=== PATIENT | female | born 1965 | race African-American/Black ===

== ENCOUNTER 2018-02-27 11:16 | Emergency (ER) | payer OTHER, MEDICAID, SELFPAY | END 2018-02-27 14:24 | disposition home or self-care (01) | PROVIDERS: Emergency Provider Emergency Medicine; PCP Family Medicine; Visit Provider Emergency Medicine | DX: R22.1 Localized swelling, mass and lump, neck (principal); M54.2 Cervicalgia | CPT/HCPCS: 80053; 81003; 84145; 84443; 85025; 96361; 96365; 96366; 96375; 99058; 99284; J0295; J1100; J1885 ==

== ENCOUNTER 2018-05-17 17:15 | Emergency (ER) | payer OTHER, MEDICAID, SELFPAY ==
[2018-05-17] MEDS: predniSONE 20 MG TABLET 60 MG PO (17:28)
[2018-05-17 17:33] VITALS: BP 163/78; PULSE 81; RESP 13; TEMP 36.8; O2SAT 96; BMI 32.8
--- NOTE | 2018-05-17 17:45 | ED_ITS ---
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 She was outdoors and states that she felt something landed on her right arm. She did not actually see it but felt a sting, then her arm started to swell and ?bubble?. She states it has been painful, itching, and can feel pressure and tingling into her wrist and hand area. She applied a cold compress. She felt like her throat was starting to get uncomfortable, but she did not have sensation of swelling or dyspnea severe enough that she felt like she needed to use her epinephrine pen. A dose of steroids was ordered for previously and she reports that this is starting to feel little bit better. Currently she denies any tongue or facial swelling or dyspnea. She states that she still feels tight in her hand and tingling with tender swelling in her arm. Of note she has a documented history to Benadryl, but states that she took the medication should she was prescribed at her visit in February, including hydroxyzine, without problem Related Data Home Medications Medication Instructions Recorded Confirmed amlodipine [Norvasc] 10 mg PO QDAY #0 01/10/17 citalopram [Celexa] 40 mg PO QDAY #0 01/10/17 glimepiride [Amaryl] 8 mg PO BID #0 04/17/17 methimazole 5 mg PO QDAY #0 04/17/17 saxagliptin [Onglyza] 2.5 mg PO QDAY #0 04/17/17 Previous Rx's Medication Instructions Recorded azithromycin [Zithromax] 250 mg PO QDAY 5 Days #0 tab 01/10/17 ondansetron 4 mg SUBLINGUAL Q6HP PRN #20 odt 04/17/17 oxycodone-acetaminophen [Endocet] 1 tab PO Q4HP PRN #30 tab 04/17/17 Allergies Allergy/AdvReac Type Severity Reaction Status Date / Time Antihistamines - Alkylamine Allergy Severe Anaphylaxis Verified 05/17/18 17:32 [ANTIHISTAMINES - ALKYLAMINE] peanut [PEANUT] Allergy Intermediate Verified 05/17/18 17:32 diphenhydramine Allergy Unknown Verified 05/17/18 17:32 [DIPHENHYDRAMINE] venom-honey bee Allergy Unknown Verified 05/17/18 17:32 [BEE VENOM (HONEY BEE)] venom-wasp [WASP VENOM] Allergy Unknown Verified 05/17/18 17:32 OTC COUGH MEDICATION Allergy Severe Anaphylaxis Uncoded 05/17/18 17:32 CULTIVATED OAT POLLEN Allergy Unknown Uncoded 02/12/18 12:29 Review of Systems <Luz Stewart PA-C - Last Filed: 05/17/18 21:54> Review of Systems All systems reviewed & are unremarkable except as noted in HPI and below PFSH <Luz Stewart PA-C - Last Filed: 05/17/18 21:54> Comment: non smoker, occ ETOH, no elicit Exam <DEBRA Cullen Last Filed: 05/17/18 21:54> Initial Vital Signs Initial Vital Signs: Vital Signs Temperature 98.3 F 05/17/18 17:33 Pulse Rate 81 05/17/18 17:33 Respiratory Rate 13 05/17/18 17:33 Blood Pressure 163/78 H 05/17/18 17:33 Pulse Oximetry 96 05/17/18 17:33 GENERAL APPEARANCE: Patient sitting comfortably, in no distress. HEENT: EOMI, normal oropharynx, no lip or facial edema noted NECK/THYROID: Neck supple, trachea midline LUNGS: Clear to auscultation bilaterally. HEART: Regular rate and rhythm without murmur, normal S1, S2, no S3 or S4. DERMATOLOGIC: Right posterior forearm there is a tender non circumscribed area of edema, no visit puncture or bite wound, no erythema NEUROLOGIC: Alert and oriented, normal speech, and coordination. MS: R. wrist and hand full ROM <Riley Noe DO - Last Filed: 05/18/18 07:26> Initial Vital Signs Initial Vital Signs: Vital Signs Temperature 98.3 F 05/17/18 17:33 Pulse Rate 81 05/17/18 17:33 Respiratory Rate 13 05/17/18 17:33 Blood Pressure 163/78 H 05/17/18 17:33 Pulse Oximetry 96 07/14/18 17:33 Course <Luz Stewart PA-C - Last Filed: 05/17/18 21:54> Additional Information: After administration of medications patient reports feeling significantly improved and swelling much better in her arm. She was given prednisone to continue at home for the next couple of days as she states that she tends to have a significant histamine reaction Orders Ordered: Discontinued Medications Hydroxyzine Pamoate (Vistaril) 25 mg PO NOW ONE Stop: 05/17/18 18:05 Last Admin: 05/17/18 18:18 Dose: 25 mg Prednisone (Deltasone) 60 mg PO NOW ONE Stop: 05/17/18 17:27 Last Admin: 05/17/18 17:28 Dose: 60 mg Prednisone (Deltasone 20 Mg Prepack) 1 bottle MISC SEEINSTR ONE Stop: 05/17/18 19:12 Last Admin: 05/17/18 19:45 Dose: 1 bottle Vital Signs - 8 hr 05/17/18 17:33 05/17/18 18:34 05/17/18 19:46 Temperature 98.3 F Pulse Rate 81 79 79 Respiratory Rate 13 16 20 Blood Pressure 163/78 H 149/89 H Blood Pressure [Left Arm] 136/71 H Pulse Oximetry 96 96 100 <Riley Noe DO - Last Filed: 05/18/18 07:26> Orders Ordered: Discontinued Medications Hydroxyzine Pamoate (Vistaril) 25 mg PO NOW ONE Stop: 05/17/18 18:05 Last Admin: 05/17/18 18:18 Dose: 25 mg Prednisone (Deltasone) 60 mg PO NOW ONE Stop: 05/17/18 17:27 Last Admin: 05/17/18 17:28 Dose: 60 mg Prednisone (Deltasone 20 Mg Prepack) 1 bottle MISC SEEINSTR ONE Stop: 05/17/18 19:12 Last Admin: 05/17/18 19:45 Dose: 1 bottle Vital Signs - 8 hr 05/17/18 17:33 05/17/18 18:34 05/17/18 19:46 Temperature 98.3 F Pulse Rate 81 79 79 Respiratory Rate 13 16 20 Blood Pressure 163/78 H 149/89 H Blood Pressure [Left Arm] 136/71 H Pulse Oximetry 96 96 100 Discharge Plan Departure Patient Disposition: Home, Self-Care Clinical Impression: Insect bite Discharge Date/Time: 05/17/18 19:46 Interventions: ED Discharge Assessment Last Done: 05/17/18 19:46 Instructions: DI for Insect Bites and Stings Activity Restrictions/Additional Instructions: You do not need to take any more steroid today since we gave this to you in the emergency department. We have given you prednisone pills, 20 mg. You can take 1 tomorrow, and 1 the next day and this should help the histamine reaction. Please discontinue them after 2 days. You should return if you have any acutely worsening symptoms again such as difficulty breathing or facial swelling. Please keep your EpiPen on hand as usual Prescriptions: No Action citalopram [Celexa] 10 mg Tablet 40 mg PO QDAY Qty: 0 RF: 0 amlodipine [Norvasc] 5 MG tablet 10 mg PO QDAY Qty: 0 RF: 0 azithromycin [Zithromax] 250 MG tablet 250 mg PO QDAY 5 Days Qty: 0 RF: 0 methimazole 5 MG tablet 5 mg PO QDAY Qty: 0 RF: 0 glimepiride [Amaryl] 4 MG tablet 8 mg PO BID Qty: 0 RF: 0 saxagliptin [Onglyza] 2.5 MG tablet 2.5 mg PO QDAY Qty: 0 RF: 0 oxycodone-acetaminophen [Endocet] 5 MG/325 MG tablet 1 tab PO Q4HP PRNQty: 30 RF: 0 ondansetron 4 MG tablet,disintegrating 4 mg Sublingual Q6HP PRNQty: 20 RF: 0 Referrals: Riley Aguero MD [Primary Care Provider] - <Riley Noe DO - Last Filed: 05/18/18 07:26> [facility] ED Attending Yeison Attestation: I was available for consultation during this patient's emergency department encounter
[2018-05-17] MEDS: hydrOXYzine pamoate 25 MG CAPSULE PO (18:18)
[2018-05-17 18:34] VITALS: BP 136/71; PULSE 79; RESP 16; O2SAT 96
[2018-05-17] MEDS: predniSONE 20 MG PREPACK 1 BOTTLE MISC (19:45)
[2018-05-17 19:46] VITALS: BP 149/89; PULSE 79; RESP 20; O2SAT 100
== END 2018-05-17 19:46 | disposition home or self-care (01) ==
PROVIDERS: Emergency Provider Internal Medicine; PCP Family Medicine
DX: S40.861A Insect bite (nonvenomous) of right upper arm, initial encounter (principal); W57.XXXA Bitten or stung by nonvenomous insect and other nonvenomous arthropods, initial encounter
CPT/HCPCS: 99282; 99283

== ENCOUNTER → 2018-05-27 08:37 | Outpatient (CLI) | payer OTHER, MEDICAID, SELFPAY ==
--- NOTE | 2018-05-27 | DI.MG.S_ITS ---
BILATERAL DIGITAL SCREENING MAMMOGRAM 3D/2D WITH CAD: 05/27/2018 CLINICAL: Routine screening. Comparison is made to exams dated: 04/17/2017 localization, 04/17/2017 mammogram, 02/28/2017 mammogram, and 07/28/2014 mammogram - [facility]. The tissue of both breasts is predominantly fatty. Current study was also evaluated with a Computer Aided Detection (CAD) system. There are post operative findings in the left breast. No significant masses, calcifications, or other findings are seen in either breast. There has been no significant interval change. IMPRESSION: NEGATIVE There is no mammographic evidence of malignancy. A 1 year screening mammogram is recommended. This exam was interpreted at Station ID: [id number]. NOTE: For mammograms, a report in lay terms will be sent to the patient. Approximately 15% of breast malignancies will not be visualized mammographically. In the management of a palpable breast mass, a negative mammogram must not discourage biopsy of a clinically suspicious lesion. Electronically Signed By: Paulo alba/idalmis:05/28/2018 08:10:07 copy to: Leatha Flower copy to: Ian Beck letter sent: Normal Exam ACR BI-RADS Category 1: Negative 3341F
== END ==
PROVIDERS: PCP Family Medicine; Visit Provider Family Medicine
DX: Z12.31 Encounter for screening mammogram for malignant neoplasm of breast (principal)
CPT/HCPCS: 77063; 77067

== ENCOUNTER → 2019-05-04 07:18 | Outpatient (CLI) | payer OTHER, SELFPAY ==
--- NOTE | 2019-05-04 | DI.MG.S_ITS ---
BILATERAL DIGITAL SCREENING MAMMOGRAM 3D/2D WITH CAD: 05/04/2019 CLINICAL: Routine screening. Comparison is made to exams dated: 05/27/2018 mammogram, 02/28/2017 mammogram, and 07/28/2014 mammogram - [facility]. There are scattered fibroglandular elements in both breasts. Current study was also evaluated with a Computer Aided Detection (CAD) system. There are benign post operative findings in the left breast. No significant masses, calcifications, or other findings are seen in either breast. There has been no significant interval change. IMPRESSION: There is no mammographic evidence of malignancy. A 1 year screening mammogram is recommended. This exam was interpreted at Station ID: [id number]. NOTE: For mammograms, a report in lay terms will be sent to the patient. Approximately 15% of breast malignancies will not be visualized mammographically. In the management of a palpable breast mass, a negative mammogram must not discourage biopsy of a clinically suspicious lesion. Electronically Signed By: John giordano/idalmis:05/04/2019 10:32:04 copy to: Glenn Chavez copy to: Ian Beck letter sent: Normal Exam ACR BI-RADS Category 2: Benign Finding(s) 3342F
== END ==
PROVIDERS: PCP Family Medicine; Visit Provider Internal Medicine
DX: Z12.31 Encounter for screening mammogram for malignant neoplasm of breast (principal)
CPT/HCPCS: 77063; 77067

== ENCOUNTER → 2020-11-29 12:18 | Outpatient (CLI) | payer OTHER, MEDICAID, SELFPAY ==
--- NOTE | 2020-11-29 12:21 | DI.RAD.S_ITS ---
PROCEDURE: XR HAND LT MIN 3V INDICATIONS: LEFT FINGER INJURY, 4TH FINGER, 2-3 WEEKS AGO TECHNIQUE: 3 views of the hand(s) acquired. COMPARISON: None. FINDINGS: Bones: Comminuted fracture of the 4th middle phalanx with minimal displacement. Carpal bones are normally aligned. No suspicious bony lesions. Soft tissues: No suspicious soft tissue calcifications. IMPRESSION: Comminuted, minimally displaced fracture of the 4th middle phalanx. Dictated by: Sharon Flores M.D. on 11/29/2020 at 17:22 Approved by: Sharon Flores M.D. on 11/29/2020 at 17:23
== END ==
PROVIDERS: PCP Student in an Organized Health Care Education/Training Program; Referring Provider Internal Medicine; Visit Provider Internal Medicine
DX: S62.625A Displaced fracture of middle phalanx of left ring finger, initial encounter for closed fracture (principal); X58.XXXA Exposure to other specified factors, initial encounter
CPT/HCPCS: 73130

== ENCOUNTER 2020-11-29 12:32 | Emergency (ER) | payer OTHER, MEDICAID, SELFPAY ==
[2020-11-29] VITALS (29 sets, daily range): BP systolic 135–255; BP diastolic 91–128; PULSE 64–99; RESP 14–18; TEMP 37.1; O2SAT 98–99; BMI 35.6
--- NOTE | 2020-11-29 13:26 | ED_ITS ---
HPI - General Adult General Chief complaint: Hypertension Stated complaint: HIGH BLOOD PRESSURE Time Seen by Provider: 11/29/20 12:45 Source: patient Mode of arrival: Ambulatory Limitations: no limitations History of Present Illness HPI narrative: Patient is a 55-year-old female with history of diabetes hypertension hyperlipidemia presenting today from her doctor's office with elevated blood pressure. She was actually being seen evaluated for left finger injury from a few weeks ago. her finger got caught on the dog leash. It is swollen and tender she actually already had an x-ray. However her blood pressur e has systolic greater than 200. She denies any headache chest pain shortness of breath or any symptoms. She is not taking any medication since October. Apparently her grandmother and she decided to not take anymore of her own medication did not help her grandmother Related Data Home Medications Medication Instructions Recorded Confirmed amlodipine [Norvasc] 10 mg PO QDAY #0 01/10/17 citalopram [Celexa] 40 mg PO QDAY #0 01/10/17 glimepiride [Amaryl] 8 mg PO BID #0 04/17/17 methimazole 5 mg PO QDAY #0 04/17/17 saxagliptin [Onglyza] 2.5 mg PO QDAY #0 04/17/17 Previous Rx's Medication Instructions Recorded azithromycin [Zithromax] 250 mg PO QDAY 5 Days #0 tab 01/10/17 ondansetron 4 mg SUBLINGUAL Q6HP PRN #20 odt 04/17/17 oxycodone-acetaminophen [Endocet] 1 tab PO Q4HP PRN #30 tab 04/17/17 Allergies Allergy/AdvReac Type Severity Reaction Status Date / Time Antihistamines - Alkylamine Allergy Severe Anaphylaxis Verified 11/29/20 12:48 [ANTIHISTAMINES - ALKYLAMINE] peanut [PEANUT] Allergy Intermediate Verified 11/29/20 12:48 diphenhydramine Allergy Unknown Verified 11/29/20 12:48 [DIPHENHYDRAMINE] venom-honey bee Allergy Unknown Verified 11/29/20 12:48 [BEE VENOM (HONEY BEE)] venom-wasp [WASP VENOM] Allergy Unknown Verified 11/29/20 12:48 OTC COUGH MEDICATION Allergy Severe Anaphylaxis Uncoded 05/17/18 17:32 CULTIVATED OAT POLLEN Allergy Unknown Uncoded 02/12/18 12:29 Review of Systems Review of Systems Narrative: GENERAL: Denies chills, fatigue, malaise, fever, sweats, travel HEENT: Denies sinus pain, ear pain, sore throat, difficulty swallowing, neck pain RESPIRATORY: Denies dyspnea, cough, wheezing, hemoptysis, sputum. CARDIOVASCULAR: Denies chest pain, palpitations, orthopnea, edema GASTROINTESTINAL: Denies nausea, vomiting, abdominal pain, diarrhea, constipation, melena. : Denies dysuria, frequency, incontinence, hematuria, urinary retention, flank pain. MUSCULOSKELETAL: See HPI SKIN: No rash, no erythema, no pruritus NEUROLOGIC: Denies weakness, dizziness, headache, numbness, change in speech, confusion PSYCHIATRIC: No concerning psychosocial issues. 12 point review of systems is negative except for those stated above and HPI Patient History Medical History Diabetes HTN (hypertension) Hyperthyroidism Surgical History H/O lumpectomy Social History Smoking Status: Unknown if ever smoked Smoking Status: Unknown if ever smoked alcohol intake frequency: holidays/special occasions only Substance Use Type: does not use Exam Initial Vital Signs Initial Vital Signs: Vital Signs Temperature 98.7 F 11/29/20 12:43 Pulse Rate 98 H 11/29/20 12:43 Respiratory Rate 14 11/29/20 12:43 Blood Pressure 135/91 H 11/29/20 12:43 Pulse Oximetry 98 11/29/20 12:43 GENERAL: Well-appearing, well-nourished and in no acute distress. HEENT: Head atraumatic,EOMI, pupils reactive, face symmetric, moist mucous membranes CARDIOVASCULAR: Regular rate and rhythm without murmurs, rubs or gallops. RESPIRATORY: Breath sounds equal bilaterally, no wheezes rales or rhonchi. ABDOMEN: Soft, nontender. Normoactive bowel sounds all 4 quadrants. No guarding or rebound. EXTREMITIES: Normal range of motion, no clubbing or edema. Neurovascularly intact Left ring finger swollen in splint cap refill less than 2 seconds no erythema NEUROLOGICAL: Alert and oriented x4.Normal gait and speech. Cranial nerves II through XII grossly intact. SKIN: Warm, dry, no laceration, no petechiae, no rashes or lesions. Course Orders Ordered: ED Orders 11/29/20 13:50 Complete Blood Count AUTO DIFF Stat Comprehensive Metabolic Panel Stat Lipase Stat Troponin & CK Cardiac Panel Stat 11/29/20 14:00 EKG-12 Lead Stat Discontinued Medications Amlodipine Besylate (Amlodipine 5 Mg Tablet) 10 mg PO NOW ONE Stop: 11/29/20 15:36 Last Admin: 11/29/20 15:47 Dose: 10 mg Documented by: PABLITO Diltiazem HCl (Diltiazem Cd 180 Mg Cap) 180 mg PO NOW ONE Stop: 11/29/20 14:34 Last Admin: 11/29/20 14:45 Dose: 180 mg Documented by: PABLITO Diltiazem HCl (Diltiazem Cd 180 Mg Cap) 180 mg PO NOW ONE Stop: 11/29/20 15:36 Last Admin: 11/29/20 15:47 Dose: 180 mg Documented by: PABLITO Hydrochlorothiazide (Hydrochlorothiazide 25 Mg Tablet) 50 mg PO NOW ONE Stop: 11/29/20 14:34 Last Admin: 11/29/20 14:56 Dose: 50 mg Documented by: PABLITO Labetalol HCl (Labetalol 20 Mg/4 Ml Syringe) 10 mg IV NOW ONE Stop: 11/29/20 13:33 Last Admin: 11/29/20 13:53 Dose: 10 mg Documented by: PABLITO Labetalol HCl (Labetalol 20 Mg/4 Ml Syringe) 10 mg IV NOW ONE Stop: 11/29/20 14:28 Last Admin: 11/29/20 14:32 Dose: 10 mg Documented by: PABLITO Vital Signs Vital signs: Vital Signs - 8 hr 11/29/20 12:43 11/29/20 12:46 11/29/20 13:00 Temperature 98.7 F Pulse Rate 98 H 99 H 71 Respiratory Rate 14 Blood Pressure 135/91 H 135/91 H Pulse Oximetry 98 98 99 11/29/20 13:01 11/29/20 13:06 11/29/20 13:09 Temperature Pulse Rate 72 79 75 Respiratory Rate Blood Pressure 227/107 H 247/107 H 249/114 H Pulse Oximetry 98 99 98 11/29/20 13:11 11/29/20 13:29 11/29/20 13:30 Temperature Pulse Rate 83 78 75 Respiratory Rate Blood Pressure 239/128 H 227/113 H 230/120 H Pulse Oximetry 99 99 99 11/29/20 13:53 11/29/20 14:00 11/29/20 14:16 Temperature Pulse Rate 68 80 70 Respiratory Rate 15 17 Blood Pressure 230/120 H 245/120 H 237/114 H Pulse Oximetry 99 99 11/29/20 14:20 11/29/20 14:30 11/29/20 14:31 Temperature Pulse Rate 67 78 78 Respiratory Rate 14 16 Blood Pressure 231/110 H 223/126 H 223/126 H Pulse Oximetry 99 99 11/29/20 14:32 11/29/20 14:43 11/29/20 15:00 Temperature Pulse Rate 78 70 67 Respiratory Rate 15 14 Blood Pressure 223/126 H 228/107 H Pulse Oximetry 99 99 11/29/20 15:01 11/29/20 15:10 11/29/20 15:18 Temperature Pulse Rate 67 66 69 Respiratory Rate 17 18 Blood Pressure 241/105 H 219/103 H 219/103 H Pulse Oximetry 99 99 11/29/20 15:20 11/29/20 15:30 11/29/20 15:41 Temperature Pulse Rate 66 66 71 Respiratory Rate 18 17 18 Blood Pressure 223/106 H 205/98 H 228/107 H Pulse Oximetry 99 99 99 11/29/20 16:00 11/29/20 16:30 11/29/20 16:31 Temperature Pulse Rate 64 81 81 Respiratory Rate 18 16 16 Blood Pressure 255/121 H Pulse Oximetry 99 98 98 11/29/20 17:00 11/29/20 17:01 Temperature Pulse Rate 73 74 Respiratory Rate 18 16 Blood Pressure 222/115 H Pulse Oximetry 98 98 Medical Decision Making Lab Data Lab results reviewed: Yes I reviewed the patient's lab results. Result diagrams: 11/29/20 13:50 11/29/20 13:50 Labs: Lab Results 11/29/20 11/29/20 Range/Units 13:50 13:50 WBC 5.0 (4.5-11.0) X10^3/uL RBC 5.78 H (4.0-5.2) X10^6/uL Hgb 12.7 (12.0-16.0) g/dL Hct 40.8 (36-46) % MCV 70.6 L (80-100) fL MCH 22.1 L (26-34) PG MCHC 31.3 (30-36) % RDW 15.7 H (11.6-14.8) % Plt Count 301 (150-400) X10^3/uL Neut % (Auto) 38.2 L (50-75) % Lymph % (Auto) 47.4 H (25-40) % [place] % (Auto) 8.2 (3-14) % Eos % (Auto) 5.4 H (2-4) % Baso % (Auto) 0.8 (0-2) % Neut # (Auto) 1900 (0734-7096) /uL Lymph # (Auto) 2400 (2412-4540) /uL [place] # (Auto) 400 (0-900) /uL Eos # (Auto) 300 (0-450) /uL Baso # (Auto) 0 (0-100) /uL Sodium 139 (137-145) mmol/L Potassium 3.1 L (3.4-5.1) mmol/L Chloride 103 (98-107) mmol/L Carbon Dioxide 32 (22-32) mmol/L BUN 13 (7-17) mg/dL Creatinine 0.66 (0.52-1.04) mg/dL Estimated GFR > 60.0 (>60) mL/min BUN/Creatinine Ratio 19.7 (6-22) Glucose 198 H (70-100) mg/dL Calcium 9.6 (8.4-10.2) mg/dL Total Bilirubin 0.7 (0.2-1.3) mg/dL AST 21 (14-36) IU/L ALT 18 (<35) IU/L Alkaline Phosphatase 102 (38-126) U/L Total Creatine Kinase 52 (30-135) U/L CK-MB (CK-2) TNP CK-MB (CK-2) Rel Index TNP Troponin I < 0.012 (0.01-0.034) ng/mL Total Protein 8.3 H (6.3-8.2) g/dL Albumin 4.5 (3.5-5.0) g/dL Globulin 3.8 (1.7-4.1) g/dL Albumin/Globulin Ratio 1.2 (1.0-2.8) Lipase 90 (23-300) U/L Urine Dip Bedside Urine Glucose 250 mg/dl Bedside Urine Bilirubin - Negative Bedside Urine Ketone - Negative Urine Specific [place] 1.020 Bedside Urine Occult Blood +/- Bedside Urine pH 7 Bedside Urine Protein ++ 100 Bedside Urine Urobilinogen - Negative Bedside Urine Nitrite - Negative Bedside Urine Leukocytes - Negative Esterase Point of care testing: Urine Dip Bedside Urine Glucose 250 mg/dl Bedside Urine Bilirubin - Negative Bedside Urine Ketone - Negative Urine Specific [place] 1.020 Bedside Urine Occult Blood +/- Bedside Urine pH 7 Bedside Urine Protein ++ 100 Bedside Urine Urobilinogen - Negative Bedside Urine Nitrite - Negative Bedside Urine Leukocytes - Negative Esterase Imaging Data Extremity x-ray #1: Radiologist's Impression: PROCEDURE: XR HAND LT MIN 3V INDICATIONS: LEFT FINGER INJURY, 4TH FINGER, 2-3 WEEKS AGO TECHNIQUE: 3 views of the hand(s) acquired. COMPARISON: None. FINDINGS: Bones: Comminuted fracture of the 4th middle phalanx with minimal displacement. Carpal bones are normally aligned. No suspicious bony lesions. Soft tissues: No suspicious soft tissue calcifications. IMPRESSION: Comminuted, minimally displaced fracture of the 4th middle phalanx. Dictated by: Sharon Flores M.D. on 11/29/2020 at 17:22 ECG Data Attestation: I personally reviewed and interpreted this ECG as follows: Prior ECG tracings: not available for review Interpretation: Normal sinus rhythm rate 68 p.r. interval 165 QRS [address] changes Q-wave noted in lead 3 only MDM Narrative Medical decision making narrative: Patient's initial blood pressure was normal with a systolic of 135 however multiple repeats showed consistent systolic the later than 200. Patient is completely asymptomatic. No chest pain shortness of breath headache focal deficits no sign of end-organ damage. However she does have protein in her urine. She has been noncompliant with her medications. I did give her home medications diltiazem 180 and Shiley and hydrochlorothiazide 50 mg on top of 20 mg of labetalol. Still her blood pressure remained systolic greater than 200. I suspect that her blood pressure is chronically elevated and has been for some time. 3:[address] Castanon, updated patient's symptoms test results. She actually has an appointment with PCP tomorrow Dr. Mathis. At this time he states that diltiazem is supposed to be 360 mg recommends giving and other dose of diltiazem and Norvasc 10 mg. He agrees she is completely asymptomatic no systolic remains quite elevated but has close follow-up tomorrow. Discussed at length it is extremely important for patient to take her medication as prescribed. She understands she agrees to take them. She may need cardiology referral and renal artery evaluation apparent seems to be very difficult to control. I discussed all findings with the patient, Education has been performed regarding treatment plan, diagnosis, warning signs and symptoms and all concerns have been addressed. Verbally agree with and understood all of the above. Discharge Plan Departure Patient Disposition: Home Clinical Impression: Hypertension Qualifiers: Hypertension type: essential hypertension Qualified Code(s): I10 - Essential (primary) hypertension Finger fracture, left Qualifiers: Encounter type: initial encounter Finger: ring finger Fracture type: closed Phalanx: unspecified phalanx Fracture alignment: displaced Qualified Code(s): S62.605A - Fracture of unspecified phalanx of left ring finger, initial encounter for closed fracture Instructions: DI for High Blood Pressure Activity Restrictions/Additional Instructions: *You have been diagnosed with hypertension *What to do: YOU MUST TAKE YOUR BLOOD PRESSURE MEDICATION AND FOLLOW UP WITH HER DOCTOR TOMORROW *Continue to take medications as directed Diltiazem 360 mg Norvasc 10 mg once a day Hydrochlorothiazide 50 mg once a day *Follow up with your primary care provider tomorrow *Return to ER if you should have headache, shortness of breath, chest pain, weakness, blurry vision, double vision or any new, worsening or concerning symptoms Prescriptions: No Action citalopram [Celexa] 10 mg tablet 40 mg PO QDAY Qty: 0 RF: 0 amlodipine [Norvasc] 5 MG tablet 10 mg PO QDAY Qty: 0 RF: 0 azithromycin [Zithromax] 250 MG tablet 250 mg PO QDAY 5 Days Qty: 0 RF: 0 methimazole 5 MG tablet 5 mg PO QDAY Qty: 0 RF: 0 glimepiride [Amaryl] 4 MG tablet 8 mg PO BID Qty: 0 RF: 0 saxagliptin [Onglyza] 2.5 MG tablet 2.5 mg PO QDAY Qty: 0 RF: 0 oxycodone-acetaminophen [Endocet] 5 MG/325 MG tablet 1 tab PO Q4HP PRNQty: 30 RF: 0 ondansetron 4 MG tablet,disintegrating 4 mg Sublingual Q6HP PRNQty: 20 RF: 0 Referrals: Deyanira Mathis MD [Primary Care Provider] -
[2020-11-29] MEDS: LABETALOL 20 MG/4 ML SYRINGE 10 MG IV ×2 (13:53→14:32)
[2020-11-29 13:59] LABS: Add Manual Diff / Slide Review NO; Basophils Absolute Auto 0 /uL (0-100); Basophils Percent Auto 0.8 % (0-2); Eosinophils Absolute Auto 300 /uL (0-450); Eosinophils Percent Auto 5.4 % (2-4); Hematocrit 40.8 % (36-46); Hemoglobin 12.7 g/dL (12.0-16.0); Lymphocytes Absolute Auto 2400 /uL (1100-4500); Lymphocytes Percent Auto 47.4 % (25-40); Mean Corpuscular HGB Conc 31.3 % (30-36); Mean Corpuscular Hemoglobin 22.1 PG (26-34); Mean Corpuscular Volume 70.6 fL (80-100); Monocytes Absolute Auto 400 /uL (0-900); Monocytes Percent Auto 8.2 % (3-14); Neutrophils Absolute Auto 1900 /uL (1500-7000); Neutrophils Percent Auto 38.2 % (50-75); Platelet Count 301 X10^3/uL (150-400); Red Blood Cell Count 5.78 X10^6/uL (4.0-5.2); Red Cell Distribution Width 15.7 % (11.6-14.8)
--- NOTE | 2020-11-29 14:05 | PC.NURSE ---
10 mg IV Labetalol given
[2020-11-29 14:12] LABS: Alanine Aminotransferase 18 IU/L (<35); Albumin 4.5 g/dL (3.5-5.0); Albumin Globulin Ratio 1.2 (1.0-2.8); Alkaline Phosphatase 102 U/L (38-126); Aspartate Aminotransferase 21 IU/L (14-36); BUN Creatinine Ratio 19.7 (6-22); Bilirubin Total 0.7 mg/dL (0.2-1.3); Blood Urea Nitrogen 13 mg/dL (7-17); Calcium 9.6 mg/dL (8.4-10.2); Carbon Dioxide 32 mmol/L (22-32); Chloride 103 mmol/L (98-107); Creatine Kinase 52 U/L (30-135); Estimated Glomerular Filt Rate > 60.0 mL/min (>60); Globulin 3.8 g/dL (1.7-4.1); Glucose 198 mg/dL (70-100); HEMOLYSIS < 15 (0-50); Lipase 90 U/L (23-300); Potassium 3.1 mmol/L (3.4-5.1); Sodium 139 mmol/L (137-145); Total Protein 8.3 g/dL (6.3-8.2)
[2020-11-29 14:23] LABS: Troponin I < 0.012 ng/mL (0.01-0.034)
[2020-11-29] MEDS: dilTIAZem CD 180 MG CAP PO ×2 (14:45→15:47)
[2020-11-29] MEDS: hydroCHLOROthiazide 25 MG TABLET 50 MG PO (14:56)
[2020-11-29] MEDS: AMLODIPINE 5 MG TABLET 10 MG PO (15:47)
== END 2020-11-29 17:33 | disposition home or self-care (01) ==
PROVIDERS: Emergency Provider Emergency Medicine; PCP Student in an Organized Health Care Education/Training Program
DX: I10 Essential (primary) hypertension (principal); S62.605A Fracture of unspecified phalanx of left ring finger, initial encounter for closed fracture; X58.XXXA Exposure to other specified factors, initial encounter; E11.9 Type 2 diabetes mellitus without complications; E78.5 Hyperlipidemia, unspecified; E05.90 Thyrotoxicosis, unspecified without thyrotoxic crisis or storm
CPT/HCPCS: 36415; 73130; 80053; 81003; 82550; 83690; 84484; 85025; 93005; 96374; 96376; 99283; 99284

== ENCOUNTER 2021-01-17 11:58 | Inpatient (IN) | payer OTHER, MEDICAID, SELFPAY ==
[2021-01-17] VITALS (27 sets, daily range): BP systolic 139–239; BP diastolic 72–112; PULSE 64–90; RESP 18–24; TEMP 36.3–37; O2SAT 98–100; BMI 35.9
--- NOTE | 2021-01-17 | DI.ECHO.S_ITS ---
[facility] +---------+ : : [address] : [address] : : : : [id number] : : : : Phone: [phone]+ Echocardiogram Report + + :Name: YUE MATA Study Date: 01/18/2021 Height: 62 in : :[facility] ReadingLocation: Weight: 196 lb : : Gender: Female BSA: 1.9 m2 : :: 1965 Age: 55 yrs BP: 113/64 mmHg: :Reason For Study: CVA : :Ordering Physician: BUBBA, : :EULALIO Performed By: Wendy Plummer : :Referring: EULALIO MAC : + + Interpretation Summary The patient was in sinus rhythm with heart rates between 67-86 bpm during the exam. The left ventricle is normal in size. The ejection fraction is estimated to be 60-65%. There is no obvious LV thrombus. The right ventricle is normal in size and function. Injection of contrast documented no interatrial shunt. There is discrete nodular thickening of the left coronary cusp. There is no aortic valve stenosis. No aortic regurgitation is present. The IVC is of normal diameter and collapses greater than 50% with a sniff. This suggests a low right atrial pressure of 3 mm Hg. Procedure: A two-dimensional transthoracic echocardiogram with color flow and Doppler was performed. The study quality was technically adequate. A saline contrast injection was performed to assess for cardiac shunting. There is no prior echocardiogram noted for this patient. The patient was in sinus rhythm with heart rates between 67-86 bpm during the exam. Left Ventricle: The left ventricle is normal in size. There is mild concentric left ventricular hypertrophy. There is no thrombus. The ejection fraction is estimated to be 60-65%. There are no focal wall motion abnormalities. Diastolic parameters suggest a relaxation abnormality of the left ventricle, consistent with probable normal filling pressures. Right Ventricle: The right ventricle is normal in size and function. Atria: The left atrial size is normal. Right atrial size is normal. Injection of contrast documented no interatrial shunt. There is no Doppler evidence for an interatrial shunt. Mitral Valve: The mitral valve is normal in structure and function. There is trace mitral regurgitation. Aortic Valve: The aortic valve is mildly calcified. The aortic valve opens well. There is discrete nodular thickening of the left coronary cusp. There is no aortic valve stenosis. No aortic regurgitation is present. Tricuspid Valve: The tricuspid valve is normal in structure and function. Pulmonary artery pressures cannot be estimated because of the lack of a measurable TR jet velocity but the IVC suggests a CVP of around 3 mmHg. There is trace tricuspid regurgitation. Pulmonic Valve: The pulmonic valve is not well visualized. There is no pulmonic valvular regurgitation. Great Vessels: The aortic root is normal size. The dimensions of the ascending aorta are normal. The IVC is of normal diameter and collapses greater than 50% with a sniff. This suggests a low right atrial pressure of 3 mm Hg. Pericardium/ Pleura There is no pericardial effusion. There is no pleural effusion. MMode/2D Measurements & Calculations LVIDd: 4.1 cm LVOT diam: 2.1 cm LVIDs: 2.7 cm Ao root diam: 2.9 cm FS: 33.2 % asc Aorta Diam: 3.1 cm IVSd: 1.1 cm LVPWd: 1.2 cm LV cho. diameter/BSA (cm/m^2): 2.1 LV sys. diameter/BSA (cm/m^2): 1.4 LA A2 area: 19.2 cm2 RA long axis: 5.2 cm LA A4 area: 17.2 cm2 RA area: 17.5 cm2 LA length (vol): 4.9 cm RA vol: 49.4 ml LA vol: 57.0 ml RA : 26.1 ml/m2 LA vol index: 30.1 ml/m2 IVC diam: 0.91 cm RVD1 (basal): 2.3 cm TAPSE: 1.8 cm Doppler Measurements & Calculations Ao V2 max: 170.0 cm/sec LVOT Max Vidal: 92.1 cm/sec Ao V2 mean: 115.4 cm/sec LV V1 max P.4 mmHg Ao max P.6 mmHg LV V1 VTI: 19.0 cm Ao mean P.0 mmHg LIZ(I,D): 2.1 cm2 Ao V2 VTI: 31.2 cm LIZ(V,D): 1.9 cm2 sev ratio: 0.61 LIZ indexed to BSA (cm^2/m^2): 1.1 MV E max vidal: 63.2 cm/sec PA V2 max: 84.9 cm/sec Med Peak E' Vidal: 4.6 cm/sec PA V2 mean: 57.3 cm/sec E/E' med: 13.8 PA mean P.5 mmHg Lat Peak E' Vidal: 6.0 cm/sec PA pr(Accel): 41.3 mmHg E/E' lat: 10.5 E/e' average: 12.1 MV dec time: 0.24 sec SV([facility]): 65.8 ml Reading Physician:02:13 PM
--- NOTE | 2021-01-17 12:11 | DI.CT.S_ITS ---
PROCEDURE: CT HEAD/BRAIN WO CON INDICATIONS: Left sided weakness since Saturday TECHNIQUE: Noncontrast 4.5 mm thick angled axial sections acquired from the foramen magnum to the vertex, with coronal and sagittal reformats. For radiation dose reduction, the following was used: automated exposure control, adjustment of mA and/or kV according to patient size. COMPARISON: None. FINDINGS: Image quality: Excellent. CSF spaces: Basal cisterns are patent. No extra-axial fluid collections. The ventricles are symmetric in size and shape. Brain: No intracranial bleeds or masses. There is mild cerebral volume loss for age, with resultant ventricular and sulcal prominence. There a small area of hypodensity in the right frontal white matter suspicious for subacute infarct. There mild periventricular and deep white matter chronic small vessel ischemic changes. There is intracranial internal carotid artery atherosclerosis. Skull and face: Calvarium and visualized facial bones appear intact, without suspicious lesions. Sinuses: Visualized sinuses and mastoids are clear. IMPRESSION: A small area of hypodensity in the right frontal white matter suspicious for subacute infarct. If clinical symptoms persist or clinical suspicion for acute stroke is high, MRI is suggested for further evaluation. Dictated by: Sharon Flores M.D. on 01/17/2021 at 13:22 Approved by: Sharon Flores M.D. on 01/17/2021 at 13:24
--- NOTE | 2021-01-17 13:30 | ED.NEUROSD ---
HPI - Neuro Symptoms/Deficit General Chief Complaint: Neuro Symptoms/Deficit Stated Complaint: poss stroke on saturday Time Seen by Provider: 01/17/21 12:14 Source: patient Mode of arrival: Wheelchair Limitations: no limitations History of Present Illness HPI Narrative: Patient is a 55-year-old female history of diabetes, hypertension hyperlipidemia presenting today concerning for stroke. She was well on , 5 days ago. Saturday morning she was talking to her diabetes in her she took to the bromide which she normally does and then she says things went downhill. she had difficulty speaking it seemed to have resolved she was able to go fishing the next day the following day she right stated in then yesterday noticed she had some numbness and tingling in her left arm. When she arrived to the emergency department she was noted to have significant left facial droop and she is quite hypertensive. Speech seems to be improved however her memory is questionable. Onset (ago): day(s) Timing confirmed by: spouse Location: speech and left face History of same: No Severity: moderate Context: sudden onset Associated symptoms: confusion Related Data Home Medications Medication Instructions Recorded Confirmed glimepiride [Amaryl] 8 mg PO BID #0 04/17/17 01/17/21 methimazole 5 mg PO QDAY #0 04/17/17 01/17/21 alogliptin 25 mg PO DAILY 01/17/21 01/17/21 diltiazem HCl 180 mg PO DAILY 01/17/21 01/17/21 empagliflozin 10 mg PO DAILY 01/17/21 01/17/21 hydrochlorothiazide 50 mg PO DAILY 01/17/21 01/17/21 spironolactone 25 mg PO DAILY 01/17/21 01/17/21 terazosin 2 mg PO DAILY 01/17/21 01/17/21 Allergies Allergy/AdvReac Type Severity Reaction Status Date / Time Antihistamines - Alkylamine Allergy Severe Anaphylaxis Verified 01/17/21 12:08 [ANTIHISTAMINES - ALKYLAMINE] peanut [PEANUT] Allergy Intermediate Verified 01/17/21 12:08 diphenhydramine Allergy Unknown Verified 01/17/21 12:08 [DIPHENHYDRAMINE] venom-honey bee Allergy Unknown Verified 11/29/20 12:48 [BEE VENOM (HONEY BEE)] venom-wasp [WASP VENOM] Allergy Unknown Verified 11/29/20 12:48 OTC COUGH MEDICATION Allergy Severe Anaphylaxis Uncoded 05/17/18 17:32 CULTIVATED OAT POLLEN Allergy Unknown Uncoded 02/12/18 12:29 Review of Systems Review of Systems Narrative: GENERAL: Denies chills, fatigue, malaise, fever, sweats, travel HEENT: Denies sinus pain, ear pain, sore throat, difficulty swallowing, neck pain RESPIRATORY: Denies dyspnea, cough, wheezing, hemoptysis, sputum. CARDIOVASCULAR: Denies chest pain, palpitations, orthopnea, edema GASTROINTESTINAL: Denies nausea, vomiting, abdominal pain, diarrhea, constipation, melena. : Denies dysuria, frequency, incontinence, hematuria, urinary retention, flank pain. MUSCULOSKELETAL: Denies weakness, joint pain, or bony pain SKIN: No rash, no erythema, no pruritus NEUROLOGIC: See HPI PSYCHIATRIC: No concerning psychosocial issues. 12 point review of systems is negative except for those stated above and HPI Patient History Medical History Diabetes HTN (hypertension) Hyperthyroidism Surgical History H/O lumpectomy Social History household members: significant other Smoking Status: Never smoker Smoking Status: Former smoker alcohol intake frequency: holidays/special occasions only Substance Use Type: does not use Exam Initial Vital Signs Initial Vital Signs: Vital Signs Temperature 97.4 F L 01/17/21 12:02 Pulse Rate 90 01/17/21 12:02 Respiratory Rate 18 01/17/21 12:02 Blood Pressure 234/112 H 01/17/21 12:02 Pulse Oximetry 99 01/17/21 12:02 GENERAL: Alert 55-year-old female obvious left-sided facial droop and in no acute distress. HEENT: Head atraumatic,EOMI, pupils reactive, face symmetric, moist mucous membranes CARDIOVASCULAR: Regular rate and rhythm without murmurs, rubs or gallops. RESPIRATORY: Breath sounds equal bilaterally, no wheezes rales or rhonchi. ABDOMEN: Soft, nontender. Normoactive bowel sounds all 4 quadrants. No guarding or rebound. EXTREMITIES: Normal range of motion, no clubbing or edema. Neurovascularly intact NEUROLOGICAL: Alert and oriented x4.Normal gait and speech. Cranial nerves II through XII grossly intact. Good [id number], good [id number], strength equal bilaterally, no dysarthria or aphasia, sensation decreased left arm y, no visual changes, left facial droop SKIN: Warm, dry, no laceration, no petechiae, no rashes or lesions. Scores NIH Stroke Scale Level of Conciousness: Alert, keenly responsive Ask month/age: Answers both questions correctly. Open/close eyes, close hand: Performs both tasks correctly Best gaze horizontal: Normal Visual hamm: No visual loss Facial palsy: Minor paralysis, flattened nasolabial fold, asymmetry on smiling Left arm drift: No drift for full 10 sec Right arm drift: No drift for full 10 sec Left leg drift: No drift for full 5 sec Right leg drift: No drift for full 5 sec Limb ataxia: Absent Sensory on face/arms/legs: Mild to moderate sensory loss, can tell touch Best language: No aphasia, normal Dysarthria: Normal Extinction or inattention: No abnormality Total NIH Stroke scale score: 2 Course Orders Ordered: ED Orders 01/17/21 12:11 CT head/brain wo con Stat EKG-12 Lead Stat 01/17/21 13:33 Complete Blood Count AUTO DIFF Stat Comprehensive Metabolic Panel Stat Partial Thromboplastin Time Stat Prothrombin Time INR Stat Troponin & CK Cardiac Panel Stat 01/17/21 13:40 Urinalysis and Microscopic Stat Urine Drug Screen, Rapid Stat 01/17/21 14:51 COVID19 - ADMIT ([employer]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 swab/PCR) Stat Acetaminophen (Acetaminophen 325 Mg Tablet) 650 mg PO Q6HR PRN PRN Reason: Fever Atorvastatin Calcium (Atorvastatin 20 Mg Tablet) 80 mg PO BEDTIME [facility] Calcium Carbonate (Calcium Carbonate 500 Mg Tab) 1,000 mg PO Q4HR PRN PRN Reason: Dyspepsia Diltiazem HCl (Diltiazem Cd 180 Mg Cap) 360 mg PO DAILY [facility] Last Admin: 01/17/21 18:14 Dose: 360 mg Documented by: LATANYA Glimepiride (Glimepiride 2 Mg Tablet) 8 mg PO DAILY@0800 [facility] Hydrochlorothiazide (Hydrochlorothiazide 25 Mg Tablet) 50 mg PO DAILY [facility] Last Admin: 01/17/21 18:14 Dose: 50 mg Documented by: RLAZANI Sodium Chloride (Normal Saline 0.9%) 1,000 mls @ 150 mls/hr IV CONT [facility]IS EDUARDO Last Infusion: 01/17/21 16:12 Dose: 0 mls/hr Documented by: Admin: 01/17/21 13:43 Dose: 150 mls/hr Documented by: GREYSON Labetalol HCl (Labetalol 20 Mg/4 Ml Syringe) 10 mg IV Q4HR PRN PRN Reason: SBP >180 and/or DBP >105 Magnesium Hydroxide (Magnesium Hydroxide 30 Ml Udc) 30 ml PO DAILY PRN PRN Reason: Constipation Methimazole (Methimazole 5 Mg Tablet) 5 mg PO DAILY [facility] EDUARDO Alogliptin 25 Mg (Tablet) 25 mg PO DAILY [facility] EDUARD[facility] Empagliflozin 10 Mg (Tablet) 10 mg PO DAILY [facility] EDUARDO Stored In Pharmacy 1 each PO PRN PRN PRN Reason: PROTOCOL Ondansetron HCl (Ondansetron 4 Mg/2 Ml Inj) 4 mg IV Q8HR PRN PRN Reason: Nausea And Vomiting Terazosin HCl (Terazosin 1 Mg Capsule) 4 mg PO BEDTIME [facility] Discontinued Medications Aspirin (Aspirin 81 Mg Chew Tab) 324 mg PO NOW ONE Stop: 01/17/21 13:29 Last Admin: 01/17/21 13:43 Dose: 324 mg Documented by: GREYSON Hydralazine HCl (Hydralazine 20 Mg/Ml Vial) 10 mg IV NOW ONE Stop: 01/17/21 15:16 Last Admin: 01/17/21 15:59 Dose: 10 mg Documented by: GREYSON Labetalol HCl (Labetalol 20 Mg/4 Ml Syringe) 20 mg IV NOW ONE Stop: 01/17/21 13:47 Last Admin: 01/17/21 15:18 Dose: 20 mg Documented by: GREYSON Vital Signs Vital signs: Vital Signs - 8 hr 01/17/21 12:02 01/17/21 13:49 01/17/21 14:00 Temperature 97.4 F L Pulse Rate 90 68 67 Respiratory Rate 18 21 20 Blood Pressure 234/112 H Pulse Oximetry 99 100 99 01/17/21 14:10 01/17/21 14:16 01/17/21 14:30 Temperature Pulse Rate 69 72 64 Respiratory Rate 19 22 22 Blood Pressure 222/102 H 230/102 H Pulse Oximetry 100 100 100 01/17/21 14:31 01/17/21 14:47 01/17/21 15:00 Temperature Pulse Rate 68 76 68 Respiratory Rate 22 24 20 Blood Pressure 215/84 H 239/109 H Pulse Oximetry 100 99 98 MDM - Neuro Symptoms/Deficit Lab Data Attestation: I reviewed the patient's lab results. Result diagrams: 01/17/21 13:33 01/17/21 13:33 Labs: Lab Results 01/17/21 01/17/21 01/17/21 Range/Units 13:33 13:33 13:33 WBC 5.7 (4.5-11.0) X10^3/uL RBC 5.56 H (4.0-5.2) X10^6/uL Hgb 12.8 (12.0-16.0) g/dL Hct 39.0 (36-46) % MCV 70.2 L (80-100) fL MCH 23.0 L (26-34) PG MCHC 32.7 (30-36) % RDW 15.6 H (11.6-14.8) % Plt Count 264 (150-400) X10^3/uL Neut % (Auto) 47.2 L (50-75) % Lymph % (Auto) 40.9 H (25-40) % [place] % (Auto) 7.8 (3-14) % Eos % (Auto) 3.1 (2-4) % Baso % (Auto) 1.0 (0-2) % Neut # (Auto) 2700 (5361-7032) /uL Lymph # (Auto) 2300 (2393-4431) /uL [place] # (Auto) 400 (0-900) /uL Eos # (Auto) 200 (0-450) /uL Baso # (Auto) 100 (0-100) /uL PT 11.7 (10.1-12.7) SECONDS INR 1.0 (0.9-1.3) APTT 29 (26.4-36.2) SECONDS Sodium 136 L (137-145) mmol/L Potassium 3.7 (3.4-5.1) mmol/L Chloride 102 (98-107) mmol/L Carbon Dioxide 28 (22-32) mmol/L BUN 15 (7-17) mg/dL Creatinine 0.75 (0.52-1.04) mg/dL Estimated GFR > 60.0 (>60) mL/min BUN/Creatinine Ratio 20.0 (6-22) Glucose 207 H (70-100) mg/dL Calcium 9.6 (8.4-10.2) mg/dL Total Bilirubin 0.7 (0.2-1.3) mg/dL AST 23 (14-36) IU/L ALT 17 (<35) IU/L Alkaline Phosphatase 90 (38-126) U/L Total Creatine Kinase 61 (30-135) U/L CK-MB (CK-2) TNP CK-MB (CK-2) Rel Index TNP Troponin I < 0.012 (0.01-0.034) ng/mL Total Protein 7.9 (6.3-8.2) g/dL Albumin 4.4 (3.5-5.0) g/dL Globulin 3.5 (1.7-4.1) g/dL Albumin/Globulin Ratio 1.3 (1.0-2.8) Urine Color Urine Appearance Urine pH (4.5-8.0) Ur Specific [place] (1.000-1.035) Urine Protein (Negative) Urine Glucose (UA) (Negative) g/dL Urine Ketones (NEGATIVE) Urine Occult Blood (Negative) Urine Nitrate (Negative) Urine Bilirubin (NEGATIVE) Urine Urobilinogen (0.2) E.U./dL Ur Leukocyte Esterase (NEGATIVE) Urine RBC (0-5/HPF) Urine WBC (0-5/HPF) Ur Squamous Epith Cells (0-5/HPF) Urine Bacteria (None) Ur Culture Indicated? U Opiates 300ng/mL cut (Negative) Ur Oxycodone Screen (Negative) Urine Methadone Screen (Negative) Ur Barbiturates Screen (Negative) U Tricyclic Antidepress (Negative) Ur Phencyclidine Scrn (Negative) Ur Amphetamines Screen (Negative) U Methamphetamines Scrn (Negative) Ur MDMA Scrn (Ecstasy) (Negative) U Benzodiazepines Scrn (Negative) Urine Cocaine Screen (Negative) U Marijuana (THC) Screen (Negative) SARS-CoV-2 (PCR) (Negative) 01/17/21 01/17/21 01/17/21 Range/Units 13:40 13:40 14:51 WBC (4.5-11.0) X10^3/uL RBC (4.0-5.2) X10^6/uL Hgb (12.0-16.0) g/dL Hct (36-46) % MCV (80-100) fL MCH (26-34) PG MCHC (30-36) % RDW (11.6-14.8) % Plt Count (150-400) X10^3/uL Neut % (Auto) (50-75) % Lymph % (Auto) (25-40) % [place] % (Auto) (3-14) % Eos % (Auto) (2-4) % Baso % (Auto) (0-2) % Neut # (Auto) (2807-5368) /uL Lymph # (Auto) (9571-1281) /uL [place] # (Auto) (0-900) /uL Eos # (Auto) (0-450) /uL Baso # (Auto) (0-100) /uL PT (10.1-12.7) SECONDS INR (0.9-1.3) APTT (26.4-36.2) SECONDS Sodium (137-145) mmol/L Potassium (3.4-5.1) mmol/L Chloride (98-107) mmol/L Carbon Dioxide (22-32) mmol/L BUN (7-17) mg/dL Creatinine (0.52-1.04) mg/dL Estimated GFR (>60) mL/min BUN/Creatinine Ratio (6-22) Glucose (70-100) mg/dL Calcium (8.4-10.2) mg/dL Total Bilirubin (0.2-1.3) mg/dL AST (14-36) IU/L ALT (<35) IU/L Alkaline Phosphatase (38-126) U/L Total Creatine Kinase (30-135) U/L CK-MB (CK-2) CK-MB (CK-2) Rel Index Troponin I (0.01-0.034) ng/mL Total Protein (6.3-8.2) g/dL Albumin (3.5-5.0) g/dL Globulin (1.7-4.1) g/dL Albumin/Globulin Ratio (1.0-2.8) Urine Color Yellow Urine Appearance Clear Urine pH 7.0 (4.5-8.0) Ur Specific [place] 1.020 (1.000-1.035) Urine Protein 1+ H (Negative) Urine Glucose (UA) 2+ H (Negative) g/dL Urine Ketones Trace H (NEGATIVE) Urine Occult Blood Negative (Negative) Urine Nitrate Negative (Negative) Urine Bilirubin Negative (NEGATIVE) Urine Urobilinogen 0.2 (0.2) E.U./dL Ur Leukocyte Esterase Negative (NEGATIVE) Urine RBC None seen (0-5/HPF) Urine WBC 0-1/hpf (0-5/HPF) Ur Squamous Epith Cells 0-1 /hpf (0-5/HPF) Urine Bacteria None seen (None) Ur Culture Indicated? Cult not indicated U Opiates 300ng/mL cut Negative (Negative) Ur Oxycodone Screen Negative (Negative) Urine Methadone Screen Negative (Negative) Ur Barbiturates Screen Negative (Negative) U Tricyclic Antidepress Negative (Negative) Ur Phencyclidine Scrn Negative (Negative) Ur Amphetamines Screen Negative (Negative) U Methamphetamines Scrn Negative (Negative) Ur MDMA Scrn (Ecstasy) Negative (Negative) U Benzodiazepines Scrn Negative (Negative) Urine Cocaine Screen Negative (Negative) U Marijuana (THC) Screen Positive H (Negative) SARS-CoV-2 (PCR) Negative (Negative) Point of Care Testing Glucose POC [address] scan - head: Radiologist's Impression: PROCEDURE: CT HEAD/BRAIN WO CON INDICATIONS: Left sided weakness since Saturday TECHNIQUE: Noncontrast 4.5 mm thick angled axial sections acquired from the foramen magnum to the vertex, with coronal and sagittal reformats. For radiation dose reduction, the following was used: automated exposure control, adjustment of mA and/or kV according to patient size. COMPARISON: None. FINDINGS: Image quality: Excellent. CSF spaces: Basal cisterns are patent. No extra-axial fluid collections. The ventricles are symmetric in size and shape. Brain: No intracranial bleeds or masses. There is mild cerebral volume loss for age, with resultant ventricular and sulcal prominence. There a small area of hypodensity in the right frontal white matter suspicious for subacute infarct. There mild periventricular and deep white matter chronic small vessel ischemic changes. There is intracranial internal carotid artery atherosclerosis. Skull and face: Calvarium and visualized facial bones appear intact, without suspicious lesions. Sinuses: Visualized sinuses and mastoids are clear. IMPRESSION: A small area of hypodensity in the right frontal white matter suspicious for subacute infarct. If clinical symptoms persist or clinical suspicion for acute stroke is high, MRI is suggested for further evaluation. Dictated by: Sharon Flores M.D. on 01/17/2021 at 13:22 ECG Data Attestation: I personally reviewed and interpreted this ECG as follows: Prior ECG tracings: available for review Interpretation: A sinus rhythm rate 68 p.r. interval 168 QRS 82 QTC is 418 mild artifact is noted but no ST changes or T-wave inversions. MDM Narrative Medical decision making narrative: The patient has signs and symptoms consistent with CVA head CT does show probable subacute stroke. Patient is noncompliant with her blood pressure in some of her diabetes medication medication is quite apprehensive in the emergency department. Patient states that she does not respond to labetalol however it is tried, I did bring her blood pressure below 200. Patient is not a tPA candidate she is clearly outside the window and likely had a stroke multiple days ago. 245 p.m. discussed case with her PCP Dr. Mathis who agrees with admission, recommends hydralazine. Discharge Plan Departure Patient Disposition: Admitted As Inpatient Clinical Impression: Cerebrovascular accident Qualifiers: CVA mechanism: other Qualified Code(s): I63.89 - Other cerebral infarction Admit Date/Time: 01/17/21 15:03 Admit Provider: Deyanira Mathis
[2021-01-17] MEDS: SODIUM CHLORIDE 0.9% 1,000 ML 150 ML IV (13:43)
[2021-01-17] MEDS: ASPIRIN 81 MG CHEW TAB 324 MG PO (13:43)
[2021-01-17 13:48] LABS: Bacteria Urine None Seen; RBC Urine None Seen (0-5/HPF)
[2021-01-17 13:50] LABS: Prothrombin Time 11.7 SECONDS (10.1-12.7)
[2021-01-17 13:51] LABS: Appearance Urine UA CLEAR; Bilirubin Urine UA NEGATIVE (NEGATIVE); Color Urine UA YELLOW; Glucose Urine UA 2+ g/dL (Negative); Ketones Urine UA TRACE (NEGATIVE); Leukocyte Esterase Urine UA NEGATIVE (NEGATIVE); Nitrite Urine UA NEGATIVE (Negative); Occult Blood Urine UA NEGATIVE (Negative); Protein Urine UA 1+ (Negative); Urobilinogen Urine UA 0.2 E.U./dL (0.2)
[2021-01-17 13:52] LABS: PTT Partial Thromboplastin Tim 29 SECONDS (26.4-36.2)
[2021-01-17 13:54] LABS: Add Manual Diff / Slide Review NO; Basophils Absolute Auto 100 /uL (0-100); Eosinophils Absolute Auto 200 /uL (0-450); Eosinophils Percent Auto 3.1 % (2-4); Hemoglobin 12.8 g/dL (12.0-16.0); Lymphocytes Absolute Auto 2300 /uL (1100-4500); Lymphocytes Percent Auto 40.9 % (25-40); Mean Corpuscular HGB Conc 32.7 % (30-36); Mean Corpuscular Volume 70.2 fL (80-100); Monocytes Absolute Auto 400 /uL (0-900); Monocytes Percent Auto 7.8 % (3-14); Neutrophils Absolute Auto 2700 /uL (1500-7000); Neutrophils Percent Auto 47.2 % (50-75); Platelet Count 264 X10^3/uL (150-400); Red Blood Cell Count 5.56 X10^6/uL (4.0-5.2); Red Cell Distribution Width 15.6 % (11.6-14.8); White Blood Cell Count 5.7 X10^3/uL (4.5-11.0)
[2021-01-17 13:56] LABS: Alanine Aminotransferase 17 IU/L (<35); Albumin 4.4 g/dL (3.5-5.0); Albumin Globulin Ratio 1.3 (1.0-2.8); Alkaline Phosphatase 90 U/L (38-126); Aspartate Aminotransferase 23 IU/L (14-36); Bilirubin Total 0.7 mg/dL (0.2-1.3); Blood Urea Nitrogen 15 mg/dL (7-17); Calcium 9.6 mg/dL (8.4-10.2); Carbon Dioxide 28 mmol/L (22-32); Chloride 102 mmol/L (98-107); Creatine Kinase 61 U/L (30-135); Estimated Glomerular Filt Rate > 60.0 mL/min (>60); Globulin 3.5 g/dL (1.7-4.1); Glucose 207 mg/dL (70-100); HEMOLYSIS < 15 (0-50); Potassium 3.7 mmol/L (3.4-5.1); Sodium 136 mmol/L (137-145); Total Protein 7.9 g/dL (6.3-8.2)
[2021-01-17 13:57] LABS: UR Morphine/Opiate cutoff 300 Negative (Negative); Ur Creatinine Normal (Normal); Ur Specific Gravity Normal (Normal); Urine Amphetamines Negative (Negative); Urine Barbiturates Negative (Negative); Urine Benzodiazepines Negative (Negative); Urine Cocaine Negative (Negative); Urine MDMA Negative (Negative); Urine Methadone Negative (Negative); Urine Methamphetamines Negative (Negative); Urine Oxycodone Negative (Negative); Urine Phencyclidine Negative (Negative); Urine Tetrahydrocannabinol Positive (Negative); Urine Tricyclic Antidepressant Negative (Negative); Urine pH Normal (Normal)
[2021-01-17 14:00] LABS: Squamous Epithelial Cell Urine 0-1 /HPF (0-5/HPF); WBC Urine 0-1/HPF (0-5/HPF)
[2021-01-17 14:01] LABS: Culture Indicated Urine Cult Not Indicated
[2021-01-17 14:07] LABS: Troponin I < 0.012 ng/mL (0.01-0.034)
[2021-01-17] MEDS: LABETALOL 20 MG/4 ML SYRINGE IV (15:18)
[2021-01-17] MEDS: HYDRALAZINE 20 MG/ML VIAL 10 MG IV (15:59)
[2021-01-17 16:09] LABS: COVID19 - ADMIT (NP swab/PCR) Negative (Negative)
--- NOTE | 2021-01-17 17:31 | P.HP_ITS ---
History of Present Illness History of Present Illness Date Patient Seen: 01/17/21 Time Patient Seen: 17:31 Chief complaint: poss stroke on saturday Narrative: 55-year-old female with hypertension, diabetes mellitus type 2, and hyperlipidemia is admitted from the ED secondary to a right frontal subacute infarct. History is obtained from patient and the medical record. 5 days prior to presentation, she started noticing garbled speech when she awoke and was walking like an old lady with a shuffling gait. Worried that she was having side effects from her medications, she stopped all of her pills the following morning and went fishing. On that day, she noticed that she had some numbness and tingling in her left arm and continued to have slurred speech. Symptoms did not improve over the next few days and so she called the clinic and came into the ED upon direction from the triage nurse. In the ED she was noted to have a significant left-sided facial droop, confusion, and a blood pressure of 234/112. CT head showed a small area of hypodensity in the right frontal monitor, consistent with a subacute infarct. Lab workup positive for THC and negative for COVID. She also had low MCV/MCH, consistent with her baseline of 70/22. She was given 20 mg of IV labetalol and 10 mg of IV hydralazine before being transferred to the floor; SBP dropped below 200 after these doses. Reports that she now feels better, speech is less slurred and she is less confused. Patient has a history of not taking her medications, most recently between October 2020 and November 2020 after her grandmother . Had a clinic visit at that time that revealed a blood pressure of 230/140; she was sent directly to the ED for malignant hypertension workup. Was referred to cardiology after that at her follow-up appointment but has not followed up with them. Reports that they called her but that she didn't return their phone call. She does not tolerate lisinopril or losartan. She has a poor response to labetalol and metoprolol. Does not like to take her diabetic medications because she feels groggy and slow. Does not like to take her diabetic medications with her antihypertensives. Has atorvastatin at home but does not take it. She is fearful of the side effects of so many medications. Denies previous history of stroke. Past medical history: Diabetes mellitus type 2 Hypertension Hyperlipidemia Hyperthyroidism Anxiety Abnormal mammogram Past surgical history: Rhinoplasty Lithotripsy Tonsillectomy and adnoidectomy Family history: Maternal grandmother: Diabetes, stroke Mother: possible cancer of unknown type Father: Diabetes mellitus type 2 Sister: Thyroid disease daughter: Healthy Social history: Single, 1 daughter. Lives at home with Herminio, partner. 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 Eighteen years of education. Patient History Medical History Diabetes HTN (hypertension) Hyperthyroidism Surgical History H/O lumpectomy Family & Social History Social History: household members significant other Prior Living Arrangements Apartment/Condo Safety & Behavioral: Feels Safe in Current Yes Environment Been Physically Hurt or No Threatened By a Person Suicidal Ideation Description None Suicide Plan Description No Plan Tobacco & Substance use: Smoking Status Never smoker alcohol intake frequency holiday/special occasion Substance Use Type marijuana Meds Home Medications and Allergies Home Medications Medication Instructions Recorded Confirmed Type glimepiride [Amaryl] 8 mg PO BID #0 04/17/17 01/17/21 History methimazole 5 mg PO QDAY #0 04/17/17 01/17/21 History alogliptin 25 mg PO DAILY 01/17/21 01/17/21 History diltiazem HCl 180 mg PO DAILY 01/17/21 01/17/21 History empagliflozin 10 mg PO DAILY 01/17/21 01/17/21 History hydrochlorothiazide 50 mg PO DAILY 01/17/21 01/17/21 History spironolactone 25 mg PO DAILY 01/17/21 01/17/21 History terazosin 2 mg PO DAILY 01/17/21 01/17/21 History Allergies Allergy/AdvReac Type Severity Reaction Status Date / Time Antihistamines - Alkylamine Allergy Severe Anaphylaxis Verified 01/17/21 12:08 [ANTIHISTAMINES - ALKYLAMINE] peanut [PEANUT] Allergy Intermediate Verified 01/17/21 12:08 diphenhydramine Allergy Unknown Verified 01/17/21 12:08 [DIPHENHYDRAMINE] venom-honey bee Allergy Unknown Verified 11/29/20 12:48 [BEE VENOM (HONEY BEE)] venom-wasp [WASP VENOM] Allergy Unknown Verified 11/29/20 12:48 OTC COUGH MEDICATION Allergy Severe Anaphylaxis Uncoded 05/17/18 17:32 CULTIVATED OAT POLLEN Allergy Unknown Uncoded 02/12/18 12:29 Review of Systems Review of Systems ROS: Yes All systems reviewed with the patient and are negative except as otherwise documented Exam Vital Signs (past 8 hours): - 01/17/21 12:02 01/17/21 13:49 01/17/21 14:00 Temperature 97.4 F L Pulse Rate 90 68 67 Respiratory Rate 18 21 20 Blood Pressure 234/112 H Pulse Oximetry 99 100 99 01/17/21 14:10 01/17/21 14:16 01/17/21 14:30 Temperature Pulse Rate 69 72 64 Respiratory Rate 19 22 22 Blood Pressure 222/102 H 230/102 H Pulse Oximetry 100 100 100 01/17/21 14:31 01/17/21 14:47 01/17/21 15:00 Temperature Pulse Rate 68 76 68 Respiratory Rate 22 24 20 Blood Pressure 215/84 H 239/109 H Pulse Oximetry 100 99 98 01/17/21 15:16 01/17/21 15:18 01/17/21 15:19 Temperature Pulse Rate 66 69 71 Respiratory Rate 18 19 Blood Pressure 232/107 H 239/107 H 239/107 H Pulse Oximetry 98 98 01/17/21 15:29 01/17/21 15:30 01/17/21 15:31 Temperature Pulse Rate 73 71 73 Respiratory Rate 22 24 24 Blood Pressure 198/94 H Pulse Oximetry 99 99 99 01/17/21 15:44 01/17/21 15:46 01/17/21 15:59 Temperature Pulse Rate 66 64 65 Respiratory Rate 20 18 Blood Pressure 218/100 H 217/100 H 219/102 H Pulse Oximetry 100 99 01/17/21 16:00 01/17/21 16:05 01/17/21 16:08 Temperature Pulse Rate 66 66 65 Respiratory Rate 20 19 Blood Pressure 219/102 H 231/96 H 219/102 H Pulse Oximetry 99 01/17/21 16:16 01/17/21 16:25 01/17/21 17:06 Temperature 98.6 F Pulse Rate 75 66 Respiratory Rate 20 20 Blood Pressure 225/87 H 196/92 H 196/9 H Pulse Oximetry 100 99 Oxygen Delivery Method Room Air Oxygen Flow Rate 0 Narrative Exam Narrative: GENERAL: Alert and oriented, appearing stated age and in no acute distress, left-sided facial droop. HEENT: Head normocephalic/atraumatic. Pupils equal, round, and reactive to light and accomodation. Extraocular muscles intact. Tympanic membranes clear. Nasal mucosa moist, septum midline. Oral mucosa moist, no lesions. Neck soft and supple, no lymphadenopathy. LUNGS: Clear to ausculation bilaterally, no wheezes, rhonchi or rales. CV: Normal S1 and S2 with regular rate and rhythm, no audible murmurs, rubs or gallops. ABDOMEN: Soft, non-tender, non-distended, no organomegaly. Positive bowel sounds. EXTREMITIES: No clubbing, cyanosis, or edema. NEURO: Cranial nerve deficits include slurred speech, left-sided facial hemiparesis, and left-sided shoulder shrug weakness. No dysarthria, aphasia. Reduced left-sided [id number]. Good [id number]. Left upper extremity strength, 3/5. Otherwise, 5/5 and symmetric. Sensation intact in the left upper extremity PSYCH: Alert and oriented x 3. SKIN: No concerning lesions. Objective Labs Result Diagrams: 01/17/21 13:33 01/17/21 13:33 Labs: Laboratory Results - last 24 hr 01/17/21 01/17/21 01/17/21 13:33 13:33 13:33 WBC 5.7 RBC 5.56 H Hgb 12.8 Hct 39.0 MCV 70.2 L MCH 23.0 L MCHC 32.7 RDW 15.6 H Plt Count 264 Neut % (Auto) 47.2 L Lymph % (Auto) 40.[address] % (Auto) 7.8 Eos % (Auto) 3.1 Baso % (Auto) 1.0 Neut # (Auto) 2700 Lymph # (Auto) 2300 [place] # (Auto) 400 Eos # (Auto) 200 Baso # (Auto) 100 PT 11.7 INR 1.0 APTT 29 Sodium 136 L Potassium 3.7 Chloride 102 Carbon Dioxide 28 BUN 15 Creatinine 0.75 Estimated GFR > 60.0 BUN/Creatinine Ratio 20.0 Glucose 207 H Calcium 9.6 Total Bilirubin 0.7 AST 23 ALT 17 Alkaline Phosphatase 90 Total Creatine Kinase 61 CK-MB (CK-2) TNP CK-MB (CK-2) Rel Index TNP Troponin I < 0.012 Total Protein 7.9 Albumin 4.4 Globulin 3.5 Albumin/Globulin Ratio 1.3 Urine Color Urine Appearance Urine pH Ur Specific [place] Urine Protein Urine Glucose (UA) Urine Ketones Urine Occult Blood Urine Nitrate Urine Bilirubin Urine Urobilinogen Ur Leukocyte Esterase Urine RBC Urine WBC Ur Squamous Epith Cells Urine Bacteria Ur Culture Indicated? U Opiates 300ng/mL cut Ur Oxycodone Screen Urine Methadone Screen Ur Barbiturates Screen U Tricyclic Antidepress Ur Phencyclidine Scrn Ur Amphetamines Screen U Methamphetamines Scrn Ur MDMA Scrn (Ecstasy) U Benzodiazepines Scrn Urine Cocaine Screen U Marijuana (THC) Screen SARS-CoV-2 (PCR) 01/17/21 01/17/21 01/17/21 13:40 13:40 14:51 WBC RBC Hgb Hct MCV MCH MCHC RDW Plt Count Neut % (Auto) Lymph % (Auto) [place] % (Auto) Eos % (Auto) Baso % (Auto) Neut # (Auto) Lymph # (Auto) [place] # (Auto) Eos # (Auto) Baso # (Auto) PT INR APTT Sodium Potassium Chloride Carbon Dioxide BUN Creatinine Estimated GFR BUN/Creatinine Ratio Glucose Calcium Total Bilirubin AST ALT Alkaline Phosphatase Total Creatine Kinase CK-MB (CK-2) CK-MB (CK-2) Rel Index Troponin I Total Protein Albumin Globulin Albumin/Globulin Ratio Urine Color Yellow Urine Appearance Clear Urine pH 7.0 Ur Specific [place] 1.020 Urine Protein 1+ H Urine Glucose (UA) 2+ H Urine Ketones Trace H Urine Occult Blood Negative Urine Nitrate Negative Urine Bilirubin Negative Urine Urobilinogen 0.2 Ur Leukocyte Esterase Negative Urine RBC None seen Urine WBC 0-1/hpf Ur Squamous Epith Cells 0-1 /hpf Urine Bacteria None seen Ur Culture Indicated? Cult not indicated U Opiates 300ng/mL cut Negative Ur Oxycodone Screen Negative Urine Methadone Screen Negative Ur Barbiturates Screen Negative U Tricyclic Antidepress Negative Ur Phencyclidine Scrn Negative Ur Amphetamines Screen Negative U Methamphetamines Scrn Negative Ur MDMA Scrn (Ecstasy) Negative U Benzodiazepines Scrn Negative Urine Cocaine Screen Negative U Marijuana (THC) Screen Positive H SARS-CoV-2 (PCR) Negative Assessment & Plan Assessment & Plan narrative: 55-year-old female admitted with 5 days left-sided facial droop, decreased left arm sensation in the setting of uncontrolled hypertension and noncompliance of medication. Arm is now regaining sensation. 1. CVA, subacute, new Plan: Patient is 5 days past her initial symptoms. She is outside of the window for tPA. Will work on blood pressure control with a goal of less than 140/90. Will restart her usual home medications as she normally has control of her blood pressure when she takes them. IV labetalol and hydralazine in subsequent order for BP greater than 180/105. MRI stroke protocol to determine ischemic versus hemorrhagic etiology. Suspect ischemic, if so, will start Lovenox 40 mg subQ daily tomorrow. In the meantime SCDs to level of bilateral thighs. Will also check echo and restart atorvastatin 80 mg p.o. q.h.s. Hopefu l that she will be able to tolerate a statin in the hospital. Will also get a swallow evaluation and start PT/OT. If unable to get blood pressure control by the morning, will consult cardiology. 2. Hypertension, chronic Plan: As above. 3. Diabetes mellitus type 2, uncontrolled Plan: Patient is reporting intolerable side effects on maximum doses of 3 oral agents. Will transition to insulin in the hospital setting and see if that improves her side effects and glycemic control. Will start with Lantus 10 units subQ q.h.s. and aspart per sliding scale with meals. Plan will be to refer her to endocrinology as an outpatient for full management. A1c in the morning. 4. Hyperlipidemia, chronic, uncontrolled Plan: Please see #1. 5. Hyperthyroidism, chronic, controlled Plan: Continue home methimazole. TSH in the morning. 6. Anxiety, chronic Plan: Suspect that this is one of the barriers to patient's care as she becomes fearful of taking medications when stressful events happen in her life with her family. Will discuss counseling in the outpatient setting. 7. Low MCV/MCH Plan: Possible sickle cells, manual differentiation with tomorrow's labs. Code: Full DVT prophylaxis: SCDs to bilateral thighs tonight. Will likely and Lovenox tomorrow after MRIs return. COVID: Negative Disposition: Anticipate 2 nights.
[2021-01-17] MEDS: dilTIAZem CD 180 MG CAP 360 MG PO (18:14)
[2021-01-17] MEDS: hydroCHLOROthiazide 25 MG TABLET 50 MG PO (18:14)
--- NOTE | 2021-01-17 19:49 | PC.NURSE ---
Addendum entered by Sandra Villanueva R.N. 01/17/21 22:13: Per Dr Mathis and communication order, give labetalol if SBP> 180 or DBP >105, if not below those parameters follow with hydralazine and notify provider. Original Note: Admission/Shift note: Patient arrived from ED on stretcher, transferred self to inpatient bed without difficulties @ 1625, denies recent hx of falls. NIH: 0. Spoke to Dr Mathis about elevated BP and home meds, gave first dose of meds, see MAR. Pt is AxOx3, can make needs known. Recent injury to left ring finger from dog leash, no edema or ecchymosis noted, splinted and covered with coban. Ambulates to toilet without difficulties. Tele: NSR. Spoke to patient about current hospitalization and home medication usage, reported patients concerns to Dr Mathis. Low fall risk, patient ambulates well. Call light in reach and calls appropriately.
[2021-01-17] MEDS: TERAZOSIN 1 MG CAPSULE 4 MG PO (20:40)
[2021-01-17] MEDS: ATORVASTATIN 20 MG TABLET 80 MG PO (20:41)
[2021-01-18] VITALS (13 sets, daily range): BP systolic 113–145; BP diastolic 61–77; PULSE 75–94; RESP 14–20; TEMP 36.3–36.9; O2SAT 93–98
[2021-01-18 06:13] LABS: Hemoglobin 12.1 g/dL (12.0-16.0); Mean Corpuscular HGB Conc 32.6 % (30-36); Mean Corpuscular Volume 70.6 fL (80-100); Platelet Count 245 X10^3/uL (150-400); Red Blood Cell Count 5.25 X10^6/uL (4.0-5.2); Red Cell Distribution Width 15.2 % (11.6-14.8); White Blood Cell Count 5.2 X10^3/uL (4.5-11.0)
[2021-01-18 06:16] LABS: Hemoglobin A1C% w Est Avg Glu 11.7 % (4.0-6.0)
[2021-01-18 06:22] LABS: BUN Creatinine Ratio 19.6 (6-22); Blood Urea Nitrogen 18 mg/dL (7-17); Calcium 9.7 mg/dL (8.4-10.2); Carbon Dioxide 27 mmol/L (22-32); Chloride 100 mmol/L (98-107); Estimated Glomerular Filt Rate > 60.0 mL/min (>60); Glucose 346 mg/dL (70-100); HEMOLYSIS < 15 (0-50); Potassium 4.1 mmol/L (3.4-5.1); Sodium 133 mmol/L (137-145)
[2021-01-18 06:53] LABS: Thyroid Stimulating Hormone 2.16 uIU/mL (0.47-4.68)
[2021-01-18 07:01] LABS: Anisocytosis 1+; Hypochromasia 1+; Neutrophils Absolute Manual 3640 /uL (3000-5900); Total Cells Counted 100
[2021-01-18 07:02] LABS: Microcytosis 2+
--- NOTE | 2021-01-18 08:43 | P.PN_ITS ---
Subjective Subjective Date Patient Seen: 01/18/21 Time Patient Seen: 08:43 Interval history: Patient had a uneventful night. Blood pressures have been well controlled on her home medication. Reports that she is feeling better, speech is less slurred. Getting some strength back in her left arm. She is not enjoying the food but denies any nausea or vomiting. Has been ambulating around the room with her 4 wheel walker. Denies pain. Reports that her partner could be her linseed oil order filler at home. Exam Vital Signs (past 8 hours): - 01/18/21 01:00 01/18/21 02:00 01/18/21 03:00 Temperature Pulse Rate 87 83 89 Respiratory Rate Blood Pressure 113/64 119/68 134/61 Pulse Oximetry 01/18/21 05:00 01/18/21 07:00 01/18/21 07:15 Temperature 98.3 F 97.8 F Pulse Rate 89 79 84 Respiratory Rate 18 18 Blood Pressure 126/68 136/69 136/71 Pulse Oximetry 97 97 Oxygen Delivery Method Room Air Oxygen Flow Rate 0 Narrative Exam Narrative: GENERAL: Alert and oriented, appearing stated age and in no acute distress, left-sided facial droop. HEENT: Head normocephalic/atraumatic. Pupils equal, round, and reactive to light and accomodation. Extraocular muscles intact. Tympanic membranes clear. Nasal mucosa moist, septum midline. Oral mucosa moist, no lesions. Neck soft and supple, no lymphadenopathy. LUNGS: Clear to ausculation bilaterally, no wheezes, rhonchi or rales. CV: Normal S1 and S2 with regular rate and rhythm, no audible murmurs, rubs or gallops. ABDOMEN: Soft, non-tender, non-distended, no organomegaly. Positive bowel sounds. EXTREMITIES: No clubbing, cyanosis, or edema. NEURO: Cranial nerve deficits include slurred speech, left-sided facial hemiparesis, and left-sided shoulder shrug weakness. No dysarthria, aphasia. Reduced left-sided [id number]. Good [id number]. Left upper extremity strength, 3/5. Otherwise, 5/5 and symmetric. Sensation intact in the left upper extremity PSYCH: Alert and oriented x 3. SKIN: No concerning lesions. Objective Labs Result Diagrams: 01/18/21 05:50 01/18/21 05:50 Labs: Laboratory Results - last 24 hr 01/17/21 01/17/21 01/17/21 13:33 13:33 13:33 WBC 5.7 RBC 5.56 H Hgb 12.8 Hct 39.0 MCV 70.2 L MCH 23.0 L MCHC 32.7 RDW 15.6 H Plt Count 264 Neut % (Auto) 47.2 L Lymph % (Auto) 40.9 H [place] % (Auto) 7.8 Eos % (Auto) 3.1 Baso % (Auto) 1.0 Neut # (Auto) 2700 Lymph # (Auto) 2300 [place] # (Auto) 400 Eos # (Auto) 200 Baso # (Auto) 100 Total Counted Seg Neutrophils % Lymphocytes % (Manual) Monocytes % (Manual) Neutrophils # (Manual) RBC Morphology Hypochromasia Anisocytosis Microcytosis PT 11.7 INR 1.0 APTT 29 Sodium 136 L Potassium 3.7 Chloride 102 Carbon Dioxide 28 BUN 15 Creatinine 0.75 Estimated GFR > 60.0 BUN/Creatinine Ratio 20.0 Glucose 207 H Hemoglobin A1c Calcium 9.6 Total Bilirubin 0.7 AST 23 ALT 17 Alkaline Phosphatase 90 Total Creatine Kinase 61 CK-MB (CK-2) TNP CK-MB (CK-2) Rel Index TNP Troponin I < 0.012 Total Protein 7.9 Albumin 4.4 Globulin 3.5 Albumin/Globulin Ratio 1.3 TSH Urine Color Urine Appearance Urine pH Ur Specific [place] Urine Protein Urine Glucose (UA) Urine Ketones Urine Occult Blood Urine Nitrate Urine Bilirubin Urine Urobilinogen Ur Leukocyte Esterase Urine RBC Urine WBC Ur Squamous Epith Cells Urine Bacteria Ur Culture Indicated? U Opiates 300ng/mL cut Ur Oxycodone Screen Urine Methadone Screen Ur Barbiturates Screen U Tricyclic Antidepress Ur Phencyclidine Scrn Ur Amphetamines Screen U Methamphetamines Scrn Ur MDMA Scrn (Ecstasy) U Benzodiazepines Scrn Urine Cocaine Screen U Marijuana (THC) Screen SARS-CoV-2 (PCR) 01/17/21 01/17/21 01/17/21 13:40 13:40 14:51 WBC RBC Hgb Hct MCV MCH MCHC RDW Plt Count Neut % (Auto) Lymph % (Auto) [place] % (Auto) Eos % (Auto) Baso % (Auto) Neut # (Auto) Lymph # (Auto) [place] # (Auto) Eos # (Auto) Baso # (Auto) Total Counted Seg Neutrophils % Lymphocytes % (Manual) Monocytes % (Manual) Neutrophils # (Manual) RBC Morphology Hypochromasia Anisocytosis Microcytosis PT INR APTT Sodium Potassium Chloride Carbon Dioxide BUN Creatinine Estimated GFR BUN/Creatinine Ratio Glucose Hemoglobin A1c Calcium Total Bilirubin AST ALT Alkaline Phosphatase Total Creatine Kinase CK-MB (CK-2) CK-MB (CK-2) Rel Index Troponin I Total Protein Albumin Globulin Albumin/Globulin Ratio TSH Urine Color Yellow Urine Appearance Clear Urine pH 7.0 Ur Specific [place] 1.020 Urine Protein 1+ H Urine Glucose (UA) 2+ H Urine Ketones Trace H Urine Occult Blood Negative Urine Nitrate Negative Urine Bilirubin Negative Urine Urobilinogen 0.2 Ur Leukocyte Esterase Negative Urine RBC None seen Urine WBC 0-1/hpf Ur Squamous Epith Cells 0-1 /hpf Urine Bacteria None seen Ur Culture Indicated? Cult not indicated U Opiates 300ng/mL cut Negative Ur Oxycodone Screen Negative Urine Methadone Screen Negative Ur Barbiturates Screen Negative U Tricyclic Antidepress Negative Ur Phencyclidine Scrn Negative Ur Amphetamines Screen Negative U Methamphetamines Scrn Negative Ur MDMA Scrn (Ecstasy) Negative U Benzodiazepines Scrn Negative Urine Cocaine Screen Negative U Marijuana (THC) Screen Positive H SARS-CoV-2 (PCR) Negative 01/18/21 01/18/21 01/18/21 05:50 05:50 05:50 WBC RBC Hgb Hct MCV MCH MCHC RDW Plt Count Neut % (Auto) Lymph % (Auto) [place] % (Auto) Eos % (Auto) Baso % (Auto) Neut # (Auto) Lymph # (Auto) [place] # (Auto) Eos # (Auto) Baso # (Auto) Total Counted Seg Neutrophils % Lymphocytes % (Manual) Monocytes % (Manual) Neutrophils # (Manual) RBC Morphology Hypochromasia Anisocytosis Microcytosis PT INR APTT Sodium 133 L Potassium 4.1 Chloride 100 Carbon Dioxide 27 BUN 18 H Creatinine 0.92 Estimated GFR > 60.0 BUN/Creatinine Ratio 19.6 Glucose 346 H D Hemoglobin A1c 11.7 H Calcium 9.7 Total Bilirubin AST ALT Alkaline Phosphatase Total Creatine Kinase CK-MB (CK-2) CK-MB (CK-2) Rel Index Troponin I Total Protein Albumin Globulin Albumin/Globulin Ratio TSH 2.16 Urine Color Urine Appearance Urine pH Ur Specific [place] Urine Protein Urine Glucose (UA) Urine Ketones Urine Occult Blood Urine Nitrate Urine Bilirubin Urine Urobilinogen Ur Leukocyte Esterase Urine RBC Urine WBC Ur Squamous Epith Cells Urine Bacteria Ur Culture Indicated? U Opiates 300ng/mL cut Ur Oxycodone Screen Urine Methadone Screen Ur Barbiturates Screen U Tricyclic Antidepress Ur Phencyclidine Scrn Ur Amphetamines Screen U Methamphetamines Scrn Ur MDMA Scrn (Ecstasy) U Benzodiazepines Scrn Urine Cocaine Screen U Marijuana (THC) Screen SARS-CoV-2 (PCR) 01/18/21 05:50 WBC 5.2 RBC 5.25 H Hgb 12.1 Hct 37.0 MCV 70.6 L MCH 23.0 L MCHC 32.6 RDW 15.2 H Plt Count 245 Neut % (Auto) Lymph % (Auto) [place] % (Auto) Eos % (Auto) Baso % (Auto) Neut # (Auto) Lymph # (Auto) [place] # (Auto) Eos # (Auto) Baso # (Auto) Total Counted 100 Seg Neutrophils % 70.0 Lymphocytes % (Manual) 28.0 Monocytes % (Manual) 2.0 Neutrophils # (Manual) 3640 RBC Morphology Not Reportable Hypochromasia 1+ H Anisocytosis 1+ H Microcytosis 2+ H PT INR APTT Sodium Potassium Chloride Carbon Dioxide BUN Creatinine Estimated GFR BUN/Creatinine Ratio Glucose Hemoglobin A1c Calcium Total Bilirubin AST ALT Alkaline Phosphatase Total Creatine Kinase CK-MB (CK-2) CK-MB (CK-2) Rel Index Troponin I Total Protein Albumin Globulin Albumin/Globulin Ratio TSH Urine Color Urine Appearance Urine pH Ur Specific [place] Urine Protein Urine Glucose (UA) Urine Ketones Urine Occult Blood Urine Nitrate Urine Bilirubin Urine Urobilinogen Ur Leukocyte Esterase Urine RBC Urine WBC Ur Squamous Epith Cells Urine Bacteria Ur Culture Indicated? U Opiates 300ng/mL cut Ur Oxycodone Screen Urine Methadone Screen Ur Barbiturates Screen U Tricyclic Antidepress Ur Phencyclidine Scrn Ur Amphetamines Screen U Methamphetamines Scrn Ur MDMA Scrn (Ecstasy) U Benzodiazepines Scrn Urine Cocaine Screen U Marijuana (THC) Screen SARS-CoV-2 (PCR) PFSH Medical History Diabetes HTN (hypertension) Hyperthyroidism Surgical History H/O lumpectomy Social History household members: significant other Smoking Status: Never smoker Assessment & Plan Assessment & Plan narrative: 55-year-old female admitted with 5 days left-sided facial droop, decreased left arm sensation in the setting of uncontrolled hypertension and noncompliance of medication. Arm is now regaining sensation. HD#1. 1. CVA, subacute, new Plan: MR stroke protocol showed ichemic stroke. Will start lovenox and continue SCDs. Blood pressure well controlled overnight, will continue home medications and continue to watch closely. Awaiting echo. Continue atorvastatin 80 mg PO qhs. Continue PT/OT. Will need stroke rehab as outpatient. 2. Hypertension, chronic Plan: As above. 3. Diabetes mellitus type 2, uncontrolled -A1c 11.7. -Nursing reports preprandial BS in the 300s. Plan: Transitioning to insulin. Plan to start lantus tonight and continue sliding scale aspart. Plan will be to refer to endocrinology as an outpatient. 4. Hyperlipidemia, chronic, uncontrolled Plan: Atorvastatin. 5. Hyperthyroidism, chronic, controlled -TSH 2.16 Plan: Continue home methimazole. 6. Anxiety, chronic Plan: Plan for counseling in the outpatient setting. 7. Low MCV/MCH Plan: Peripheral smear showed hypochromasia, anisocytosis, and microcytosis. Will check iron, TIBC, folate, ferritin, and hemoglobin electrophoresis to evaluate etiology. Code: Full DVT prophylaxis: SCDs to bilateral thighs and lovenox. COVID: Negative Disposition: Possibly home tomorrow on home health with outpatient PT/OT.
[2021-01-18] MEDS: dilTIAZem CD 180 MG CAP 360 MG PO (08:55)
[2021-01-18] MEDS: INSULIN ASPART 100 UNIT/ML INSULN PEN SUBCUT ×4 (08:55→20:40)
[2021-01-18] MEDS: hydroCHLOROthiazide 25 MG TABLET 50 MG PO (08:55)
[2021-01-18] MEDS: methIMAzole 5 MG TABLET PO (08:55)
--- NOTE | 2021-01-18 09:52 | PT.IIE ---
Current Diagnoses Cerebral infarction, unspecified (01/17/21) Surgical History (Last Reviewed 01/17/21 @ 13:36 by Kendy Martins DO) H/O lumpectomy Medical History (Last Reviewed 01/17/21 @ 13:36 by Kendy Martins DO) Diabetes HTN (hypertension) Hyperthyroidism Physical Therapy Inpatient Evaluation/Re-Eval M1 PT/OT-IP Prior Functional Status Start: 01/18/21 11:35 Freq: NEEDED Status: Active Protocol: Document 01/18/21 09:52 AB (Rec: 01/18/21 11:52 AB [id number]) Medical Review Prior Functional Status Medical History Reviewed Yes Communication able to make needs known Mobility and Gait pt stated that she is independent with all mobilities and ambulation without AD but uses a 4WW for outdoor mobility. stated that she started using a 4WW last 2015 when she got sepsis Social History Household Members significant other Living Arrangements Apartment/Condo Number of Stairs To Enter/Railing? has 42 steps to get to her 3rd level apartment Home Environment Standard Height Toilet,Tub/ Shower Home Equipment Four Wheel Walker,Hand Held Shower Employment Status Retired M2 PT-IP Current Condition Start: 01/18/21 11:35 Freq: NEEDED Status: Active Protocol: Document 01/18/21 09:52 AB (Rec: 01/18/21 11:52 AB [email or web address]) Physical Therapy Current Condition Current Condition Evaluation Date 01/18/21 Treatment Diagnosis CVA; difficulty in walking Onset Date 01/17/21 M3 PT-IP Subjective Start: 01/18/21 11:35 Freq: NEEDED Status: Active Protocol: Document 01/18/21 09:52 AB (Rec: 01/18/21 11:52 AB [email or web address]) Subjective Physical Therapy Visit Type Type Initial Evaluation Visit Start Time 09:52 Visit Stop Time 10:21 Total Visit Minutes 29 Number of TEAM SUPERVISOR Visits 0 Physical Therapy Visit Comments Patient Comments pt is agreeable to do PT M4 PT-IP Mobility and Gait Start: 01/18/21 11:35 Freq: NEEDED Status: Active Protocol: Document 01/18/21 09:52 AB (Rec: 01/18/21 11:52 AB [id number]) PT-Bed Mobility Assessment Supine to Sit Supine to Sit Standby Assistance PT-Transfer Assessment Sit to and From Stand Sit to and from Stand Standby Assistance Equipment Transfer Assistive Device None,Gait Belt Orthotic/Prosthetic Devices or Brace: No Transfers Transfer Destination Chair Transfer Technique ambulated without AD Transfer Ability Level of Assist Contact Guard Assistance Comments Mobility Comments completed supine to sit SBA, sit to stand SBA and ambulated in room without AD CGA. presents with very guarded unsteady antalgic gait. assessed ambulation using FWW SBA . pt stated that she prefers her 4WW. assessed ambulation using 4WW and completed SBA. educated pt on safety and to use 4WW at all time upon d/c. pt agreed. pt completed up/down step stool using 2 side supports/ handles min A and cues for safety especially when descending steps. pt agreed to sit up on chair. call light and table placed within reach. Gait Assessment Gait Gait Assistance Required: Standby Assistance,Contact Guard Assist Distance (Feet) 40 Able to Maintain Weight Bearing Status Yes During Gait Assistive Devices Assistive Device None,Gait Belt,Front Wheeled Walker,4 Wheeled Walker Orthotic/Prosthetic Devices or Brace: No Gait Deviations General Gait Pattern Antalgic,Decreased Stride Length,Decreased Feet Clearance Factors Limiting Gait Function Factors Limiting Gait Function Decreased Activity Tolerance, Decreased Strength,Poor Balance,Poor Safety Awareness Comments Gait Comments pls refer to mobility section for details Stair Climbing Assessment Evaluation Level of Assist On Stairs Minimal Assistance Devices Stair Climbing Assistive Devices Left Railing,Right Railing Technique/Endurance Stair Climbing Direction Ascend and Descend Stair Climbing Technique Step to Step Number of Steps Climbed 1 Query Text: Stair Climbing Set # Repetitions (reps) 2 Comments Stair Climbing Comments pls refer to mobility section for details PT-Balance Assessment Sitting Balance and Reactions Static Sitting Balance Ability Good Dynamic Sitting Balance Ability Good Standing Balance and Reactions Static Standing Balance Ability Fair Dynamic Standing Balance Ability Fair Device Used without AD M5 PT-IP Objective Assessments Start: 01/18/21 11:35 Freq: NEEDED Status: Active Protocol: Document 01/18/21 09:52 AB (Rec: 01/18/21 11:52 AB [id number]) Orientation Orientation/Cognition Level of Alertness Alert Orientation Name,Place,Situation Safety Awareness Decreased Safety Awareness Gross Range of Motion Lower Extremity ROM Assessment Within Functional Limits Strength Lower Extremity Strength Assessment Left Impaired Hip 3+/5 Knee 3+/5 Muscle Tone Muscle Tone WNL Yes M6 PT-IP Treatment Start: 01/18/21 11:35 Freq: NEEDED Status: Active Protocol: Document 01/18/21 09:52 AB (Rec: 01/18/21 11:52 AB [id number]) Physical Therapy Treatment Education Education Provided Safety M7 PT-IP Assessment and Plan Start: 01/18/21 11:35 Freq: NEEDED Status: Active Protocol: Document 01/18/21 09:52 AB (Rec: 01/18/21 11:52 AB [id number]) PT Summary Assessment and Plan Potential Rehabilitation Potential Good Status of Condition at Evaluation Stable Summary Impairments Pain,ROM,Strength,Balance, Sensation,Cognition,Bed Mobility,Transfers,Gait, Activity Tolerance Assessment Summary pt requiring SBA to CGA with ambulation. recommending use of 4WW for ambulation at this time due to pt's decrease LLE strength affecting balance and gait. pt required min A with stair climbing using bilateral rails. pt stated that her significant other can assist her at home if needed. pt will benefit from acute rehab but if pt goes home, will need outpt PT. Goals Bed Mobility Goal Independent Transfer Goal Independent Gait Goal Independent Gait Distance 250 Other Goals up/down 42 steps using bilateral rails SBA Days to Meet Goals 5 Frequency of Treatment Frequency Of Treatment Once a Day Treatment Plan Physical Therapy Treatment Plan Bed Mobility Training,Transfer Training,Gait Training, Therapeutic Exercise,Balance Retraining,Discharge Planning, Hot or Cold Pack,Neuromuscular Re-ed,Coordination Retraining Other Recommendations and Next Treatment standing balance, ambulation Focus Recommendations To Nursing Amount of Assist Needed 1 Person Assist Discharge Recommendations PT Discharge Recommendations Home with Assistance,Acute Rehab,Outpatient PT Other Discharge Recommendations acute rehab vs home with assist with outpt PT Transportation Needs at Discharge Private Vehicle,Wheelchair/ Cabulance
--- NOTE | 2021-01-18 10:25 | PC.NURSE ---
Pt to MRI via w/c by transport for MRI stroke protocol.
--- NOTE | 2021-01-18 10:32 | CM.DANOTE ---
Addendum entered by Charleen Gee R.N. 01/18/21 13:59: Called Whit in admissions at [facility]. Stated that she can do a one time agreement with [employer]. As a plan B, went ahead and faxed her over the referral. She will review. Addendum entered by Charleen Gee R.N. 01/18/21 13:27: Discussed options for discharge to Dr. Mathis. Patient could be a candidate for acute inpatient rehab. P.T. stated this in recommendations. Patient has [employer]. Went ahead and called Natalie at [facility] rehab. Stated, they do take [employer] insurance. Went ahead and faxed over information, per Natalie's request. Faxed face sheet, MRI report, H&P, therapy notes, and medication list for review. Dr. Mathis is discussing options today with patient. Other option is for her to go to a care home facility as well, and certain facilities do accept [employer]. Will meet with patient today or tomorrow to discuss options after Dr. Mathis's visit from today. Original Note: DCP: Case received, EMR reviewed and met with patient. Introduced self and role. Was able to obtain information from patient regarding her baseline activity level prior to hospitalization, as well as her current living situation. Patient is a 55 year old female who admitted yesterday afternoon to the care of the hospitalist team. PCP: Dr. Mathis. Payer: confirmed: [facility]. Patient came to the hospital via private vehicle secondary to having stroke symptoms. According to notes and patient, symptoms started on Saturday. She had CT which noted right frontal infarct. She is supposed to have an MRI today. Patient had been having increased weakness, and awkward gait. Weakness was occurring on her left side. She also has history of diabetes, and at times, non compliance with medications due to how they make her feel. Met with patient in her room. She is alert and oriented, sitting up at the window seat. Stated, lately she feels like she's been walking like an old lady. She is independent at her baseline. She resides in [place] with her significant other, Herminio. She has been driving, using no DME equipment. She is supposed to be working with P.T, as well as O.T, and speech. P: DCP to be available for any needs. MRI will occur today. Will see how she does with the therapy team, and if any resources are recommended. Charleen Gee RN/[employer]
--- NOTE | 2021-01-18 12:16 | PC.NURSE ---
Pt in room receiving Echocardiogram. MRI stroke protocol completed.
--- NOTE | 2021-01-18 13:04 | SLP.IPNOTE ---
Speech Therapist Aspiration precautions Start: 01/17/21 17:51 Freq: ONGOING Status: Active Protocol: Document 01/17/21 17:51 RL (Rec: 01/17/21 19:24 RL [id number]) Document 01/18/21 08:15 CM (Rec: 01/18/21 09:25 CM [id number]) FASTENER TECHNOLOGIST Motor Speech Evaluation Start: 01/18/21 10:24 Freq: Status: Inactive Protocol: Document 01/18/21 11:36 LNK (Rec: 01/18/21 12:01 LNK [id number]) Motor Speech Evaluation Visit Start Time 09:45 Visit Stop Time 10:15 Total Visit Minutes 30 Setting Outpatient Care Patient History Per H&P: 55-year-old female with hypertension, diabetes mellitus type 2, and hyperlipidemia is admitted from the ED secondary to a right frontal subacute infarct . History is obtained from patient and the medical record . 5 days prior to presentation, she started noticing garbled speech when she awoke and was walking like an old lady with a shuffling gait. Worried that she was having side effects from her medications, she stopped all of her pills the following morning and went fishing. On that day, she noticed that she had some numbness and tingling in her left arm and continued to have slurred speech. Symptoms did not improve over the next few days and so she called the clinic and came into the ED upon direction from the triage nurse. In the ED she was noted to have a significant left-sided facial droop, confusion, and a blood pressure of 234/112. CT head showed a small area of hypodensity in the right frontal monitor, consistent with a subacute infarct. MRI indicated multiple foci of restricted diffusion noted in the right frontal lobe compatible with acute infarcts . Mental Status Alert,Responsive,Cooperative Subjective Pt was working with PT in her room. Following PT, pt agreed to assessment. She reported that when she talked, she felt like it was in slow motion and that she needed to work harder to speak. Function Mild Impairment Observation at rest Left side facial droop Pucker WFL Retraction Asymmetry noted on left side Alternating pucker/retraction Slow with decreased ROM on left side Function WFL Observations at rest symmetrical Protrusion WFL Lateralization Mild loss of ROM on left Function WFL Function WFL Quality WNL Loudness WNL,WFL Quality WFL Quality WFL Quality WFL Quality Mild Impairment Comments 3-4 anne-marie words noted to be imprecise in articulation with mild distortion Type of awareness/use Uses consistently Other Stated she needs to speak slowly and deliberately for clear speech Motor Speech Function Mild Impairment Assessment Pt presented with mild dysarthria secondary to frontal lobe CVA. Pt demonstrated a left facial droop,, labial asymmetry with retraction and slow diadochokinesis overall. Lingual and velar movement and strength appeared ro be WFL. Speech was noted to be 100% intelligible. pt reported that extra effort was needed to speak clearly. She described her speaking as in in slow motion but much improved from yesterday. Pt reported no difficulties with expression of thought or understanding others. This FASTENER TECHNOLOGIST observed no obvious s/sx of aphasia. Swallow screened. Appeared to be WFL. Rehabilitation Potential Excellent Treatment Recommended Yes Frequency daily while inpatient Therapy Recommendations speech therapy Short Term Goals Pt education regarding dysarthria and therapeutic exercises to increase ROM and speed of articulation. Pt will understand and demonstrate therapeutic exercises for HEP. Education Described results of evaluation,Patient Understanding,Family Needs More Info ST Therapy Code Fee Billing Start: 01/18/21 10:25 Freq: Status: Active Protocol: Document 01/18/21 11:36 LNK (Rec: 01/18/21 12:01 LNK [email or web address]) Speech Total Visit Minutes 30 ST Charge Code - Fee Therapy Cap Exclusion Modifier No Total Minutes 30 Units (1) 1 Swallowing screen, nursing Start: 01/17/21 12:11 Freq: STAT Status: Active Protocol: Document 01/17/21 16:14 BS (Rec: 01/17/21 16:14 BS [id number]) Nursing Bedside Swallow Eval Is the Patient Awake and Alert? Yes Does the Patient Respond to Verbal Cues? Yes Can the Patient Swallow Own Saliva on Yes Command? Is the Patient Able to be Positioned Yes Upright with Some Head Control? Respiratory Status with no Evidence of Yes Compromise? Does the Patient Display Adequate Saliva Yes Management? Is the patient drooling? Is the patient pooling saliva? Can the patient Cough when Asked? Yes Is Voice Dry, not Wet or Gurgly? Yes Is patient's larynx elevated when Yes touched? Is patient's voice clear and not gurgly? Yes Did patient swallow without coughing or Yes clearing of throat?
[2021-01-18] MEDS: ENOXAPARIN 40 MG/0.4 ML SYRINGE SUBCUT (13:06)
--- NOTE | 2021-01-18 14:01 | OT.IPNOTE ---
Attempted to see pt for second time, first time pt not available due to imaging. Second pt just getting her lunch at this time, therefore pt just wanting to to OT eval in the morning.
--- NOTE | 2021-01-18 14:08 | CM.DPC ---
Addendum entered by Charleen Gee R.N. 01/18/21 14:32: Whit from [facility] called back. She indicated that if patient is stand by assist, [employer] may not cover. Stated that she will hold on to referral, will also see if [facility] submits referral to [place] first. Original Note: DCP Cont: Met with patient. Explained to her the difference between inpatient acute rehab versus fpc. Provided her with a brochure on [facility], and provided her a Medicare Choice List. Stated, I'd rather go to [place]. Let her know that [facility] is an option, and they are reviewing, but [facility] may be a good option for the type of P.T. she will get. She is open to this. She does not want to go to [facility]. She asked this adult protective caseworker, what can I do to have the tools at home so my boy friend can take care of me. This is after she has rehab. Let her know that after her therapy, home health can be ordered, and therapy can occur at home, and they can do teaching for her significant other. She is opened to this idea. She mentioned having guard rails on her bed as well. P:DCP to continue to follow. Referral is at [facility], second option is [facility], but this will depend upon if her insurance authorizes. Charleen Gee RN/[employer]
--- NOTE | 2021-01-18 14:35 | PC.NURSE ---
BP: 136/77. All other vitals stable. Glucose 332, 4 units of lantus given. Denies pain. NIH scale:2. Call light within reach, bed low.
--- NOTE | 2021-01-18 17:51 | DI.MRI.S_ITS ---
PROCEDURE: MR STROKE Pre- and post-contrast brain MRI, non-contrast brain MR angiogram, pre- and postcontrast neck MR angiogram INDICATIONS: CVA TECHNIQUE: Brain: Noncontrast axial T1 spin echo, axial T2 fast spin echo, sagittal and axial FLAIR, coronal T2 fast spin echo, axial gradient echo, axial diffusion and ADC through the brain. After the administration of contrast, axial 3D VIBE of the cranial vasculature and brain. Brain MRA: Non-contrast 3-D time of flight MR angiogram, with multiple gwkelxr-bimpltzby-clygrynsaz (MIP) reformats performed. Neck MRA: Axial and sagittal TruFISP through the neck. Coronal dynamic MR angiogram during administration of contrast in the arterial and venous phases, with 3-dimenstional tanvifg-ycfgaoopf-eexpuowfik (MIP) reformats constructed from subtraction images. COMPARISON: None. FINDINGS: Image quality: Degraded by patient motion artifact. BRAIN: CSF spaces: Ventricles are normal in size and shape. Basal cisterns are patent. No extra-axial fluid collections. Brain: No intracranial bleeds or mass effects. Wagner-white matter interface is normal. Multiple foci of restricted diffusion noted in the right frontal lobe compatible with acute infarcts. Brainstem appears normal. Normal intravascular flow voids are present. No abnormal intracranial enhancement. Skull and face: Calvarial marrow signal is normal. Orbits appear normal. Sinuses: Sinuses and mastoids are clear. BRAIN MR ANGIOGRAM: Image quality severely degraded by patient motion artifact. Normal flow noted in the intracranial internal carotid arteries bilaterally. Normal flow noted in the anterior and middle cerebral arteries bilaterally. Normal flow noted in the intracranial segments of the vertebral arteries bilaterally. Normal flow noted in the basilar artery. Normal flow signal noted in the posterior inferior cerebral arteries, the anterior inferior cerebellar arteries, superior cerebellar arteries in the posterior cerebral arteries bilaterally. No definite vascular stenosis, however [id number] stenosis of be difficult to diagnose given artifact related to motion. NECK MR ANGIOGRAM: Carotids: Great vessels demonstrate a conventional anatomy as they arise from the aortic arch. The origins of the common carotid arteries appear patent. The calibers and courses of both common carotid arteries are normal. The bifurcation regions appear normal bilaterally. The internal carotid arteries demonstrate normal course and caliber. Posterior circulation: The origins of the vertebral arteries appear patent. More superior portions of both vertebral arteries demonstrate normal course and caliber, and join to form a normal appearing basilar artery. Miscellaneous: Subclavian arteries appear patent. Pre-contrast images through the neck show no soft tissue abnormalities. IMPRESSION: Image quality degraded by patient motion artifact. BRAIN MRI: 1. Multiple acute infarcts involving the right frontal lobe. 2. No areas of chronic infarction. 3. No abnormal intracranial mass or suspicious postcontrast enhancement. 4. No intracranial hemorrhage. BRAIN MR ANGIOGRAM: 1. Image quality is severely degraded by patient motion artifact. 2. No gross large vessel occlusion, hemodynamically significant stenosis, vascular dissection or aneurysm within limitations related to motion artifact. NECK MR ANGIOGRAM: Normal examination without evidence of large vessel occlusion, hemodynamically significant vascular stenosis, vascular dissection or aneurysm. Dictated by: Flori Carlson MD, PhD on 01/18/2021 at 11:02 Approved by: Flori Carlson MD, PhD on 01/18/2021 at 11:10
[2021-01-18] MEDS: TERAZOSIN 1 MG CAPSULE 4 MG PO (20:37)
[2021-01-18] MEDS: ATORVASTATIN 20 MG TABLET 80 MG PO (20:37)
[2021-01-18] MEDS: INSULIN GLARGINE 100 UNIT/ML 3ML PEN 10 UNIT SUBCUT (20:38)
[2021-01-19] VITALS (7 sets, daily range): BP systolic 119–137; BP diastolic 65–80; PULSE 85–93; RESP 16–19; TEMP 36.5–37.4; O2SAT 96–98
[2021-01-19 06:04] LABS: Blood Urea Nitrogen 25 mg/dL (7-17); Calcium 9.5 mg/dL (8.4-10.2); Carbon Dioxide 26 mmol/L (22-32); Chloride 100 mmol/L (98-107); Estimated Glomerular Filt Rate 54.8 mL/min (>60); Glucose 295 mg/dL (70-100); HEMOLYSIS < 15 (0-50); Potassium 3.5 mmol/L (3.4-5.1); Sodium 132 mmol/L (137-145)
[2021-01-19 06:06] LABS: Iron 40 ug/dL (37-170)
[2021-01-19 06:08] LABS: Hematocrit 35.9 % (36-46); Hemoglobin 11.6 g/dL (12.0-16.0); Mean Corpuscular HGB Conc 32.3 % (30-36); Mean Corpuscular Hemoglobin 22.9 PG (26-34); Platelet Count 227 X10^3/uL (150-400); Red Blood Cell Count 5.06 X10^6/uL (4.0-5.2); Red Cell Distribution Width 15.5 % (11.6-14.8); White Blood Cell Count 4.7 X10^3/uL (4.5-11.0)
[2021-01-19 06:16] LABS: Total Iron Binding Capacity 337 ug/dL (265-497)
[2021-01-19 06:40] LABS: Ferritin 20 ng/mL (11-264)
[2021-01-19 06:42] LABS: Anisocytosis 1+; Neutrophils Absolute Manual 2679 /uL (3000-5900); Total Cells Counted 100
[2021-01-19 06:43] LABS: Microcytosis 1+
[2021-01-19 07:10] LABS: Folate 10.2 ng/mL (2.76-20.0)
--- NOTE | 2021-01-19 07:23 | PM.DS.1 ---
History of Present Illness History of Present Illness Date Patient Seen: 01/19/21 Time Patient Seen: 07:23 Chief complaint: poss stroke on saturday Narrative: 55-year-old female with hypertension, diabetes mellitus type 2, and hyperlipidemia is admitted from the ED secondary to a right frontal subacute infarct. History is obtained from patient and the medical record. 5 days prior to presentation, she started noticing garbled speech when she awoke and was walking like an old lady with a shuffling gait. Worried that she was having side effects from her medications, she stopped all of her pills the following morning and went fishing. On that day, she noticed that she had some numbness and tingling in her left arm and continued to have slurred speech. Symptoms did not improve over the next few days and so she called the clinic and came into the ED upon direction from the triage nurse. In the ED she was noted to have a significant left-sided facial droop, confusion, and a blood pressure of 234/112. CT head showed a small area of hypodensity in the right frontal monitor, consistent with a subacute infarct. Lab workup positive for THC and negative for COVID. She also had low MCV/MCH, consistent with her baseline of 70/22. She was given 20 mg of IV labetalol and 10 mg of IV hydralazine before being transferred to the floor; SBP dropped below 200 after these doses. Reports that she now feels better, speech is less slurred and she is less confused. Patient has a history of not taking her medications, most recently between October 2020 and November 2020 after her grandmother . Had a clinic visit at that time that revealed a blood pressure of 230/140; she was sent directly to the ED for malignant hypertension workup. Was referred to cardiology after that at her follow-up appointment but has not followed up with them. Reports that they called her but that she didn't return their phone call. She does not tolerate lisinopril or losartan. She has a poor response to labetalol and metoprolol. Does not like to take her diabetic medications because she feels groggy and slow. Does not like to take her diabetic medications with her antihypertensives. Has atorvastatin at home but does not take it. She is fearful of the side effects of so many medications. Denies previous history of stroke. Past medical history: Diabetes mellitus type 2 Hypertension Hyperlipidemia Hyperthyroidism Anxiety Abnormal mammogram Past surgical history: Rhinoplasty Lithotripsy Tonsillectomy and adnoidectomy Family history: Maternal grandmother: Diabetes, stroke Mother: possible cancer of unknown type Father: Diabetes mellitus type 2 Sister: Thyroid disease daughter: Healthy Social history: Single, 1 daughter. Lives at home with Herminio, partner. 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 Eighteen years of education. Discharge Providers Provider Date of admission: 01/17/21 15:03 Primary care physician: Deyanira Mathis MD Consults: 01/17/21 16:47 Consult to Dietitian, Adult Routine Comment: Reason For Exam: Reflexed from admission 01/17/21 17:51 Consult to Discharge Planning Routine Comment: Consult to Occupational Therapy Evaluate & Treat Comment: Physician Instructions: Evaluate and treat Consult to Physical Therapy Evaluate & Treat Comment: Physician Instructions: Evaluate and Treat Consult to Speech Therapy Evaluate & Treat Comment: Physician Instructions: Evaluate and treat Discharge provider: Deyanira Mathis MD Summary Hospital Course Discharge Diagnosis: 55-year-old female admitted with 5 days left-sided facial droop, decreased left arm sensation in the setting of uncontrolled hypertension and noncompliance of medication. Arm is now regaining sensation. HD#1. 1. CVA, subacute, new Plan: MR stroke protocol showed ichemic stroke. Will start lovenox and continue SCDs. Blood pressure well controlled overnight, will continue home medications and continue to watch closely. Awaiting echo. Continue atorvastatin 80 mg PO qhs. Continue PT/OT. Will need stroke rehab as outpatient. 2. Hypertension, chronic Plan: As above. 3. Diabetes mellitus type 2, uncontrolled -A1c 11.7. -Nursing reports preprandial BS in the 300s. Plan: Transitioning to insulin. Plan to start lantus tonight and continue sliding scale aspart. Plan will be to refer to endocrinology as an outpatient. 4. Hyperlipidemia, chronic, uncontrolled Plan: Atorvastatin. 5. Hyperthyroidism, chronic, controlled -TSH 2.16 Plan: Continue home methimazole. 6. Anxiety, chronic Plan: Plan for counseling in the outpatient setting. 7. Low MCV/MCH Plan: Peripheral smear showed hypochromasia, anisocytosis, and microcytosis. Will check iron, TIBC, folate, ferritin, and hemoglobin electrophoresis to evaluate etiology. Code: Full DVT prophylaxis: SCDs to bilateral thighs and lovenox. COVID: Negative Disposition: Possibly home tomorrow on home health with outpatient PT/OT. Exam Vital Signs (past 8 hours): - 01/19/21 01:00 01/19/21 03:00 01/19/21 05:00 Temperature 97.7 F 98.0 F 98.0 F Pulse Rate 87 86 85 Respiratory Rate 16 16 18 Blood Pressure 119/67 130/71 132/65 Pulse Oximetry 96 96 96 Oxygen Delivery Method Room Air Oxygen Flow Rate 0 Narrative Exam Narrative: GENERAL: Alert and oriented, appearing stated age and in no acute distress, left-sided facial droop. HEENT: Head normocephalic/atraumatic. Pupils equal, round, and reactive to light and accomodation. Extraocular muscles intact. Tympanic membranes clear. Nasal mucosa moist, septum midline. Oral mucosa moist, no lesions. Neck soft and supple, no lymphadenopathy. LUNGS: Clear to ausculation bilaterally, no wheezes, rhonchi or rales. CV: Normal S1 and S2 with regular rate and rhythm, no audible murmurs, rubs or gallops. ABDOMEN: Soft, non-tender, non-distended, no organomegaly. Positive bowel sounds. EXTREMITIES: No clubbing, cyanosis, or edema. NEURO: Cranial nerve deficits include slurred speech, left-sided facial hemiparesis, and left-sided shoulder shrug weakness. No dysarthria, aphasia. Reduced left-sided [id number]. Good [id number]. Left upper extremity strength, 3/5. Otherwise, 5/5 and symmetric. Sensation intact in the left upper extremity PSYCH: Alert and oriented x 3. SKIN: No concerning lesions. Objective Labs Result Diagrams: 01/19/21 05:40 01/19/21 05:40 Labs: Laboratory Results - last 24 hr 01/19/21 01/19/21 01/19/21 05:40 05:40 05:40 WBC 4.7 RBC 5.06 Hgb 11.6 L Hct 35.9 L MCV 71.0 L MCH 22.9 L MCHC 32.3 RDW 15.5 H Plt Count 227 Total Counted 100 Seg Neutrophils % 57.0 Lymphocytes % (Manual) 32.0 Atypical Lymphs % 1.0 H Monocytes % (Manual) 7.0 Eosinophils % (Manual) 2.0 Basophils % (Manual) 1.0 Neutrophils # (Manual) 2679 L RBC Morphology See below Anisocytosis 1+ H Microcytosis 1+ H Sodium 132 L Potassium 3.5 Chloride 100 Carbon Dioxide 26 BUN 25 H Creatinine 1.04 Estimated GFR 54.8 L BUN/Creatinine Ratio 24.0 H Glucose 295 H Calcium 9.5 Iron 40 TIBC 337 Ferritin Folate 01/19/21 05:40 WBC RBC Hgb Hct MCV MCH MCHC RDW Plt Count Total Counted Seg Neutrophils % Lymphocytes % (Manual) Atypical Lymphs % Monocytes % (Manual) Eosinophils % (Manual) Basophils % (Manual) Neutrophils # (Manual) RBC Morphology Anisocytosis Microcytosis Sodium Potassium Chloride Carbon Dioxide BUN Creatinine Estimated GFR BUN/Creatinine Ratio Glucose Calcium Iron TIBC Ferritin 20 Folate 10.2 PFSH Medical History Diabetes HTN (hypertension) Hyperthyroidism Surgical History H/O lumpectomy Social History household members: significant other Smoking Status: Never smoker Discharge Plan Discharge Plan Patient Disposition: Home Provider Discharge Comment: with home health Discharge orders & Medications Prescriptions: No Action methimazole 5 MG tablet 5 mg PO QDAY Qty: 0 RF: 0 glimepiride [Amaryl] 4 MG tablet 8 mg PO BID Qty: 0 RF: 0 diltiazem HCl 180 mg Capsule,Extended Release 24 Hr 180 mg PO DAILY RF: 0 spironolactone 25 mg Tablet 25 mg PO DAILY RF: 0 terazosin 2 mg Capsule 2 mg PO DAILY RF: 0 hydrochlorothiazide 25 mg Tablet 50 mg PO DAILY RF: 0 alogliptin 25 mg Tablet 25 mg PO DAILY RF: 0 empagliflozin 10 mg Tablet 10 mg PO DAILY RF: 0 Follow up/Referrals: Deyanira Mathis MD [Primary Care Provider] - Diet/Activity/Treatments Diet: Carb-consistent/Diabetic and Low-sodium Activity: with 4 wheel walker Skin/Wound/Dressing Care Report to your healthcare provider any signs of infection, such as:: chills, fever and increased pain Discharge Data Primary Care Provider: Deyanira Mathis Quality MIPS - Admit Advanced Care Plan / Current Medications Measures: #47 ? Advanced Care Plan Clinician documentation instruction: document at admission. [] I confirmed that the patient's Advance Care Plan is present, code status is documented, or surrogate decision maker is listed in the patient?s medical record. [SATISFIES MIPS PERFORMANCE] If Yes, Stop Here [] The patient?s Advance Care plan is not present because: (select) [MIPS PERFORMANCE EXCEPTION/EXCLUSION] [] I confirmed today that the patient does not wish or was not able to name a surrogate decision maker or provide an Advance Care Plan. [] Hospice care is currently being provided or has been provided this calendar year [] I did NOT confirm today the presence of an Advance Care Plan or surrogate decision maker documented within the patient's medical record. [DOES NOT SATISFY MIPS PERFORMANCE] #130 - Documentation of Current Medications in the Medical Record Clinician documentation instruction: use macro the first time you see a patient. [] I have utilized all available immediate resources to obtain, update, or review the patient?s current medications. [SATISFIES MIPS PERFORMANCE] If Yes, Stop Here [] The patient is not eligible for medication reconciliation; the patient is in an emergent medical situation where delaying treatment would jeopardize the patient?s health. [MIPS PERFORMANCE EXCEPTION/EXCLUSION] [] I did NOT confirm, update or review the patient's current list of medications today. [DOES NOT SATISFY MIPS PERFORMANCE] MIPS - CL Central Venous Catheter Placement Measure: #76 ? Prevention of Central Venous Catheter (CVC) ? Related Bloodstream Infection Clinician documentation instruction: use macro every time you place a central line. [] All elements of Maximal Sterile Barrier Technique, including hand hygiene, skin prep, and sterile ultrasound technique (if used) were followed. [SATISFIES MIPS PERFORMANCE] If Yes, Stop Here [] If ?No?, the medical reason all elements were NOT used for medical reason [] (ex. emergent condition). [] Maximal Sterile Barrier Technique was not followed, no reason provided [DOES NOT SATISFY MIPS PERFORMANCE] MIPS - DC Heart Failure Measures: #5 - Heart Failure (HF): Angiotensin-Converting Enzyme (JAYNE) Inhibitor or Angiotensin Receptor Veena (ARB) Therapy for Left Ventricular Systolic Dysfunction (LVSD) and #8 - Heart Failure (HF): Beta-Veena Therapy for Left Ventricular Systolic Dysfunction (LVSD) Clinician documentation instruction: use macro at every CHF discharge. [] The patient has current or prior documentation of left ventricular ejection fraction (LVEF) less than 40%, or moderate or severely depressed left ventricular systolic function. Answer both: [SATISFIES MIPS PERFORMANCE] [] The patient was prescribed or already taking an Angiotensin-Converting Enzyme (JAYNE) Inhibitor, or Angiotensin Receptor Veena (ARB). [] The patient was prescribed or already taking a beta-veena. If Yes to Both, Stop Here [] Patient not prescribed/taking: [MIPS PERFORMANCE EXCEPTION/EXCLUSION] [] JAYNE or ARB for medical/patient/system reason(s) including [] (ex. allergy, intolerance, contraindication) [] Beta-veena for medical/patient/system reason(s) including [] (ex. allergy, intolerance, contraindication) [] Patient not prescribed/taking: [DOES NOT SATISFY MIPS PERFORMANCE] [] JAYNE or ARB, no reason given [] Beta-veena, no reason given
--- NOTE | 2021-01-19 07:34 | CM.DPC ---
DCP Cont: Went ahead and faxed [facility] referral as well. Whit at [facility] voiced concerns that [facility] may not authorize, as patient is stand by assist. Will touch base again with Whit today, as well as Ambika at [facility]. Will also call Natalie at [facility] to follow up as well. P: DCP to continue to attempt placement to either [facility], or [facility], but [facility] authorization will need to be initiated. Charleen Gee RN/[employer] Consultant
--- NOTE | 2021-01-19 08:52 | PM.PN.1 ---
Subjective Subjective Date Patient Seen: 01/19/21 Time Patient Seen: 08:52 Interval history: Patient is doing better this morning. Weakness in her left arm has continued to improve. She still feels that she has a shuffling gait, working with physical therapy. Blood pressures have been controlled. Blood sugars remain uncontrolled. She is currently being transitioned to insulin. Reports that she is not feeling as dopey but that she still does not feel back to her baseline. I haven't felt good in a very long time. Exam Vital Signs (past 8 hours): - 01/19/21 01:00 01/19/21 03:00 01/19/21 05:00 Temperature 97.7 F 98.0 F 98.0 F Pulse Rate 87 86 85 Respiratory Rate 16 16 18 Blood Pressure 119/67 130/71 132/65 Pulse Oximetry 96 96 96 01/19/21 07:30 Temperature 98.7 F Pulse Rate 91 H Respiratory Rate 18 Blood Pressure 128/72 Pulse Oximetry 98 Oxygen Delivery Method Room Air Oxygen Flow Rate 0 Narrative Exam Narrative: GENERAL: Alert and oriented, appearing stated age and in no acute distress, left-sided facial droop. HEENT: Head normocephalic/atraumatic. Pupils equal, round, and reactive to light and accomodation. Extraocular muscles intact. Tympanic membranes clear. Nasal mucosa moist, septum midline. Oral mucosa moist, no lesions. Neck soft and supple, no lymphadenopathy. LUNGS: Clear to ausculation bilaterally, no wheezes, rhonchi or rales. CV: Normal S1 and S2 with regular rate and rhythm, no audible murmurs, rubs or gallops. ABDOMEN: Soft, non-tender, non-distended, no organomegaly. Positive bowel sounds. EXTREMITIES: No clubbing, cyanosis, or edema. NEURO: Cranial nerve deficits include slurred speech, left-sided facial hemiparesis, and left-sided shoulder shrug weakness, all slightly better this morning. No dysarthria, aphasia. Reduced left-sided [id number]. Good [id number]. Left upper extremity strength, 4/5. Otherwise, 5/5 and symmetric. Sensation intact in the left upper extremity PSYCH: Alert and oriented x 3. SKIN: No concerning lesions. Objective Labs Result Diagrams: 01/19/21 05:40 01/19/21 05:40 Labs: Laboratory Results - last 24 hr 01/19/21 01/19/21 01/19/21 05:40 05:40 05:40 WBC 4.7 RBC 5.06 Hgb 11.6 L Hct 35.9 L MCV 71.0 L MCH 22.9 L MCHC 32.3 RDW 15.5 H Plt Count 227 Total Counted 100 Seg Neutrophils % 57.0 Lymphocytes % (Manual) 32.0 Atypical Lymphs % 1.0 H Monocytes % (Manual) 7.0 Eosinophils % (Manual) 2.0 Basophils % (Manual) 1.0 Neutrophils # (Manual) 2679 L RBC Morphology See below Anisocytosis 1+ H Microcytosis 1+ H Sodium 132 L Potassium 3.5 Chloride 100 Carbon Dioxide 26 BUN 25 H Creatinine 1.04 Estimated GFR 54.8 L BUN/Creatinine Ratio 24.0 H Glucose 295 H Calcium 9.5 Iron 40 TIBC 337 Ferritin Folate 01/19/21 05:40 WBC RBC Hgb Hct MCV MCH MCHC RDW Plt Count Total Counted Seg Neutrophils % Lymphocytes % (Manual) Atypical Lymphs % Monocytes % (Manual) Eosinophils % (Manual) Basophils % (Manual) Neutrophils # (Manual) RBC Morphology Anisocytosis Microcytosis Sodium Potassium Chloride Carbon Dioxide BUN Creatinine Estimated GFR BUN/Creatinine Ratio Glucose Calcium Iron TIBC Ferritin 20 Folate 10.2 PFSH Medical History Diabetes HTN (hypertension) Hyperthyroidism Surgical History H/O lumpectomy Social History household members: significant other Smoking Status: Never smoker Assessment & Plan Assessment & Plan narrative: 55-year-old female admitted with 5 days left-sided facial droop, decreased left arm sensation in the setting of uncontrolled hypertension and noncompliance of medication. Arm is now regaining sensation. HD#2. 1. CVA, subacute, new Plan: MR stroke protocol showed ichemic stroke. Echo showed ejection fraction of 60-65% with no LV thrombus. Will continue lovenox and SCDs. Blood pressure continues to be mostly in good control, goal is <140/90, continue home medications. Continue atorvastatin 80 mg PO qhs. Continue PT/OT. Planning to transition to SNF with PT/OT tomorrow. 2. Hypertension, chronic Plan: As above. 3. Diabetes mellitus type 2, uncontrolled -A1c 11.7. -Nursing reports preprandial BS in the 300s yesterday, 265 this morning, still feeling poor Plan: Will give Lantus 10 units now and increase nighttime Lantus to 20 units. Continue sliding scale aspart, will increase from low to medium scale today. Nutrition consult today for Diabetes Education. Will plan to transition into their Diabetes Education program as an outpatient. Endocrinology referral as an outpatient as well. 4. Hyperlipidemia, chronic, uncontrolled Plan: Atorvastatin. 5. Hyperthyroidism, chronic, controlled -TSH 2.16 Plan: Continue home methimazole. 6. Anxiety, chronic Plan: Plan for counseling in the outpatient setting. 7. Low MCV/MCH Plan: Peripheral smear showed hypochromasia, anisocytosis, and microcytosis. Awaiting iron, TIBC, folate, ferritin, and hemoglobin electrophoresis to evaluate etiology. Code: Full DVT prophylaxis: SCDs to bilateral thighs and lovenox. COVID: Negative Disposition: Anticipate discharge tomorrow to SNF with PT/OT. Quality [facility] - Admit Advanced Care Plan / Current Medications Measures: #47 ? Advanced Care Plan Clinician documentation instruction: document at admission. [] I confirmed that the patient's Advance Care Plan is present, code status is documented, or surrogate decision maker is listed in the patient?s medical record. [SATISFIES MIPS PERFORMANCE] If Yes, Stop Here [] The patient?s Advance Care plan is not present because: (select) [MIPS PERFORMANCE EXCEPTION/EXCLUSION] [] I confirmed today that the patient does not wish or was not able to name a surrogate decision maker or provide an Advance Care Plan. [] Hospice care is currently being provided or has been provided this calendar year [] I did NOT confirm today the presence of an Advance Care Plan or surrogate decision maker documented within the patient's medical record. [DOES NOT SATISFY MIPS PERFORMANCE] #130 - Documentation of Current Medications in the Medical Record Clinician documentation instruction: use macro the first time you see a patient. [] I have utilized all available immediate resources to obtain, update, or review the patient?s current medications. [SATISFIES MIPS PERFORMANCE] If Yes, Stop Here [] The patient is not eligible for medication reconciliation; the patient is in an emergent medical situation where delaying treatment would jeopardize the patient?s health. [MIPS PERFORMANCE EXCEPTION/EXCLUSION] [] I did NOT confirm, update or review the patient's current list of medications today. [DOES NOT SATISFY MIPS PERFORMANCE] MIPS - CL Central Venous Catheter Placement Measure: #76 ? Prevention of Central Venous Catheter (CVC) ? Related Bloodstream Infection Clinician documentation instruction: use macro every time you place a central line. [] All elements of Maximal Sterile Barrier Technique, including hand hygiene, skin prep, and sterile ultrasound technique (if used) were followed. [SATISFIES MIPS PERFORMANCE] If Yes, Stop Here [] If ?No?, the medical reason all elements were NOT used for medical reason [] (ex. emergent condition). [] Maximal Sterile Barrier Technique was not followed, no reason provided [DOES NOT SATISFY MIPS PERFORMANCE] MIPS - DC Heart Failure Measures: #5 - Heart Failure (HF): Angiotensin-Converting Enzyme (JAYNE) Inhibitor or Angiotensin Receptor Nora (ARB) Therapy for Left Ventricular Systolic Dysfunction (LVSD) and #8 - Heart Failure (HF): Beta-Nora Therapy for Left Ventricular Systolic Dysfunction (LVSD) Clinician documentation instruction: use macro at every CHF discharge. [] The patient has current or prior documentation of left ventricular ejection fraction (LVEF) less than 40%, or moderate or severely depressed left ventricular systolic function. Answer both: [SATISFIES MIPS PERFORMANCE] [] The patient was prescribed or already taking an Angiotensin-Converting Enzyme (JAYNE) Inhibitor, or Angiotensin Receptor Nora (ARB). [] The patient was prescribed or already taking a beta-nora. If Yes to Both, Stop Here [] Patient not prescribed/taking: [MIPS PERFORMANCE EXCEPTION/EXCLUSION] [] JAYNE or ARB for medical/patient/system reason(s) including [] (ex. allergy, intolerance, contraindication) [] Beta-nora for medical/patient/system reason(s) including [] (ex. allergy, intolerance, contraindication) [] Patient not prescribed/taking: [DOES NOT SATISFY MIPS PERFORMANCE] [] JAYNE or ARB, no reason given [] Beta-nora, no reason given
--- NOTE | 2021-01-19 09:08 | DIET.PN ---
Dietary Progress Note Assessment: 55y F admitted for acute frontal infarct with hx of HLD, HTN, and DM2 referred to nutrition for poorly managed DM2. Pt reports strong family hx of DM including grandmother and biological father. Pt followed for DM management by [facility] in [place] but is unhappy c care as she has a different RD each visit and feels they shame her rather than help her out. Pt reports not taking her medications because she does not like how they make her feel. She reports significant personal stress over the past several months reducing her desire for good DM management. Pt lives in [place] c partner [facility]. Per nursing, pts SO brought in candy and chips last night, pts BG was 278 this am. HT: 157.4cm WT: 89.5kg BMI: 36.1 Labs: A1c 11.7 H, BG 250-325 this hospitalization MNA:11 Denny: 22 Nutrition Diagnosis: altered nutrition related laboratory values (A1c, BG) r/t endocrine dysfunction, undesirable food choices, and nutrition related knowledge deficit aeb A1c 11.7, BG 250-325 during hospitalization, pt reports medication non-compliance and not feeling supported in DM management, pt reports significant stress recently. Interventions: 1. Educated pt on physiology of DM, what BG is, what A1c means, and factors which contribute to high and low values. 2. Discussed pts current management strategies and where she would like to go from here. Pt would like to enroll in telehealth DSME outpatient DM counseling c RD/CDE to learn better management of her disease [facility]. Diet Order: CCD3 EER: 30-45g CHO at meals and 15-30g c snacks Monitoring/Evaluations: Requesting referral to [facility] outpatient DSME program from [facility]
[2021-01-19] MEDS: methIMAzole 5 MG TABLET PO (09:28)
[2021-01-19] MEDS: dilTIAZem CD 180 MG CAP 360 MG PO (09:28)
[2021-01-19] MEDS: hydroCHLOROthiazide 25 MG TABLET 50 MG PO (09:29)
[2021-01-19] MEDS: ENOXAPARIN 40 MG/0.4 ML SYRINGE SUBCUT (09:29)
[2021-01-19] MEDS: INSULIN GLARGINE 100 UNIT/ML 3ML PEN 10 UNIT SUBCUT (09:33)
--- NOTE | 2021-01-19 10:15 | ST.IPSLE ---
Visit Care Team Role Provider Type Kendy Martins DO Emergency Provider Physician Referring Provider Specialty: Emergency Medicine Address: [address] [place] [address], [id number] Email: [email or web address] Mathis MD Admit Provider Physician Attending Provider Primary Care Provider Specialty: Family Practice Address: [address] [place] [address], [address], [place], [address] Email: [email or web address] Current Diagnoses Cerebral infarction, unspecified (01/17/21) Past Medical History (Last Reviewed 01/17/21 @ 13:36 by Kendy Martins DO) Diabetes (Medical) HTN (hypertension) (Medical) Hyperthyroidism (Medical) Speech-Language Pathology Speech/Language Eval ECHOCARDIOGRAPH TECHNICIAN Adult Cognitive Linguistic Eval Start: 01/19/21 11:39 Freq: Status: Active Protocol: Document 01/19/21 11:40 EB (Rec: 01/19/21 12:59 EB [id number]) Adult Cognitive Linguistic Evaluation Session Time Visit Start Time 09:44 Visit Stop Time 10:14 Total Visit Minutes 30 Visit Information Visit Number 2 Referral Reason for Referral Stroke Protocol Setting Assessment Location Acute Care Visit Type Note Type Initial evaluation Patient Information Identification Type Name Language(s) Spoken in the Home [place] Hearing Hearing Level Normal Vision Vision Status Impaired Comments Patient wears glasses. Previous Therapy History of Therapy ECHOCARDIOGRAPH TECHNICIAN evaluated patient's motor speech skills yesterday and identified mild dysarthria. More thorough speech and language evaluation and dysarthria treatment provided on this date. Subjective Patient Report Patient was eating when ECHOCARDIOGRAPH TECHNICIAN and ECHOCARDIOGRAPH TECHNICIAN student entered the room. Patient agreed to participate in a informal cognitive language assessment administered by student ECHOCARDIOGRAPH TECHNICIAN Tamar Yo. Patient reported that while she feels her speech is steadily improving, it still feels effortful and sticky. Mental Status Alert,Responsive,Cooperative Assessment Oral Motor Examination Completed No: Slight left-facial droop, significantly improved since onset. Informal Assessment Receptive Language Normal Yes: Some difficulty w/complex yes/no questions Expressive Language Normal Yes: Appeared to have difficulty expressing complex thoughts/ideas Pragmatic Language Normal Yes: Slightly flat affect, remained relatively monotone Speech Normal No Speech Impairment(s) Slow speech rate Cognition Normal No: Standardized cognitive assessment recommended for further evaluation. Cognitive Impairment(s) Problem solving Findings/Results Language Function Within functional limits Cognitive Function Within functional limits Findings While cognition and language seem to be within functional limits, the patient appeared to have difficulty during various portions of the assessment. For complex yes/no questions, she was able to answer correctly but displayed delayed processing of the question. During the abstract problem-solving portion, patient had to be prompted to elaborate in her responses. Patient was noted to use humor throughout the assessment which could be to distract from underlying impairments. Patient's speech was 100% intelligible but appeared effortful. She mentioned that her speech feels sticky and that fricatives such as /s/, / z/, and /f/ are more challenging. Patient stated that her speech flows better if she takes longer breaks between talking. Written patient education was given for dysarthria speaking strategies to assist with her speech as well as list of multisyllabic words to practice articulation. Patient expressed sadness regarding her condition and said it was hard to say I have had a stroke. ECHOCARDIOGRAPH TECHNICIAN recommended stroke support group, also discussed strategies to increase safety awareness including use of external memory aids for medication management. Cognitive Communication Deficits Self-awareness of Cognitive- Situational awareness ( Communication Deficits recognition of problem in context;in real time) Impact on Functioning Activity Limits/Particip.Rest. Mild: General Tasks and Demands Household Tasks Interpersonal Interactions Safety Risks Mild: Being Left Alone at Home Reacting to Emergency Traveling Alone in Community Mod: Managing Medication Prognosis Prognosis Good Plan of Care Short Term Goals Patient will participate in further cognitive assessment in order to guide plan of care. Pt education regarding dysarthria and therapeutic exercises to increase ROM and speed of articulation. Pt will understand and demonstrate therapeutic exercises for HEP. Discharge Recommendations [facility] facility
--- NOTE | 2021-01-19 10:15 | PC.NURSE ---
Pt eating bkfst. and sitting up in her chair. Talked with Pt about checking her blood sugars, giving herself insulin-both long and short-acting, her diabetes and how not managing her sugars can affect all parts of her body and functionality. Performed hands on teaching with Insulin pen and had Pt give herself her Lantus. Pt struggled with this and appeared to have some difficulty with fine motors skills-had trouble attaching the needle on to the pen itself, dialing up the pen, and effectively self-administering her insulin via the insulin pen. After 3 tries Pt was able to self inject her Lantus dose but will need to be monitored closely at least initially to assure that dose is properly given. Pt states that she has a glucometer at home but also struggles with placing the lancet in the slot to prep the glucometer to measure her blood sugar. Spoke with Dr. Mathis about diabetic education and dietary consult and orders were initiated. Pt now working with RD and then will follow with PT/OT.
--- NOTE | 2021-01-19 10:27 | PT.IPTN ---
Current Diagnoses Cerebral infarction, unspecified (01/17/21) Physical Therapy Treatment Note M2 PT-IP Current Condition Start: 01/18/21 11:35 Freq: NEEDED Status: Active Protocol: Document 01/18/21 09:52 AB (Rec: 01/18/21 11:52 AB [id number]) Physical Therapy Current Condition Current Condition Evaluation Date 01/18/21 Treatment Diagnosis CVA; difficulty in walking Onset Date 01/17/21 M3 PT-IP Subjective Start: 01/18/21 11:35 Freq: NEEDED Status: Active Protocol: Document 01/19/21 10:27 AB (Rec: 01/19/21 10:56 AB [id number]) Subjective Physical Therapy Visit Type Type Treatment Note Visit Start Time 10:27 Visit Stop Time 10:40 Total Visit Minutes 13 Number of IMPLEMENTATION ADVISOR Visits 0 Physical Therapy Visit Comments Patient Comments pt is agreeable to do PT Therapy Pain Assessment Pain Present Pain Present Denied Pain M4 PT-IP Mobility and Gait Start: 01/18/21 11:35 Freq: NEEDED Status: Active Protocol: Document 01/19/21 10:27 AB (Rec: 01/19/21 10:56 AB [id number]) PT-Transfer Assessment Sit to and From Stand Sit to and from Stand Standby Assistance Equipment Transfer Assistive Device None,Gait Belt Orthotic/Prosthetic Devices or Brace: No Gait Assessment Gait Gait Assistance Required: Standby Assistance,Contact Guard Assist,1 Person Assist Distance (Feet) 200 Assistive Devices Assistive Device None,Gait Belt,4 Wheeled Walker Orthotic/Prosthetic Devices or Brace: No Gait Deviations General Gait Pattern Antalgic,Decreased Stride Length,Decreased Feet Clearance,Narrow Based Gait Factors Limiting Gait Function Factors Limiting Gait Function Decreased Activity Tolerance, Decreased Strength,Poor Balance,Poor Safety Awareness Comments Gait Comments pt sitting on chair. noted less facial droop. re- assessed LE strength: BLE 4-/5 . ambulated in room without AD CGA. continues to have antalgic gait but steadier compared to yesterday's. continues to have decrease movement fluidity with LUE. assessed ambulation using 4WW and pt completed ~ 200 ft in the hallway SBA and cues for safety. completed up/down steps using bilateral rails CGA to min A. pt educated on safety and to do step to pattern at this time. completed again requiring SBA to CGA for ascending steps with bilateral rails but required min A for descending with increase posterior and lateral trunk rotation to the L. pt ambulated back to her room using 4WW SBA. pt can be impulsive and educated on slowing down and safety. pt sat back on the chair. positioned on chair. call light and table placed within reach. Stair Climbing Assessment Evaluation Level of Assist On Stairs Contact Guard Assistance, Minimal Assistance,1 Person Assistance Devices Stair Climbing Assistive Devices Left Railing,Right Railing Technique/Endurance Stair Climbing Direction Ascend and Descend Stair Climbing Technique Step Over Step,Step to Step Number of Steps Climbed 3 Stair Climbing Set # Repetitions (reps) 2 Comments Stair Climbing Comments pls refer to mobility section for details M5 PT-IP Objective Assessments Start: 01/18/21 11:35 Freq: NEEDED Status: Active Protocol: Document 01/18/21 09:52 AB (Rec: 01/18/21 11:52 AB [id number]) Orientation Orientation/Cognition Level of Alertness Alert Orientation Name,Place,Situation Safety Awareness Decreased Safety Awareness Gross Range of Motion Lower Extremity ROM Assessment Within Functional Limits Strength Lower Extremity Strength Assessment Left Impaired Hip 3+/5 Knee 3+/5 Muscle Tone Muscle Tone WNL Yes M6 PT-IP Treatment Start: 01/18/21 11:35 Freq: NEEDED Status: Active Protocol: Document 01/19/21 10:27 AB (Rec: 01/19/21 10:56 AB [id number]) Physical Therapy Treatment Education Education Provided Safety M7 PT-IP Assessment and Plan Start: 01/18/21 11:35 Freq: NEEDED Status: Active Protocol: Document 01/19/21 10:27 AB (Rec: 01/19/21 10:56 AB [id number]) PT Summary Assessment and Plan Potential Rehabilitation Potential Good Summary Impairments Pain,Strength,Balance, Coordination,Sensation,Tone, Cognition,Bed Mobility, Transfers,Gait,Activity Tolerance Progress Towards Goals Progressing Toward Goals Assessment Summary pt requiring SBA with ambulation using 4WW and CGA without AD. pt stated that her boyfriend will be able to assist him at home. pt may go home when medically stable but will need outpt PT to improve mobility independence Goals Bed Mobility Goal Independent Transfer Goal Independent Gait Goal Independent Gait Distance 250 Other Goals up/down 42 steps using bilateral rails SBA Days to Meet Goals 5 Frequency of Treatment Frequency Of Treatment Once a Day Treatment Plan Physical Therapy Treatment Plan Bed Mobility Training,Transfer Training,Gait Training, Therapeutic Exercise,Balance Retraining,Discharge Planning, Hot or Cold Pack,Neuromuscular Re-ed,Coordination Retraining Other Recommendations and Next Treatment standing balance, ambulation Focus Recommendations To Nursing Amount of Assist Needed 1 Person Assist Discharge Recommendations PT Discharge Recommendations Home with Assistance, Outpatient PT Transportation Needs at Discharge Private Vehicle,Wheelchair/ Cabulance
--- NOTE | 2021-01-19 11:31 | CM.DPC ---
Addendum entered by Charleen Gee R.N. 01/19/21 14:48: Called Ambika back from [facility], since this case management associate is leaving earlier today, to see if she had heard from [facility]. Stated she has not yet heard from [facility], but should most likely hear at the end of the day. She mentioned that she would leave a message on the care management's phone. Addendum entered by Charleen Gee R.N. 01/19/21 13:06: Ambika at [facility] called back and stated that she was sending authorization to [facility] for Level 2, versus level 1. She indicated that level 1 would not be enough to cover her stay, but if she can be accepted with level 2, she can accept. She hopes to have an answer by today. Original Note: DCP Cont: Dr. Mathis came in to the care management office. She stated, patient would rather go to [facility] instead of acute inpatient rehab. Let her know that this case management associate is working on [facility], for Ambika indicated that they do have a contract, but this will be pending authorization from [facility]. Dr. Mathis stated that she can keep her here medically for another day due to her diabetes. Spoke to Natalie at Inpatient rehab at [facility]. She indicated that patient would most likely not get authorized to their facility, since patient is improving with P.T, and [facility] may not authorize. Spoke to Ambika at [facility], as referral was sent to her this morning. She stated that she has initiated authorization with [facility], and will give update. Noticed from P.T. note that patient is improving, as far as mobility. As second option, if she is not approved for usp, called some of the home health agencies to see if they accept her insurance. Parvin at [facility] stated that they are capped out with their [facility] patients, for they are allowed to have a certain amount. Spoke to Beckie at [facility], and she indicated that they can't accept [facility] patients in the [place] area at this time. Called [facility]. Maite is now new contact lens blocker and cutter, used to be Kevin. Stated that they do take [facility], but will not be able to see patient until Saturday. Let her know that this case management associate will send her referral, for it is uncertain that patient will qualify for usp. Let her know that patient will need nursing, P.T, and O.T. Dr. Mathis has already signed a face to face. P: DCP to continue to follow. First plan is [facility]. Will Ambika at [facility] later in the day to see if authorization has yet been approved or denied. Will send referral to [facility] as well. Charleen Gee RN/Emergency Department Coordinator
--- NOTE | 2021-01-19 11:52 | OT.IP.EVAL ---
Current Diagnoses Cerebral infarction, unspecified (01/17/21) Past Medical History (Last Reviewed 01/17/21 @ 13:36 by Kendy Martins DO) Diabetes HTN (hypertension) Hyperthyroidism Surgical History (Last Reviewed 01/17/21 @ 13:36 by Kendy Martins DO) H/O lumpectomy Occupational Therapy Inpatient Evaluation/Re-Eval M1 PT/OT-IP Prior Functional Status Start: 01/19/21 13:20 Freq: NEEDED Status: Active Protocol: Document 01/19/21 11:16 [facility] (Rec: 01/19/21 13:48 [facility] [id number]) Medical Review Prior Functional Status Medical History Reviewed Yes Communication able to make needs known Mobility and Gait pt stated that she is independent with all mobilities and ambulation without AD but uses a 4WW for outdoor mobility. stated that she started using a 4WW last 2015 when she got sepsis Activities of Daily Living and IADL's Pt states prior did all her ADL, IADL needs and drives. Social History Household Members significant other Living Arrangements Apartment/Condo Number of Stairs To Enter/Railing? has 42 steps to get to her 3rd level apartment Home Environment Standard Height Toilet,Tub/ Shower Home Equipment Four Wheel Walker,Hand Held Shower Employment Status Retired M2 OT-IP Current Condition Start: 01/19/21 13:20 Freq: Status: Active Protocol: Document 01/19/21 11:16 [facility] (Rec: 01/19/21 13:48 [facility] [id number]) Occupational Therapy Current Condition Current Condition Evaluation Date 01/19/21 Treatment Diagnosis Right frontal lobe infarcts, decreased coordination Diagnosis Onset Date 01/17/21 M3 OT- IP Subjective and Pain Start: 01/19/21 13:20 Freq: Status: Active Protocol: Document 01/19/21 11:16 [facility] (Rec: 01/19/21 13:48 [facility] [id number]) OT- Subjective Occupational Therapy Visit Type Type Initial Evaluation Visit Start Time 11:16 Visit Stop Time 11:52 Total Visit Minutes 36 Occupational Therapy Visit Comments Patient Comments Pt agreed to do OT eval. Patient/Caregiver Goals To go to rehab. OT Pain Assessment Pain When Pain Assessed At Rest Pain Present Pain Present Denied Pain M4 OT- IP ADL's Start: 01/19/21 13:20 Freq: Status: Active Protocol: Document 01/19/21 11:16 [facility] (Rec: 01/19/21 13:48 [facility] [id number]) OT [id number] Comments OT Self-Feeding Comments NOt at meal time, pt states has more difficulty to control left hand. OT ADL-Grooming General Evaluation Grooming Ability Standby Assistance OT ADL-Oral Care Comments Oral Care Comments Not performed. OT ADL-Dressing General Eval Lower Body Dressing Ability Moderate Assistance Comments OT Dressing Comments Pt not able to coordinate her left hand to grasp the sock for the left foot at this time . OT ADL-Toileting General Evaluation Toileting Ability Contact Guard Assistance Comments OT Toileting Comments Increased time to use left hand to assist to pull up the left side of the brief. OT ADL-Bathing Comments OT Bathing Comments Not performed as her tray just came in. M5 OT- IP IADL's Start: 01/19/21 13:20 Freq: Status: Active Protocol: Document 01/19/21 11:16 [facility] (Rec: 01/19/21 13:48 [facility] [id number]) OT-Instrumental Activities of Daily Living Home Safety Awareness Ability to Problem Solve Emergency Able to Problem Solve Situations Medication Management Medication Management Comments Pt would benefit from assist/ supervision for needs due having difficulty with executive function and FMS at this time. Money Management Money Management Comments Pt would benefit from assist/ supervision for needs due having difficulty with executive function and FMS at this time. Meal Preparation Meal Preparation Comments Pt would benefit from assist/ supervision for needs due having difficulty with executive function and FMS at this time. Marine Machinist Marine Machinist Comments Pt would benefit from assist/ supervision for needs due having difficulty with executive function and FMS at this time. Driving Driving Concerns Identified Regarding Safety Driving Comments Pt aware that it would be best for her not to drive at this time. M6 OT- IP Functional Cognition Start: 01/19/21 13:20 Freq: Status: Active Protocol: Document 01/19/21 11:16 [facility] (Rec: 01/19/21 13:48 [facility] [id number]) Cognitive Factors Limiting Selfcare Function Cognitive Ability Level of Alertness Alert Patient Orientation Name,Age,Birthday,Month,Date, Year,Day of Week,Place, Situation Attention Span Ability Capable of Focused Attention, Capable of Sustained Attention Ability to Follow Commands Able to Follow One Step Commands Memory Description Short Term Impaired,Working Impaired Safety Awareness Underestimates Need for Assistance Problem Solving Ability Unable to Identify Errors, Needs Assist to Identify Solutions Executive Function Ability Unable to Organize Plans, Unable to Remember Details Cognitive Tests SLUMS Pt scored 21/30, pt not able to math subtraction problem, only able to come up with 8 animals in one minute, able to recall 4/5 objects after time passed, pt not able to draw the hour hands on the clock accurately, and able to answer 3/4 questions after a paragraph read. Cognitive Comments Cognitive Assessment Comments Pt scored 141 seconds for Tiff Making Part B and MIN vc which implies impairment for visual attention, task switching, executive function, mental flexibility, and speed of processing. M7 OT- IP Mobility and Balance Start: 01/19/21 13:20 Freq: Status: Active Protocol: Document 01/19/21 11:16 [facility] (Rec: 01/19/21 13:48 [facility] [id number]) OT-Transfer Assessment Sit to and From Stand Sit to and from Stand Standby Assistance Transfers Transfer Ability Standby Assistance Technique Transfer Destination Chair,Toilet Transfer Technique Stand Step Pivot Devices Transfer Assistive Devices None Comments Mobility Comments SBA to CGA while in the room with no device. OT- Balance Assessment Sitting Balance and Reactions Static Sitting Balance Ability Normal Dynamic Sitting Balance Ability Good Standing Balance and Reactions Static Standing Balance Ability Fair M8 OT- IP Objective Assessments Start: 01/19/21 13:20 Freq: Status: Active Protocol: Document 01/19/21 11:16 [facility] (Rec: 01/19/21 13:48 [facility] [id number]) OT Gross Range of Motion Upper Extremity Range of Motion Assessment Right Impaired ROM Impairments RUE decreased at end AROM in shoulder flexion and abduction OT Strength Upper Extremity Strength Assessment Right Impaired Comments Strength Comments RUE strength 3-/5 to 3+/5 form proximal to distal. OT- Coordination Assessment Upper Extremity Finger to Nose Test Within Functional Limits Comments Coordination Comments 9 hole peg 36.6 seconds Right hand, 54 seconds for Left hand . Able to cue pt to focus more with left hand and time decreased to 44 seconds. OT-Muscle Tone Assessment Comments Muscle Tone Comments Slight increased tone left UE. Pt tends to keep her left arm flexed at elbow and slightly internally rotated. Pt states she is unaware that she tends to keep her arm in that position. OT Sensation Assessment Comments Summary Comments Decreased for kinesthesia and proprioception throughout her left. Pt states has been getting her arm caught on the door handle. Educated pt to be sure to look with her eye to help keep her left arm bumping and getting caught. M9 OT- IP Assessment and Plan Start: 01/19/21 13:20 Freq: Status: Active Protocol: Document 01/19/21 11:16 [facility] (Rec: 01/19/21 13:48 [facility] [id number]) OT Summary Assessment and Plan Potential Rehabilitation Potential Good Analytic Complexity at Evaluation Moderate Summary OT Impairments Range of Motion,Strength, Balance,Coordination,Sensation ,Functional Cognition, Functional Mobility,Self- Feeding,Grooming,Dressing, Toileting,Bathing,Toilet Transfers,Shower Transfers, Activity Tolerance Progress Towards Goals Slow Progress due to Medical Issues,Slow Progress due to Cognition Assessment Summary Pt MOD complexity and here due to CVA and main barriers are steps, decreased control, strength and coordination with left arm, decreased executive functioning, and would benefit form either acute rehab versus skilled rehab prior to going home. Goals Self-Feeding Goal Independent Grooming Goal Independent Dressing Goal Independent Toileting Goal Independent Bathing Goal Independent Toilet Transfer Goal Independent Shower Transfer Goal Independent Days to Meet Goals 10 Frequency of Treatment Frequency Of Treatment Once a Day Treatment Plan OT Treatment Plan ADL Training,Functional Cognition Training,Functional Mobility,Neuromuscular Re- education,Patient/Family Education,Discharge Planning Other Treatment Recommendations and Next FMS during ADL's Treatment Focus Discharge Recommendations OT Discharge Recommendations SNF Rehab,Acute Rehab Transportation Needs at Discharge Private Vehicle
[2021-01-19] MEDS: INSULIN ASPART 100 UNIT/ML INSULN PEN SUBCUT ×3 (12:16→20:48)
[2021-01-19] MEDS: SODIUM CHLORIDE 0.9% FLUSH 10 ML IV (20:41)
[2021-01-19] MEDS: ATORVASTATIN 20 MG TABLET 80 MG PO (20:45)
[2021-01-19] MEDS: TERAZOSIN 1 MG CAPSULE 4 MG PO (20:45)
[2021-01-19] MEDS: INSULIN GLARGINE 100 UNIT/ML 3ML PEN 20 UNIT SUBCUT (20:46)
[2021-01-19] MEDS: ACETAMINOPHEN 325 MG TABLET 650 MG PO (23:23)
--- NOTE | 2021-01-19 23:24 | PC.NURSE ---
Patient with elevated BG at HS of 362. Pt denies eating extra sweets this evening. SSI novolog 7 units administered as ordered. Pt with recent increase to lantus from 10 to 20 units of lantus at HS. Reported to oncoming RN elevated BG and recent regimen change. BG will be reassessed at 0200.
[2021-01-20] VITALS: BP 131/79; PULSE 98; RESP 18; TEMP 36.6; O2SAT 96
--- NOTE | 2021-01-20 00:31 | PC.NURSE ---
2333: patient is alert and oriented. NIH = 2 for slight left LE drift and minor left facial droop. Breath sounds diminished but CTA with RA sat of 96%. HRR with telemetry reading of SR. Denies nausea. BT present and is passing flatus. Denies dysuria, frequency or urgency with urination. Is able to turn herself in bed. Up to bathroom with 1 assist; refused to use walker. Wearing bilateral thigh high SCD's. Complains of 4/10 headache and was medicated with Tylenol with resolution of pain. Fall risk score is moderate and bed alarm is activated.
[2021-01-20 05:33] VITALS: BP 103/61; PULSE 88; RESP 18; TEMP 36.4; O2SAT 96
[2021-01-20 05:33] LABS: Blood Urea Nitrogen 25 mg/dL (7-17); Calcium 9.7 mg/dL (8.4-10.2); Carbon Dioxide 27 mmol/L (22-32); Chloride 98 mmol/L (98-107); Estimated Glomerular Filt Rate 54.8 mL/min (>60); Glucose 317 mg/dL (70-100); HEMOLYSIS < 15 (0-50); Potassium 3.4 mmol/L (3.4-5.1); Sodium 132 mmol/L (137-145)
[2021-01-20 08:00] VITALS: BP 128/75; PULSE 81; RESP 18; TEMP 36.6; O2SAT 96
[2021-01-20] MEDS: INSULIN ASPART 100 UNIT/ML INSULN PEN SUBCUT ×2 (08:11→11:47)
[2021-01-20] MEDS: methIMAzole 5 MG TABLET PO (08:13)
[2021-01-20] MEDS: dilTIAZem CD 180 MG CAP 360 MG PO (08:13)
[2021-01-20] MEDS: ENOXAPARIN 40 MG/0.4 ML SYRINGE SUBCUT (08:13)
[2021-01-20] MEDS: hydroCHLOROthiazide 25 MG TABLET 50 MG PO (08:13)
--- NOTE | 2021-01-20 08:34 | P.PN_ITS ---
Subjective Subjective Date Patient Seen: 01/20/21 Time Patient Seen: 08:34 Interval history: Patient is feeling better this morning but still weak with ambulation, working with PT. Left arm is still weak. Smile is still lop sided. Nursing reports that blood sugars remain uncontrolled in the 300s despite an increase in Lantus to 20 untis last night and increasing her sliding scale insulin to the moderate dosing regime. Diabetic Education was by yesterday and patient found that helpful. She is hopeful to continue in the program as an outpatient. Exam Vital Signs (past 8 hours): - 01/20/21 05:33 01/20/21 08:00 Temperature 97.6 F 97.8 F Pulse Rate 88 81 Respiratory Rate 18 18 Blood Pressure 103/61 128/75 Pulse Oximetry 96 96 Oxygen Delivery Method Room Air Oxygen Flow Rate 0 Narrative Exam Narrative: GENERAL: Alert and oriented, appearing stated age and in no acute distress, left-sided facial droop. HEENT: Head normocephalic/atraumatic. Pupils equal, round, and reactive to light and accomodation. Extraocular muscles intact. Tympanic membranes clear. Nasal mucosa moist, septum midline. Oral mucosa moist, no lesions. Neck soft and supple, no lymphadenopathy. LUNGS: Clear to ausculation bilaterally, no wheezes, rhonchi or rales. CV: Normal S1 and S2 with regular rate and rhythm, no audible murmurs, rubs or gallops. ABDOMEN: Soft, non-tender, non-distended, no organomegaly. Positive bowel sounds. EXTREMITIES: No clubbing, cyanosis, or edema. NEURO: Cranial nerve deficits include slurred speech, left-sided facial hemiparesis, and left-sided shoulder shrug weakness, about the same today. No dysarthria, aphasia. Reduced left-sided [id number]. Good [id number]. Left upper extremity strength, 4/5. Otherwise, 5/5 and symmetric. Sensation intact in the left upper extremity PSYCH: Alert and oriented x 3. SKIN: No concerning lesions. Objective Labs Result Diagrams: 01/19/21 05:40 01/20/21 05:05 Labs: Laboratory Results - last 24 hr 01/20/21 05:05 Sodium 132 L Potassium 3.4 Chloride 98 Carbon Dioxide 27 BUN 25 H Creatinine 1.04 Estimated GFR 54.8 L BUN/Creatinine Ratio 24.0 H Glucose 317 H Calcium 9.7 PFSH Medical History Diabetes HTN (hypertension) Hyperthyroidism Surgical History H/O lumpectomy Social History household members: significant other Smoking Status: Never smoker Assessment & Plan Assessment & Plan narrative: 55-year-old female admitted with 5 days of left- sided facial droop, decreased left arm sensation in the setting of uncontrolled hypertension and noncompliance of medication. Arm is now regaining sensation. HD#3. 1. CVA, subacute, new Plan: MR stroke protocol showed ichemic stroke. Echo showed ejection fraction of 60-65% with no LV thrombus. Will continue lovenox and SCDs. Blood pressure continues to be mostly in good control, goal is <140/90, continue home medications. Continue atorvastatin 80 mg PO qhs. Continue PT/OT. No placement available at SNF secondary to insurance caps. Patient will need to transition to home, needs more work with PT/OT as she needs to navigate over 40 steps to get into her apartment. Plan will be for home health with PT/OT. They are not available to take her as a patient until Saturday. 2. Hypertension, chronic Plan: As above. 3. Diabetes mellitus type 2, uncontrolled -A1c 11.7. -Nursing reports preprandial BS in the 300s 2 days ago, 265 yesterday, and over 300 this morning. Still feeling poor and fuzzy Plan: Will give another Lantus 10 units now and increase nighttime Lantus to 30 units. Continue sliding scale aspart, will change from medium to high scale. Diabetes Education consulting. Will plan to transition into their Diabetes Education program as an outpatient. Endocrinology referral as an outpatient as well (non-[facility] per patient preference). 4. Hyperlipidemia, chronic, uncontrolled Plan: Atorvastatin. 5. Hyperthyroidism, chronic, controlled -TSH 2.16 Plan: Continue home methimazole. 6. Anxiety, chronic Plan: Plan for counseling in the outpatient setting. 7. Low MCV/MCH -Iron, TIBC, folate, ferritin WNL -Peripheral smear showed hypochromasia, anisocytosis, and microcytosis. Plan: Hemoglobin electrophoresis still pending. Code: Full DVT prophylaxis: SCDs to bilateral thighs and lovenox. COVID: Negative Disposition: Anticipate discharge tomorrow or the next day to home health with PT/OT and care home. Quality MIPS - Admit Advanced Care Plan / Current Medications Measures: #47 ? Advanced Care Plan Clinician documentation instruction: document at admission. [] I confirmed that the patient's Advance Care Plan is present, code status is documented, or surrogate decision maker is listed in the patient?s medical record. [SATISFIES MIPS PERFORMANCE] If Yes, Stop Here [] The patient?s Advance Care plan is not present because: (select) [MIPS PERFORMANCE EXCEPTION/EXCLUSION] [] I confirmed today that the patient does not wish or was not able to name a surrogate decision maker or provide an Advance Care Plan. [] Hospice care is currently being provided or has been provided this calendar year [] I did NOT confirm today the presence of an Advance Care Plan or surrogate decision maker documented within the patient's medical record. [DOES NOT SATISFY MIPS PERFORMANCE] #130 - Documentation of Current Medications in the Medical Record Clinician documentation instruction: use macro the first time you see a patient. [] I have utilized all available immediate resources to obtain, update, or review the patient?s current medications. [SATISFIES MIPS PERFORMANCE] If Yes, Stop Here [] The patient is not eligible for medication reconciliation; the patient is in an emergent medical situation where delaying treatment would jeopardize the patient?s health. [MIPS PERFORMANCE EXCEPTION/EXCLUSION] [] I did NOT confirm, update or review the patient's current list of medications today. [DOES NOT SATISFY MIPS PERFORMANCE] MIPS - CL Central Venous Catheter Placement Measure: #76 ? Prevention of Central Venous Catheter (CVC) ? Related Bloodstream Infection Clinician documentation instruction: use macro every time you place a central line. [] All elements of Maximal Sterile Barrier Technique, including hand hygiene, skin prep, and sterile ultrasound technique (if used) were followed. [SATISFIES MIPS PERFORMANCE] If Yes, Stop Here [] If ?No?, the medical reason all elements were NOT used for medical reason [] (ex. emergent condition). [] Maximal Sterile Barrier Technique was not followed, no reason provided [DOES NOT SATISFY MIPS PERFORMANCE] MIPS - DC Heart Failure Measures: #5 - Heart Failure (HF): Angiotensin-Converting Enzyme (JAYNE) Inhibitor or Angiotensin Receptor Veena (ARB) Therapy for Left Andry tricular Systolic Dysfunction (LVSD) and #8 - Heart Failure (HF): Beta-Veena Therapy for Left Ventricular Systolic Dysfunction (LVSD) Clinician documentation instruction: use macro at every CHF discharge. [] The patient has current or prior documentation of left ventricular ejection fraction (LVEF) less than 40%, or moderate or severely depressed left ventricular systolic function. Answer both: [SATISFIES MIPS PERFORMANCE] [] The patient was prescribed or already taking an Angiotensin-Converting Enzyme (JAYNE) Inhibitor, or Angiotensin Receptor Veena (ARB). [] The patient was prescribed or already taking a beta-veena. If Yes to Both, Stop Here [] Patient not prescribed/taking: [MIPS PERFORMANCE EXCEPTION/EXCLUSION] [] JAYNE or ARB for medical/patient/system reason(s) including [] (ex. allergy, intolerance, contraindication) [] Beta-veena for medical/patient/system reason(s) including [] (ex. allergy, intolerance, contraindication) [] Patient not prescribed/taking: [DOES NOT SATISFY MIPS PERFORMANCE] [] JAYNE or ARB, no reason given [] Beta-veena, no reason given
[2021-01-20] MEDS: INSULIN GLARGINE 100 UNIT/ML 3ML PEN 10 UNIT SUBCUT (09:12)
[2021-01-20] MEDS: SODIUM CHLORIDE 0.9% FLUSH 10 ML IV ×2 (09:12→20:46)
--- NOTE | 2021-01-20 09:17 | OT.IP.TRT ---
Current Diagnoses Cerebral infarction, unspecified (01/17/21) Occupational Therapy Treatment Note M2 OT-IP Current Condition Start: 01/19/21 13:20 Freq: Status: Active Protocol: Document 01/19/21 11:16 [facility] (Rec: 01/19/21 13:48 [facility] [id number]) Occupational Therapy Current Condition Current Condition Evaluation Date 01/19/21 Treatment Diagnosis Right frontal lobe infarcts, decreased coordination Diagnosis Onset Date 01/17/21 M3 OT- IP Subjective and Pain Start: 01/19/21 13:20 Freq: Status: Active Protocol: Document 01/20/21 09:17 [facility] (Rec: 01/20/21 09:28 [facility] [id number]) OT- Subjective Occupational Therapy Visit Type Type Treatment Note Visit Start Time 08:53 Visit Stop Time 09:17 Total Visit Minutes 24 Occupational Therapy Visit Comments Patient Comments Pt agreed to get up and do grooming at the sink with OT. Pt states she feels better and now prefers to go home with home health at this tme. Patient/Caregiver Goals To go home. OT Pain Assessment Pain When Pain Assessed At Rest Pain Present Pain Present Denied Pain M4 OT- IP ADL's Start: 01/19/21 13:20 Freq: Status: Active Protocol: Document 01/20/21 09:17 [facility] (Rec: 01/20/21 09:28 [facility] [id number]) OT [id number] Comments OT Self-Feeding Comments Increased time to use left hand to assist for cutting food, pt tends to hold onto the fork with gross grasp versus holding fork between thumb to index and middle fingers. OT ADL-Grooming General Evaluation Grooming Ability Standby Assistance Comments OT Grooming Comments Pt able to do while standing. Pt sat on the bed to do her hair. Noted increased time to coordinate left hand to assist to hold her hair in order to put up in a pony tail . OT ADL-Oral Care General Eval Oral Care Ability Independent OT ADL-Dressing General Eval Lower Body Dressing Ability Standby Assistance Comments OT Dressing Comments Today pt able to coordinate her left hand better to be able to mario her socks, however still mainly dependent for right hand to do most of the work. OT ADL-Bathing Comments OT Bathing Comments Pt refusing at this time. Pt aware would be best to have a shower chair and grab bars placed at home. M5 OT- IP IADL's Start: 01/19/21 13:20 Freq: Status: Active Protocol: Document 01/19/21 11:16 [facility] (Rec: 01/19/21 13:48 [facility] [id number]) OT-Instrumental Activities of Daily Living Home Safety Awareness Ability to Problem Solve Emergency Able to Problem Solve Situations Medication Management Medication Management Comments Pt would benefit from assist/ supervision for needs due having difficulty with executive function and FMS at this time. Money Management Money Management Comments Pt would benefit from assist/ supervision for needs due having difficulty with executive function and FMS at this time. Meal Preparation Meal Preparation Comments Pt would benefit from assist/ supervision for needs due having difficulty with executive function and FMS at this time. Superintendent Geophysical Laboratory Superintendent Geophysical Laboratory Comments Pt would benefit from assist/ supervision for needs due having difficulty with executive function and FMS at this time. Driving Driving Concerns Identified Regarding Safety Driving Comments Pt aware that it would be best for her not to drive at this time. M7 OT- IP Mobility and Balance Start: 01/19/21 13:20 Freq: Status: Active Protocol: Document 01/20/21 09:17 [facility] (Rec: 01/20/21 09:28 [facility] [id number]) OT- Bed Mobility Assessment Rolling Level of Assistance Standby Assistance Supine to Sit Supine to Sit Assist Standby Assistance Sit to Supine Sit to Supine Assist Standby Assistance OT-Transfer Assessment Sit to and From Stand Sit to and from Stand Standby Assistance Transfers Transfer Ability Standby Assistance Technique Transfer Destination Bed,Chair Transfer Technique Stand Step Pivot Devices Transfer Assistive Devices None Comments Mobility Comments SBA in the room to the sink and back with no loss of balance. OT- Gait Assessment Comments Gait Ability Comments SBA on level surfaces today. OT- Balance Assessment Sitting Balance and Reactions Static Sitting Balance Ability Normal Dynamic Sitting Balance Ability Good Standing Balance and Reactions Static Standing Balance Ability Fair Comments Other Balance Tests/Deviations/Treatment Noted pt while standing at the : sink left foot turning out and pt not aware of it and needing cues to widen her base of support while standing and leaning to the left. In addition while pt was standing to spit into the sink , pt unaware that she was leaning on her heels. Educated pt to be mindful of her positioning for her feet and left arm. M8 OT- IP Objective Assessments Start: 01/19/21 13:20 Freq: Status: Active Protocol: M9 OT- IP Assessment and Plan Start: 01/19/21 13:20 Freq: Status: Active Protocol: Document 01/20/21 09:28 [facility] (Rec: 01/20/21 09:31 [facility] [id number]) OT Summary Assessment and Plan Potential Rehabilitation Potential Good Analytic Complexity at Evaluation Moderate Summary OT Impairments Range of Motion,Strength, Balance,Coordination,Sensation ,Functional Cognition, Functional Mobility,Self- Feeding,Grooming,Dressing, Toileting,Bathing,Toilet Transfers,Shower Transfers, Activity Tolerance Progress Towards Goals Progressing Toward Goals Assessment Summary Pt still having some neglect for left side and decreased coordination of left and, decreased dynamic balance and activity tolerance. Pt know wanting to go home and therefore would benefit form home health. Pt has good understanding to have significant other provide assist /supervision as needed due to her left neglect and decreased dynamic balance. Pt to go home when medically stable. Goals Self-Feeding Goal Independent Grooming Goal Independent Dressing Goal Independent Toileting Goal Independent Bathing Goal Independent Toilet Transfer Goal Independent Shower Transfer Goal Independent Days to Meet Goals 7 Frequency of Treatment Frequency Of Treatment Once a Day Treatment Plan OT Treatment Plan ADL Training,Functional Cognition Training,Functional Mobility,Neuromuscular Re- education,Patient/Family Education,Discharge Planning Other Treatment Recommendations and Next FMS during ADL's Treatment Focus Discharge Recommendations OT Discharge Recommendations Home with Assistance,Home Health Transportation Needs at Discharge Private Vehicle
--- NOTE | 2021-01-20 09:21 | CM.DPC ---
Addendum entered by Loan Gannon LPN 01/20/21 10:24: Will update the snfs and prn others to release this referral. Addendum entered by Loan Gannon LPN 01/20/21 10:09: Met as noted with pt and introduced self and role. Pt confirms her understanding that the d/c plan has changed to a home plan and she says she is feeling comfortable with this. She is not at baseline yet physically but her partner Herminio Patiño, who lives with her, will be there to help. He will be here this morning to be part of PT session. She also clarifies that her daughter Brady Hickman, listed on face sheet as living with pt, actually lives in [place]. She confirms she does have 42 steps to get to her apartment but notes they are by landings areas between floors so she can rest as need be during the process. KIARA Rodriguezy will be seeing pt this morning and she is updated in Rounds re the plan. OT Yumiko was in room at time of discussion with pt and said she is supportive of this plan also, especially since HH will be involved. Have spoken with [facility]. She again confirms that pt is accepted and they are aware that this is a Medicaid plan. She is updated that dc is planned now for Sunday 01/21. Says no one will be in the office over the weekend so asks that most of the needed info be faxed today. (updated face sheet/HH specific orders and Face/Face document are now faxed.) Will fax other appropriate clinical in tandem with MATA brian. Diabetic Education is planned via Telehealth at clinic P: home tomorrow, [facility]. Pt is aware that their RN Keila will be calling her Saturday before she comes out to see pt. Original Note: DCP: continued. Case received, EMR reviewed and discussed case with Dr. Mathis. Note the d/c plan options that varied from INPT acute rehab for CVA vs snf vs HH and made more complex by pt's medicaid insurance plan: [employer] [place]. Dr. Mathis reported that pt is improving and she supports pt's plan for going home at d/c with [facility]. She will be keeping pt until tomorrow as her blood sugars are not stabilized and she is in process of transitioning to insulin. Met then with pt. Will discuss case now in Team Rounds and then continue these notes.
--- NOTE | 2021-01-20 11:26 | PT.IPTN ---
Current Diagnoses Cerebral infarction, unspecified (01/17/21) Physical Therapy Treatment Note M2 PT-IP Current Condition Start: 01/18/21 11:35 Freq: NEEDED Status: Active Protocol: Document 01/18/21 09:52 [facility] (Rec: 01/18/21 11:52 [facility] [id number]) Physical Therapy Current Condition Current Condition Evaluation Date 01/18/21 Treatment Diagnosis CVA; difficulty in walking Onset Date 01/17/21 M3 PT-IP Subjective Start: 01/18/21 11:35 Freq: NEEDED Status: Active Protocol: Document 01/20/21 11:08 [facility] (Rec: 01/20/21 12:03 [facility] [id number]) Subjective Physical Therapy Visit Type Type Treatment Note Visit Start Time 11:08 Visit Stop Time 11:26 Total Visit Minutes 18 Notes SO present during tx. Number of SLEEPING CAR CONDUCTOR Visits 1 Physical Therapy Visit Comments Patient Comments pt is agreeable to do PT Therapy Pain Assessment Pain Present Pain Present Denied Pain M4 PT-IP Mobility and Gait Start: 01/18/21 11:35 Freq: NEEDED Status: Active Protocol: Document 01/20/21 11:08 [facility] (Rec: 01/20/21 12:03 [facility] [id number]) PT-Bed Mobility Assessment Supine to Sit Supine to Sit Standby Assistance Sit to Supine Sit to Supine Standby Assistance PT-Transfer Assessment Sit to and From Stand Sit to and from Stand Standby Assistance Equipment Transfer Assistive Device None,Gait Belt Orthotic/Prosthetic Devices or Brace: No Transfers Transfer Destination Bed,Toilet Transfer Technique ambulated without AD Transfer Ability Level of Assist Standby Assistance Comments Mobility Comments Pt stood from bed and ambulated to BR SBA, pt able to mario/doff brief and perform own pericare. Pt then ambulated to sink and washed hands requiring SBA for standing balance. Pt ambulated to 4WW unlocking breaks and ambulated in [place] w/4WW/SBA ~ 100ft to stair well at [facility]. Pt went down/ up 12 steps step to step CGA. Pt ambulated ~120ft before returning to room. Pt educated on using 4WW if feeling fatigued for energy conservation. Pt returned to supine SBA. Pt left in bed with all needs within reach and SO Herminio present. Gait Assessment Gait Gait Assistance Required: Standby Assistance,1 Person Assist Distance (Feet) 220 Able to Maintain Weight Bearing Status Yes During Gait Assistive Devices Assistive Device None,Gait Belt,4 Wheeled Walker Gait Deviations General Gait Pattern Antalgic,Decreased Stride Length,Decreased Feet Clearance,Narrow Based Gait Factors Limiting Gait Function Factors Limiting Gait Function Decreased Activity Tolerance, Decreased Strength,Poor Balance,Poor Safety Awareness Comments Gait Comments see mobility section Stair Climbing Assessment Evaluation Level of Assist On Stairs Contact Guard Assistance,1 Person Assistance Devices Stair Climbing Assistive Devices Left Railing,Right Railing Technique/Endurance Stair Climbing Direction Ascend and Descend Stair Climbing Technique Step to Step Number of Steps Climbed 12 Stair Climbing Set # Repetitions (reps) 1 Comments Stair Climbing Comments pls refer to mobility section for details M5 PT-IP Objective Assessments Start: 01/18/21 11:35 Freq: NEEDED Status: Active Protocol: Document 01/18/21 09:52 [facility] (Rec: 01/18/21 11:52 [facility] [id number]) Orientation Orientation/Cognition Level of Alertness Alert Orientation Name,Place,Situation Safety Awareness Decreased Safety Awareness Gross Range of Motion Lower Extremity ROM Assessment Within Functional Limits Strength Lower Extremity Strength Assessment Left Impaired Hip 3+/5 Knee 3+/5 Muscle Tone Muscle Tone WNL Yes M6 PT-IP Treatment Start: 01/18/21 11:35 Freq: NEEDED Status: Active Protocol: Document 01/19/21 10:27 [facility] (Rec: 01/19/21 10:56 [facility] [id number]) Physical Therapy Treatment Education Education Provided Safety M7 PT-IP Assessment and Plan Start: 01/18/21 11:35 Freq: NEEDED Status: Active Protocol: Document 01/20/21 11:08 [facility] (Rec: 01/20/21 12:03 [facility] [id number]) PT Summary Assessment and Plan Potential Rehabilitation Potential Good Summary Impairments Pain,Strength,Balance, Coordination,Sensation,Tone, Cognition,Bed Mobility, Transfers,Gait,Activity Tolerance Progress Towards Goals Progressing Toward Goals Assessment Summary Pt improving with ambulation is able to ambulate w/o AD for short distances and ambulates with 4WW for longer distances for energy conservation. Pt able to navigate down/up 12 steps with CGA. SO Herminio able to assist pt with mobility. Goals Bed Mobility Goal Independent Transfer Goal Independent Gait Goal Independent Gait Distance 250 Other Goals up/down 42 steps using bilateral rails SBA Days to Meet Goals 5 Frequency of Treatment Frequency Of Treatment Once a Day Treatment Plan Physical Therapy Treatment Plan Bed Mobility Training,Transfer Training,Gait Training, Therapeutic Exercise,Balance Retraining,Discharge Planning, Hot or Cold Pack,Neuromuscular Re-ed,Coordination Retraining Other Recommendations and Next Treatment standing balance, ambulation, Focus stair training Recommendations To Nursing Amount of Assist Needed 1 Person Assist Discharge Recommendations PT Discharge Recommendations Home with Assistance, Outpatient PT Transportation Needs at Discharge Private Vehicle
[2021-01-20 11:33] VITALS: BP 127/65; PULSE 85; RESP 15; TEMP 36.6; O2SAT 97
--- NOTE | 2021-01-20 12:38 | ST.IPTN ---
Visit Care Team Role Provider Type Kendy Martins DO Emergency Provider Physician Referring Provider Address: [address] [place] [address], [id number] Deyanira Mathis MD Admit Provider Physician Attending Provider Primary Care Provider Address: [address] [place] [address], [address], [place], [address] [employer] Treatment Note [employer]IAN Treatment Note Start: 01/18/21 10:24 Freq: Status: Active Protocol: Document 01/20/21 12:26 LNK (Rec: 01/20/21 12:36 LNK [id number]) Speech Pathology Treatment Note Session Time Visit Start Time 11:45 Visit Stop Time 12:05 Total Visit Minutes 20 Setting Treatment Setting Acute Care Visit Type Note Type Treatment Note General Information General Information Pt initially presented to the ED with left side weakness, left facial droop and garbled speech. Imaging determined multiple acute frontal lobe infarcts. ST diagnoses mild dysarthria, which the pt described as speaking in slow motion. No swallowing deficits were noted. Subjective Identification Type Name,Date of Others Present Friend Observations/Patient Presentation Pt was seated at the side of bed eating lunch with significant other present. 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 Pt will understand and demonstrate therapeutic exercises for HEP. Treatment Activities Reviewed HEP exercises and plan for speech therapy to F/U. Pt demonstrated her exercises accurately. She reported that her speech is much better today, but still a little slow. Speech intelligibility @ 100%. Pt encouraged to complete HEP 1- 2x/day after discharge. Pt is scheduled to d/c home with HH tomorrow pending overall improvement. Discharge from at this time. Assessment Patient Response to Treatment Excellent Rehab Potential Excellent Impairments Identified Dysarthria Progress Towards Goals Excellent Progress Assessment of Overall Progress Improving Reviewed with Patient Home Exercise Program Patient/Caregiver Understanding Excellent Plan Therapeutic Contents Oral Motor Training Provided Patient/Caregiver Instruction Home Exercise Program Therapy Recommendations Discharge to Home Exercise Program
[2021-01-20 15:20] VITALS: BP 140/74; PULSE 91; RESP 17; TEMP 36.8; O2SAT 96
--- NOTE | 2021-01-20 18:11 | PM.EVENT ---
Event Note Date Patient Seen: 01/20/21 Time Patient Seen: 18:11 Event Note: Called by nursing secondary to patient request to stop insulin. Patient wants to go back on her home medications because her blood sugars do not seem to be coming down with her insulin. Nursing reports that she has been possibly giving herself sub therapeutic doses of insulin because she has found it difficult to inject herself properly with her aspart and nursing thinks she has not been getting the full dose. Plan: Patient has history of noncompliance with medications and has been resistant to trying insulin. High risk of being noncompliant with insulin as an outpatient if she is not using it correctly in the hospital. Will transition back to her home medications including metformin 1000 mg p.o. b.i.d., Jardiance 10 mg p.o. q.day, and alogliptin 25 mg p.o. q.day. Plan for outpatient Endocrinology with discussion of insulin pump.
--- NOTE | 2021-01-20 18:33 | PC.NURSE ---
Patient recieved sitting up in bed A&O x3. Neurological assessment with NIH 1. SR on telemetry. VSS, afebrile on RA. BG this afternoon 369, patient refusing to have insulin administered stating Every time I get the insulin, my blood sugar continues to go up. I'm not taking it anymore. It's not working. [employer] explained to pt that MD's are titrating the insulin based on her body needs and there are several factors influencing blood glucose levels such as metabolism etc., RN also educated patient about how with her learning to self administer the insulin with the insulin pens, we are having to adjust her technique so that she is getting the entire dose of insulin. Patient still admiment about not taking insulin and MD Charlie Mathis notified. MD Mathis with new orders to go back to metformin 100 mg BID, Jardiance 25 mg daily and alogliptin 25 mg daily starting tonight. Then would add glimerperide later. Plan for patient to follow up for better glucose out patient with endocrinology. Novolog and lantus discontinued per patient refusal.
[2021-01-20] MEDS: METFORMIN HCL 500 MG TABLET 1000 MG PO (19:08)
[2021-01-20 19:16] VITALS: BP 132/72; PULSE 84; RESP 18; TEMP 36.5; O2SAT 95
[2021-01-20] MEDS: Alogliptin 25 MG 25 EACH PO (19:19)
[2021-01-20] MEDS: ATORVASTATIN 20 MG TABLET 80 MG PO (20:41)
[2021-01-20] MEDS: TERAZOSIN 1 MG CAPSULE 4 MG PO (20:42)
[2021-01-20] MEDS: ACETAMINOPHEN 325 MG TABLET 650 MG PO (20:48)
[2021-01-21 00:34] VITALS: BP 138/78; PULSE 77; RESP 18; TEMP 36.8; O2SAT 98
[2021-01-21 04:19] VITALS: BP 128/68; PULSE 68; RESP 16; TEMP 37.1; O2SAT 98
[2021-01-21 05:48] LABS: BUN Creatinine Ratio 23.3 (6-22); Blood Urea Nitrogen 28 mg/dL (7-17); Carbon Dioxide 28 mmol/L (22-32); Chloride 97 mmol/L (98-107); Estimated Glomerular Filt Rate 46.5 mL/min (>60); Glucose 264 mg/dL (70-100); HEMOLYSIS < 15 (0-50); Potassium 3.4 mmol/L (3.4-5.1); Sodium 134 mmol/L (137-145)
--- NOTE | 2021-01-21 07:59 | PC.NURSE ---
Assess- Patient is A&Ox3, she denies pain. Sitting up on walker. Is excited to go home with home health, and denies discomfort. The weakness to her left side has improved, bs is 240. To give patient her diabetic medication. She is no longer getting insulin as she was not injecting herself correctly and may not understand how to do it at home.
[2021-01-21 08:00] VITALS: BP 129/65; PULSE 96; RESP 16; TEMP 37.1; O2SAT 97
[2021-01-21] MEDS: hydroCHLOROthiazide 25 MG TABLET 50 MG PO (08:10)
[2021-01-21] MEDS: methIMAzole 5 MG TABLET PO (08:10)
[2021-01-21] MEDS: dilTIAZem CD 180 MG CAP 360 MG PO (08:10)
[2021-01-21] MEDS: METFORMIN HCL 500 MG TABLET 1000 MG PO (08:10)
[2021-01-21] MEDS: ENOXAPARIN 40 MG/0.4 ML SYRINGE SUBCUT (08:11)
[2021-01-21] MEDS: Alogliptin 25 MG 25 EACH PO (08:12)
[2021-01-21] MEDS: SODIUM CHLORIDE 0.9% FLUSH 10 ML IV (08:34)
--- NOTE | 2021-01-21 09:15 | OT.IP.TRT ---
Current Diagnoses Cerebral infarction, unspecified (01/17/21) Occupational Therapy Treatment Note M2 OT-IP Current Condition Start: 01/19/21 13:20 Freq: Status: Active Protocol: Document 01/19/21 11:16 [facility] (Rec: 01/19/21 13:48 [facility] [id number]) Occupational Therapy Current Condition Current Condition Evaluation Date 01/19/21 Treatment Diagnosis Right frontal lobe infarcts, decreased coordination Diagnosis Onset Date 01/17/21 M3 OT- IP Subjective and Pain Start: 01/19/21 13:20 Freq: Status: Active Protocol: Document 01/21/21 09:12 [facility] (Rec: 01/21/21 09:22 [facility] [id number]) OT- Subjective Occupational Therapy Visit Type Type Treatment Note Visit Start Time 08:56 Visit Stop Time 09:10 Total Visit Minutes 14 Occupational Therapy Visit Comments Patient Comments Pt agreed to go over fine motor skills. Pt not wanting to shower or get dressed at this time. Patient/Caregiver Goals To go home. OT Pain Assessment Pain When Pain Assessed At Rest Pain Present Pain Present Denied Pain M5 OT- IP IADL's Start: 01/19/21 13:20 Freq: Status: Active Protocol: Document 01/19/21 11:16 [facility] (Rec: 01/19/21 13:48 [facility] [id number]) OT-Instrumental Activities of Daily Living Home Safety Awareness Ability to Problem Solve Emergency Able to Problem Solve Situations Medication Management Medication Management Comments Pt would benefit from assist/ supervision for needs due having difficulty with executive function and FMS at this time. Money Management Money Management Comments Pt would benefit from assist/ supervision for needs due having difficulty with executive function and FMS at this time. Meal Preparation Meal Preparation Comments Pt would benefit from assist/ supervision for needs due having difficulty with executive function and FMS at this time. Battery Repairer Battery Repairer Comments Pt would benefit from assist/ supervision for needs due having difficulty with executive function and FMS at this time. Driving Driving Concerns Identified Regarding Safety Driving Comments Pt aware that it would be best for her not to drive at this time. M8 OT- IP Objective Assessments Start: 01/19/21 13:20 Freq: Status: Active Protocol: Document 01/21/21 09:12 [facility] (Rec: 01/21/21 09:22 [facility] [id number]) OT- Coordination Assessment Comments Coordination Comments Pt states 4th digit of left hand was broken one month ago and flexed at DIP and has pain and noted a little swollen throughout her finger. Recommended pt to get a referral for a hand therapist from her primary. Educated pt to work on FMS with left hand with cards and try to incorporate use of left hand for all ADl needs. M9 OT- IP Assessment and Plan Start: 01/19/21 13:20 Freq: Status: Active Protocol: Document 01/21/21 09:12 [facility] (Rec: 01/21/21 09:22 [facility] [id number]) OT Summary Assessment and Plan Potential Rehabilitation Potential Good Analytic Complexity at Evaluation Moderate Summary Progress Towards Goals Progressing Toward Goals Assessment Summary Pt looking to go home today and OT has suggested pt get a referral for hand therapist. Goals Self-Feeding Goal Independent Grooming Goal Independent Dressing Goal Independent Toileting Goal Independent Bathing Goal Independent Toilet Transfer Goal Independent Shower Transfer Goal Independent Days to Meet Goals 6 Frequency of Treatment Frequency Of Treatment Once a Day Treatment Plan OT Treatment Plan ADL Training,Functional Cognition Training,Functional Mobility,Neuromuscular Re- education,Patient/Family Education,Discharge Planning Discharge Recommendations OT Discharge Recommendations Home with Assistance,Home Health Transportation Needs at Discharge Private Vehicle
--- NOTE | 2021-01-21 09:52 | PT.IPTN ---
Current Diagnoses Cerebral infarction, unspecified (01/17/21) Physical Therapy Treatment Note M2 PT-IP Current Condition Start: 01/18/21 11:35 Freq: NEEDED Status: Active Protocol: Document 01/18/21 09:52 AB (Rec: 01/18/21 11:52 AB [id number]) Physical Therapy Current Condition Current Condition Evaluation Date 01/18/21 Treatment Diagnosis CVA; difficulty in walking Onset Date 01/17/21 M3 PT-IP Subjective Start: 01/18/21 11:35 Freq: NEEDED Status: Active Protocol: Document 01/21/21 09:52 AB (Rec: 01/21/21 11:36 AB [id number]) Subjective Physical Therapy Visit Type Type Treatment Note Visit Start Time 09:52 Visit Stop Time 10:08 Total Visit Minutes 16 Number of PHLEBOTOMY SUPPORT TECH Visits 0 Physical Therapy Visit Comments Patient Comments pt is agreeable to do PT M4 PT-IP Mobility and Gait Start: 01/18/21 11:35 Freq: NEEDED Status: Active Protocol: Document 01/21/21 09:52 AB (Rec: 01/21/21 11:36 AB [id number]) PT-Bed Mobility Assessment Supine to Sit Supine to Sit Standby Assistance,Bedrails PT-Transfer Assessment Sit to and From Stand Sit to and from Stand Standby Assistance Equipment Transfer Assistive Device None,Gait Belt,4 Wheeled Walker Transfers Transfer Destination Toilet Transfer Technique ambulated Transfer Ability Level of Assist Standby Assistance Comments Mobility Comments pt completed supine to sit SBA with use of bed rail. completed ambulation in room without AD SBA to CGA and continues to have unsteady antalgic gait but is lesser compared to last time this PT worked with pt. pt agreed to use 4WW at all times at this time upon d/c. completed ambulation in the hallway using 4WW SBA 100 ft. completed up/down steps using bilateral rails CGA. ambulated back to room and requested to use the toilet. pt ambulated without AD from chair to the toilet. call light within reach and instructed to ask for assistance when ready. informed NAC regarding pt using the toilet and spouse also in room with pt. Gait Assessment Gait Gait Assistance Required: Standby Assistance,Contact Guard Assist Distance (Feet) 100 Able to Maintain Weight Bearing Status Yes During Gait Assistive Devices Assistive Device None,Gait Belt,4 Wheeled Walker Orthotic/Prosthetic Devices or Brace: No Gait Deviations General Gait Pattern Antalgic,Decreased Feet Clearance Factors Limiting Gait Function Factors Limiting Gait Function Decreased Activity Tolerance, Decreased Strength,Poor Balance,Poor Safety Awareness Stair Climbing Assessment Evaluation Level of Assist On Stairs Contact Guard Assistance Devices Stair Climbing Assistive Devices Left Railing,Right Railing Technique/Endurance Stair Climbing Direction Ascend and Descend Stair Climbing Technique Step to Step Number of Steps Climbed 3 Stair Climbing Set # Repetitions (reps) 2 Comments Stair Climbing Comments educated pt on technique and LE/trunk control especially with descending steps. M5 PT-IP Objective Assessments Start: 01/18/21 11:35 Freq: NEEDED Status: Active Protocol: Document 01/18/21 09:52 AB (Rec: 01/18/21 11:52 AB [id number]) Orientation Orientation/Cognition Level of Alertness Alert Orientation Name,Place,Situation Safety Awareness Decreased Safety Awareness Gross Range of Motion Lower Extremity ROM Assessment Within Functional Limits Strength Lower Extremity Strength Assessment Left Impaired Hip 3+/5 Knee 3+/5 Muscle Tone Muscle Tone WNL Yes M6 PT-IP Treatment Start: 01/18/21 11:35 Freq: NEEDED Status: Active Protocol: Document 01/21/21 09:52 AB (Rec: 01/21/21 11:36 AB [id number]) Physical Therapy Treatment Education Education Provided Safety M7 PT-IP Assessment and Plan Start: 01/18/21 11:35 Freq: NEEDED Status: Active Protocol: Document 01/21/21 09:52 AB (Rec: 01/21/21 11:36 AB [id number]) PT Summary Assessment and Plan Potential Rehabilitation Potential Good Summary Impairments Pain,ROM,Strength,Balance, Coordination,Sensation,Tone, Cognition,Bed Mobility, Transfers,Gait,Activity Tolerance Progress Towards Goals Progressing Toward Goals Assessment Summary pt requiring SBA to CGA with mobility and her significant other will assist pt. Spouse stated that he has helped her before and knows how to assist her. pt plans to go home today. will benefit from outpt PT. Goals Bed Mobility Goal Independent Transfer Goal Independent Gait Goal Independent Gait Distance 250 Other Goals up/down 42 steps using bilateral rails SBA Days to Meet Goals 5 Frequency of Treatment Frequency Of Treatment Once a Day Treatment Plan Physical Therapy Treatment Plan Bed Mobility Training,Transfer Training,Gait Training, Therapeutic Exercise,Balance Retraining,Discharge Planning, Hot or Cold Pack,Neuromuscular Re-ed,Coordination Retraining Other Recommendations and Next Treatment standing balance, ambulation, Focus stair training Recommendations To Nursing Amount of Assist Needed 1 Person Assist Discharge Recommendations PT Discharge Recommendations Home with Assistance, Outpatient PT Transportation Needs at Discharge Private Vehicle
--- NOTE | 2021-01-21 10:15 | PM.DS.1 ---
History of Present Illness History of Present Illness Date Patient Seen: 01/21/21 Time Patient Seen: 10:16 Chief complaint: poss stroke on saturday Narrative: 55-year-old female with hypertension, diabetes mellitus type 2, and hyperlipidemia is admitted from the ED secondary to a right frontal subacute infarct. History is obtained from patient and the medical record. 5 days prior to presentation, she started noticing garbled speech when she awoke and was walking like an old lady with a shuffling gait. Worried that she was having side effects from her medications, she stopped all of her pills the following morning and went fishing. On that day, she noticed that she had some numbness and tingling in her left arm and continued to have slurred speech. Symptoms did not improve over the next few days and so she called the clinic and came into the ED upon direction from the triage nurse. In the ED she was noted to have a significant left-sided facial droop, confusion, and a blood pressure of 234/112. CT head showed a small area of hypodensity in the right frontal monitor, consistent with a subacute infarct. Lab workup positive for THC and negative for COVID. She also had low MCV/MCH, consistent with her baseline of 70/22. She was given 20 mg of IV labetalol and 10 mg of IV hydralazine before being transferred to the floor; SBP dropped below 200 after these doses. Reports that she now feels better, speech is less slurred and she is less confused. Patient has a history of not taking her medications, most recently between October 2020 and November 2020 after her grandmother . Had a clinic visit at that time that revealed a blood pressure of 230/140; she was sent directly to the ED for malignant hypertension workup. Was referred to cardiology after that at her follow-up appointment but has not followed up with them. Reports that they called her but that she didn't return their phone call. She does not tolerate lisinopril or losartan. She has a poor response to labetalol and metoprolol. Does not like to take her diabetic medications because she feels groggy and slow. Does not like to take her diabetic medications with her antihypertensives. Has atorvastatin at home but does not take it. She is fearful of the side effects of so many medications. Denies previous history of stroke. Discharge Providers Provider Date of admission: 01/17/21 15:03 Discharge Date: 01/21/21 Primary care physician: Deyanira Mathis MD Consults: 01/17/21 16:47 Consult to Dietitian, Adult Routine Comment: Reason For Exam: Reflexed from admission 01/17/21 17:51 Consult to Discharge Planning Routine Comment: Consult to Occupational Therapy Evaluate & Treat Comment: Physician Instructions: Evaluate and treat Consult to Physical Therapy Evaluate & Treat Comment: Physician Instructions: Evaluate and Treat Consult to Speech Therapy Evaluate & Treat Comment: Physician Instructions: Evaluate and treat 01/19/21 08:47 Consult to Dietitian, Adult Routine Comment: Please work on diabetic education for insulin Reason For Exam: diabetes mellitus 01/20/21 08:51 Consult to Home Health Routine Comment: [facility] accepted the referral Reason For Exam: RN/OT/PT at d/c Discharge provider: Deyanira Mathis MD Summary Hospital Course Discharge Diagnosis: 1. CVA, subacute, new 2. Hypertension, chronic, now controlled 3. Diabetes mellitus type 2, uncontrolled 4. Hyperlipidemia, chronic, treated 5. Hyperthyroidism, chronic, controlled 6. Anxiety, chronic 7. Low MCV/MCH Hospital Course: Patient was admitted for left facial hemiparesis, slurring of words, left upper extremity weakness, and shuffling gait. MR protocol confirmed subacute CVA. Echo showed normal ejection fraction and no mural thrombus. Patient was placed on Lovenox and SCDs. Prior to admission, she had been noncompliant with her medications and when placed back on her home blood pressure medications, her blood pressure was well controlled throughout her stay. She was compliant with physical therapy/occupational therapy and clinically improved. Will continue with PT/OT and residential via home health as an outpatient. Partner, Herminio, will be her caregiver. Patient has hyperlipidemia, has refused statin in the past, atorvastatin 80 mg p.o. q.h.s. was started in the hospital with no complications. She is a non insulin dependent diabetic and has been uncontrolled on 4 oral agents. Attempted to transition her to insulin in the hospital but patient refused to continue using insulin the night prior to discharge. Therefore, she was placed back on 3 of her 4 oral agents, metformin 1000 mg p.o. b.i.d., Jardiance 10 mg p.o. q.day , and Aloglitpin 25 mg p.o. q.d. She was not restarted on glimeperide secondary to risk of hypoglycemia. Plan will be for outpatient endocrinology referral to discuss insulin pump. Incidentally, her peripheral smear was abnormal and hemoglobin electrophoresis is pending, possible sickle cell anemia. Initial iron studies were negative for iron deficiency. Plan to follow-up in 1 week; items to discuss include: 1. Compliance with medication and full medication reconciliation. Referral to counseling to support patient's anxiety. 2. Blood pressure check. 3. Home health transition to PT/OT/residential. 4. Endocrinology referral to discuss insulin pump. 5. Transition to outpatient diabetic education, check compliance. 5. Results of hemoglobin electrophoresis, if available. Time spent on Discharge and Coordination of post-hospital care: 35 minutes Status at Discharge Cognitive/behavioral status at discharge: oriented Functional status at discharge: uses cane/walker Overall status at discharge: patient is progressing back to baseline Exam Vital Signs (past 8 hours): - 01/21/21 04:19 01/21/21 08:00 Temperature 98.7 F 98.7 F Pulse Rate 68 96 H Respiratory Rate 16 16 Blood Pressure 128/68 129/65 Pulse Oximetry 98 97 Oxygen Delivery Method Room Air Oxygen Flow Rate 0 Narrative Exam Narrative: GENERAL: Alert and oriented, appearing stated age and in no acute distress, left-sided facial droop. HEENT: Head normocephalic/atraumatic. Pupils equal, round, and reactive to light and accomodation. Extraocular muscles intact. Tympanic membranes clear. Nasal mucosa moist, septum midline. Oral mucosa moist, no lesions. Neck soft and supple, no lymphadenopathy. LUNGS: Clear to ausculation bilaterally, no wheezes, rhonchi or rales. CV: Normal S1 and S2 with regular rate and rhythm, no audible murmurs, rubs or gallops. ABDOMEN: Soft, non-tender, non-distended, no organomegaly. Positive bowel sounds. EXTREMITIES: No clubbing, cyanosis, or edema. NEURO: Cranial nerve deficits include slurred speech, left-sided facial hemiparesis, and left-sided shoulder shrug weakness, about the same today. No dysarthria, aphasia. Reduced left-sided havupm-[id number]. Good tomo-lu-wzxn. Left upper extremity strength, 4/5. Otherwise, 5/5 and symmetric. Sensation intact in the left upper extremity PSYCH: Alert and oriented x 3. SKIN: No concerning lesions. Objective Labs Result Diagrams: 01/19/21 05:40 01/21/21 05:23 Labs: Laboratory Results - last 24 hr 01/21/21 05:23 Sodium 134 L Potassium 3.4 Chloride 97 L Carbon Dioxide 28 BUN 28 H Creatinine 1.20 H Estimated GFR 46.5 L BUN/Creatinine Ratio 23.3 H Glucose 264 H Calcium 10.0 PFSH Medical History Diabetes HTN (hypertension) Hyperthyroidism Surgical History H/O lumpectomy Social History household members: significant other Smoking Status: Never smoker Discharge Plan Discharge Plan Patient Disposition: Home Health Service Transfer to: [facility] Provider Discharge Comment: Home health will start on Saturday for PT/OT and residential. Discharge orders & Medications Prescriptions: New metformin [Glucophage] 500 mg Tablet 1,000 mg PO 0800,1700 Qty: 180 RF: 3 atorvastatin [Lipitor] 20 mg Tablet 80 mg PO BEDTIME Qty: 90 RF: 3 terazosin 1 mg Capsule 4 mg PO BEDTIME Qty: 360 RF: 3 diltiazem HCl 360 mg capsule,extended release 24 hr 360 mg PO DAILY Qty: 90 RF: 3 Continued methimazole 5 MG tablet 5 mg PO QDAY Qty: 0 RF: 0 hydrochlorothiazide 25 mg Tablet 50 mg PO DAILY RF: 0 alogliptin 25 mg Tablet 25 mg PO DAILY RF: 0 empagliflozin 10 mg Tablet 25 mg PO DAILY RF: 0 Discontinued glimepiride [Amaryl] 4 MG tablet 8 mg PO BID Qty: 0 RF: 0 diltiazem HCl 180 mg Capsule,Extended Release 24 Hr 180 mg PO DAILY RF: 0 spironolactone 25 mg Tablet 25 mg PO DAILY RF: 0 terazosin 2 mg Capsule 2 mg PO DAILY RF: 0 Follow up/Referrals: Deyanira Mathis MD [Primary Care Provider] - Diet/Activity/Treatments Diet: Carb-consistent/Diabetic and Low-sodium Activity: with 4 wheel walker Skin/Wound/Dressing Care Report to your healthcare provider any signs of infection, such as:: chills, fever and increased pain Visit Report/Discharge Packet Instructions: Blood Glucose, How to Check Your Blood Glucose, Diabetes and Cardiovascular Disease: What's the Link?, Complications of Type 2 Diabetes, Learn Your Diabetic ABCs, Hypoglycemia, Type 2 Diabetes, Diabetic Neuropathy, DI for Stroke-Ischemic, Right Brain Stroke, Atorvastatin, Diltiazem, Terazosin, Metformin Discharge Data Primary Care Provider: Deyanira Mathis MIPS - Admit Advanced Care Plan / Current Medications Measures: #47 ? Advanced Care Plan Clinician documentation instruction: document at admission. [] I confirmed that the patient's Advance Care Plan is present, code status is documented, or surrogate decision maker is listed in the patient?s medical record. [SATISFIES MIPS PERFORMANCE] If Yes, Stop Here [] The patient?s Advance Care plan is not present because: (select) [MIPS PERFORMANCE EXCEPTION/EXCLUSION] [] I confirmed today that the patient does not wish or was not able to name a surrogate decision maker or provide an Advance Care Plan. [] Hospice care is currently being provided or has been provided this calendar year [] I did NOT confirm today the presence of an Advance Care Plan or surrogate decision maker documented within the patient's medical record. [DOES NOT SATISFY MIPS PERFORMANCE] #130 - Documentation of Current Medications in the Medical Record Clinician documentation instruction: use macro the first time you see a patient. [] I have utilized all available immediate resources to obtain, update, or review the patient?s current medications. [SATISFIES MIPS PERFORMANCE] If Yes, Stop Here [] The patient is not eligible for medication reconciliation; the patient is in an emergent medical situation where delaying treatment would jeopardize the patient?s health. [MIPS PERFORMANCE EXCEPTION/EXCLUSION] [] I did NOT confirm, update or review the patient's current list of medications today. [DOES NOT SATISFY MIPS PERFORMANCE] MIPS - CL Central Venous Catheter Placement Measure: #76 ? Prevention of Central Venous Catheter (CVC) ? Related Bloodstream Infection Clinician documentation instruction: use macro every time you place a central line. [] All elements of Maximal Sterile Barrier Technique, including hand hygiene, skin prep, and sterile ultrasound technique (if used) were followed. [SATISFIES MIPS PERFORMANCE] If Yes, Stop Here [] If ?No?, the medical reason all elements were NOT used for medical reason [] (ex. emergent condition). [] Maximal Sterile Barrier Technique was not followed, no reason provided [DOES NOT SATISFY MIPS PERFORMANCE] MIPS - DC Heart Failure Measures: #5 - Heart Failure (HF): Angiotensin-Converting Enzyme (JAYNE) Inhibitor or Angiotensin Receptor Veena (ARB) Therapy for Left Ventricular Systolic Dysfunction (LVSD) and #8 - Heart Failure (HF): Beta-Veena Therapy for Left Ventricular Systolic Dysfunction (LVSD) Clinician documentation instruction: use macro at every CHF discharge. [] The patient has current or prior documentation of left ventricular ejection fraction (LVEF) less than 40%, or moderate or severely depressed left ventricular systolic function. Answer both: [SATISFIES MIPS PERFORMANCE] [] The patient was prescribed or already taking an Angiotensin-Converting Enzyme (JAYNE) Inhibitor, or Angiotensin Receptor Veena (ARB). [] The patient was prescribed or already taking a beta-veena. If Yes to Both, Stop Here [] Patient not prescribed/taking: [MIPS PERFORMANCE EXCEPTION/EXCLUSION] [] JAYNE or ARB for medical/patient/system reason(s) including [] (ex. allergy, intolerance, contraindication) [] Beta-veena for medical/patient/system reason(s) including [] (ex. allergy, intolerance, contraindication) [] Patient not prescribed/taking: [DOES NOT SATISFY MIPS PERFORMANCE] [] JAYNE or ARB, no reason given [] Beta-veena, no reason given
--- NOTE | 2021-01-21 15:37 | CM.DPC ---
DCP Discharge home with HH Per MD, pt is medically stable to d/c home today with [facility] and no further identified discharge planning needs. Per RN, no concerns and d/c instructions provided and taken down to POV for home today. SW called and left for [facility] updating them on planned d/c home for today and then efaxed d/c summary to [facility] for review. Plan: Patient to d/c home today with new [facility] to start service on Sat01/23/21. ADIA Santiago
== END 2021-01-21 11:55 | disposition home health service (06) | DRG 45 ==
LOC: ED 15:02 → AC 15:04
PROVIDERS: Admitting Provider Student in an Organized Health Care Education/Training Program; Emergency Provider Emergency Medicine; PCP Student in an Organized Health Care Education/Training Program; Referring Provider Emergency Medicine; Visit Provider Student in an Organized Health Care Education/Training Program
DX: I63.9 Cerebral infarction, unspecified (principal); R47.81 Slurred speech; R29.810 Facial weakness; T38.3X6A Underdosing of insulin and oral hypoglycemic [antidiabetic] drugs, initial encounter; G83.24 Monoplegia of upper limb affecting left nondominant side; E11.9 Type 2 diabetes mellitus without complications; E78.5 Hyperlipidemia, unspecified; Z91.128 Patient's intentional underdosing of medication regimen for other reason; E05.90 Thyrotoxicosis, unspecified without thyrotoxic crisis or storm; F41.9 Anxiety disorder, unspecified; Z20.822 Contact with and (suspected) exposure to COVID-19
CPT/HCPCS: 36415; 70450; 70548; 70553; 80048; 80053; 80305; 81001; 82550; 82728; 82746; 82962; 83021; 83036; 83540; 83550; 84443; 84484; 85025; 85610; 85730; 87635; 92507; 92522; 92523; 93005; 93010; 93306; 94762; 96361; 96374; 96375; 97116; 97161; 97166; 97530; 97535; 99285; J0360; J1650

== ENCOUNTER 2021-05-18 09:30 | Outpatient (RCR) | payer OTHER, MEDICAID, SELFPAY ==
[2021-01-17 16:26] VITALS: BMI 35.9
--- NOTE | 2021-02-27 17:27 | ST.OPTN ---
Visit Care Team Role Provider Type Theodore Adame MD Attending Provider Physician Primary Care Provider Referring Provider Address: [facility] [place], [address] CAR SHAKEOUT OPERATOR Treatment Note CAR SHAKEOUT OPERATOR Clinical Instructor Line Start: 02/24/21 12:07 Freq: Status: Active Protocol: Document 02/27/21 17:26 LNK (Rec: 02/27/21 17:26 LNK [id number]) Clinical Instructor Signature Clinical Instructor Clinical Instructor Yes CAR SHAKEOUT OPERATOR Treatment Note Start: 02/27/21 14:06 Freq: Status: Active Protocol: Document 02/27/21 14:06 HM (Rec: 02/27/21 14:23 HM [id number]) Speech Pathology Treatment Note Session Time Visit Start Time 11:30 Visit Stop Time 12:15 Total Visit Minutes 45 Visit Information Visit Number 2 Plan of Care Dates 02/24/21-05/26/21 Insurance Information [facility] Setting Treatment Setting Outpatient Care Visit Type Note Type Treatment Note Next Note Type Next Note Type Treatment Note General Information General Information Pt is a 55-year-old female who was admitted to the hospital one month prior due to left facial hemiparesis, slurring of words, left upper extremity weakness, and shuffling gait. Subacute CVA was confirmed upon imaging, with multiple acute frontal lobe infarcts. Natalia presents with mild dysarthria, secondary to CVA. Symptoms include a slow rate, hypernasality, imprecise articulation, and reduced maximum vowel duration, which impact functional communication by reducing overall intelligibility during conversations. Subjective Identification Type Name Identification Reconciled With Medical Record Chief Complaint(s) Speech Patient Knowledge/Awareness of CAR SHAKEOUT OPERATOR Role Excellent in Treatment Objective Short Term Goals Natalia will improve comprehensibility with familiar listeners by independently using clear speech strategies during sentence reading tasks in 9/10 opportunities in order to participate in meaningful social interactions. Following clinician repetition of her production, Natalia will correct articulatory breakdown during intelligibility drills in 9/10 opportunities in order to increase communication breakdown repair. Fpc Goals Natalia will increase intelligibility and naturalness of speech in order to increase participation in meaningful interactions both in person and over the phone. Natalia will increase use of self-advocacy strategies during conversation to prevent and address communication breakdowns. Treatment Activities Natalia completed strengthening exercises (i.e., spike maneuver with straw and pieces of paper in cup, tongue resistance to tongue depressor). She was instructed to practice these at home as well. Natalia was given 'clear speech' strategies and instructed to focus on taking a big breath, opening mouth wide, and being loud. Natalia produced /st/ blends in the initial, medial, and final position of words with moderate prompting to slow down and focusing on the individual phonemes /s/ vs. /t /. Assessment Patient Response to Treatment Excellent Rehab Potential Excellent Impairments Identified Articulation,Dysarthria,Speech Intelligibility Progress Towards Goals Good Progress Assessment of Overall Progress Improving Assessment of Improvement Natalia demonstrated increased understanding of articulator movements and how 'clear speech' strategies facilitate intelligibility. Her conversational speech includes uncoordinated articulation of /st/ blends. Her intelligibility is benefited by prompts to slow down, speak loud, and think about each individual sound. Recommend continued practice of /st/ blends at the syllable and word levels before increasing complexity to phrases and sentences. Reviewed with Patient Home Exercise Program Patient/Caregiver Understanding Good Plan Amount of Therapy Recommended 6 Months Frequency of Treatment Once a Week Length of Session 45 Minutes Treatment Emphasis Next Session /s/ blends in words, 'clear speech' strategies Therapeutic Contents Articulation Training,Client Education,Intelligibility,Oral Motor Training Provided Patient/Caregiver Instruction Home Exercise Program Therapy Recommendations Continue with Current Program
--- NOTE | 2021-02-28 10:42 | ST.OPIE ---
Visit Care Team Role Provider Type Theodore Adame MD Attending Provider Physician Primary Care Provider Referring Provider Specialty: [facility] Address: [facility] [place], [address] Email: [email or web address] Speech-Language Pathology Initial Evaluation PROPERTY STAFF ACCOUNTANT Clinical Instructor Line Start: 02/24/21 12:07 Freq: Status: Active Protocol: Document 02/27/21 17:26 LNK (Rec: 02/27/21 17:26 LNK [email or web address]) Clinical Instructor Signature Clinical Instructor Clinical Instructor Yes PROPERTY STAFF ACCOUNTANT Motor Speech Evaluation Start: 02/24/21 12:07 Freq: Status: Active Protocol: Document 02/24/21 12:10 HM (Rec: 02/24/21 13:22 HM [id number]) Motor Speech Evaluation Session Time Visit Start Time 10:30 Visit Stop Time 11:30 Total Visit Minutes 60 Visit Information Visit Number 1 Plan of Care Dates 02/24/21-05/26/21 Insurance Information [employer] Setting Setting Outpatient Care Next Note Type Next Note Type Treatment Note Patient History Source: [employer] ([employer]). Patient History Pt is a 55-year-old female who was admitted to the hospital one month prior due to left facial hemiparesis, slurring of words, left upper extremity weakness, and shuffling gait. Subacute CVA was confirmed upon imaging, with multiple acute frontal lobe infarcts. Mild dysarthria was diagnosed by speech therapist prior to discharge, characterized by slurred speech and reduced ROM . Pt believes her speech clarity and speed has reduced since hospital discharge. Pt reports no difficulty with eating or drinking. Referral Referring Physician Deyanira Mathis Reason for Referral Motor speech assessment Mental Status Mental Status Alert,Responsive,Cooperative Subjective Observations Subjective Pt was accompanied by her partner, which led to some pt distraction during assessment tasks. Oral Motor Lips Function Mild Impairment Pucker Left sided weakness Retraction Left sided weakness Alternating pucker/retraction Left sided weakness Involuntary Movement No Tongue Function Mild Impairment Observations at rest No fascinations Protrusion Weak Lateralization Mildly reduced ROM Involuntary Movement No Jaw Function WNL Soft Palate Function Mild Impairment Symmetry Good Elevation Incomplete elevation, weaker on the left Alternating elevation/relaxation Slow, weakness observed Respiration/Phonation Phonation Stimulus Sustained ah Quality Breathy,Strained-strangled Duration 7 seconds (below normal) Function WFL Loudness WFL Steadiness WNL Oral Reading Stimulus [place] passage Other Mild hypernasality. Sibilants and plosives distorted with coarticulation. Loudness WNL Conversation Stimulus Unstructured conversation Other Mild hypernasality. Sibilants and plosives distorted with coarticulation. Loudness WNL Diadochokinetic Rates P^ Quality Mild Impairment Comments Slow T^ Quality Mild Impairment Comments Slow K^ Quality Mild Impairment Comments Slow P^T^K^ Quality Moderate Impairment Comments Slow and effortful, incoordinated diadochokinesis Speech Intelligibility Standardized Tests Assessment Name(s) No formal assessment; informal assessment completed. Phoneme Severity WNL Word Severity Mildly Impaired Comments Breakdown during 3-syllable words with sibilants and plosives Sentence Severity Mildly Impaired Conversation Severity Moderately Impaired Comments Intelligibility decreased with speed and coarticulation. Awareness/Strategy Use Description Type of awareness/use Aware but unable to use Findings Details Motor Speech Function Mild Impairment Type of Impairment Incoordinated articulation w/ hypernasality in reading and conversation Assessment Details Assessment Natalia presents with mild dysarthria, secondary to CVA. Symptoms include a slow rate, hypernasality, imprecise articulation, and reduced maximum vowel duration, which impact functional communication by reducing overall intelligibility during conversations. This negatively impacts her ability to be understood by unfamiliar communication partners. She is poorly understood over the telephone, including for matters of personal health and safety. Prognosis Rehabilitation Potential Good Recommendations Treatment Recommended Yes Frequency 1x/week for 60 minutes Duration 6 months Therapy Recommendations Natalia's prognosis is judged to be good at this time due to inclusion of additional services (i.e., OT, PT), motivation to improve, and time since her stroke. Recommend treatment include teaching of self-advocacy and speaker-oriented strategies to increase overall communicative effectiveness. Short Term Goals Natalia will improve comprehensibility with familiar listeners by independently using clear speech strategies during sentence reading tasks in 9/10 opportunities in order to participate in meaningful social interactions. Following clinician repetition of her production, Natalia will correct articulatory breakdown during intelligibility drills in 9/10 opportunities in order to increase communication breakdown repair. Nursing Home Goals Natalia will increase intelligibility and naturalness of speech in order to increase participation in meaningful interactions both in person and over the phone. Natalia will increase use of self-advocacy strategies during conversation to prevent and address communication breakdowns. Patient/Family Education Education Patient Understanding,Family Understanding,Patient Needs More Info
--- NOTE | 2021-03-01 16:58 | ST.OPDS ---
Addendum entered and electronically signed by Henry Pace 03/27/21 09:46: Because of a miscommunication, this patient, Natalia Burris, was discharged in error. Therapy will resume with current POC. LNK Original Note: Visit Care Team Role Provider Type Theodore Adame MD Attending Provider Physician Primary Care Provider Referring Provider Address: [address] [place] [address], [id number] CHIEF ORDER DISPATCHER Treatment Note CHIEF ORDER DISPATCHER Clinical Instructor Line Start: 02/24/21 12:07 Freq: Status: Active Protocol: Document 02/27/21 17:26 LNK (Rec: 02/27/21 17:26 LNK [email or web address]) Clinical Instructor Signature Clinical Instructor Clinical Instructor Yes CHIEF ORDER DISPATCHER Treatment Note Start: 02/27/21 14:06 Freq: Status: Active Protocol: Document 03/01/21 16:56 LNK (Rec: 03/01/21 16:58 LNK [email or web address]) Speech Pathology Treatment Note Setting Treatment Setting Outpatient Care Visit Type Note Type Discharge Summary General Information General Information Pt is a 55-year-old female who was admitted to the hospital one month prior due to left facial hemiparesis, slurring of words, left upper extremity weakness, and shuffling gait. Subacute CVA was confirmed upon imaging, with multiple acute frontal lobe infarcts. Natalia presents with mild dysarthria, secondary to CVA. Symptoms include a slow rate, hypernasality, imprecise articulation, and reduced maximum vowel duration, which impact functional communication by reducing overall intelligibility during conversations. Objective Leather Craftsman Goals Natalia will increase intelligibility and naturalness of speech in order to increase participation in meaningful interactions both in person and over the phone. Natalia will increase use of self-advocacy strategies during conversation to prevent and address communication breakdowns. Treatment Activities Pt notified the clinical schedulers that she will be continuing OT and PT and she will cancel future ST appointments Assessment Impairments Identified Articulation,Dysarthria,Speech Intelligibility Assessment of Improvement Natalia demonstrated increased understanding of articulator movements and how 'clear speech' strategies facilitate intelligibility. Her conversational speech includes uncoordinated articulation of /st/ blends. Her intelligibiliy is benefited by prompts to slow down, speak loud, and think about each individual sound. Recommend continued practice of /st/ blends at the syllable and word levels before increasing complexity to phrases and sentences. Plan Frequency of Treatment No Further Therapy Therapeutic Contents Articulation Training,Client Education,Intelligibility,Oral Motor Training Therapy Recommendations Discharge from Speech Therapy
--- NOTE | 2021-04-05 16:21 | ST.OPTN ---
Visit Care Team Role Provider Type Theodore Adame MD Attending Provider Physician Primary Care Provider Referring Provider Address: [facility] [place], [address] CORE BAKER Treatment Note CORE BAKER Clinical Instructor Line Start: 02/24/21 12:07 Freq: Status: Active Protocol: Document 04/05/21 16:20 LNK (Rec: 04/05/21 16:20 LNK [id number]) Clinical Instructor Signature Clinical Instructor Clinical Instructor Yes CORE BAKER Treatment Note Start: 02/27/21 14:06 Freq: Status: Active Protocol: Document 04/05/21 12:53 HM (Rec: 04/05/21 13:04 HM [id number]) Speech Pathology Treatment Note Session Time Visit Start Time 11:30 Visit Stop Time 12:15 Total Visit Minutes 45 Visit Information Visit Number 3 Plan of Care Dates 02/24/21-05/26/21 Insurance Information [facility] Setting Treatment Setting Outpatient Care Visit Type Note Type Treatment Note Next Note Type Next Note Type Treatment Note General Information General Information Pt is a 55-year-old female who was admitted to the hospital one month prior due to left facial hemiparesis, slurring of words, left upper extremity weakness, and shuffling gait. Subacute CVA was confirmed upon imaging, with multiple acute frontal lobe infarcts. Natalia presents with mild dysarthria, secondary to CVA. Symptoms include a slow rate, hypernasality, imprecise articulation, and reduced maximum vowel duration, which impact functional communication by reducing overall intelligibility during conversations. Subjective Identification Type Name Identification Reconciled With Medical Record Chief Complaint(s) Speech Patient Knowledge/Awareness of CORE BAKER Role Excellent in Treatment Parent/Caretake Knowledge/Awareness of Excellent CORE BAKER Role in Treatment Patient/Caregiver Compliance with Home Good Exercise Program Objective Short Term Goals Natalia will improve comprehensibility with familiar listeners by independently using clear speech strategies during sentence reading tasks in 9/10 opportunities in order to participate in meaningful social interactions. Following clinician repetition of her production, Natalia will correct articulatory breakdown during intelligibility drills in 9/10 opportunities in order to increase communication breakdown repair. Fpc Goals Natalia will increase intelligibility and naturalness of speech in order to increase participation in meaningful interactions both in person and over the phone. Natalia will increase use of self-advocacy strategies during conversation to prevent and address communication breakdowns. Treatment Activities Pt had notable improvements in her overall intelligibility. Given written phrases and short sentences loaded with / st, str, spr/, pt used clear speech strategies (e.g., pause for breath and slow down) to read out loud. She self corrected occasional words that were less intelligible. During the session, her intelligibility became slightly slurred within conversation when not being intentional about strategy use . Discussed the hierarchy of speech to begin with phrases, then work toward paragraphs and conversation. Assessment Impairments Identified Articulation,Dysarthria,Speech Intelligibility Assessment of Improvement Overall, Natalia's 'clear speech' strategies have been very effective to increase intelligibility while reading aloud. Her conversational speech includes more uncoordinated articulation of consonant clusters and blends. Recommend consistent practice with clear speech strategies while reading short poems and paragraphs aloud. Plan Frequency of Treatment No Further Therapy Therapeutic Contents Articulation Training,Client Education,Intelligibility,Oral Motor Training Therapy Recommendations Discharge from Speech Therapy
--- NOTE | 2021-04-11 12:25 | ST.OPTN ---
Visit Care Team Role Provider Type Theodore Adame MD Attending Provider Physician Primary Care Provider Referring Provider Address: [facility] [place], [address] RELAY SHOP SUPERVISOR Treatment Note RELAY SHOP SUPERVISOR Clinical Instructor Line Start: 02/24/21 12:07 Freq: Status: Active Protocol: Document 04/05/21 16:20 LNK (Rec: 04/05/21 16:20 LNK [email or web address]) Clinical Instructor Signature Clinical Instructor Clinical Instructor Yes RELAY SHOP SUPERVISOR Treatment Note Start: 02/27/21 14:06 Freq: Status: Active Protocol: Document 04/11/21 11:32 LNK (Rec: 04/11/21 12:25 LNK [email or web address]) Speech Pathology Treatment Note Session Time Visit Start Time 11:30 Visit Stop Time 12:15 Total Visit Minutes 45 Visit Information Visit Number 4 Plan of Care Dates 02/24/21-05/26/21 Insurance Information [facility] Setting Treatment Setting Outpatient Care Visit Type Note Type Treatment Note Next Note Type Next Note Type Treatment Note General Information General Information Pt is a 55-year-old female who was admitted to the hospital one month prior due to left facial hemiparesis, slurring of words, left upper extremity weakness, and shuffling gait. Subacute CVA was confirmed upon imaging, with multiple acute frontal lobe infarcts. Natalia presents with mild dysarthria, secondary to CVA. Symptoms include a slow rate, hypernasality, imprecise articulation, and reduced maximum vowel duration, which impact functional communication by reducing overall intelligibility during conversations. Subjective Identification Type Name Identification Reconciled With Medical Record Chief Complaint(s) Speech Patient Knowledge/Awareness of RELAY SHOP SUPERVISOR Role Excellent in Treatment Parent/Caretake Knowledge/Awareness of Excellent RELAY SHOP SUPERVISOR Role in Treatment Patient/Caregiver Compliance with Home Good Exercise Program Objective Short Term Goals Natalia will improve comprehensibility with familiar listeners by independently using clear speech strategies during sentence reading tasks in 9/10 opportunities in order to participate in meaningful social interactions. Following clinician repetition of her production, Natalia will correct articulatory breakdown during intelligibility drills in 9/10 opportunities in order to increase communication breakdown repair. Correction Goals Natalia will increase intelligibility and naturalness of speech in order to increase participation in meaningful interactions both in person and over the phone. Natalia will increase use of self-advocacy strategies during conversation to prevent and address communication breakdowns. Treatment Activities Given written phrases and short sentences loaded with /s , sh/ in all positions of words and within tongue twisters, pt used clear speech strategies (e.g., pause for breath and slow down) to read out loud. She self corrected occasional words that were less intelligible. Her level of tolerance for these activities is improving. Less fatigue at the end of the session. Assessment Impairments Identified Articulation,Dysarthria,Speech Intelligibility Assessment of Improvement Overall, Natalia's 'clear speech' strategies have been very effective to increase intelligibility while reading aloud. Her conversational speech includes more uncoordinated articulation of consonant clusters and blends. Recommend consistent practice with clear speech strategies while reading short poems and paragraphs aloud. Plan Frequency of Treatment Once a Week Length of Session 45 Minutes Therapeutic Contents Articulation Training,Client Education,Intelligibility,Oral Motor Training
--- NOTE | 2021-05-18 10:01 | ST.OPDS ---
Visit Care Team Role Provider Type Theodore Adame MD Attending Provider Physician Primary Care Provider Referring Provider Address: [facility] [place], [address] LOW PRESSURE KETTLE OPERATOR Treatment Note LOW PRESSURE KETTLE OPERATOR Clinical Instructor Line Start: 02/24/21 12:07 Freq: Status: Active Protocol: Document 04/05/21 16:20 LNK (Rec: 04/05/21 16:20 LNK [email or web address]) Clinical Instructor Signature Clinical Instructor Clinical Instructor Yes LOW PRESSURE KETTLE OPERATOR Treatment Note Start: 02/27/21 14:06 Freq: Status: Active Protocol: Document 05/18/21 09:33 LNK (Rec: 05/18/21 10:01 LNK [email or web address]) Speech Pathology Treatment Note Session Time Visit Start Time 09:30 Visit Stop Time 09:55 Total Visit Minutes 25 Visit Information Visit Number 5 Plan of Care Dates 02/24/21-05/26/21 Insurance Information [facility] Setting Treatment Setting Outpatient Care Visit Type Note Type Treatment Note Next Note Type Next Note Type Treatment Note General Information General Information Pt is a 55-year-old female who was admitted to the hospital one month prior due to left facial hemiparesis, slurring of words, left upper extremity weakness, and shuffling gait. Subacute CVA was confirmed upon imaging, with multiple acute frontal lobe infarcts. Natalia presents with mild dysarthria, secondary to CVA. Symptoms include a slow rate, hypernasality, imprecise articulation, and reduced maximum vowel duration, which impact functional communication by reducing overall intelligibility during conversations. Subjective Identification Type Name Identification Reconciled With Medical Record Chief Complaint(s) Speech Patient Knowledge/Awareness of LOW PRESSURE KETTLE OPERATOR Role Excellent in Treatment Parent/Caretake Knowledge/Awareness of Excellent LOW PRESSURE KETTLE OPERATOR Role in Treatment Patient/Caregiver Compliance with Home Good Exercise Program Objective Short Term Goals Natalia will improve comprehensibility with familiar listeners by independently using clear speech strategies during sentence reading tasks in 9/10 opportunities in order to participate in meaningful social interactions. Following clinician repetition of her production, Natalia will correct articulatory breakdown during intelligibility drills in 9/10 opportunities in order to increase communication breakdown repair. Assisted Goals Natalia will increase intelligibility and naturalness of speech in order to increase participation in meaningful interactions both in person and over the phone. Natalia will increase use of self-advocacy strategies during conversation to prevent and address communication breakdowns. Treatment Activities Given written phrases and short sentences loaded with /s , sh/ in all positions of words and within 8/8 tongue twisters, pt used spontaneously /s/ and /sh/ without hesitation or difficulty. Her spontaneous speech was clear with out slurring, crisp sibilant sounds and normal intonation. Pt agrees that her speech has been very good over the past 6 weeks. Assessment Patient Response to Treatment Excellent Impairments Identified Articulation,Dysarthria,Speech Intelligibility Progress Towards Goals Goals Met Assessment of Improvement Overall, Natalia's 'clear speech' strategies have been very effective to increase intelligibility while reading aloud. Her conversational speech includes more spontaneous and natural sounding speech. Recommend discharge from ST at this time . Plan Frequency of Treatment No Further Therapy Therapy Recommendations Discharge from Speech Therapy
== END 2021-05-18 10:45 | disposition home or self-care (01) ==
LOC: SP 09:30
PROVIDERS: PCP Family Medicine; Referring Provider Family Medicine; Visit Provider Family Medicine
DX: I69.954 Hemiplegia and hemiparesis following unspecified cerebrovascular disease affecting left non-dominant side (principal); E11.9 Type 2 diabetes mellitus without complications
CPT/HCPCS: 92507; 92522

== ENCOUNTER 2021-05-18 10:15 | Outpatient (RCR) | payer OTHER, MEDICAID, SELFPAY ==
[2021-01-17 16:26] VITALS: BMI 35.9
--- NOTE | 2021-03-20 16:31 | PT.OIE ---
Current Diagnoses Type 2 diabetes mellitus without complications (03/20/21) Hemiplegia and hemiparesis following unspecified cerebrovascular disease affecting left non-dominant side (03/20/21) Past Medical History (Last Reviewed 01/17/21 @ 13:36 by Kendy Martins DO) Diabetes HTN (hypertension) Hyperthyroidism Past Surgical History (Last Reviewed 01/17/21 @ 13:36 by Kendy Martins DO) H/O lumpectomy Visit Care Team Role Provider Type Theodore Adame MD Attending Provider Physician Primary Care Provider Referring Provider Specialty: [facility] Address: [facility] [place], [address] Email: [email or web address] Physical Therapy Initial Evaluation PT-OP-A Visit Information Start: 03/20/21 07:28 Freq: Status: Active Protocol: Document 03/20/21 10:20 AMB (Rec: 03/20/21 16:15 AMB [email or web address]) Out-Patient Physical Therapy Visit Information Visit Information Visit Type Initial Evaluation Visit Start Time 10:20 Visit Stop Time 11:00 Total Visit Minutes 40 Visit Number 1 PT-OP-B Current Condition Start: 03/20/21 07:28 Freq: Status: Active Protocol: Document 03/20/21 10:20 AMB (Rec: 03/20/21 10:30 AMB [id number]) Current Condition History of Current Condition Onset Date January 2021 Current Complaints CVA with L sided weakness History of Current Condition Natalia reports her confidence is shot with balance since her CVA. She reports no falls , is not working, but wasn't working previously, lives in an apartment up [address] stairs. Has not been carrying anything on the stairs, goes up one stair at a time. Living with boyfriend right now. Using 4WW both in community and in apartment. Goals of cooking, vacuum mercury cell cleaner, laundry. Napping a lot currently. Just finished with home health, has been doing some of the exercises. Treatment Goals Patient/Caregiver Goals Return to walking without walker, ADLs around the house (cooking cleaning), going up and down stairs. Prior Functional Status Baseline Function- ADL's Independent Baseline Function- Mobility Independent Current Functional Impairments (Reported) Functional Limitations- ADL's Difficulty with bed mobility but able to do by herself. Hasn't tried to get off the floor. Weakness with stairs. Does report double vision at times. Personal Factors Other Personal Factors That May Effect DMII, HTN, obesity Therapy/Recovery PT-OP-D Balance Start: 03/20/21 07:28 Freq: Status: Active Protocol: Document 03/20/21 10:20 AMB (Rec: 03/20/21 16:15 AMB [email or web address]) Balance Tests mCTSIB mCTSIB Position 1 30seconds mCTSIB Position 2 30 seconds PT-OP-E Functional Tests Start: 03/20/21 07:28 Freq: Status: Active Protocol: Document 03/20/21 10:20 AMB (Rec: 03/20/21 16:15 AMB [email or web address]) Functional Tests 10 Meter Walk Test Distance 8 seconds Device Used 4WW Dynamic Gait Index (DGI) Score 14 DGI Impairment Rating 40 to <60% Impaired (Score 10- 14) Five Times Sit to Stand Test Score 29 seconds Comments poor eccentric control Timed Up and Go (TUG) Score 18 seconds Comments 4WW TUG Impairment Rating 80 to <100% Impaired (Score 18 -19) PT-OP-G Mobility & Gait Start: 03/20/21 07:28 Freq: Status: Active Protocol: Document 03/20/21 10:20 AMB (Rec: 03/20/21 16:15 AMB [email or web address]) OP Mobility Evaluation Bed Mobility Rolling Independent but reports more difficult than it used to be Transfers Sit to Stand Needs UE support OP Gait Assessment Assistive Devices Assistive Device 4 Wheeled Walker Gait Deviations General Gait Pattern Decreased Feet Clearance,Wide Based Gait Factors Limiting Gait Function Factors Limiting Gait Function Decreased Strength,Poor Balance Stair Climbing Evaluation Evaluation Level of Assist On Stairs Standby Assistance Devices Stair Climbing Assistive Devices Left Railing,Right Railing Technique/Endurance Stair Climbing Direction Ascend and Descend Stair Climbing Technique Step Over Step Number of Steps Climbed 4 Comments Stair Climbing Comments Poor ability to lift left LE up to step- poor coordination of where to put it PT-OP-M Strength Start: 03/20/21 07:28 Freq: Status: Active Protocol: Document 03/20/21 10:20 AMB (Rec: 03/20/21 16:15 AMB [email or web address]) Hip Strength Hip Manual Muscle Testing Right Flexion (L2) 4+ Good+ Extension (S1) 4+ Good+ Abduction 4+ Good+ Left Flexion (L2) 4- Good- Extension (S1) 3+ Fair+ Abduction 3+ Fair+ Knee Strength Knee Manual Muscle Testing Right Flexion (S2) 5 Normal Extension (L3) 5 Normal Left Flexion (S2) 3+ Fair+ Extension (L3) 4+ Good+ Ankle/Foot Strength Ankle and Foot Manual Muscle Testing Right Dorsiflexion (L4) 4+ Good+ Plantarflexion (S1) 4+ Good+ Left Dorsiflexion (L4) 4+ Good+ Plantarflexion (S1) 4 Good PT-OP-Q Treatments Start: 03/20/21 07:28 Freq: Status: Active Protocol: Document 03/20/21 10:20 AMB (Rec: 03/20/21 16:15 AMB [email or web address]) Therapeutic Exercises Standing Exercises 1 Standing Exercise Name heel lift double with UE support Reps/Minutes 10 PT-OP-T Assessment and Plan Start: 03/20/21 07:28 Freq: Status: Active Protocol: Document 03/20/21 10:15 AMB (Rec: 03/20/21 16:31 AMB [email or web address]) Physical Therapy Assessment Rehab Potential Rehabilitation Potential Good Evaluation Complexity Number of Personal Factors/Comorbidities 3 or More Number of Body Systems Impaired 4 or More Clinical Presentation at Evaluation Evolving Impairments Impairments Balance,Functional Activities, Functional Mobility,Gait, Strength Goals Five Impairment balance Short Term Goal (STG) Natalia will show decreased fall risk by improving her TUG score to 15 seconds or less. STG Duration 5 weeks Powerplant Operator Goal (LTG) Natalia will improve her DGI score to 19/24 or greater. LTG Duration 10 weeks Four Impairment transfers Short Term Goal (STG) Natalia will perform a floor transfer with environmental support with CGA. STG Duration 5 weeks Three Impairment HEP Short Term Goal (STG) Natalia will be independent and consistent with her strength and balance HEP. STG Duration 5 weeks Two Impairment strength Short Term Goal (STG) Natalia will improve her L LE strength to 4/5 or greater in all planes of hip/knee/ankle. STG Duration 5 weeks Powerplant Operator Goal (LTG) Natalia will stand 5x from a standard height chair without UE support and with good eccentric control. LTG Duration 10 weeks One Impairment gait Short Term Goal (STG) Natalia will ambulate with a SPC and SBA over smooth surface for 100'. STG Duration 5 weeks Powerplant Operator Goal (LTG) Natalia will ascend 3 flights of stairs with reciprocal gait and 1 railing. LTG Duration 10 weeks Assessment Summary Assessment Natalia attends physical therapy 2 months s/p CVA, having just finished home health. She was previously living independently, and currently has continued weakness and incoordination in the left LE that makes it difficult for her to ambulate or ascend/descend stairs without assitance from railings or her 4WW. She will benefit from physical therapy to improve her strength, gait , balance, and transfers to get her closer to her previous level of function. Physical Therapy Plan Frequency and Duration Frequency of Treatment 2x/Week Duration of Treatment 10 weeks Plan of Care Start Date 03/20/21 Plan of Care End Date 05/29/21 Therapeutic Interventions Therapeutic Interventions Balance Training,Gait Training ,Home Exercise Program,Joint Mobilizations,Manual Therapy, Neuromuscular Re-education, Self-Care/Home Management, Therapeutic Activities, Therapeutic Exercises Next Visit Focus/Plan Next Note Type Treatment Note Next Visit Plan Establish HEP, follow up on gait with SPC vs 4WW
--- NOTE | 2021-03-20 16:32 | PT.OPPOC ---
Physical, Occupational & Speech Therapy At [facility] Current Diagnoses Type 2 diabetes mellitus without complications (03/20/21) Hemiplegia and hemiparesis following unspecified cerebrovascular disease affecting left non-dominant side (03/20/21) Visit Care Team Role Provider Type Theodore Adame MD Attending Provider Physician Primary Care Provider Referring Provider Specialty: [facility] Address: [facility] [place], [facility] Email: [email or web address] Plan Of Care PT-OP-T Assessment and Plan Start: 03/20/21 07:28 Freq: Status: Active Protocol: Document 03/20/21 10:15 AMB (Rec: 03/20/21 16:31 AMB [email or web address]) Physical Therapy Assessment Rehab Potential Rehabilitation Potential Good Evaluation Complexity Number of Personal Factors/Comorbidities 3 or More Number of Body Systems Impaired 4 or More Clinical Presentation at Evaluation Evolving Impairments Impairments Balance,Functional Activities, Functional Mobility,Gait, Strength Goals Five Impairment balance Short Term Goal (STG) Natalia will show decreased fall risk by improving her TUG score to 15 seconds or less. STG Duration 5 weeks Mcc Goal (LTG) Natalia will improve her DGI score to 19/24 or greater. LTG Duration 10 weeks Four Impairment transfers Short Term Goal (STG) Natalia will perform a floor transfer with environmental support with CGA. STG Duration 5 weeks Three Impairment HEP Short Term Goal (STG) Natalia will be independent and consistent with her strength and balance HEP. STG Duration 5 weeks Two Impairment strength Short Term Goal (STG) Natalia will improve her L LE strength to 4/5 or greater in all planes of hip/knee/ankle. STG Duration 5 weeks Hand Compositor Goal (LTG) Natalia will stand 5x from a standard height chair without UE support and with good eccentric control. LTG Duration 10 weeks One Impairment gait Short Term Goal (STG) Natalia will ambulate with a SPC and SBA over smooth surface for 100'. STG Duration 5 weeks Mcc Goal (LTG) Natalia will ascend 3 flights of stairs with reciprocal gait and 1 railing. LTG Duration 10 weeks Assessment Summary Assessment Natalia attends physical therapy 2 months s/p CVA, having just finished home health. She was previously living independently, and currently has continued weakness and incoordination in the left LE that makes it difficult for her to ambulate or ascend/descend stairs without assitance from railings or her 4WW. She will benefit from physical therapy to improve her strength, gait , balance, and transfers to get her closer to her previous level of function. Physical Therapy Plan Frequency and Duration Frequency of Treatment 2x/Week Duration of Treatment 10 weeks Plan of Care Start Date 03/20/21 Plan of Care End Date 05/29/21 Therapeutic Interventions Therapeutic Interventions Balance Training,Gait Training ,Home Exercise Program,Joint Mobilizations,Manual Therapy, Neuromuscular Re-education, Self-Care/Home Management, Therapeutic Activities, Therapeutic Exercises Next Visit Focus/Plan Next Note Type Treatment Note Next Visit Plan Establish HEP, follow up on gait with SPC vs 4WW Plan of Care Dates Plan of Care Start Date 03/20/21 Plan of Care End Date 05/29/21 Electronically Signed by: Izzy Ansari, PT 03/20/21 [id number] Please Sign and Return: I have reviewed this Plan of Care and certify that the skilled therapy services above are required to meet the patient?s needs. Physician Signature Date Printed Name and Credentials Clinical Instructor Signature Printed Name and Credentials
--- NOTE | 2021-03-22 12:02 | PT.OTN ---
Current Diagnoses Type 2 diabetes mellitus without complications (03/22/21) Hemiplegia and hemiparesis following unspecified cerebrovascular disease affecting left non-dominant side (03/22/21) Physical Therapy Treatment Note PT-OP-A Visit Information Start: 03/20/21 07:28 Freq: Status: Active Protocol: Document 03/22/21 10:15 AMB (Rec: 03/22/21 11:01 AMB [id number]) Out-Patient Physical Therapy Visit Information Visit Information Visit Type Treatment Note Visit Start Time 10:15 Visit Stop Time 11:00 Total Visit Minutes 45 Visit Number 2 PT-OP-B Current Condition Start: 03/20/21 07:28 Freq: Status: Active Protocol: Document 03/20/21 10:20 AMB (Rec: 03/20/21 10:30 AMB [id number]) Current Condition History of Current Condition Onset Date January 2021 Current Complaints CVA with L sided weakness History of Current Condition Natalia reports her confidence is shot with balance since her CVA. She reports no falls , is not working, but wasn't working previously, lives in an apartment up [address] stairs. Has not been carrying anything on the stairs, goes up one stair at a time. Living with boyfriend right now. Using 4WW both in community and in apartment. Goals of cooking, vacuum casting cleaner, laundry. Napping a lot currently. Just finished with home health, has been doing some of the exercises. Treatment Goals Patient/Caregiver Goals Return to walking without walker, ADLs around the house (cooking cleaning), going up and down stairs. Prior Functional Status Baseline Function- ADL's Independent Baseline Function- Mobility Independent Current Functional Impairments (Reported) Functional Limitations- ADL's Difficulty with bed mobility but able to do by herself. Hasn't tried to get off the floor. Weakness with stairs. Does report double vision at times. Personal Factors Other Personal Factors That May Effect DMII, HTN, obesity Therapy/Recovery PT-OP-C Subjective Start: 03/20/21 07:28 Freq: Status: Active Protocol: Document 03/22/21 10:15 AMB (Rec: 03/22/21 11:01 AMB [id number]) OP-PT Subjective Patient Comments Patient Comments Pt reports she is fatigued today PT-OP-D Balance Start: 03/20/21 07:28 Freq: Status: Active Protocol: Document 03/20/21 10:20 AMB (Rec: 03/20/21 16:15 AMB [email or web address]) Balance Tests mCTSIB mCTSIB Position 1 30seconds mCTSIB Position 2 30 seconds PT-OP-E Functional Tests Start: 03/20/21 07:28 Freq: Status: Active Protocol: Document 03/20/21 10:20 AMB (Rec: 03/20/21 16:15 AMB [email or web address]) Functional Tests 10 Meter Walk Test Distance 8 seconds Device Used 4WW Dynamic Gait Index (DGI) Score 14 DGI Impairment Rating 40 to <60% Impaired (Score 10- 14) Five Times Sit to Stand Test Score 29 seconds Comments poor eccentric control Timed Up and Go (TUG) Score 18 seconds Comments 4WW TUG Impairment Rating 80 to <100% Impaired (Score 18 -19) PT-OP-G Mobility & Gait Start: 03/20/21 07:28 Freq: Status: Active Protocol: Document 03/20/21 10:20 AMB (Rec: 03/20/21 16:15 AMB [email or web address]) OP Mobility Evaluation Bed Mobility Rolling Independent but reports more difficult than it used to be Transfers Sit to Stand Needs UE support OP Gait Assessment Assistive Devices Assistive Device 4 Wheeled Walker Gait Deviations General Gait Pattern Decreased Feet Clearance,Wide Based Gait Factors Limiting Gait Function Factors Limiting Gait Function Decreased Strength,Poor Balance Stair Climbing Evaluation Evaluation Level of Assist On Stairs Standby Assistance Devices Stair Climbing Assistive Devices Left Railing,Right Railing Technique/Endurance Stair Climbing Direction Ascend and Descend Stair Climbing Technique Step Over Step Number of Steps Climbed 4 Comments Stair Climbing Comments Poor ability to lift left LE up to step- poor coordination of where to put it PT-OP-M Strength Start: 03/20/21 07:28 Freq: Status: Active Protocol: Document 03/20/21 10:20 AMB (Rec: 03/20/21 16:15 AMB [email or web address]) Hip Strength Hip Manual Muscle Testing Right Flexion (L2) 4+ Good+ Extension (S1) 4+ Good+ Abduction 4+ Good+ Left Flexion (L2) 4- Good- Extension (S1) 3+ Fair+ Abduction 3+ Fair+ Knee Strength Knee Manual Muscle Testing Right Flexion (S2) 5 Normal Extension (L3) 5 Normal Left Flexion (S2) 3+ Fair+ Extension (L3) 4+ Good+ Ankle/Foot Strength Ankle and Foot Manual Muscle Testing Right Dorsiflexion (L4) 4+ Good+ Plantarflexion (S1) 4+ Good+ Left Dorsiflexion (L4) 4+ Good+ Plantarflexion (S1) 4 Good PT-OP-Q Treatments Start: 03/20/21 07:28 Freq: Status: Active Protocol: Document 03/22/21 10:15 AMB (Rec: 03/22/21 11:01 AMB [id number]) Cardio Equipment Recumbent Elliptical (Biodex) Duration (Minutes) 5 Resistance 3 Therapeutic Exercises Sitting Exercises 1 Sitting Exercise Name hip abd with #3 tband Reps/Minutes 10 Standing Exercises 4 Standing Exercise Name mini lunges with UE support Reps/Minutes 1 min Comments //bars 2 Standing Exercise Name side stepping in// bars Reps/Minutes 3 min 1 Standing Exercise Name heel lift double with UE support Reps/Minutes 10 Comments trying to reduce UE support but available in //bars Gait Training Gait Activity 2 Description no AD training next to rail Comments with gait belt, 4WW trailing 1 Description SPC training in // bars Comments pt had significant difficulty with sequencing PT-OP-T Assessment and Plan Start: 03/20/21 07:28 Freq: Status: Active Protocol: Document 03/22/21 10:15 AMB (Rec: 03/22/21 11:01 AMB [id number]) Physical Therapy Assessment Assessment Summary Assessment Natalia has a lot of fear of walking without her 4WW, but was worse with walking with her SPC. Encouraged her that she can walk short distances in her home without 4WW if someone is home with her and she is feeling good, but otherwise should continue to use her 4WW. Physical Therapy Plan Next Visit Focus/Plan Next Note Type Treatment Note Next Visit Plan Establish HEP, follow up on gait with SPC vs 4WW
--- NOTE | 2021-03-27 11:48 | PT.OTN ---
Current Diagnoses Type 2 diabetes mellitus without complications (03/27/21) Hemiplegia and hemiparesis following unspecified cerebrovascular disease affecting left non-dominant side (03/27/21) Physical Therapy Treatment Note PT-OP-A Visit Information Start: 03/20/21 07:28 Freq: Status: Active Protocol: Document 03/27/21 10:15 AMB (Rec: 03/27/21 10:42 AMB [id number]) Out-Patient Physical Therapy Visit Information Visit Information Visit Type Treatment Note Visit Start Time 10:15 Visit Stop Time 11:00 Total Visit Minutes 45 Visit Number 3 PT-OP-B Current Condition Start: 03/20/21 07:28 Freq: Status: Active Protocol: Document 03/20/21 10:20 AMB (Rec: 03/20/21 10:30 AMB [id number]) Current Condition History of Current Condition Onset Date January 2021 Current Complaints CVA with L sided weakness History of Current Condition Natalia reports her confidence is shot with balance since her CVA. She reports no falls , is not working, but wasn't working previously, lives in an apartment up [address] stairs. Has not been carrying anything on the stairs, goes up one stair at a time. Living with boyfriend right now. Using 4WW both in community and in apartment. Goals of cooking, vacuum cleaner carpet and upholstery, laundry. Napping a lot currently. Just finished with home health, has been doing some of the exercises. Treatment Goals Patient/Caregiver Goals Return to walking without walker, ADLs around the house (cooking cleaning), going up and down stairs. Prior Functional Status Baseline Function- ADL's Independent Baseline Function- Mobility Independent Current Functional Impairments (Reported) Functional Limitations- ADL's Difficulty with bed mobility but able to do by herself. Hasn't tried to get off the floor. Weakness with stairs. Does report double vision at times. Personal Factors Other Personal Factors That May Effect DMII, HTN, obesity Therapy/Recovery PT-OP-C Subjective Start: 03/20/21 07:28 Freq: Status: Active Protocol: Document 03/27/21 10:15 AMB (Rec: 03/27/21 10:42 AMB [id number]) OP-PT Subjective Patient Comments Patient Comments Pt was fatigued after physical therapy last visit. PT-OP-D Balance Start: 03/20/21 07:28 Freq: Status: Active Protocol: Document 03/20/21 10:20 AMB (Rec: 03/20/21 16:15 AMB [email or web address]) Balance Tests mCTSIB mCTSIB Position 1 30seconds mCTSIB Position 2 30 seconds PT-OP-E Functional Tests Start: 03/20/21 07:28 Freq: Status: Active Protocol: Document 03/20/21 10:20 AMB (Rec: 03/20/21 16:15 AMB [email or web address]) Functional Tests 10 Meter Walk Test Distance 8 seconds Device Used 4WW Dynamic Gait Index (DGI) Score 14 DGI Impairment Rating 40 to <60% Impaired (Score 10- 14) Five Times Sit to Stand Test Score 29 seconds Comments poor eccentric control Timed Up and Go (TUG) Score 18 seconds Comments 4WW TUG Impairment Rating 80 to <100% Impaired (Score 18 -19) PT-OP-G Mobility & Gait Start: 03/20/21 07:28 Freq: Status: Active Protocol: Document 03/20/21 10:20 AMB (Rec: 03/20/21 16:15 AMB [email or web address]) OP Mobility Evaluation Bed Mobility Rolling Independent but reports more difficult than it used to be Transfers Sit to Stand Needs UE support OP Gait Assessment Assistive Devices Assistive Device 4 Wheeled Walker Gait Deviations General Gait Pattern Decreased Feet Clearance,Wide Based Gait Factors Limiting Gait Function Factors Limiting Gait Function Decreased Strength,Poor Balance Stair Climbing Evaluation Evaluation Level of Assist On Stairs Standby Assistance Devices Stair Climbing Assistive Devices Left Railing,Right Railing Technique/Endurance Stair Climbing Direction Ascend and Descend Stair Climbing Technique Step Over Step Number of Steps Climbed 4 Comments Stair Climbing Comments Poor ability to lift left LE up to step- poor coordination of where to put it PT-OP-M Strength Start: 03/20/21 07:28 Freq: Status: Active Protocol: Document 03/20/21 10:20 AMB (Rec: 03/20/21 16:15 AMB [email or web address]) Hip Strength Hip Manual Muscle Testing Right Flexion (L2) 4+ Good+ Extension (S1) 4+ Good+ Abduction 4+ Good+ Left Flexion (L2) 4- Good- Extension (S1) 3+ Fair+ Abduction 3+ Fair+ Knee Strength Knee Manual Muscle Testing Right Flexion (S2) 5 Normal Extension (L3) 5 Normal Left Flexion (S2) 3+ Fair+ Extension (L3) 4+ Good+ Ankle/Foot Strength Ankle and Foot Manual Muscle Testing Right Dorsiflexion (L4) 4+ Good+ Plantarflexion (S1) 4+ Good+ Left Dorsiflexion (L4) 4+ Good+ Plantarflexion (S1) 4 Good PT-OP-Q Treatments Start: 03/20/21 07:28 Freq: Status: Active Protocol: Document 03/27/21 10:15 AMB (Rec: 03/27/21 11:48 AMB [id number]) Gym Equipment Shuttle Balance 1 Details YELLOW Reps/Duration 10 min Comments WBOS, added in head turns at end Therapeutic Exercises Sitting Exercises 2 Sitting Exercise Name toe tap-alternating Comments difficult to coordinate Standing Exercises 5 Standing Exercise Name stair tap alternating Comments Ue support difficult to coordinate 3 Standing Exercise Name hip ext/ abd at railing Resistance #3 t band Reps/Minutes 10 ea 4 Standing Exercise Name mini lunges with UE support Reps/Minutes 1 min Comments //bars Gait Training Gait Activity 2 Description no AD training in gym Comments with gait belt 100'x2 PT-OP-T Assessment and Plan Start: 03/20/21 07:28 Freq: Status: Active Protocol: Document 03/27/21 10:15 AMB (Rec: 03/27/21 10:42 AMB [id number]) Physical Therapy Assessment Assessment Summary Assessment Natalia did better today with overall fatigue and weakness, but continues to fatigue quickly, didn't need as many rest breaks today though. Physical Therapy Plan Next Visit Focus/Plan Next Note Type Treatment Note Next Visit Plan Establish HEP, follow up on gait with SPC vs 4WW vs no AD
--- NOTE | 2021-03-29 | DI.MG.S_ITS ---
BILATERAL DIGITAL SCREENING MAMMOGRAM 3D/2D WITH CAD: 03/29/2021 CLINICAL: Routine screening. Comparison is made to exams dated: 05/04/2019 mammogram, 05/27/2018 mammogram, and 04/17/2017 mammogram - [facility]. There are scattered fibroglandular elements in both breasts. Current study was also evaluated with a Computer Aided Detection (CAD) system. There are benign calcifications in both breasts. There also are benign post operative findings in the left breast. No significant masses, calcifications, or other findings are seen in either breast. There has been no significant interval change. IMPRESSION: BENIGN There is no mammographic evidence of malignancy. A 1 year screening mammogram is recommended. This exam was interpreted at Station ID: [id number]. NOTE: For mammograms, a report in lay terms will be sent to the patient. Approximately 15% of breast malignancies will not be visualized mammographically. In the management of a palpable breast mass, a negative mammogram must not discourage biopsy of a clinically suspicious lesion. Electronically Signed By: John giordano/idalmis:03/30/2021 08:01:46 letter sent: Normal Exam ACR BI-RADS Category 2: Benign Finding(s) 3342F
--- NOTE | 2021-03-29 15:54 | PT.OTN ---
Current Diagnoses Type 2 diabetes mellitus without complications (03/29/21) Hemiplegia and hemiparesis following unspecified cerebrovascular disease affecting left non-dominant side (03/29/21) Physical Therapy Treatment Note PT-OP-A Visit Information Start: 03/20/21 07:28 Freq: Status: Active Protocol: Document 03/29/21 10:15 AMB (Rec: 03/29/21 10:41 AMB [id number]) Out-Patient Physical Therapy Visit Information Visit Information Visit Type Treatment Note Visit Start Time 10:15 Visit Stop Time 11:00 Total Visit Minutes 45 Visit Number 4 PT-OP-B Current Condition Start: 03/20/21 07:28 Freq: Status: Active Protocol: Document 03/20/21 10:20 AMB (Rec: 03/20/21 10:30 AMB [id number]) Current Condition History of Current Condition Onset Date January 2021 Current Complaints CVA with L sided weakness History of Current Condition Natalia reports her confidence is shot with balance since her CVA. She reports no falls , is not working, but wasn't working previously, lives in an apartment up [address] stairs. Has not been carrying anything on the stairs, goes up one stair at a time. Living with boyfriend right now. Using 4WW both in community and in apartment. Goals of cooking, vacuum block cleaner, laundry. Napping a lot currently. Just finished with home health, has been doing some of the exercises. Treatment Goals Patient/Caregiver Goals Return to walking without walker, ADLs around the house (cooking cleaning), going up and down stairs. Prior Functional Status Baseline Function- ADL's Independent Baseline Function- Mobility Independent Current Functional Impairments (Reported) Functional Limitations- ADL's Difficulty with bed mobility but able to do by herself. Hasn't tried to get off the floor. Weakness with stairs. Does report double vision at times. Personal Factors Other Personal Factors That May Effect DMII, HTN, obesity Therapy/Recovery PT-OP-C Subjective Start: 03/20/21 07:28 Freq: Status: Active Protocol: Document 03/29/21 10:15 AMB (Rec: 03/29/21 10:41 AMB [id number]) OP-PT Subjective Patient Comments Patient Comments Pt was fatigued for about a day and a half after last PT treatment. She is wondering about donig a pilates or yoga video. PT-OP-D Balance Start: 03/20/21 07:28 Freq: Status: Active Protocol: Document 03/20/21 10:20 AMB (Rec: 03/20/21 16:15 AMB [email or web address]) Balance Tests mCTSIB mCTSIB Position 1 30seconds mCTSIB Position 2 30 seconds PT-OP-E Functional Tests Start: 03/20/21 07:28 Freq: Status: Active Protocol: Document 03/20/21 10:20 AMB (Rec: 03/20/21 16:15 AMB [email or web address]) Functional Tests 10 Meter Walk Test Distance 8 seconds Device Used 4WW Dynamic Gait Index (DGI) Score 14 DGI Impairment Rating 40 to <60% Impaired (Score 10- 14) Five Times Sit to Stand Test Score 29 seconds Comments poor eccentric control Timed Up and Go (TUG) Score 18 seconds Comments 4WW TUG Impairment Rating 80 to <100% Impaired (Score 18 -19) PT-OP-G Mobility & Gait Start: 03/20/21 07:28 Freq: Status: Active Protocol: Document 03/20/21 10:20 AMB (Rec: 03/20/21 16:15 AMB [email or web address]) OP Mobility Evaluation Bed Mobility Rolling Independent but reports more difficult than it used to be Transfers Sit to Stand Needs UE support OP Gait Assessment Assistive Devices Assistive Device 4 Wheeled Walker Gait Deviations General Gait Pattern Decreased Feet Clearance,Wide Based Gait Factors Limiting Gait Function Factors Limiting Gait Function Decreased Strength,Poor Balance Stair Climbing Evaluation Evaluation Level of Assist On Stairs Standby Assistance Devices Stair Climbing Assistive Devices Left Railing,Right Railing Technique/Endurance Stair Climbing Direction Ascend and Descend Stair Climbing Technique Step Over Step Number of Steps Climbed 4 Comments Stair Climbing Comments Poor ability to lift left LE up to step- poor coordination of where to put it PT-OP-M Strength Start: 03/20/21 07:28 Freq: Status: Active Protocol: Document 03/20/21 10:20 AMB (Rec: 03/20/21 16:15 AMB [email or web address]) Hip Strength Hip Manual Muscle Testing Right Flexion (L2) 4+ Good+ Extension (S1) 4+ Good+ Abduction 4+ Good+ Left Flexion (L2) 4- Good- Extension (S1) 3+ Fair+ Abduction 3+ Fair+ Knee Strength Knee Manual Muscle Testing Right Flexion (S2) 5 Normal Extension (L3) 5 Normal Left Flexion (S2) 3+ Fair+ Extension (L3) 4+ Good+ Ankle/Foot Strength Ankle and Foot Manual Muscle Testing Right Dorsiflexion (L4) 4+ Good+ Plantarflexion (S1) 4+ Good+ Left Dorsiflexion (L4) 4+ Good+ Plantarflexion (S1) 4 Good PT-OP-Q Treatments Start: 03/20/21 07:28 Freq: Status: Active Protocol: Document 03/29/21 10:15 AMB (Rec: 03/29/21 11:04 AMB [id number]) Cardio Equipment Recumbent Elliptical (Biodex) Duration (Minutes) 7 Resistance 3 Therapeutic Exercises Supine Exercises 1 Supine Exercise Name supine january with TA Reps/Minutes 10 Other Exercises 1 Other Exercise Name moilna pose Reps/Minutes 30x2 Gait Training Gait Activity 2 Description Gait without AD Surface smooth Distance/Duration 250' Comments CGA with gait belt- pt fatigued afterwards Neuro Re-Education Treatment Balance Activities 1 Details NBOS Comments head turns PT-OP-T Assessment and Plan Start: 03/20/21 07:28 Freq: Status: Active Protocol: Document 03/29/21 10:15 AMB (Rec: 03/29/21 10:54 AMB [id number]) Physical Therapy Assessment Assessment Summary Assessment Natalia continues to fatigue with gait and exercise. Showed pt some yoga/pilates and pt did have difficulty so encouraged to do only basic video only, perhaps chair yoga . Physical Therapy Plan Next Visit Focus/Plan Next Note Type Treatment Note Next Visit Plan Continue strengthening/core/LE , progress gait/balance.
--- NOTE | 2021-04-11 13:17 | PT.OTN ---
Current Diagnoses Type 2 diabetes mellitus without complications (04/11/21) Hemiplegia and hemiparesis following unspecified cerebrovascular disease affecting left non-dominant side (04/11/21) Physical Therapy Treatment Note PT-OP-A Visit Information Start: 03/20/21 07:28 Freq: Status: Active Protocol: Document 04/11/21 08:30 AMB (Rec: 04/11/21 08:58 AMB [id number]) Out-Patient Physical Therapy Visit Information Visit Information Visit Type Treatment Note Visit Start Time 08:30 Visit Stop Time 09:00 Total Visit Minutes 30 Visit Number 5 PT-OP-B Current Condition Start: 03/20/21 07:28 Freq: Status: Active Protocol: Document 03/20/21 10:20 AMB (Rec: 03/20/21 10:30 AMB [id number]) Current Condition History of Current Condition Onset Date January 2021 Current Complaints CVA with L sided weakness History of Current Condition Natalia reports her confidence is shot with balance since her CVA. She reports no falls , is not working, but wasn't working previously, lives in an apartment up [address] stairs. Has not been carrying anything on the stairs, goes up one stair at a time. Living with boyfriend right now. Using 4WW both in community and in apartment. Goals of cooking, vacuum tar heat exchanger cleaner, laundry. Napping a lot currently. Just finished with home health, has been doing some of the exercises. Treatment Goals Patient/Caregiver Goals Return to walking without walker, ADLs around the house (cooking cleaning), going up and down stairs. Prior Functional Status Baseline Function- ADL's Independent Baseline Function- Mobility Independent Current Functional Impairments (Reported) Functional Limitations- ADL's Difficulty with bed mobility but able to do by herself. Hasn't tried to get off the floor. Weakness with stairs. Does report double vision at times. Personal Factors Other Personal Factors That May Effect DMII, HTN, obesity Therapy/Recovery PT-OP-C Subjective Start: 03/20/21 07:28 Freq: Status: Active Protocol: Document 04/11/21 08:30 AMB (Rec: 04/11/21 13:16 AMB [email or web address]) OP-PT Subjective Patient Comments Patient Comments Pt attends 15 minutes late. PT-OP-D Balance Start: 03/20/21 07:28 Freq: Status: Active Protocol: Document 03/20/21 10:20 AMB (Rec: 03/20/21 16:15 AMB [email or web address]) Balance Tests mCTSIB mCTSIB Position 1 30seconds mCTSIB Position 2 30 seconds PT-OP-E Functional Tests Start: 03/20/21 07:28 Freq: Status: Active Protocol: Document 03/20/21 10:20 AMB (Rec: 03/20/21 16:15 AMB [email or web address]) Functional Tests 10 Meter Walk Test Distance 8 seconds Device Used 4WW Dynamic Gait Index (DGI) Score 14 DGI Impairment Rating 40 to <60% Impaired (Score 10- 14) Five Times Sit to Stand Test Score 29 seconds Comments poor eccentric control Timed Up and Go (TUG) Score 18 seconds Comments 4WW TUG Impairment Rating 80 to <100% Impaired (Score 18 -19) PT-OP-G Mobility & Gait Start: 03/20/21 07:28 Freq: Status: Active Protocol: Document 03/20/21 10:20 AMB (Rec: 03/20/21 16:15 AMB [email or web address]) OP Mobility Evaluation Bed Mobility Rolling Independent but reports more difficult than it used to be Transfers Sit to Stand Needs UE support OP Gait Assessment Assistive Devices Assistive Device 4 Wheeled Walker Gait Deviations General Gait Pattern Decreased Feet Clearance,Wide Based Gait Factors Limiting Gait Function Factors Limiting Gait Function Decreased Strength,Poor Balance Stair Climbing Evaluation Evaluation Level of Assist On Stairs Standby Assistance Devices Stair Climbing Assistive Devices Left Railing,Right Railing Technique/Endurance Stair Climbing Direction Ascend and Descend Stair Climbing Technique Step Over Step Number of Steps Climbed 4 Comments Stair Climbing Comments Poor ability to lift left LE up to step- poor coordination of where to put it PT-OP-M Strength Start: 03/20/21 07:28 Freq: Status: Active Protocol: Document 03/20/21 10:20 AMB (Rec: 03/20/21 16:15 AMB [email or web address]) Hip Strength Hip Manual Muscle Testing Right Flexion (L2) 4+ Good+ Extension (S1) 4+ Good+ Abduction 4+ Good+ Left Flexion (L2) 4- Good- Extension (S1) 3+ Fair+ Abduction 3+ Fair+ Knee Strength Knee Manual Muscle Testing Right Flexion (S2) 5 Normal Extension (L3) 5 Normal Left Flexion (S2) 3+ Fair+ Extension (L3) 4+ Good+ Ankle/Foot Strength Ankle and Foot Manual Muscle Testing Right Dorsiflexion (L4) 4+ Good+ Plantarflexion (S1) 4+ Good+ Left Dorsiflexion (L4) 4+ Good+ Plantarflexion (S1) 4 Good PT-OP-Q Treatments Start: 03/20/21 07:28 Freq: Status: Active Protocol: Document 04/11/21 08:30 AMB (Rec: 04/11/21 13:16 AMB [email or web address]) Cardio Equipment Recumbent Elliptical (Biodex) Duration (Minutes) 5 Resistance 3 Therapeutic Exercises Standing Exercises 5 Standing Exercise Name stair tap alternating Comments Ue support difficult to coordinate 4 Standing Exercise Name mini lunges with UE support Reps/Minutes 1 min Comments 1 railing 2 Standing Exercise Name heel raises Reps/Minutes 20 Comments at railing Gait Training Gait Activity 2 Description Gait without AD Surface smooth Distance/Duration 100' Comments CGA with gait belt- pt fatigued afterwards PT-OP-T Assessment and Plan Start: 03/20/21 07:28 Freq: Status: Active Protocol: Document 04/11/21 08:30 AMB (Rec: 04/11/21 13:16 AMB [email or web address]) Physical Therapy Assessment Assessment Summary Assessment Pt's endurance continues to be a limiting factor in her rehab. Pt continues to be very fatigued, she is working on her coordination exercise, but otherwise she is not doing much of her HEP from home health. Physical Therapy Plan Next Visit Focus/Plan Next Note Type Treatment Note Next Visit Plan Continue strengthening/core/LE , progress gait/balance, follow up with fatigue.
--- NOTE | 2021-04-20 14:46 | PT.OTN ---
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 (04/20/21) Physical Therapy Treatment Note PT-OP-A Visit Information Start: 03/20/21 07:28 Freq: Status: Active Protocol: Document 04/20/21 10:15 AMB (Rec: 04/20/21 10:55 AMB [id number]) Out-Patient Physical Therapy Visit Information Visit Information Visit Type Treatment Note Visit Start Time 10:15 Visit Stop Time 11:00 Total Visit Minutes 45 Visit Number 6 PT-OP-B Current Condition Start: 03/20/21 07:28 Freq: Status: Active Protocol: Document 03/20/21 10:20 AMB (Rec: 03/20/21 10:30 AMB [id number]) Current Condition History of Current Condition Onset Date January 2021 Current Complaints CVA with L sided weakness History of Current Condition Natalia reports her confidence is shot with balance since her CVA. She reports no falls , is not working, but wasn't working previously, lives in an apartment up 42 stairs. Has not been carrying anything on the stairs, goes up one stair at a time. Living with boyfriend right now. Using 4WW both in community and in apartment. Goals of cooking, vacuum school cleaner, laundry. Napping a lot currently. Just finished with home health, has been doing some of the exercises. Treatment Goals Patient/Caregiver Goals Return to walking without walker, ADLs around the house (cooking cleaning), going up and down stairs. Prior Functional Status Baseline Function- ADL's Independent Baseline Function- Mobility Independent Current Functional Impairments (Reported) Functional Limitations- ADL's Difficulty with bed mobility but able to do by herself. Hasn't tried to get off the floor. Weakness with stairs. Does report double vision at times. Personal Factors Other Personal Factors That May Effect DMII, HTN, obesity Therapy/Recovery PT-OP-C Subjective Start: 03/20/21 07:28 Freq: Status: Active Protocol: Document 04/20/21 10:15 AMB (Rec: 04/20/21 10:55 AMB [id number]) OP-PT Subjective Patient Comments Patient Comments Pt reports slightly improved energy, not napping as much PT-OP-D Balance Start: 03/20/21 07:28 Freq: Status: Active Protocol: Document 03/20/21 10:20 AMB (Rec: 03/20/21 16:15 AMB [email or web address]) Balance Tests mCTSIB mCTSIB Position 1 30seconds mCTSIB Position 2 30 seconds PT-OP-E Functional Tests Start: 03/20/21 07:28 Freq: Status: Active Protocol: Document 03/20/21 10:20 AMB (Rec: 03/20/21 16:15 AMB [email or web address]) Functional Tests 10 Meter Walk Test Distance 8 seconds Device Used 4WW Dynamic Gait Index (DGI) Score 14 DGI Impairment Rating 40 to <60% Impaired (Score 10- 14) Five Times Sit to Stand Test Score 29 seconds Comments poor eccentric control Timed Up and Go (TUG) Score 18 seconds Comments 4WW TUG Impairment Rating 80 to <100% Impaired (Score 18 -19) PT-OP-G Mobility & Gait Start: 03/20/21 07:28 Freq: Status: Active Protocol: Document 03/20/21 10:20 AMB (Rec: 03/20/21 16:15 AMB [email or web address]) OP Mobility Evaluation Bed Mobility Rolling Independent but reports more difficult than it used to be Transfers Sit to Stand Needs UE support OP Gait Assessment Assistive Devices Assistive Device 4 Wheeled Walker Gait Deviations General Gait Pattern Decreased Feet Clearance,Wide Based Gait Factors Limiting Gait Function Factors Limiting Gait Function Decreased Strength,Poor Balance Stair Climbing Evaluation Evaluation Level of Assist On Stairs Standby Assistance Devices Stair Climbing Assistive Devices Left Railing,Right Railing Technique/Endurance Stair Climbing Direction Ascend and Descend Stair Climbing Technique Step Over Step Number of Steps Climbed 4 Comments Stair Climbing Comments Poor ability to lift left LE up to step- poor coordination of where to put it PT-OP-M Strength Start: 03/20/21 07:28 Freq: Status: Active Protocol: Document 03/20/21 10:20 AMB (Rec: 03/20/21 16:15 AMB [email or web address]) Hip Strength Hip Manual Muscle Testing Right Flexion (L2) 4+ Good+ Extension (S1) 4+ Good+ Abduction 4+ Good+ Left Flexion (L2) 4- Good- Extension (S1) 3+ Fair+ Abduction 3+ Fair+ Knee Strength Knee Manual Muscle Testing Right Flexion (S2) 5 Normal Extension (L3) 5 Normal Left Flexion (S2) 3+ Fair+ Extension (L3) 4+ Good+ Ankle/Foot Strength Ankle and Foot Manual Muscle Testing Right Dorsiflexion (L4) 4+ Good+ Plantarflexion (S1) 4+ Good+ Left Dorsiflexion (L4) 4+ Good+ Plantarflexion (S1) 4 Good PT-OP-Q Treatments Start: 03/20/21 07:28 Freq: Status: Active Protocol: Document 04/20/21 10:15 AMB (Rec: 04/20/21 10:55 AMB [id number]) Cardio Equipment Recumbent Elliptical (Biodex) Duration (Minutes) 7 Resistance 3 Other RPM25 Therapeutic Exercises Standing Exercises 5 Standing Exercise Name stair tap alternating Comments Ue support difficult to coordinate 4 Standing Exercise Name mini lunges with UE support Reps/Minutes 1 min Comments 1 railing 2 Standing Exercise Name heel raises Reps/Minutes 20 Comments at railing Gait Training Gait Activity 2 Description Gait without AD Surface smooth Distance/Duration 100' 1 Description Outdoor ambulation Distance/Duration 200' Comments Grass, up a small hill, off curb step with 4WW- CGA for curb step otherwise SBA PT-OP-T Assessment and Plan Start: 03/20/21 07:28 Freq: Status: Active Protocol: Document 04/20/21 10:15 AMB (Rec: 04/20/21 10:55 AMB [id number]) Physical Therapy Assessment Goals Five Impairment balance Short Term Goal (STG) Natalia will show decreased fall risk by improving her TUG score to 15 seconds or less. STG Duration 5 weeks Agile Coach Goal (LTG) Natalia will improve her DGI score to 19/24 or greater. LTG Duration 10 weeks Four Impairment transfers Short Term Goal (STG) Natalia will perform a floor transfer with environmental support with CGA. STG Duration 5 weeks Three Impairment HEP Short Term Goal (STG) Ntaalia will be independent and consistent with her strength and balance HEP. STG Duration 5 weeks Two Impairment strength Short Term Goal (STG) Natalia will improve her L LE strength to 4/5 or greater in all planes of hip/knee/ankle. STG Duration 5 weeks Senior Care Goal (LTG) Natalia will stand 5x from a standard height chair without UE support and with good eccentric control. LTG Duration MET One Impairment gait Short Term Goal (STG) Natalia will ambulate with a SPC and SBA over smooth surface for 100'. STG Duration MET Agile Coach Goal (LTG) Natalia will ascend 3 flights of stairs with reciprocal gait and 1 railing. LTG Duration 10 weeks Assessment Summary Assessment Natalia continues to limit herself due to poor energy levels. She tolerated more ambulation without 4WW today. Coordination is still challenging. Physical Therapy Plan Next Visit Focus/Plan Next Note Type Treatment Note Next Visit Plan Continue strengthening/core/LE , progress gait/balance, follow up with fatigue.
--- NOTE | 2021-04-27 15:33 | PT.OTN ---
Current Diagnoses Type 2 diabetes mellitus without complications (04/27/21) Hemiplegia and hemiparesis following unspecified cerebrovascular disease affecting left non-dominant side (04/27/21) Physical Therapy Treatment Note PT-OP-A Visit Information Start: 03/20/21 07:28 Freq: Status: Active Protocol: Document 04/27/21 10:15 AMB (Rec: 04/27/21 10:59 AMB [id number]) Out-Patient Physical Therapy Visit Information Visit Information Visit Type Treatment Note Visit Start Time 10:15 Visit Stop Time 11:00 Total Visit Minutes 45 Visit Number 7 PT-OP-B Current Condition Start: 03/20/21 07:28 Freq: Status: Active Protocol: Document 03/20/21 10:20 AMB (Rec: 03/20/21 10:30 AMB [id number]) Current Condition History of Current Condition Onset Date January 2021 Current Complaints CVA with L sided weakness History of Current Condition Natalia reports her confidence is shot with balance since her CVA. She reports no falls , is not working, but wasn't working previously, lives in an apartment up [address] stairs. Has not been carrying anything on the stairs, goes up one stair at a time. Living with boyfriend right now. Using 4WW both in community and in apartment. Goals of cooking, vacuum night cleaner, laundry. Napping a lot currently. Just finished with home health, has been doing some of the exercises. Treatment Goals Patient/Caregiver Goals Return to walking without walker, ADLs around the house (cooking cleaning), going up and down stairs. Prior Functional Status Baseline Function- ADL's Independent Baseline Function- Mobility Independent Current Functional Impairments (Reported) Functional Limitations- ADL's Difficulty with bed mobility but able to do by herself. Hasn't tried to get off the floor. Weakness with stairs. Does report double vision at times. Personal Factors Other Personal Factors That May Effect DMII, HTN, obesity Therapy/Recovery PT-OP-C Subjective Start: 03/20/21 07:28 Freq: Status: Active Protocol: Document 04/27/21 10:15 AMB (Rec: 04/27/21 15:33 AMB [email or web address]) OP-PT Subjective Patient Comments Patient Comments Pt is tired today PT-OP-D Balance Start: 03/20/21 07:28 Freq: Status: Active Protocol: Document 03/20/21 10:20 AMB (Rec: 03/20/21 16:15 AMB [email or web address]) Balance Tests mCTSIB mCTSIB Position 1 30seconds mCTSIB Position 2 30 seconds PT-OP-E Functional Tests Start: 03/20/21 07:28 Freq: Status: Active Protocol: Document 03/20/21 10:20 AMB (Rec: 03/20/21 16:15 AMB [email or web address]) Functional Tests 10 Meter Walk Test Distance 8 seconds Device Used 4WW Dynamic Gait Index (DGI) Score 14 DGI Impairment Rating 40 to <60% Impaired (Score 10- 14) Five Times Sit to Stand Test Score 29 seconds Comments poor eccentric control Timed Up and Go (TUG) Score 18 seconds Comments 4WW TUG Impairment Rating 80 to <100% Impaired (Score 18 -19) PT-OP-G Mobility & Gait Start: 03/20/21 07:28 Freq: Status: Active Protocol: Document 03/20/21 10:20 AMB (Rec: 03/20/21 16:15 AMB [email or web address]) OP Mobility Evaluation Bed Mobility Rolling Independent but reports more difficult than it used to be Transfers Sit to Stand Needs UE support OP Gait Assessment Assistive Devices Assistive Device 4 Wheeled Walker Gait Deviations General Gait Pattern Decreased Feet Clearance,Wide Based Gait Factors Limiting Gait Function Factors Limiting Gait Function Decreased Strength,Poor Balance Stair Climbing Evaluation Evaluation Level of Assist On Stairs Standby Assistance Devices Stair Climbing Assistive Devices Left Railing,Right Railing Technique/Endurance Stair Climbing Direction Ascend and Descend Stair Climbing Technique Step Over Step Number of Steps Climbed 4 Comments Stair Climbing Comments Poor ability to lift left LE up to step- poor coordination of where to put it PT-OP-M Strength Start: 03/20/21 07:28 Freq: Status: Active Protocol: Document 03/20/21 10:20 AMB (Rec: 03/20/21 16:15 AMB [email or web address]) Hip Strength Hip Manual Muscle Testing Right Flexion (L2) 4+ Good+ Extension (S1) 4+ Good+ Abduction 4+ Good+ Left Flexion (L2) 4- Good- Extension (S1) 3+ Fair+ Abduction 3+ Fair+ Knee Strength Knee Manual Muscle Testing Right Flexion (S2) 5 Normal Extension (L3) 5 Normal Left Flexion (S2) 3+ Fair+ Extension (L3) 4+ Good+ Ankle/Foot Strength Ankle and Foot Manual Muscle Testing Right Dorsiflexion (L4) 4+ Good+ Plantarflexion (S1) 4+ Good+ Left Dorsiflexion (L4) 4+ Good+ Plantarflexion (S1) 4 Good PT-OP-Q Treatments Start: 03/20/21 07:28 Freq: Status: Active Protocol: Document 04/27/21 10:15 AMB (Rec: 04/27/21 15:33 AMB [email or web address]) Cardio Equipment Recumbent Elliptical (Biodex) Duration (Minutes) 5 Resistance 3 Other RPM30 Therapeutic Exercises Standing Exercises 5 Standing Exercise Name stair tap alternating Comments Ue support difficult to coordinate 2 Standing Exercise Name heel raises Reps/Minutes 20 Comments at railing Gait Training Gait Activity 2 Description Gait without AD Surface smooth Distance/Duration 400' Neuro Re-Education Treatment Balance Activities 4 Details bend forward for cones 3 Details 3 step and bow 2 Details walking with head turns Comments vertical and horizontal 1 Details NBOS Comments head turns PT-OP-T Assessment and Plan Start: 03/20/21 07:28 Freq: Status: Active Protocol: Document 04/27/21 10:15 AMB (Rec: 04/27/21 10:59 AMB [id number]) Physical Therapy Assessment Goals Five Impairment balance Short Term Goal (STG) Natalia will show decreased fall risk by improving her TUG score to 15 seconds or less. STG Duration MET-13 seconds Hotel Recreational Facilities Manager Goal (LTG) Natalia will improve her DGI score to 19/24 or greater. LTG Duration 10 weeks Four Impairment transfers Short Term Goal (STG) Natalia will perform a floor transfer with environmental support with CGA. STG Duration MET Three Impairment HEP Short Term Goal (STG) Natalia will be independent and consistent with her strength and balance HEP. STG Duration 5 weeks Two Impairment strength Short Term Goal (STG) Natalia will improve her L LE strength to 4/5 or greater in all planes of hip/knee/ankle. STG Duration 5 weeks Longterm Goal (LTG) Natalia will stand 5x from a standard height chair without UE support and with good eccentric control. LTG Duration MET One Impairment gait Short Term Goal (STG) Natalia will ambulate with a SPC and SBA over smooth surface for 100'. STG Duration MET Longterm Goal (LTG) Natalia will ascend 3 flights of stairs with reciprocal gait and 1 railing. LTG Duration 10 weeks Assessment Summary Assessment Natalia has improved with her walking and reports she is no longer having to use the walker inside the house when her energy level is doing good . She was fatigued after 400' of walking today. Physical Therapy Plan Next Visit Focus/Plan Next Note Type Treatment Note Next Visit Plan continue to progress balance/ gait/advanced transfers
--- NOTE | 2021-05-05 14:06 | PT.OTN ---
Current Diagnoses Type 2 diabetes mellitus without complications (05/05/21) Hemiplegia and hemiparesis following unspecified cerebrovascular disease affecting left non-dominant side (05/05/21) Physical Therapy Treatment Note PT-OP-A Visit Information Start: 03/20/21 07:28 Freq: Status: Active Protocol: Document 05/05/21 10:15 AMB (Rec: 05/05/21 10:39 AMB [id number]) Out-Patient Physical Therapy Visit Information Visit Information Visit Type Treatment Note Visit Start Time 10:15 Visit Stop Time 11:00 Total Visit Minutes 45 Visit Number 8 PT-OP-B Current Condition Start: 03/20/21 07:28 Freq: Status: Active Protocol: Document 03/20/21 10:20 AMB (Rec: 03/20/21 10:30 AMB [id number]) Current Condition History of Current Condition Onset Date January 2021 Current Complaints CVA with L sided weakness History of Current Condition Natalia reports her confidence is shot with balance since her CVA. She reports no falls , is not working, but wasn't working previously, lives in an apartment up [address] stairs. Has not been carrying anything on the stairs, goes up one stair at a time. Living with boyfriend right now. Using 4WW both in community and in apartment. Goals of cooking, vacuum wheel cleaner, laundry. Napping a lot currently. Just finished with home health, has been doing some of the exercises. Treatment Goals Patient/Caregiver Goals Return to walking without walker, ADLs around the house (cooking cleaning), going up and down stairs. Prior Functional Status Baseline Function- ADL's Independent Baseline Function- Mobility Independent Current Functional Impairments (Reported) Functional Limitations- ADL's Difficulty with bed mobility but able to do by herself. Hasn't tried to get off the floor. Weakness with stairs. Does report double vision at times. Personal Factors Other Personal Factors That May Effect DMII, HTN, obesity Therapy/Recovery PT-OP-C Subjective Start: 03/20/21 07:28 Freq: Status: Active Protocol: Document 05/05/21 10:15 AMB (Rec: 05/05/21 10:39 AMB [id number]) OP-PT Subjective Patient Comments Patient Comments Pt reports stress at home, she declines to expand on that. She states it is affecting her sleep. PT-OP-D Balance Start: 03/20/21 07:28 Freq: Status: Active Protocol: Document 03/20/21 10:20 AMB (Rec: 03/20/21 16:15 AMB [email or web address]) Balance Tests mCTSIB mCTSIB Position 1 30seconds mCTSIB Position 2 30 seconds PT-OP-E Functional Tests Start: 03/20/21 07:28 Freq: Status: Active Protocol: Document 03/20/21 10:20 AMB (Rec: 03/20/21 16:15 AMB [email or web address]) Functional Tests 10 Meter Walk Test Distance 8 seconds Device Used 4WW Dynamic Gait Index (DGI) Score 14 DGI Impairment Rating 40 to <60% Impaired (Score 10- 14) Five Times Sit to Stand Test Score 29 seconds Comments poor eccentric control Timed Up and Go (TUG) Score 18 seconds Comments 4WW TUG Impairment Rating 80 to <100% Impaired (Score 18 -19) PT-OP-G Mobility & Gait Start: 03/20/21 07:28 Freq: Status: Active Protocol: Document 03/20/21 10:20 AMB (Rec: 03/20/21 16:15 AMB [email or web address]) OP Mobility Evaluation Bed Mobility Rolling Independent but reports more difficult than it used to be Transfers Sit to Stand Needs UE support OP Gait Assessment Assistive Devices Assistive Device 4 Wheeled Walker Gait Deviations General Gait Pattern Decreased Feet Clearance,Wide Based Gait Factors Limiting Gait Function Factors Limiting Gait Function Decreased Strength,Poor Balance Stair Climbing Evaluation Evaluation Level of Assist On Stairs Standby Assistance Devices Stair Climbing Assistive Devices Left Railing,Right Railing Technique/Endurance Stair Climbing Direction Ascend and Descend Stair Climbing Technique Step Over Step Number of Steps Climbed 4 Comments Stair Climbing Comments Poor ability to lift left LE up to step- poor coordination of where to put it PT-OP-M Strength Start: 03/20/21 07:28 Freq: Status: Active Protocol: Document 03/20/21 10:20 AMB (Rec: 03/20/21 16:15 AMB [email or web address]) Hip Strength Hip Manual Muscle Testing Right Flexion (L2) 4+ Good+ Extension (S1) 4+ Good+ Abduction 4+ Good+ Left Flexion (L2) 4- Good- Extension (S1) 3+ Fair+ Abduction 3+ Fair+ Knee Strength Knee Manual Muscle Testing Right Flexion (S2) 5 Normal Extension (L3) 5 Normal Left Flexion (S2) 3+ Fair+ Extension (L3) 4+ Good+ Ankle/Foot Strength Ankle and Foot Manual Muscle Testing Right Dorsiflexion (L4) 4+ Good+ Plantarflexion (S1) 4+ Good+ Left Dorsiflexion (L4) 4+ Good+ Plantarflexion (S1) 4 Good PT-OP-Q Treatments Start: 03/20/21 07:28 Freq: Status: Active Protocol: Document 05/05/21 10:15 AMB (Rec: 05/05/21 11:01 AMB [id number]) Cardio Equipment Recumbent Elliptical (Biodex) Duration (Minutes) 7 Resistance 3 Other RPM30 Therapeutic Exercises Standing Exercises 5 Standing Exercise Name stair tap alternating Comments Ue support difficult to coordinate 3 Standing Exercise Name step up 6 step Reps/Minutes 2x15 Comments needed UE support Gait Training Gait Activity 2 Description Gait without AD Surface smooth Distance/Duration 400' Comments SBA 1 Description Outdoors with 4WW Treatment Focus grass, gravel, curbs, hills Comments SBA PT-OP-T Assessment and Plan Start: 03/20/21 07:28 Freq: Status: Active Protocol: Document 05/05/21 10:15 AMB (Rec: 05/05/21 10:39 AMB [id number]) Physical Therapy Assessment Goals Five Impairment balance Short Term Goal (STG) Natalia will show decreased fall risk by improving her TUG score to 15 seconds or less. STG Duration MET-13 seconds Plant Scientist Goal (LTG) Natalia will improve her DGI score to 19/24 or greater. LTG Duration 10 weeks Four Impairment transfers Short Term Goal (STG) Natalia will perform a floor transfer with environmental support with CGA. STG Duration MET Three Impairment HEP Short Term Goal (STG) Natalia will be independent and consistent with her strength and balance HEP. STG Duration 5 weeks Two Impairment strength Short Term Goal (STG) Natalia will improve her L LE strength to 4/5 or greater in all planes of hip/knee/ankle. STG Duration 5 weeks Half-Way Goal (LTG) Natalia will stand 5x from a standard height chair without UE support and with good eccentric control. LTG Duration MET One Impairment gait Short Term Goal (STG) Natalia will ambulate with a SPC and SBA over smooth surface for 100'. STG Duration MET Plant Scientist Goal (LTG) Natalia will ascend 3 flights of stairs with reciprocal gait and 1 railing. LTG Duration 10 weeks Assessment Summary Assessment Pt states fatigue is staying about the same. States slept about 6 hours last night and ready for a nap today. Tolerating walking without AD well but then wants to sit afterward due to fatigue. Physical Therapy Plan Frequency and Duration Frequency of Treatment 2x/Week Duration of Treatment 10 weeks Plan of Care Start Date 03/20/21 Plan of Care End Date 05/29/21 Therapeutic Interventions Therapeutic Interventions Balance Training,Gait Training ,Home Exercise Program,Joint Mobilizations,Manual Therapy, Neuromuscular Re-education, Self-Care/Home Management, Therapeutic Activities, Therapeutic Exercises Next Visit Focus/Plan Next Note Type Treatment Note Next Visit Plan continue to progress balance/ gait/advanced transfers
--- NOTE | 2021-05-11 11:01 | PT.OTN ---
Current Diagnoses Type 2 diabetes mellitus without complications (05/11/21) Hemiplegia and hemiparesis following unspecified cerebrovascular disease affecting left non-dominant side (05/11/21) Physical Therapy Treatment Note PT-OP-A Visit Information Start: 03/20/21 07:28 Freq: Status: Active Protocol: Document 05/11/21 10:15 AMB (Rec: 05/11/21 10:39 AMB [id number]) Out-Patient Physical Therapy Visit Information Visit Information Visit Type Treatment Note Visit Start Time 10:15 Visit Stop Time 11:00 Total Visit Minutes 45 Visit Number 9 PT-OP-B Current Condition Start: 03/20/21 07:28 Freq: Status: Active Protocol: Document 03/20/21 10:20 AMB (Rec: 03/20/21 10:30 AMB [id number]) Current Condition History of Current Condition Onset Date January 2021 Current Complaints CVA with L sided weakness History of Current Condition Natalia reports her confidence is shot with balance since her CVA. She reports no falls , is not working, but wasn't working previously, lives in an apartment up [address] stairs. Has not been carrying anything on the stairs, goes up one stair at a time. Living with boyfriend right now. Using 4WW both in community and in apartment. Goals of cooking, vacuum casing cleaner, laundry. Napping a lot currently. Just finished with home health, has been doing some of the exercises. Treatment Goals Patient/Caregiver Goals Return to walking without walker, ADLs around the house (cooking cleaning), going up and down stairs. Prior Functional Status Baseline Function- ADL's Independent Baseline Function- Mobility Independent Current Functional Impairments (Reported) Functional Limitations- ADL's Difficulty with bed mobility but able to do by herself. Hasn't tried to get off the floor. Weakness with stairs. Does report double vision at times. Personal Factors Other Personal Factors That May Effect DMII, HTN, obesity Therapy/Recovery PT-OP-C Subjective Start: 03/20/21 07:28 Freq: Status: Active Protocol: Document 05/11/21 10:15 AMB (Rec: 05/11/21 10:39 AMB [id number]) OP-PT Subjective Patient Comments Patient Comments Sleep is better this week. Pt states she thinks she is about 40% recovered from the stroke at this point. PT-OP-D Balance Start: 03/20/21 07:28 Freq: Status: Active Protocol: Document 03/20/21 10:20 AMB (Rec: 03/20/21 16:15 AMB [email or web address]) Balance Tests mCTSIB mCTSIB Position 1 30seconds mCTSIB Position 2 30 seconds PT-OP-E Functional Tests Start: 03/20/21 07:28 Freq: Status: Active Protocol: Document 03/20/21 10:20 AMB (Rec: 03/20/21 16:15 AMB [email or web address]) Functional Tests 10 Meter Walk Test Distance 8 seconds Device Used 4WW Dynamic Gait Index (DGI) Score 14 DGI Impairment Rating 40 to <60% Impaired (Score 10- 14) Five Times Sit to Stand Test Score 29 seconds Comments poor eccentric control Timed Up and Go (TUG) Score 18 seconds Comments 4WW TUG Impairment Rating 80 to <100% Impaired (Score 18 -19) PT-OP-G Mobility & Gait Start: 03/20/21 07:28 Freq: Status: Active Protocol: Document 03/20/21 10:20 AMB (Rec: 03/20/21 16:15 AMB [email or web address]) OP Mobility Evaluation Bed Mobility Rolling Independent but reports more difficult than it used to be Transfers Sit to Stand Needs UE support OP Gait Assessment Assistive Devices Assistive Device 4 Wheeled Walker Gait Deviations General Gait Pattern Decreased Feet Clearance,Wide Based Gait Factors Limiting Gait Function Factors Limiting Gait Function Decreased Strength,Poor Balance Stair Climbing Evaluation Evaluation Level of Assist On Stairs Standby Assistance Devices Stair Climbing Assistive Devices Left Railing,Right Railing Technique/Endurance Stair Climbing Direction Ascend and Descend Stair Climbing Technique Step Over Step Number of Steps Climbed 4 Comments Stair Climbing Comments Poor ability to lift left LE up to step- poor coordination of where to put it PT-OP-M Strength Start: 03/20/21 07:28 Freq: Status: Active Protocol: Document 03/20/21 10:20 AMB (Rec: 03/20/21 16:15 AMB [email or web address]) Hip Strength Hip Manual Muscle Testing Right Flexion (L2) 4+ Good+ Extension (S1) 4+ Good+ Abduction 4+ Good+ Left Flexion (L2) 4- Good- Extension (S1) 3+ Fair+ Abduction 3+ Fair+ Knee Strength Knee Manual Muscle Testing Right Flexion (S2) 5 Normal Extension (L3) 5 Normal Left Flexion (S2) 3+ Fair+ Extension (L3) 4+ Good+ Ankle/Foot Strength Ankle and Foot Manual Muscle Testing Right Dorsiflexion (L4) 4+ Good+ Plantarflexion (S1) 4+ Good+ Left Dorsiflexion (L4) 4+ Good+ Plantarflexion (S1) 4 Good PT-OP-Q Treatments Start: 03/20/21 07:28 Freq: Status: Active Protocol: Document 05/11/21 10:15 AMB (Rec: 05/11/21 10:39 AMB [id number]) Cardio Equipment Recumbent Elliptical (Biodex) Duration (Minutes) 7 Resistance 3 Other RPM30 Therapeutic Exercises Standing Exercises 5 Standing Exercise Name stair tap alternating Comments Ue support difficult to coordinate 3 Standing Exercise Name step up 6 step Reps/Minutes 2x15 Comments needed UE support 4 Standing Exercise Name marching Comments needed UE support 2 Standing Exercise Name squats at railing Reps/Minutes 2x10 Comments partial 1 Standing Exercise Name sidestepping Reps/Minutes 10'x4 Gait Training Gait Activity 2 Description Gait without AD Surface smooth Distance/Duration 200'x2 Comments SBA 1 Description Outdoors with 4WW Level of Assistance 500' Treatment Focus grass, gravel, curbs, hills Comments SBA PT-OP-T Assessment and Plan Start: 03/20/21 07:28 Freq: Status: Active Protocol: Document 05/11/21 10:15 AMB (Rec: 05/11/21 11:01 AMB [id number]) Physical Therapy Assessment Assessment Summary Assessment Pt continues to be challenged by toe taps and alternating step taps. Physical Therapy Plan Next Visit Focus/Plan Next Note Type Treatment Note Next Visit Plan continue to progress balance/ gait/advanced transfers
--- NOTE | 2021-05-18 13:00 | PT.OTN ---
Current Diagnoses Type 2 diabetes mellitus without complications (05/18/21) Hemiplegia and hemiparesis following unspecified cerebrovascular disease affecting left non-dominant side (05/18/21) Physical Therapy Treatment Note PT-OP-A Visit Information Start: 03/20/21 07:28 Freq: Status: Active Protocol: Document 05/18/21 10:25 AMB (Rec: 05/18/21 10:41 AMB [id number]) Out-Patient Physical Therapy Visit Information Visit Information Visit Type Progress Note Visit Start Time 10:25 Visit Stop Time 11:05 Total Visit Minutes 40 Visit Number 10 PT-OP-B Current Condition Start: 03/20/21 07:28 Freq: Status: Active Protocol: Document 03/20/21 10:20 AMB (Rec: 03/20/21 10:30 AMB [id number]) Current Condition History of Current Condition Onset Date January 2021 Current Complaints CVA with L sided weakness History of Current Condition Natalia reports her confidence is shot with balance since her CVA. She reports no falls , is not working, but wasn't working previously, lives in an apartment up 42 stairs. Has not been carrying anything on the stairs, goes up one stair at a time. Living with boyfriend right now. Using 4WW both in community and in apartment. Goals of cooking, vacuum alley cleaner, laundry. Napping a lot currently. Just finished with home health, has been doing some of the exercises. Treatment Goals Patient/Caregiver Goals Return to walking without walker, ADLs around the house (cooking cleaning), going up and down stairs. Prior Functional Status Baseline Function- ADL's Independent Baseline Function- Mobility Independent Current Functional Impairments (Reported) Functional Limitations- ADL's Difficulty with bed mobility but able to do by herself. Hasn't tried to get off the floor. Weakness with stairs. Does report double vision at times. Personal Factors Other Personal Factors That May Effect DMII, HTN, obesity Therapy/Recovery PT-OP-C Subjective Start: 03/20/21 07:28 Freq: Status: Active Protocol: Document 05/18/21 10:25 AMB (Rec: 05/18/21 12:58 AMB [email or web address]) OP-PT Subjective Patient Comments Patient Comments Pt states she is doing well, she drove here today and it went well, the most difficult thing is getting the walker out of the van. PT-OP-D Balance Start: 03/20/21 07:28 Freq: Status: Active Protocol: Document 03/20/21 10:20 AMB (Rec: 03/20/21 16:15 AMB [email or web address]) Balance Tests mCTSIB mCTSIB Position 1 30seconds mCTSIB Position 2 30 seconds PT-OP-E Functional Tests Start: 03/20/21 07:28 Freq: Status: Active Protocol: Document 03/20/21 10:20 AMB (Rec: 03/20/21 16:15 AMB [email or web address]) Functional Tests 10 Meter Walk Test Distance 8 seconds Device Used 4WW Dynamic Gait Index (DGI) Score 14 DGI Impairment Rating 40 to <60% Impaired (Score 10- 14) Five Times Sit to Stand Test Score 29 seconds Comments poor eccentric control Timed Up and Go (TUG) Score 18 seconds Comments 4WW TUG Impairment Rating 80 to <100% Impaired (Score 18 -19) PT-OP-G Mobility & Gait Start: 03/20/21 07:28 Freq: Status: Active Protocol: Document 03/20/21 10:20 AMB (Rec: 03/20/21 16:15 AMB [email or web address]) OP Mobility Evaluation Bed Mobility Rolling Independent but reports more difficult than it used to be Transfers Sit to Stand Needs UE support OP Gait Assessment Assistive Devices Assistive Device 4 Wheeled Walker Gait Deviations General Gait Pattern Decreased Feet Clearance,Wide Based Gait Factors Limiting Gait Function Factors Limiting Gait Function Decreased Strength,Poor Balance Stair Climbing Evaluation Evaluation Level of Assist On Stairs Standby Assistance Devices Stair Climbing Assistive Devices Left Railing,Right Railing Technique/Endurance Stair Climbing Direction Ascend and Descend Stair Climbing Technique Step Over Step Number of Steps Climbed 4 Comments Stair Climbing Comments Poor ability to lift left LE up to step- poor coordination of where to put it PT-OP-M Strength Start: 03/20/21 07:28 Freq: Status: Active Protocol: Document 03/20/21 10:20 AMB (Rec: 03/20/21 16:15 AMB [email or web address]) Hip Strength Hip Manual Muscle Testing Right Flexion (L2) 4+ Good+ Extension (S1) 4+ Good+ Abduction 4+ Good+ Left Flexion (L2) 4- Good- Extension (S1) 3+ Fair+ Abduction 3+ Fair+ Knee Strength Knee Manual Muscle Testing Right Flexion (S2) 5 Normal Extension (L3) 5 Normal Left Flexion (S2) 3+ Fair+ Extension (L3) 4+ Good+ Ankle/Foot Strength Ankle and Foot Manual Muscle Testing Right Dorsiflexion (L4) 4+ Good+ Plantarflexion (S1) 4+ Good+ Left Dorsiflexion (L4) 4+ Good+ Plantarflexion (S1) 4 Good PT-OP-Q Treatments Start: 03/20/21 07:28 Freq: Status: Active Protocol: Document 05/18/21 10:25 AMB (Rec: 05/18/21 12:58 AMB [email or web address]) Therapeutic Exercises Supine Exercises 2 Supine Exercise Name hamstring stretch Reps/Minutes 30x2 1 Supine Exercise Name hip flexor stretch Reps/Minutes 30x2 Sidelying Exercises 1 Sidelying Exercise Name clamshell Reps/Minutes 2x10 Gait Training Gait Activity stairs Description 2 flights 1 railing Comments step over step ascending, step to descending 2 Description Gait without AD Surface smooth Distance/Duration 200'x2 Comments SBA PT-OP-T Assessment and Plan Start: 03/20/21 07:28 Freq: Status: Active Protocol: Document 05/18/21 10:25 AMB (Rec: 05/18/21 10:41 AMB [id number]) Physical Therapy Assessment Goals Five Impairment balance Short Term Goal (STG) Natalia will show decreased fall risk by improving her TUG score to 15 seconds or less. STG Duration MET-13 seconds Certified Medical Aide Goal (LTG) Natalia will improve her DGI score to 19/24 or greater. LTG Duration 10 weeks Four Impairment transfers Short Term Goal (STG) Natalia will perform a floor transfer with environmental support with CGA. STG Duration MET Three Impairment HEP Short Term Goal (STG) Natalia will be independent and consistent with her strength and balance HEP. STG Duration 5 weeks Two Impairment strength Short Term Goal (STG) Natalia will improve her L LE strength to 4/5 or greater in all planes of hip/knee/ankle. STG Duration 5 weeks Certified Medical Aide Goal (LTG) Natalia will stand 5x from a standard height chair without UE support and with good eccentric control. LTG Duration MET One Impairment gait Short Term Goal (STG) Natalia will ambulate with a SPC and SBA over smooth surface for 100'. STG Duration MET Certified Medical Aide Goal (LTG) Natalia will ascend 3 flights of stairs with reciprocal gait and 1 railing. LTG Duration 10 weeks Assessment Summary Assessment Natalia is making progress towards her goals. She did have right sided hip pain that limited her strength today, but otherwise is making progress. She continues to want to use her 4WW, but is being more independent at home . Fatigue is still and issue but appears to be improving. Physical Therapy Plan Next Visit Focus/Plan Next Note Type Treatment Note Next Visit Plan continue to progress balance/ gait/advanced transfers
--- NOTE | 2021-06-08 15:13 | PT.OPDS ---
Current Diagnoses Type 2 diabetes mellitus without complications (05/18/21) Hemiplegia and hemiparesis following unspecified cerebrovascular disease affecting left non-dominant side (05/18/21) Visit Care Team Role Provider Type Theodore Adame MD Attending Provider Physician Primary Care Provider Referring Provider Specialty: Family Practice Address: [facility] [place], [address] Email: [email or web address] Visit Number Visit Number 10 Discharge Summary PT-OP-B Current Condition Start: 03/20/21 07:28 Freq: Status: Active Protocol: Document 03/20/21 10:20 AMB (Rec: 03/20/21 10:30 AMB [id number]) Current Condition History of Current Condition Onset Date January 2021 Current Complaints CVA with L sided weakness History of Current Condition Natalia reports her confidence is shot with balance since her CVA. She reports no falls , is not working, but wasn't working previously, lives in an apartment up 42 stairs. Has not been carrying anything on the stairs, goes up one stair at a time. Living with boyfriend right now. Using 4WW both in community and in apartment. Goals of cooking, vacuum overhead cleaner maintainer, laundry. Napping a lot currently. Just finished with home health, has been doing some of the exercises. Treatment Goals Patient/Caregiver Goals Return to walking without walker, ADLs around the house (cooking cleaning), going up and down stairs. Prior Functional Status Baseline Function- ADL's Independent Baseline Function- Mobility Independent Current Functional Impairments (Reported) Functional Limitations- ADL's Difficulty with bed mobility but able to do by herself. Hasn't tried to get off the floor. Weakness with stairs. Does report double vision at times. Personal Factors Other Personal Factors That May Effect DMII, HTN, obesity Therapy/Recovery PT-OP-C Subjective Start: 03/20/21 07:28 Freq: Status: Active Protocol: Document 05/18/21 10:25 AMB (Rec: 05/18/21 12:58 AMB [email or web address]) OP-PT Subjective Patient Comments Patient Comments Pt states she is doing well, she drove here today and it went well, the most difficult thing is getting the walker out of the van. PT-OP-D Balance Start: 03/20/21 07:28 Freq: Status: Active Protocol: Document 03/20/21 10:20 AMB (Rec: 03/20/21 16:15 AMB [email or web address]) Balance Tests mCTSIB mCTSIB Position 1 30seconds mCTSIB Position 2 30 seconds PT-OP-E Functional Tests Start: 03/20/21 07:28 Freq: Status: Active Protocol: Document 03/20/21 10:20 AMB (Rec: 03/20/21 16:15 AMB [email or web address]) Functional Tests 10 Meter Walk Test Distance 8 seconds Device Used 4WW Dynamic Gait Index (DGI) Score 14 DGI Impairment Rating 40 to <60% Impaired (Score 10- 14) Five Times Sit to Stand Test Score 29 seconds Comments poor eccentric control Timed Up and Go (TUG) Score 18 seconds Comments 4WW TUG Impairment Rating 80 to <100% Impaired (Score 18 -19) PT-OP-G Mobility & Gait Start: 03/20/21 07:28 Freq: Status: Active Protocol: Document 03/20/21 10:20 AMB (Rec: 03/20/21 16:15 AMB [email or web address]) OP Mobility Evaluation Bed Mobility Rolling Independent but reports more difficult than it used to be Transfers Sit to Stand Needs UE support OP Gait Assessment Assistive Devices Assistive Device 4 Wheeled Walker Gait Deviations General Gait Pattern Decreased Feet Clearance,Wide Based Gait Factors Limiting Gait Function Factors Limiting Gait Function Decreased Strength,Poor Balance Stair Climbing Evaluation Evaluation Level of Assist On Stairs Standby Assistance Devices Stair Climbing Assistive Devices Left Railing,Right Railing Technique/Endurance Stair Climbing Direction Ascend and Descend Stair Climbing Technique Step Over Step Number of Steps Climbed 4 Comments Stair Climbing Comments Poor ability to lift left LE up to step- poor coordination of where to put it PT-OP-M Strength Start: 03/20/21 07:28 Freq: Status: Active Protocol: Document 03/20/21 10:20 AMB (Rec: 03/20/21 16:15 AMB [email or web address]) Hip Strength Hip Manual Muscle Testing Right Flexion (L2) 4+ Good+ Extension (S1) 4+ Good+ Abduction 4+ Good+ Left Flexion (L2) 4- Good- Extension (S1) 3+ Fair+ Abduction 3+ Fair+ Knee Strength Knee Manual Muscle Testing Right Flexion (S2) 5 Normal Extension (L3) 5 Normal Left Flexion (S2) 3+ Fair+ Extension (L3) 4+ Good+ Ankle/Foot Strength Ankle and Foot Manual Muscle Testing Right Dorsiflexion (L4) 4+ Good+ Plantarflexion (S1) 4+ Good+ Left Dorsiflexion (L4) 4+ Good+ Plantarflexion (S1) 4 Good PT-OP-T Assessment and Plan Start: 03/20/21 07:28 Freq: Status: Active Protocol: Document 06/08/21 15:11 AMB (Rec: 06/08/21 15:13 AMB [email or web address]) Physical Therapy Assessment Goals Five Impairment balance Short Term Goal (STG) Natalia will show decreased fall risk by improving her TUG score to 15 seconds or less. STG Duration MET-13 seconds Half-Way Goal (LTG) Natalia will improve her DGI score to 19/24 or greater. LTG Duration 10 weeks Four Impairment transfers Short Term Goal (STG) Natalia will perform a floor transfer with environmental support with CGA. STG Duration MET Three Impairment HEP Short Term Goal (STG) Natalia will be independent and consistent with her strength and balance HEP. STG Duration 5 weeks Two Impairment strength Short Term Goal (STG) Natalia will improve her L LE strength to 4/5 or greater in all planes of hip/knee/ankle. STG Duration 5 weeks Half-Way Goal (LTG) Natalia will stand 5x from a standard height chair without UE support and with good eccentric control. LTG Duration MET One Impairment gait Short Term Goal (STG) Natalia will ambulate with a SPC and SBA over smooth surface for 100'. STG Duration MET Half-Way Goal (LTG) Natalia will ascend 3 flights of stairs with reciprocal gait and 1 railing. LTG Duration 10 weeks Assessment Summary Assessment Natalia canceled her last two appointments of physical therapy and has not called to reschedule. At the time of her last visit she had met the majority of her goals, but continued to use a 4WW for most community mobility. Natalia was not especially consistent with her HEP and has stated that she hopes her body would naturally improve on its own, which it has done to a certain extent.
== END 2021-06-12 09:47 | disposition home or self-care (01) ==
LOC: PHYS 10:15
PROVIDERS: PCP Family Medicine; Referring Provider Family Medicine; Visit Provider Family Medicine
DX: I69.954 Hemiplegia and hemiparesis following unspecified cerebrovascular disease affecting left non-dominant side (principal); E11.9 Type 2 diabetes mellitus without complications
CPT/HCPCS: 77063; 77067; 97110; 97112; 97116; 97162

== ENCOUNTER 2021-05-22 09:30 | Outpatient (RCR) | payer OTHER, MEDICAID, SELFPAY ==
[2021-01-17 16:26] VITALS: BMI 35.9
--- NOTE | 2021-02-24 15:30 | OT.OP.EVAL ---
Visit Care Team Role Provider Type Theodore Adame MD Attending Provider Physician Other Providers Primary Care Provider Referring Provider Specialty: Family Practice Address[facility] [place], [address] Email: [email or web address] Therapy Initial Evaluation OT Outpatient Adult Evaluation Start: 02/27/21 09:27 Freq: Status: Active Protocol: Document 02/24/21 15:30 AMS (Rec: 02/27/21 09:57 AMS [id number]) General Information Visit Start Time 09:30 Visit Stop Time 10:18 Total Visit Minutes 48 Visit Number 1 Plan of Care Dates 02/24/21-05/19/21 Insurance Information 24 visits per calendar year combined OT & PT - [facility] Setting Outpatient Care Note Type Initial Evaluation Goals Objective Measurements 9-Hole Peg Test Administered. Completed in 39.2 seconds w/ R hand. Complete in 43.7 seconds w/ L hand. QuickDASH UE Outcome Measure = 52.3 Pain Assessment Grid = 1 out of 10 on grid relative to L hand pain. Treatment Ther ex. Supervisor Type Photography Goals 1. Patient will be modified independent with execution of home exercise program utilizing provided written and visual instructions from therapist. 2. Patient will present with increased activity tolerance on daily basis; 5/5 MMT L sh flexion and 5/5 MMT L sh extension. 3. Patient will present with increased activity tolerance and ability to engage upper extremities; 5/5 MMT L elbow flexion and 5/5 MMT L elbow extension. 4. Patient will present with improved functional abilities; this will be evidenced by obtaining a score of 25.0 or less on QuickDASH UE Outcome Measure. Assessment/Plan Treatment Assessment Patient is a 55 year-old right hand dominant female referred to outpatient OT secondary to CVA with subsequent left hemiparesis. PMH: Significant for allergic reaction to tape ; BP - med managed depression; Diabetes II - med managed; thyroid disorder - med managed . Patient [facility] to [facility] 01/17/21 for left facial hemiparesis, slurring of words, left UE weakness and shuffling gait. She received inpatient PT, OT and ELEVATOR MECHANIC; she was discharged to home 01/22/21 with assistance from her partner. Diagnostic Testing completed on 01/18/21. MRI Findings: Multiple acute infarcts involving the right frontal lobe. Brain MR Angiogram: Image impacted by patient motion. Hemodynamically significant stenosis, vascular dissection or aneurysm within limitations related to motion. Neck MR Angiogram: Normal examination . Patient had home health PT and OT; she was given exercises that were posted in home to support carry-over for OT (included sh elevation, backwards sh shrugs, wall presses, hand presses, finger opposition). Natalia will be evaluated by outpatient ELEVATOR MECHANIC today and is scheduled for outpatient PT evaluation in near future. Patient was seen for initial evaluation 1:1. She reported that she resides with her partner. There are 42 steps to get to her 3rd level apartment; there are 3 flights of stairs. Standard toilet seat. Shower equipped with chair and HSH. PLOF: Independent w/ all BADLS and IADLS; she used 4WW for outdoor mobility. Current level of function: mod I with all BADLS, including dressing , undressing, toileting, self- feeding and bathing. However, partner is available to assist as needed w/ bathing. Partner is managing meal preparation, community mobility - driving, house cleaning; she is managing her own finances. She has a daughter who resides in [place]. Evaluation findings include mild left midline shift of the UEs. Decreased activity tolerance. 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 Impaired sensation of the left UE. L UE weakness. L UE AROM WFL. Outpatient OT is recommended to address these areas in order to maximize Natalia's functional independence with active engagement in meaningful activities. Comment 12 weeks Treatment Frequency Once a Week Therapeutic Contents Active Range of Motion, Adaptive Equipment Education, Client Education,Cognitive Skills Development,Functional Activities,Home Exercise Program,Joint Protection, Manual Therapy,Education, Neurodevelopment Treatment, Neuromuscular Re-Education, Therapeutic Activities, Therapeutic Exercises, Modalities
--- NOTE | 2021-03-16 11:51 | OT.OP.TRT ---
Visit Care Team Role Provider Type Theodore Adame MD Attending Provider Physician Other Providers Primary Care Provider Referring Provider Specialty: Family Practice Address: [address] [place], [address] Email: [email or web address] Occupational Therapy Treatment Note OT Outpatient Treatment Note - Adult Start: 02/27/21 09:27 Freq: Status: Active Protocol: Document 03/16/21 11:41 AMS (Rec: 03/16/21 11:51 AMS [id number]) OT Outpatient Adult Treatment Note Session Time Visit Start Time 10:25 Visit Stop Time 11:18 Total Visit Minutes 53 Visit Information Visit Number 2 Plan of Care Dates 02/24/21-05/19/21 Insurance Information 24 visits per calendar year combined OT & PT - [place] Setting Treatment Setting Outpatient Care Visit Type Note Type Treatment Note General Information General Information Patient is a 55 year-old right hand dominant female referred to outpatient OT secondary to CVA with subsequent left hemiparesis. PMH: Significant for allergic reaction to tape ; BP - med managed depression; Diabetes II - med managed; thyroid disorder - med managed . Patient [facility] to [facility] 01/17[facility]21 for left facial hemiparesis, slurring of words, left UE weakness and shuffling gait. She received inpatient PT, OT and GASFITTER; she was discharged to home 01/22/21 with assistance from her partner. Diagnostic Testing completed on 01/18/21. MRI Findings: Multiple acute infarcts involving the right frontal lobe. Brain MR Angiogram: Image impacted by patient motion. Hemodynamically significant stenosis, vascular dissection or aneurysm within limitations related to motion. Neck MR Angiogram: Normal examination . Patient had home health PT and OT; she was given exercises that were posted in home to support carry-over for OT (included sh elevation, backwards sh shrugs, wall presses, hand presses, finger opposition). - Subjective Identification Type Name Identification Reconciled With Medical Record Observations I was in [place]. We were settling my Grandmother's estate and celebrating my daughter's birthday and Mother 's Day. I got to see my sister and my neice. I have a goal to be lifting weights by October so that I can be stronger when I go back there. I want to be able to lift my crockpot and my skillet in order to be able to cook other things than oatmeal per Natalia. Patient/Caregiver Compliance with Home Good Exercise Program - Objective Objective Measurements Please refer to below for progress towards meeting established OT goals. Realty Loan Specialist Goals 1. Patient will be modified independent with execution of home exercise program utilizing provided written and visual instructions from therapist. 2. Patient will present with increased activity tolerance on daily basis; 5/5 MMT L sh flexion and 5/5 MMT L sh extension. 3. Patient will present with increased activity tolerance and ability to engage upper extremities; 5/5 MMT L elbow flexion and 5/5 MMT L elbow extension. 4. Patient will present with improved functional abilities; this will be evidenced by obtaining a score of 25.0 or less on QuickDASH UE Outcome Measure. - Treatment 1 Descriptor Functional strengthening. Resistant clothespins L hand at TT. Small clothespins x 1 at a time above head w/ L UE. Exercises 4 Descriptor HEP. Upgraded HEP. Provided Natalia with TB #2 for home use. Instructed in UE strengthening home exercises. Provided her with written and visual instructions for exercises. All exercises included in HEP were reviewed in treatment session. HEP to be scanned into electronic medical records when front end architect staff are able. 3 Descriptor Distal UE strengthening. 2.2# spherical ball pass. 2 x 10 reps. 2 Descriptor UE strengthening. B sh flex. 2 x 10 reps. TB #2. Seated. B sh abd. 2 x 10 reps. TB #2. Seated. B sh hor abd. 2 x 10 reps. TB #2. Seated. 1 Descriptor UBE. x 6 minutes. Seated. B UEs. - Assessment Assessment of Improvement Upgraded HEP; provided TB #2 for home use. Provided written and visual instructions for exercises. Recommended trying to complete exercises at least twice a week, at frequency of every other day. Decreased activity tolerance observed and reported by patient relative to day-to-day life. Cueing to support motor planning of L UE with execution of UE TB exercises d /t increased reliance on R UE. Home Exercise Program Please refer to treatment section of note for specific details. - Plan Therapy Recommendations Continue with Current Program, Advance per Rehabilitation Protocol
--- NOTE | 2021-03-21 11:18 | OT.OP.TRT ---
Visit Care Team Role Provider Type Theodore Adame MD Attending Provider Physician Other Providers Primary Care Provider Referring Provider Specialty: Family Practice Address: [facility] [place], [address] Email: [email or web address] Occupational Therapy Treatment Note OT Outpatient Treatment Note - Adult Start: 02/27/21 09:27 Freq: Status: Active Protocol: Document 03/21/21 11:08 AMS (Rec: 03/21/21 11:18 AMS [id number]) OT Outpatient Adult Treatment Note Session Time Visit Start Time 10:09 Visit Stop Time 11:03 Total Visit Minutes 54 Visit Information Visit Number 3 Plan of Care Dates 02/24/21-05/19/21 Insurance Information 24 visits per calendar year combined OT & PT - [place] Setting Treatment Setting Outpatient Care Visit Type Note Type Treatment Note General Information General Information Patient is a 55 year-old right hand dominant female referred to outpatient OT secondary to CVA with subsequent left hemiparesis. PMH: Significant for allergic reaction to tape ; BP - med managed depression; Diabetes II - med managed; thyroid disorder - med managed . Patient admitted to [facility] 01/17/21 for left facial hemiparesis, slurring of words, left UE weakness and shuffling gait. 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 Diagnostic Testing completed on 01/18/21. MRI Findings: Multiple acute infarcts involving the right frontal lobe. Brain MR Angiogram: Image impacted by patient motion. Hemodynamically significant stenosis, vascular dissection or aneurysm within limitations related to motion. Neck MR Angiogram: Normal examination . Patient had home health PT and OT; she was given exercises that were posted in home to support carry-over for OT (included sh elevation, backwards sh shrugs, wall presses, hand presses, finger opposition). - Subjective Identification Type Name Identification Reconciled With Medical Record Observations I have been napping and fishing per Natalia when therapist inquired if she was doing her arm exercises with the theraband. Patient/Caregiver Compliance with Home Fair Exercise Program - Objective Objective Measurements Please refer to below for progress towards meeting established OT goals. Fpc Goals 1. Patient will be modified independent with execution of home exercise program utilizing provided written and visual instructions from therapist. 2. Patient will present with increased activity tolerance on daily basis; 5/5 MMT L sh flexion and 5/5 MMT L sh extension. 3. Patient will present with increased activity tolerance and ability to engage upper extremities; 5/5 MMT L elbow flexion and 5/5 MMT L elbow extension. 4. Patient will present with improved functional abilities; this will be evidenced by obtaining a score of 25.0 or less on QuickDASH UE Outcome Measure. - Treatment 1 Descriptor Functional strengthening. Resistant clothespins L hand overhead. Medium rings on wood tree - slightly below shoulder height L hand. Exercises 6 Descriptor UE ROM. Supine. ER. Sh abd. Hor abd and ER. Flex. 5 Descriptor L shoulder coordination/motor planning. Medium size circles in both directions. Supine. 2x10. Figure 8. Supine. 1x10. Sun up <-> down. Ball. 1x10. Sun up only. 1x10. 4 Descriptor HEP. No changes to HEP. Reviewed importance of compliance. 3 Descriptor Distal UE strengthening. 3.3# spherical ball grasp and release. 2x10. 4.4# spherical ball grasp and release. 1x10. 3.3# spherical ball transfer at mat level. Left of body to hip. 1x10. 4.4# spherical ball transfer at mat level. Left of body to hip. 1x10. 2 Descriptor UE strengthening. B sh flex. 2 x 10 reps. TB #2. Seated. B sh abd. 2 x 10 reps. TB #2. Seated. B sh hor abd. 2 x 10 reps. TB #2. Seated. 1 Descriptor UBE. x 6 minutes. Arm pulleys. x 4 minutes. Seated. B UEs. - Assessment Assessment of Improvement Self-report of decreased compliance w/ UE strengthening exercises. Decreased activity tolerance. Poor quality of sleep previous night. Decreased L UE coordination/ motor planning. Compensatory strategies to support L UE; lateral right trunk lean w/ > sh height exercises w/ L UE. Improved w/ repetitions and cueing. PLAN: UE strengthening; kinesthetic exercises; UE ROM; UE motor coordination/motor planning Home Exercise Program Please refer to treatment section of note for specific details. - Plan Therapy Recommendations Continue with Current Program, Advance per Rehabilitation Protocol
--- NOTE | 2021-04-04 13:49 | OT.OP.TRT ---
Visit Care Team Role Provider Type Theodore Adame MD Attending Provider Physician Other Providers Primary Care Provider Referring Provider Specialty: Family Practice Address: [address] [place], [address] Email: [email or web address] Occupational Therapy Treatment Note OT Outpatient Treatment Note - Adult Start: 02/27/21 09:27 Freq: Status: Active Protocol: Document 04/04/21 13:41 AMS (Rec: 04/04/21 13:48 AMS [id number]) OT Outpatient Adult Treatment Note Session Time Visit Start Time 09:30 Visit Stop Time 10:25 Total Visit Minutes 55 Visit Information Visit Number 4 Plan of Care Dates 02/24/21-05/19/21 Insurance Information 24 visits per calendar year combined OT & PT - [facility] Setting Treatment Setting Outpatient Care Visit Type Note Type Treatment Note General Information General Information Patient is a 55 year-old right hand dominant female referred to outpatient OT secondary to CVA with subsequent left hemiparesis. PMH: Significant for allergic reaction to tape ; BP - med managed depression; Diabetes II - med managed; thyroid disorder - med managed . Patient admitted to [facility] 01/17/21 for left facial hemiparesis, slurring of words, left UE weakness and shuffling gait. She received inpatient PT, OT and [employer]; she was discharged to home 01/22/21 with assistance from her partner. Diagnostic Testing completed on 01/18/21. MRI Findings: Multiple acute infarcts involving the right frontal lobe. Brain MR Angiogram: Image impacted by patient motion. Hemodynamically significant stenosis, vascular dissection or aneurysm within limitations related to motion. Neck MR Angiogram: Normal examination . Patient had home health PT and OT; she was given exercises that were posted in home to support carry-over for OT (included sh elevation, backwards sh shrugs, wall presses, hand presses, finger opposition). - Subjective Identification Type Name Identification Reconciled With Medical Record Observations No, I haven't been doing my arm exercises. I did my laundry and cleaned the house this weekend. I had a hard time gripping the onion and apple in this hand to slice it per Natalia. Patient/Caregiver Compliance with Home Poor Exercise Program - Objective Objective Measurements Please refer to below for progress towards meeting established OT goals. Mcfp Goals 1. Patient will be modified independent with execution of home exercise program utilizing provided written and visual instructions from therapist. 2. Patient will present with increased activity tolerance on daily basis; 5/5 MMT L sh flexion and 5/5 MMT L sh extension. 3. Patient will present with increased activity tolerance and ability to engage upper extremities; 5/5 MMT L elbow flexion and 5/5 MMT L elbow extension. 4. Patient will present with improved functional abilities; this will be evidenced by obtaining a score of 25.0 or less on QuickDASH UE Outcome Measure. - Treatment 1 Descriptor Functional strengthening. Exercises 6 Descriptor UE ROM. Supine. ER. Sh abd. Sh hor abd and ER. Sh flex. Standing. Wall. Snow angels. 1x10. 5 Descriptor L shoulder coordination/motor planning. Medium size circles in both directions. Supine. 2x10. Figure 8. Supine. 1x10. Sun up <-> down. Ball. 1x10. 4 Descriptor HEP. No changes to HEP. Reviewed importance of compliance. 3 Descriptor Distal UE strengthening. 3.3# spherical ball grasp and release. 2x10. 4.4# spherical ball grasp and release. 1x10. 3.3# spherical ball transfer at mat level. Left of body to hip. 1x10. 4.4# spherical ball transfer at mat level. Left of body to hip. 1x10. 1 Descriptor UBE. x 7 minutes. Arm pulleys. x 3 minutes. Seated. B UEs. - Assessment Assessment of Improvement Poor compliance w/ home upper extremity strengthening program. Reported fatigue and increased time required to complete functional activities ; reported decreased strength noted w/ stabilization of food items w/ execution of slicing tasks. Improving motor planning observed in supine; increased fluidity observed w/ shoulder circles and figure 8 's in both directions. Sh elevation tendencies w/ above eye level motor planning w/ L UE; R UE compensating with orientation to midline activity above head. Incorporated bimanual coordination activities to support functional tasks. PLAN : UE strengthening; kinesthetic exercises; UE ROM; UE motor coordination/motor planning Home Exercise Program Please refer to treatment section of note for specific details. - Plan Therapy Recommendations Continue with Current Program, Advance per Rehabilitation Protocol
--- NOTE | 2021-04-11 11:51 | OT.OP.TRT ---
Visit Care Team Role Provider Type Theodore Adame MD Attending Provider Physician Other Providers Primary Care Provider Referring Provider Specialty: Family Practice Address: [address] [place], [address] Email: [email or web address] Occupational Therapy Treatment Note OT Outpatient Treatment Note - Adult Start: 02/27/21 09:27 Freq: Status: Active Protocol: Document 04/11/21 11:42 AMS (Rec: 04/11/21 11:51 AMS [id number]) OT Outpatient Adult Treatment Note Session Time Visit Start Time 10:30 Visit Stop Time 11:23 Total Visit Minutes 53 Visit Information Visit Number 5 Plan of Care Dates 02/24/21-05/19/21 Insurance Information 24 visits per calendar year combined OT & PT - [facility] Setting Treatment Setting Outpatient Care Visit Type Note Type Treatment Note General Information General Information Patient is a 55 year-old right hand dominant female referred to outpatient OT secondary to CVA with subsequent left hemiparesis. PMH: Significant for allergic reaction to tape ; BP - med managed depression; Diabetes II - med managed; thyroid disorder - med managed . Patient admitted to [facility] 01/17/21 for left facial hemiparesis, slurring of words, left UE weakness and shuffling gait. She received inpatient PT, OT and [employer]; she was discharged to home 01/22/21 with assistance from her partner. Diagnostic Testing completed on 01/18/21. MRI Findings: Multiple acute infarcts involving the right frontal lobe. Brain MR Angiogram: Image impacted by patient motion. Hemodynamically significant stenosis, vascular dissection or aneurysm within limitations related to motion. Neck MR Angiogram: Normal examination . Patient had home health PT and OT; she was given exercises that were posted in home to support carry-over for OT (included sh elevation, backwards sh shrugs, wall presses, hand presses, finger opposition). - Subjective Identification Type Name Identification Reconciled With Medical Record Observations Every time I open the refrigerator I get overwhelmed . Sometimes the things I want to cook with are not in there. I also feel just too tired per Natalia. I used to be able to shuffle, deal and play [place]ley and other card games per Natalia. I have been doing a bit of my arm exercises. Patient/Caregiver Compliance with Home Fair Exercise Program - Objective Objective Measurements Please refer to below for progress towards meeting established OT goals. Intermediate Goals 1. Patient will be modified independent with execution of home exercise program utilizing provided written and visual instructions from therapist. 2. Patient will present with increased activity tolerance on daily basis; 5/5 MMT L sh flexion and 5/5 MMT L sh extension. 3. Patient will present with increased activity tolerance and ability to engage upper extremities; 5/5 MMT L elbow flexion and 5/5 MMT L elbow extension. 4. Patient will present with improved functional abilities; this will be evidenced by obtaining a score of 25.0 or less on QuickDASH UE Outcome Measure. - Treatment 1 Descriptor Motor Planning. Small rings. TT. Frontal Plane . Balloon volleyball. Spatula and tong use. Graded control. Shuffling of deck of cards. Visual scanning. Exercises 6 Descriptor UE ROM. Supine. ER. Sh abd. Sh hor abd and ER. Sh flex. 5 Descriptor L shoulder coordination/motor planning. Supine. Medium size circles in both directions. 2x10. Supine. Figure 8. 1x10. Seated. Small circles w/ sh abd in both directions. 1x10. Seated. Above head small circles. 1x10. 4 Descriptor HEP. No additional changes were made on this treatment date. 1 Descriptor UBE. x 4 minutes. Seated. Bilateral UEs. - Assessment Assessment of Improvement Decreased compliance w/ home upper extremity strengthening program. Reported fatigue and increased time required to complete functional activities . Need to explore further. Able to use spatula/tongs to manipulate hess bags. Unable to motor plan shuffling deck of cards; able to fan cards in left hand without difficulty and use 2 hands together to deal cards into matching stacks/sets. Trialed smaller isolated practice w/ left hand . Need to revisit skill based on self-report of ability to complete these skills prior without difficulty. Improving motor planning observed in supine; introduced seated motor planning. (+) c/o fatigue in sitting. Sh elevation tendencies w/ above eye level motor planning w/ L UE. PLAN: UE strengthening; kinesthetic exercises; UE ROM; UE motor coordination/motor planning Home Exercise Program Please refer to treatment section of note for specific details. - Plan Therapy Recommendations Continue with Current Program, Advance per Rehabilitation Protocol
--- NOTE | 2021-04-18 11:58 | OT.OP.TRT ---
Visit Care Team Role Provider Type Theodore Adame MD Attending Provider Physician Other Providers Primary Care Provider Referring Provider Specialty: Family Practice Address: [address] [place], [address] Email: [email or web address] Occupational Therapy Treatment Note OT Outpatient Treatment Note - Adult Start: 02/27/21 09:27 Freq: Status: Active Protocol: Document 04/18/21 11:47 AMS (Rec: 04/18/21 11:58 AMS [id number]) OT Outpatient Adult Treatment Note Session Time Visit Start Time 10:30 Visit Stop Time 11:25 Total Visit Minutes 55 Visit Information Visit Number 6 Plan of Care Dates 02/24/21-05/19/21 Insurance Information 24 visits per calendar year combined OT & PT - [facility] Setting Treatment Setting Outpatient Care Visit Type Note Type Treatment Note General Information General Information Patient is a 55 year-old right hand dominant female referred to outpatient OT secondary to CVA with subsequent left hemiparesis. PMH: Significant for allergic reaction to tape ; BP - med managed depression; Diabetes II - med managed; thyroid disorder - med managed . Patient admitted to [facility] 01/17/21 for left facial hemiparesis, slurring of words, left UE weakness and shuffling gait. 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 Diagnostic Testing completed on 01/18/21. MRI Findings: Multiple acute infarcts involving the right frontal lobe. Brain MR Angiogram: Image impacted by patient motion. Hemodynamically significant stenosis, vascular dissection or aneurysm within limitations related to motion. Neck MR Angiogram: Normal examination . Patient had home health PT and OT; she was given exercises that were posted in home to support carry-over for OT (included sh elevation, backwards sh shrugs, wall presses, hand presses, finger opposition). - Subjective Identification Type Name Identification Reconciled With Medical Record Observations No, I have not been doing my arm strengthening exercises. I will do the arm circles when I am in bed. I have been using the microwave and toaster oven with heating up of meals. I have been making my bed, cleaning the toilet and the sink, and doing laundry. I was able to get the 1 gallon of milk but it was difficult per Natalia. Patient/Caregiver Compliance with Home Fair Exercise Program - Objective Objective Measurements Please refer to below for progress towards meeting established OT goals. Personnel And Payroll Technician Goals 1. Patient will be modified independent with execution of home exercise program utilizing provided written and visual instructions from therapist. 2. Patient will present with increased activity tolerance on daily basis; 5/5 MMT L sh flexion and 5/5 MMT L sh extension. 3. Patient will present with increased activity tolerance and ability to engage upper extremities; 5/5 MMT L elbow flexion and 5/5 MMT L elbow extension. 4. Patient will present with improved functional abilities; this will be evidenced by obtaining a score of 25.0 or less on QuickDASH UE Outcome Measure. - Treatment 1 Descriptor Motor Planning. Bimanual Coordination. Balloon volleyball. Exercises 6 Descriptor UE ROM. Supine. ER. Sh abd. Sh hor abd and ER. Sh flex. 5 Descriptor L shoulder coordination/motor planning. Supine. Medium size circles in both directions. 2x10. Supine. Figure 8. 1x10. Seated. Small circles w/ sh abd in both directions. 1x10. Seated. Above head small circles. 1x10. 4 Descriptor HEP. No additional changes were made on this treatment date. 2 Descriptor 15.4# push <-> pull crate x 15 reps each. Transferring of weighted spherical balls x 3 sets w/ 3.3# to 6.6# w/ L hand . 1 Descriptor Arm pulleys. x 5 minutes. Seated. Bilateral UEs. UBE. x 4 minutes. Seated. Bilateral UEs. - Assessment Assessment of Improvement Decreased compliance w/ home upper extremity strengthening program. Reported fatigue and increased time required to complete functional activities . Not engaging in meal preparation; utilizing primarily microwave and toaster oven. Overall, able to manage grocery items; however , more difficulty managing heavier items (such as gallon of milk). Reported success also impacted by location of grocery items within kitchen appliances (ease of access). Cleaning toilet and sink in bathroom and making of bed. Not engaging in vacuumng or sweeping tasks; this maybe d/t preference of having partner complete these home management tasks. Worked on pushing and pulling heavier items across surface while seated; able to manage up to 15# unilaterally w/ L UE. PLAN: UE strengthening; kinesthetic exercises; UE ROM; UE motor coordination/motor planning Home Exercise Program Please refer to treatment section of note for specific details. - Plan Therapy Recommendations Continue with Current Program, Advance per Rehabilitation Protocol
--- NOTE | 2021-04-25 11:59 | OT.OP.TRT ---
Visit Care Team Role Provider Type Theodore Adame MD Attending Provider Physician Other Providers Primary Care Provider Referring Provider Specialty: Family Practice Address: [address] [place], [address] Email: [email or web address] Occupational Therapy Treatment Note OT Outpatient Treatment Note - Adult Start: 02/27/21 09:27 Freq: Status: Active Protocol: Document 04/25/21 11:49 AMS (Rec: 04/25/21 11:59 AMS [id number]) OT Outpatient Adult Treatment Note Session Time Visit Start Time 10:30 Visit Stop Time 11:25 Total Visit Minutes 55 Visit Information Visit Number 7 Plan of Care Dates 02/24/21-05/19/21 Insurance Information 24 visits per calendar year combined OT & PT - [facility] Setting Treatment Setting Outpatient Care Visit Type Note Type Treatment Note General Information General Information Patient is a 55 year-old right hand dominant female referred to outpatient OT secondary to CVA with subsequent left hemiparesis. PMH: Significant for allergic reaction to tape ; BP - med managed depression; Diabetes II - med managed; thyroid disorder - med managed . Patient admitted to [facility] 01/17/21 for left facial hemiparesis, slurring of words, left UE weakness and shuffling gait. She received inpatient PT, OT and GEODESIST; she was discharged to home 01/22/21 with assistance from her partner. Diagnostic Testing completed on 01/18/21. MRI Findings: Multiple acute infarcts involving the right frontal lobe. Brain MR Angiogram: Image impacted by patient motion. Hemodynamically significant stenosis, vascular dissection or aneurysm within limitations related to motion. Neck MR Angiogram: Normal examination . Patient had home health PT and OT; she was given exercises that were posted in home to support carry-over for OT (included sh elevation, backwards sh shrugs, wall presses, hand presses, finger opposition). - Subjective Identification Type Name Identification Reconciled With Medical Record Observations I was not working prior to the stroke. I am having a hard time letting go of things like paper. I am using the oven to make oatmeal. I am still using the [employer] oven and microwave for meals mostly . I do not have a computer per Natalia. Patient/Caregiver Compliance with Home Fair Exercise Program - Objective Objective Measurements Please refer to below for progress towards meeting established OT goals. Longterm Goals 1. Patient will be modified independent with execution of home exercise program utilizing provided written and visual instructions from therapist. 2. Patient will present with increased activity tolerance on daily basis; 5/5 MMT L sh flexion and 5/5 MMT L sh extension. 3. Patient will present with increased activity tolerance and ability to engage upper extremities; 5/5 MMT L elbow flexion and 5/5 MMT L elbow extension. 4. Patient will present with improved functional abilities; this will be evidenced by obtaining a score of 25.0 or less on QuickDASH UE Outcome Measure. - Treatment 1 Descriptor Motor Planning. Bimanual Coordination. Balloon volleyball. Exercises 6 Descriptor UE ROM. Supine. ER. Sh abd. Sh hor abd and ER. Sh flex. 5 Descriptor L shoulder coordination/motor planning. Supine. Medium size circles in both directions. 2x10. Supine. Figure 8. 1x10. Seated. Small circles w/ sh abd in both directions. 1x10. Seated. Above head small circles. 1x10. 4 Descriptor HEP. No additional changes were made on this treatment date. 2 Descriptor 17.7# push <-> pull crate x 15 reps each. Transferring of weighted spherical balls x 3 sets w/ 3.3# to 6.6# w/ L hand . 1 Descriptor Arm pulleys. x 5 minutes. Seated. Bilateral UEs. N/A. UBE. x 4 minutes. Seated. Bilateral UEs. - Assessment Assessment of Improvement Decreased compliance w/ home upper extremity strengthening program. Reported fatigue and increased time required to complete functional activities . Denied use of laptop and/or difficulties managing personal cell phone. No concerns were reported relative to typing abilities/electronic use. Continued use of [employer] oven and microwave and stove top for preparing oatmeal. Reported use of left hand to assist R hand w/ fishing; main limitation reportedly has been fatigue. Reported difficulties with management of paper (letting go). Worked on small object manipulation of the left hand; demonstrated WFL w/ management of up to 5 small pegs at a time w/ pegboard. Able to catch and release single tennis ball w/ L hand w/ 1 bounce w/ catching underhand w/ palm while playing catch with therapist at slower speed while seated. Decreased trunk lean w/ above head obj manipulation above head. PLAN: UE strengthening; kinesthetic exercises; UE ROM ; UE motor coordination/motor planning Home Exercise Program Please refer to treatment section of note for specific details. - Plan Therapy Recommendations Continue with Current Program, Advance per Rehabilitation Protocol
--- NOTE | 2021-05-02 13:03 | OT.OP.TRT ---
Visit Care Team Role Provider Type Theodore Adame MD Attending Provider Physician Other Providers Primary Care Provider Referring Provider Specialty: Family Practice Address: [facility] [place], [address] Email: [email or web address] Occupational Therapy Treatment Note OT Outpatient Treatment Note - Adult Start: 02/27/21 09:27 Freq: Status: Active Protocol: Document 05/02/21 12:56 AMS (Rec: 05/02/21 13:03 AMS [id number]) OT Outpatient Adult Treatment Note Session Time Visit Start Time 10:30 Visit Stop Time 11:25 Total Visit Minutes 55 Visit Information Visit Number 8 Plan of Care Dates 02/24/21-05/19/21 Insurance Information 24 visits per calendar year combined OT & PT - [place] Setting Treatment Setting Outpatient Care Visit Type Note Type Treatment Note General Information General Information Patient is a 55 year-old right hand dominant female referred to outpatient OT secondary to CVA with subsequent left hemiparesis. PMH: Significant for allergic reaction to tape ; BP - med managed depression; Diabetes II - med managed; thyroid disorder - med managed . Patient admitted to [facility] 01/17/21 for left facial hemiparesis, slurring of words, left UE weakness and shuffling gait. She received inpatient PT, OT and STORE ADMINISTRATOR; she was discharged to home 01/22/21 with assistance from her partner. Diagnostic Testing completed on 01/18/21. MRI Findings: Multiple acute infarcts involving the right frontal lobe. Brain MR Angiogram: Image impacted by patient motion. Hemodynamically significant stenosis, vascular dissection or aneurysm within limitations related to motion. Neck MR Angiogram: Normal examination . Patient had home health PT and OT; she was given exercises that were posted in home to support carry-over for OT (included sh elevation, backwards sh shrugs, wall presses, hand presses, finger opposition). - Subjective Identification Type Name Identification Reconciled With Medical Record Observations I must have slept wrong per Natalia. Patient/Caregiver Compliance with Home Fair Exercise Program - Objective Objective Measurements Please refer to below for progress towards meeting established OT goals. Jail Goals 1. Patient will be modified independent with execution of home exercise program utilizing provided written and visual instructions from therapist. 2. Patient will present with increased activity tolerance on daily basis; 5/5 MMT L sh flexion and 5/5 MMT L sh extension. 3. Patient will present with increased activity tolerance and ability to engage upper extremities; 5/5 MMT L elbow flexion and 5/5 MMT L elbow extension. 4. Patient will present with improved functional abilities; this will be evidenced by obtaining a score of 25.0 or less on QuickDASH UE Outcome Measure. - Treatment 1 Descriptor Motor Planning. Bimanual Coordination. Balloon volleyball. Exercises 6 Descriptor UE ROM. Supine. ER. Sh abd. Sh hor abd and ER. Sh flex. 5 Descriptor L shoulder coordination/motor planning. Supine. Medium size circles in both directions. 2x10. Supine. Figure 8. 1x10. Seated. Small circles w/ sh abd in both directions. 1x10. Seated. Above head small circles. 1x10. 4 Descriptor HEP. Provided written and visual instructions for ROM/ stretches for upper trap, lev scap, rhomboids, lats. Exercises to be scanned into electronic medical records by hotel front desk agent staff. 2 Descriptor 17.7# push <-> pull crate x 15 reps each. Transferring of weighted spherical balls x 3 sets w/ 3.3# to 6.6# w/ L hand . 1 Descriptor Arm pulleys. x 5 minutes. Seated. Bilateral UEs. N/A. UBE. x 4 minutes. Seated. Bilateral UEs. - Assessment Assessment of Improvement Decreased compliance w/ home upper extremity strengthening program. Reported fatigue and increased time required to complete functional activities . c/o left shoulder pain; provided visual and written instructions for ROM/ stretching. (+) tightness of anterior chest/L pec; recommended execution of ROM/ stretches for UE and use of heat to suppport flexibility. Discussed insurance limitations; recommended scheduling of additional OT appointments given presenting L shoulder pain. PLAN: UE strengthening; kinesthetic exercises; UE ROM; UE motor coordination/motor planning Home Exercise Program Please refer to treatment section of note for specific details. - Plan Therapy Recommendations Continue with Current Program, Advance per Rehabilitation Protocol
--- NOTE | 2021-05-15 11:56 | OT.OPPOC ---
Physical, Occupational & Speech Therapy At [facility] Natalia Chino [id number] Natalia Chino Visit Care Team Role Provider Type Theodore Adame MD Attending Provider Physician Other Providers Primary Care Provider Referring Provider Address: [facility] [place], [address] Occupational Therapy Plan of Care OT Outpatient Adult Evaluation Start: 02/27/21 09:27 Freq: Status: Active Protocol: Document 02/24/21 15:30 AMS (Rec: 02/27/21 09:57 AMS [id number]) General Information Session Time Visit Start Time 09:30 Visit Stop Time 10:18 Total Visit Minutes 48 Visit Information Visit Number 1 Plan of Care Dates 02/24/21-05/19/21 Insurance Information 24 visits per calendar year combined OT & PT - [facility] Setting Treatment Setting Outpatient Care Visit Type Note Type Initial Evaluation Goals Objective Measurements Objective Measurements 9-Hole Peg Test Administered. Completed in 39.2 seconds w/ R hand. Complete in 43.7 seconds w/ L hand. QuickDASH UE Outcome Measure = 52.3 Pain Assessment Grid = 1 out of 10 on grid relative to L hand pain. Treatment Treatment Ther ex. Hot Wire Glass Tube Cutter Goals Mcc Goals 1. Patient will be modified independent with execution of home exercise program utilizing provided written and visual instructions from therapist. 2. Patient will present with increased activity tolerance on daily basis; 5/5 MMT L sh flexion and 5/5 MMT L sh extension. 3. Patient will present with increased activity tolerance and ability to engage upper extremities; 5/5 MMT L elbow flexion and 5/5 MMT L elbow extension. 4. Patient will present with improved functional abilities; this will be evidenced by obtaining a score of 25.0 or less on QuickDASH UE Outcome Measure. Assessment/Plan Assessment Treatment Assessment Patient is a 55 year-old right hand dominant female referred to outpatient OT secondary to CVA with subsequent left hemiparesis. PMH: Significant for allergic reaction to tape ; BP - med managed depression; Diabetes II - med managed; thyroid disorder - med managed . Patient admitted to [facility] 01/17/21 for left facial hemiparesis, slurring of words, left UE weakness and shuffling gait. She received inpatient PT, OT and COMPUTATIONAL SCIENTIST; she was discharged to home 01/22/21 with assistance from her partner. Diagnostic Testing completed on 01/18/21. MRI Findings: Multiple acute infarcts involving the right frontal lobe. Brain MR Angiogram: Image impacted by patient motion. Hemodynamically significant stenosis, vascular dissection or aneurysm within limitations related to motion. Neck MR Angiogram: Normal examination . Patient had home health PT and OT; she was given exercises that were posted in home to support carry-over for OT (included sh elevation, backwards sh shrugs, wall presses, hand presses, finger opposition). Natalia will be evaluated by outpatient COMPUTATIONAL SCIENTIST today and is scheduled for outpatient PT evaluation in near future. Patient was seen for initial evaluation 1:1. She reported that she resides with her partner. There are 42 steps to get to her 3rd level apartment; there are 3 flights of stairs. Standard toilet seat. Shower equipped with chair and HSH. PLOF: Independent w/ all BADLS and IADLS; she used 4WW for outdoor mobility. Current level of function: mod I with all BADLS, including dressing , undressing, toileting, self- feeding and bathing. However, partner is available to assist as needed w/ bathing. Partner is managing meal preparation, community mobility - driving, house cleaning; she is managing her own finances. She has a daughter who resides in [place]. Evaluation findings include mild left midline shift of the UEs. Decreased activity tolerance. 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 Impaired sensation of the left UE. L UE weakness. L UE AROM WFL. Outpatient OT is recommended to address these areas in order to maximize Natalia's functional independence with active engagement in meaningful activities. Plan Comment 12 weeks Treatment Frequency Once a Week Therapeutic Contents Active Range of Motion, Adaptive Equipment Education, Client Education,Cognitive Skills Development,Functional Activities,Home Exercise Program,Joint Protection, Manual Therapy,Education, Neurodevelopment Treatment, Neuromuscular Re-Education, Therapeutic Activities, Therapeutic Exercises, Modalities Sensory Assessment Sensory Profile2 Functional Wrist/Hand Scan Hand Side OT Outpatient Treatment Note - Adult Start: 02/27/21 09:27 Freq: Status: Active Protocol: Document 05/15/21 11:35 AMS (Rec: 05/15/21 11:54 AMS [id number]) OT Outpatient Adult Treatment Note Session Time Visit Start Time 09:30 Visit Stop Time 10:25 Total Visit Minutes 55 Visit Information Visit Number 9 Plan of Care Dates 05/15/21-06/12/21 Insurance Information 24 visits per calendar year combined OT & PT - [facility] Setting Treatment Setting Outpatient Care Visit Type Note Type Progress Note General Information General Information Patient is a 55 year-old right hand dominant female referred to outpatient OT secondary to CVA with subsequent left hemiparesis. PMH: Significant for allergic reaction to tape ; BP - med managed depression; Diabetes II - med managed; thyroid disorder - med managed . Patient admitted to [facility] 01/17/21 for left facial hemiparesis, slurring of words, left UE weakness and shuffling gait. She received inpatient PT, OT and COMPUTATIONAL SCIENTIST; she was discharged to home 01/22/21 with assistance from her partner. Diagnostic Testing completed on 01/18/21. MRI Findings: Multiple acute infarcts involving the right frontal lobe. Brain MR Angiogram: Image impacted by patient motion. Hemodynamically significant stenosis, vascular dissection or aneurysm within limitations related to motion. Neck MR Angiogram: Normal examination . Patient had home health PT and OT; she was given exercises that were posted in home to support carry-over for OT (included sh elevation, backwards sh shrugs, wall presses, hand presses, finger opposition). - Subjective Identification Type Name Identification Reconciled With Medical Record Observations I have been cooking more. I made eggs per [employer]. I am going to have to get a new caregiver. He is going back to his old job. He started today per [employer]. Poor compliance w/ recommended L UE sh ROM exercises as directed at time of previous treatment session. Patient/Caregiver Compliance with Home Fair Exercise Program - Objective Objective Measurements Please refer to below for progress towards meeting established OT goals. Mcc Goals 1. Patient will be modified independent with execution of home exercise program utilizing provided written and visual instructions from therapist. 2. Patient will present with increased activity tolerance on daily basis; 4+/5 MMT L sh abduction; 5/5 MMT L sh adduction; 4+/5 MMT L sh ER. 3. Patient will present with improved functional abilities; this will be evidenced by obtaining a score of 25.0 or less on QuickDASH UE Outcome Measure. 05/15/21 = 34.1 *GOALS MET 5/5 MMT L sh flex; 5/5 MMT L sh ext. *MET 05/15/21 5/5 MMT L elbow flex' 5/5 MMT L elbow ext. *MET 05/15/21 - Treatment 1 Descriptor Motor Planning. Bimanual Coordination. Balloon volleyball. Exercises 6 Descriptor UE ROM. Supine. ER. Sh abd. Sh hor abd and ER. Sh flex. 5 Descriptor L shoulder coordination/motor planning. Supine. Medium size circles in both directions. 2x10. Supine. Figure 8. 1x10. Seated. Small circles w/ sh abd in both directions. 1x10. Seated. Above head small circles. 1x10. 4 Descriptor HEP. No new changes to HEP on this date. 1 Descriptor N/A. Arm pulleys. x 5 minutes. Seated. Bilateral UEs. UBE. x 5 minutes. Seated. Bilateral UEs. - Assessment Assessment of Improvement Natalia has made progress since time of initial evaluation relative to functional abilities and left upper extremity strength. This is based on self-report and Natalia meeting some of her strength based goals. Natalia is managing her own laundry and primarily utilizing toaster oven and microwave for meal preparation with occasional stove top use (e.g. , eggs, oatmeal). Natalia reports ability to manage grocery items within the home w/ some difficulty managing heavier items. She is able to clean sink and toilet in her bathroom and change bed linens . Natlaia has demonstrated fair to poor compliance w/ execution of home exercise program; she demonstrated increased compliance w/ coordination based recommendations versus ROM/ stretches and strengthening based exercises. She denied left shoulder pain on this date which presented at time of last treatment session. Therapist has discussed insurance limitations w/ Natalia. Natalia continues to c/o change in sensation/ numbness of distal L UE and fatigue. Based on recent L shoulder pain exacerbation, decreased activity tolerance and decreased functional abilities when compared to PLOF, recommend some additional treatment sessions. Continued treatment will likely be limited d/t insurance restraints. PLAN: UE strengthening; kinesthetic exercises; UE ROM; UE motor coordination/motor planning Home Exercise Program Please refer to treatment section of note for specific details. - Plan Therapy Recommendations Continue with Current Program, Advance per Rehabilitation Protocol Comment 4 weeks Frequency of Treatment Once a Week Therapeutic Contents Active Range of Motion, Adaptive Equipment Education, Client Education,Cognitive Skills Development,Functional Activities,Home Exercise Program,Joint Protection, Manual Therapy,Education, Neurodevelopment Treatment, Neuromuscular Re-Education, Self-Care,Therapeutic Activities,Therapeutic Exercises,Sensory Re-education Electronically Signed by: Mary Gomez OT 05/15/21 [id number] Please Sign and Return: I have reviewed this Plan of Care and certify that the skilled therapy services above are required to meet the patient?s needs. Physician Signature Date Printed Name and Credentials Clinical Instructor Signature Printed Name and Credentials
--- NOTE | 2021-05-22 11:41 | OT.OP.DC ---
Visit Care Team Role Provider Type Theodore Adame MD Attending Provider Physician Other Providers Primary Care Provider Referring Provider Address: [facility] [address], [place], [address] Email: [email or web address] Outpatient OT Outpatient Adult Evaluation Start: 02/27/21 09:27 Freq: Status: Active Protocol: Document 02/24/21 15:30 AMS (Rec: 02/27/21 09:57 AMS [id number]) General Information Session Time Visit Start Time 09:30 Visit Stop Time 10:18 Total Visit Minutes 48 Visit Information Visit Number 1 Plan of Care Dates 02/24/21-05/19/21 Insurance Information 24 visits per calendar year combined OT & PT - [facility] Setting Treatment Setting Outpatient Care Visit Type Note Type Initial Evaluation Goals Objective Measurements Objective Measurements 9-Hole Peg Test Administered. Completed in 39.2 seconds w/ R hand. Complete in 43.7 seconds w/ L hand. QuickDASH UE Outcome Measure = 52.3 Pain Assessment Grid = 1 out of 10 on grid relative to L hand pain. Treatment Treatment Ther ex. Commercial Review Appraiser Goals Residential Goals 1. Patient will be modified independent with execution of home exercise program utilizing provided written and visual instructions from therapist. 2. Patient will present with increased activity tolerance on daily basis; 5/5 MMT L sh flexion and 5/5 MMT L sh extension. 3. Patient will present with increased activity tolerance and ability to engage upper extremities; 5/5 MMT L elbow flexion and 5/5 MMT L elbow extension. 4. Patient will present with improved functional abilities; this will be evidenced by obtaining a score of 25.0 or less on QuickDASH UE Outcome Measure. Assessment/Plan Assessment Treatment Assessment Patient is a 55 year-old right hand dominant female referred to outpatient OT secondary to CVA with subsequent left hemiparesis. PMH: Significant for allergic reaction to tape ; BP - med managed depression; Diabetes II - med managed; thyroid disorder - med managed . Patient admitted to [facility] 01/17/21 for left facial hemiparesis, slurring of words, left UE weakness and shuffling gait. 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 Diagnostic Testing completed on 3/17/21. MRI Findings: Multiple acute infarcts involving the right frontal lobe. Brain MR Angiogram: Image impacted by patient motion. Hemodynamically significant stenosis, vascular dissection or aneurysm within limitations related to motion. Neck MR Angiogram: Normal examination . Patient had home health PT and OT; she was given exercises that were posted in home to support carry-over for OT (included sh elevation, backwards sh shrugs, wall presses, hand presses, finger opposition). Natalia will be evaluated by outpatient [employer]EN SHADE HARDWARE INSTALLER today and is scheduled for outpatient PT evaluation in near future. Patient was seen for initial evaluation 1:1. She reported that she resides with her partner. There are 42 steps to get to her 3rd level apartment; there are 3 flights of stairs. Standard toilet seat. Shower equipped with chair and HSH. PLOF: Independent w/ all BADLS and IADLS; she used 4WW for outdoor mobility. Current level of function: mod I with all BADLS, including dressing , undressing, toileting, self- feeding and bathing. However, partner is available to assist as needed w/ bathing. Partner is managing meal preparation, community mobility - driving, house cleaning; she is managing her own finances. She has a daughter who resides in [place]. Evaluation findings include mild left midline shift of the UEs. Decreased activity tolerance. 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 Impaired sensation of the left UE. L UE weakness. L UE AROM WFL. Outpatient OT is recommended to address these areas in order to maximize Natalia's functional independence with active engagement in meaningful activities. Plan Comment 12 weeks Treatment Frequency Once a Week Therapeutic Contents Active Range of Motion, Adaptive Equipment Education, Client Education,Cognitive Skills Development,Functional Activities,Home Exercise Program,Joint Protection, Manual Therapy,Education, Neurodevelopment Treatment, Neuromuscular Re-Education, Therapeutic Activities, Therapeutic Exercises, Modalities Sensory Assessment Sensory Profile2 Functional Wrist/Hand Scan Hand Side OT Outpatient Muscle Testing Start: 02/27/21 09:27 Freq: Status: Active Protocol: Document 05/22/21 11:31 AMS (Rec: 05/22/21 11:41 AMS [id number]) Shoulder Strength Shoulder Manual Muscle Testing Left Flexion 5 Normal Extension 5 Normal Abduction (C5) 4 Good Adduction 4 Good External Rotation 3+ Fair+ Internal Rotation 4+ Good+ Horizontal Abduction 4 Good Horizontal Adduction 4 Good Comments Re-tested strength 05/15/21 = sh flex, sh ext Right Flexion 5 Normal Extension 5 Normal Abduction (C5) 5 Normal Adduction 5 Normal External Rotation 5 Normal Internal Rotation 5 Normal Horizontal Abduction 5 Normal Horizontal Adduction 5 Normal Elbow/Forearm Strength Elbow and Forearm Manual Muscle Testing Left Flexion (C6) 5 Normal Extension (C7) 5 Normal Comments Re-tested strength 05/15/21 = elbow flex, elbow ext Right Flexion (C6) 5 Normal Extension (C7) 5 Normal Rotary Drill Operator/Hand Strength Rotary Drill Operator/Hand Strength Left Rotary Drill Operator Dynamometer II 23.7 Right Rotary Drill Operator Dynamometer II 33.3 OT Outpatient Treatment Note - Adult Start: 02/27/21 09:27 Freq: Status: Active Protocol: Document 05/22/21 11:31 AMS (Rec: 05/22/21 11:41 AMS [id number]) OT Outpatient Adult Treatment Note Session Time Visit Start Time 09:30 Visit Stop Time 10:25 Total Visit Minutes 55 Visit Information Visit Number 10 Plan of Care Dates 05/15/21-06/12/21 Insurance Information 24 visits per calendar year combined OT & PT - [facility] Setting Treatment Setting Outpatient Care Visit Type Note Type Treatment Note General Information General Information Patient is a 55 year-old right hand dominant female referred to outpatient OT secondary to CVA with subsequent left hemiparesis. PMH: Significant for allergic reaction to tape ; BP - med managed depression; Diabetes II - med managed; thyroid disorder - med managed . Patient admitted to [facility] 01/17/21 for left facial hemiparesis, slurring of words, left UE weakness and shuffling gait. 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 Diagnostic Testing completed on 01/18/21. MRI Findings: Multiple acute infarcts involving the right frontal lobe. Brain MR Angiogram: Image impacted by patient motion. Hemodynamically significant stenosis, vascular dissection or aneurysm within limitations related to motion. Neck MR Angiogram: Normal examination . Patient had home health PT and OT; she was given exercises that were posted in home to support carry-over for OT (included sh elevation, backwards sh shrugs, wall presses, hand presses, finger opposition). - Subjective Identification Type Name Identification Reconciled With Medical Record Observations I am ready to be done. I know what I need to be doing per Natalia. Patient completed Pain Assessment Grid; she indicated 1 out of 10 on pain scale relative to anterior L shoulder and 3 out of 10 on pain scale relative to L scapular region. See electronic medical records for additional details. Patient/Caregiver Compliance with Home Fair Exercise Program - Objective Objective Measurements Please refer to below for progress towards meeting established OT goals. Residential Goals *GOALS MET 5/5 MMT L sh flex; 5/5 MMT L sh ext. *MET 05/15/21 5/5 MMT L elbow flex' 5/5 MMT L elbow ext. *MET 05/15/21 Mod independent w/ execution of HEP. However, poor compliance. *MET 05/22/21 GOALS D/C 1. Patient will present with increased activity tolerance on daily basis; 4+/5 MMT L sh abduction; 5/5 MMT L sh adduction; 4+/5 MMT L sh ER. 2. Patient will present with improved functional abilities; this will be evidenced by obtaining a score of 25.0 or less on QuickDASH UE Outcome Measure. 05/22/21 = 47.7 - Treatment 1 Descriptor Motor Planning. Bimanual Coordination. Balloon volleyball. Exercises 6 Descriptor UE ROM. Supine. ER. Sh abd. Sh hor abd and ER. Sh flex. 5 Descriptor L shoulder coordination/motor planning. Supine. Medium size circles in both directions. 2x10. Supine. Figure 8. 1x10. Seated. Small circles w/ sh abd in both directions. 1x10. Seated. Above head small circles. 1x10. 4 Descriptor HEP. Natalia denied any questions re: current HEP recommendations. 1 Descriptor N/A. Arm pulleys. x 5 minutes. Seated. Bilateral UEs. UBE. x 5 minutes. Seated. Bilateral UEs. - Assessment Assessment of Improvement Natalia verbalized desire to be d/c from outpatient OT on this date; she indicated that she 'knows what she needs to do' and that 'it is just going to take time'. Given that therapist completed progress note at last treatment session , no further progress has been made towards established OT goals besides reviewing recommendations to ensure patient understanding. Overall , Natalia has made progress since time of initial evaluation relative to functional abilities, left upper extremity strength, and motor planning/motor coordination. Recommend d/c at this time and therapist to re -evaluated as needed/as deemed appropriate by PCP. Home Exercise Program Please refer to treatment section of note for specific details. - Plan Therapy Recommendations Discharge from Occupational Therapy
== END 2021-05-22 13:21 | disposition home or self-care (01) ==
LOC: OT 09:30
PROVIDERS: PCP Family Medicine; Referring Provider Family Medicine; Visit Provider Family Medicine
DX: I69.954 Hemiplegia and hemiparesis following unspecified cerebrovascular disease affecting left non-dominant side (principal); E11.9 Type 2 diabetes mellitus without complications; R27.8 Other lack of coordination
CPT/HCPCS: 97110; 97112; 97165; 97530; 97535

== ENCOUNTER → 2022-03-29 10:03 | Outpatient (CLI) | payer BC, OTHER, MEDICAID, SELFPAY ==
[2021-01-17 16:26] VITALS: BMI 35.9
--- NOTE | 2022-03-29 | DI.MG.S_ITS ---
BILATERAL DIGITAL SCREENING MAMMOGRAM 3D/2D WITH CAD: 03/29/2022 CLINICAL: Routine screening. Comparison is made to exams dated: 03/29/2021 mammogram, 05/04/2019 mammogram, 05/27/2018 mammogram, 07/28/2014 mammogram, and 02/28/2017 mammogram - [facility]. There are scattered fibroglandular elements in both breasts. Current study was also evaluated with a Computer Aided Detection (CAD) system. There are benign calcifications in both breasts. There also are benign vascular calcifications in the right breast. No significant masses, calcifications, or other findings are seen in either breast. There has been no significant interval change. IMPRESSION: BENIGN There is no mammographic evidence of malignancy. A 1 year screening mammogram is recommended. This exam was interpreted at Station ID: [id number]. NOTE: For mammograms, a report in lay terms will be sent to the patient. Approximately 15% of breast malignancies will not be visualized mammographically. In the management of a palpable breast mass, a negative mammogram must not discourage biopsy of a clinically suspicious lesion. Electronically Signed By: Kevin pitts/idalmis:03/29/2022 11:32:03 letter sent: Normal Exam ACR BI-RADS Category 2: Benign Finding(s) 3342F
== END ==
PROVIDERS: PCP Family Medicine; Referring Provider Internal Medicine; Visit Provider Internal Medicine
DX: Z12.31 Encounter for screening mammogram for malignant neoplasm of breast (principal)
CPT/HCPCS: 77063; 77067

== ENCOUNTER → 2022-08-10 10:04 | Outpatient (CLI) | payer BC, OTHER, MEDICAID, SELFPAY ==
[2022-07-11 14:44] VITALS: BMI 35.9
[2022-08-10 11:30] LABS: COVID19 -Nasal RAPID Negative (Negative)
== END ==
PROVIDERS: PCP Family Medicine; Visit Provider Obstetrics & Gynecology
DX: Z20.822 Contact with and (suspected) exposure to COVID-19 (principal); Z01.812 Encounter for preprocedural laboratory examination
CPT/HCPCS: 87635

== ENCOUNTER 2022-08-13 06:00 | Day surgery (SDC) | payer BC, OTHER, MEDICAID, SELFPAY ==
[2022-07-11 14:44] VITALS: BMI 35.9
--- NOTE | 2022-08-13 | PATH_ITS ---
[facility] Accession Number: [id number] . 01 Material submitted: . endometrium - ENDOMETRIAL POLYP WITH CURETTINGS . 01 Diagnosis: A. Endometrium, Polyp, Curettage: Non-proliferative endometrium associated with endometrial polyp(s). Extensive hemorrhage and degeneration. No evidence of endometrioid intraepithelial neoplasia and malignancy. MRV 08/20/2022 1103 Local . 01 Electronically signed: . Angeles Pastor MD, Pathologist NPI- [id number] . 01 Gross description: . ENDOMETRIAL POLYP WITH CURETTINGS: Received in formalin are minute fragments of mucoid and hemorrhagic material measuring 2.7 x 2.3 x 0.3 cm in aggregate. Submitted in toto in 1 cassette. /CPE 08/14/2022 0525 Local . 01 Pathologist provided ICD-10: N95.0, N84.0 . 01 CPT . 694715 Specimen Comment: A courtesy copy of this report has been sent to [phone] Performed at: 01 [facility] [address] [place] [address], [place], [place] [id number] MD John Nguyen MD Phone: [phone]
[2022-08-13 07:08] VITALS: BP 188/100; PULSE 77; RESP 16; TEMP 36.6; O2SAT 100
[2022-08-13] MEDS: LACTATED RINGERS 1,000 ML 100 ML IV (07:25)
--- NOTE | 2022-08-13 07:33 | PM.HP.1 ---
History of Present Illness History of Present Illness Date Patient Seen: 08/13/22 Time Patient Seen: 07:33 Chief complaint: Hysteroscopy D&C Possible Polypectomy Narrative: Patient is a 57-year-old 3 para 1021 who presents with postmenopausal bleeding and endometrial hyperplasia. They attempted to do a hysteroscopy at the [facility] but were unable to obtain endometrial tissue. Patient presents today for a D&C hysteroscopy. She was pretreated with misoprostol vaginally to open the cervix. Patient History Medical History Diabetes HTN (hypertension) Hyperthyroidism Surgical History H/O lumpectomy Family & Social History Social History: household members significant other Tobacco & Substance use: Smoking Status Never smoker alcohol intake frequency holiday/special occasion Substance Use Type marijuana Meds Home Medications and Allergies Home Medications Medication Instructions Recorded Confirmed Type alogliptin 25 mg tablet 25 mg PO DAILY 01/17/21 08/10/22 History empagliflozin 10 mg tablet 25 mg PO DAILY 01/17/21 08/10/22 History hydrochlorothiazide 25 mg tablet 50 mg PO DAILY 01/17/21 08/10/22 History atorvastatin 20 mg tablet (Lipitor) 80 mg PO BEDTIME #90 tabs 01/21/21 08/10/22 Rx diltiazem HCl 360 mg capsule,24 360 mg PO DAILY #90 caps 01/21/21 08/10/22 Rx hr,extended release metformin 500 mg tablet 1,000 mg PO 0800,1700 #180 tabs 01/21/21 08/10/22 Rx (Glucophage) Allergies Allergy/AdvReac Type Severity Reaction Status Date / Time Antihistamines - Alkylamine Allergy Severe Anaphylaxis Verified 08/13/22 06:51 [ANTIHISTAMINES - ALKYLAMINE] peanut [PEANUT] Allergy Intermediate Verified 08/13/22 06:51 diphenhydramine Allergy Unknown Verified 08/13/22 06:51 [DIPHENHYDRAMINE] venom-honey bee Allergy Unknown Verified 08/13/22 06:51 [BEE VENOM (HONEY BEE)] venom-wasp [WASP VENOM] Allergy Unknown Verified 08/13/22 06:51 OTC COUGH MEDICATION Allergy Severe Anaphylaxis Uncoded 08/13/22 06:51 CULTIVATED OAT POLLEN Allergy Unknown Uncoded 08/13/22 06:51 Exam Vital Signs (past 8 hours): - 08/13/22 07:08 Temperature 97.8 F Pulse Rate 77 Respiratory Rate 16 Blood Pressure 188/100 H Pulse Oximetry 100 Oxygen Delivery Method Room Air Oxygen Delivery Method Room Air Narrative Exam Narrative: HEENT: No thyromegaly, no anterior cervical or supraclavicular lymphadenopathy. Lungs:Clear to auscultation bilaterally, no wheezes. Cardiovascular: Regular rate and rhythm, no murmurs, rubs, or gallops. Abdomen: No scars. No hepatosplenomegaly. No masses palpable. External genitalia: Normal Vagina: Normal Cervix: Normal Bimanual exam: 8 Week size anteverted uterus. Mobile. No adnexal masses or tenderness Extremities: No edema Assessment & Plan Assessment & Plan narrative: Assessment: 57-year-old 3 para 1021 with postmenopausal bleeding, endometrial hyperplasia, and calcifications in the endometrium Failed previous hysteroscopy Plan: D&C hysteroscopy The risks, benefits, and alternatives to the procedure were explained to the patient. The risks including bleeding, infection, and uterine perforation. She understands these risks and agrees to proceed. A full par Q was held and consent form was signed. COVID-19 COVID-19 status: Negative Result date/Date tested (Pos, Neg/Pending): 08/10/22 Time Spent With Patient Time with patient: less than 30 minutes Critical Care time: I spent a total of [] minutes of critical care time on this patient's care today; this time is exclusive of procedural time.
--- NOTE | 2022-08-13 07:36 | PM.PREOP ---
Pre-operative Note COVID-19 COVID-19 status: Negative Result date/Date tested (Pos, Neg/Pending): 08/10/22 Criteria for continued procedure: Non-surgical alternatives not available or appropriate per current SOC Interval Note History & Physical reviewed/Exam performed by Physician: Yes Changes to H&P: No H&P completed within 30 days and has changed as indicated here:: 08/13/22
--- NOTE | 2022-08-13 08:04 | SUR.OPER ---
Lithotomy on padded OR bed, head on pillow, arms secured on padded arm boards at <90 degrees abduction. Legs secured in padded yellow fins stirrups.
[2022-08-13 08:28] VITALS: BP 154/84; PULSE 79; RESP 18; TEMP 36.4; O2SAT 95
[2022-08-13 08:33] VITALS: BP 171/86; PULSE 74; RESP 18; O2SAT 95
--- NOTE | 2022-08-13 08:33 | PM.GYNOP.1 ---
Operative Date/Time/Diagnoses Date of procedure: 08/13/22 Time of procedure: 08:36 Pre-op diagnosis: Postmenopausal bleeding Endometrial hyperplasia Calcifications in the endometrium Post-op diagnosis: same Procedure & Clinicians Procedure: Procedures Operation Date: 08/13/22 07:45 Actual Procedure Side Surgeon p Hysteroscopy D&C, polpectomy Antoinette Armstrong MD Indications: Postmenopausal bleeding Endometrial hyperplasia Calcifications in the endometrium Surgeon: Antoinette Armstrong Anesthesia Type: General (LMA) Operative Notes Findings: 8 week sized prolapsed uterus uterus with the cervix at the introitus Large endometrial polyp arising from the posterior left mid body of the uterus Both fallopian tube ostia observed Closure Type: not applicable Specimen(s): endometrial curettings and endometrial polyp Estimated blood loss (mL): 5 Blood products transfused: none Procedure in detail: After informed consent was obtained, the patient was taken to the operating room where she was placed in the dorsal supine position. After adequate LMA general anesthesia was achieved, she was placed in the dorsal lithotomy position, and prepped and draped in the usual sterile fashion. A time-out was performed. A single-tooth tenaculum was placed on the anterior lip of the cervix. The cervical os was dilated to the # 8 Hegar dilator. The hysteroscope passed easily into the endometrial cavity. A large polyp was seen. Both fallopian tube ostia were observed. The hysteroscope was removed. Polyp forceps were used to remove most of the polyp. The fluid was changed to sorbitol and all of the tubing purged. The cervical os was dilated to the # 9 Hegar dilator. The resectoscope passed easily into the endometrial cavity. The remainder of the polyp was resected using the loop with settings at 80 cut and 60 cautery. There was a small area that was bleeding and this was cauterized with the loop for hemostasis. The instruments were removed from the uterus. The single-tooth tenaculum was removed from the anterior lip of the cervix. Sponge, lap, and instrument counts were correct x2. The patient tolerated the procedure well, and was taken to PACU in stable condition. Complications: none Post-operative Condition: stable Disposition: PACU Plan for aftercare: Home after recovery
[2022-08-13 08:41] VITALS: BP 182/88; PULSE 69; RESP 12; O2SAT 96
[2022-08-13 08:47] VITALS: BP 185/89; PULSE 68; RESP 16; TEMP 36.7; O2SAT 97
== END 2022-08-13 09:12 | disposition home or self-care (01) ==
PROVIDERS: PCP Family Medicine; Referring Provider Obstetrics & Gynecology; Visit Provider Obstetrics & Gynecology
PROC: 0UDB8ZZ Extraction of Endometrium, Via Natural or Artificial Opening Endoscopic (ICD-10-PCS; CPT 58558; principal; 2022-08-13 07:45)
DX: N95.0 Postmenopausal bleeding (principal); E03.9 Hypothyroidism, unspecified; I10 Essential (primary) hypertension; E11.9 Type 2 diabetes mellitus without complications; Z79.84 Long term (current) use of oral hypoglycemic drugs; N84.0 Polyp of corpus uteri
CPT/HCPCS: 58558; J1885; J2405; J2704; J3010

== ENCOUNTER → 2023-04-10 12:52 | Outpatient (CLI) | payer BC, OTHER, MEDICAID, SELFPAY ==
[2022-07-11 14:44] VITALS: BMI 35.9
--- NOTE | 2023-04-10 | DI.MG.S_ITS ---
BILATERAL DIGITAL SCREENING MAMMOGRAM 3D/2D WITH CAD: 04/10/2023 CLINICAL: Routine screening. Comparison is made to exams dated: 03/29/2022 mammogram, 03/29/2021 mammogram, and 05/04/2019 mammogram - [facility]. There are scattered areas of fibroglandular density in both breasts (category b / 25%-50% glandular tissue). Current study was also evaluated with a Computer Aided Detection (CAD) system. There are benign calcifications in both breasts. There also are benign vascular calcifications in the right breast. Additionally, there are benign post operative findings in the left breast. No significant masses, calcifications, or other findings are seen in either breast. There has been no significant interval change. IMPRESSION: BENIGN There is no mammographic evidence of malignancy. A 1 year screening mammogram is recommended. Based on the Tyrer Cuzick model (a risk assessment model) the patient's lifetime risk is 5.9% and her 10 year risk is 2.1%. According to the ACR, ACS, and NCCN guidelines, an annual breast MRI exam along with mammogram is recommended if the patient's lifetime risk is 20% or greater. This exam was interpreted at Station ID: [id number]. NOTE: For mammograms, a report in lay terms will be sent to the patient. Approximately 15% of breast malignancies will not be visualized mammographically. In the management of a palpable breast mass, a negative mammogram must not discourage biopsy of a clinically suspicious lesion. Electronically Signed By: Jayro figueroa/idalmis:04/10/2023 13:27:33 letter sent: Normal Exam ACR BI-RADS Category 2: Benign Finding(s) 3342F
== END ==
PROVIDERS: PCP Family Medicine; Referring Provider Family Medicine; Visit Provider Family Medicine
DX: Z12.31 Encounter for screening mammogram for malignant neoplasm of breast (principal)
CPT/HCPCS: 77063; 77067

== ENCOUNTER → 2023-05-01 08:39 | Outpatient (CLI) | payer OTHER, SELFPAY ==
[2022-07-11 14:44] VITALS: BMI 35.9
--- NOTE | 2023-05-01 | DI.MRI.S_ITS ---
PROCEDURE: MR PELVIS WO/W CON INDICATIONS: Intramural leiomyoma of uterus TECHNIQUE: Coronal HASTE, sagittal breath-hold T2 FSE; axial T1 FSE with and without fat saturation through the pelvis. Optional long- and short-axis uterine nonbreath-hold T2 FSE through the uterus. Sagittal or axial dynamic VIBE during administration of contrast. Post-contrast axial or coronal VIBE/2-D FLASH with fat saturation from the iliac crests to the symphysis. Optional diffusion weighted imaging and ADC may be performed. COMPARISON: None. FINDINGS: Image quality: Excellent. Uterus: Uterus measures 8.5 x 4.3 x 2.5 cm. Uterus is anteverted and retroflexed. Endometrium measures 0.3 cm. No thickening of the junctional zone. Uterine cervix is somewhat prominent. No suspicious enhancement. Large posterior exophytic subserosal or pedunculated fibroid measuring 7.3 x 6 x 5.2 cm, (3/23). Circumscribed margin. Heterogeneous T2 hypointense signal. Fundal subserosal fibroid measuring 1 cm. Adnexa: Both ovaries are normal in size, without suspicious cystic or solid lesions. Simple T2 hyperintense right paraovarian cyst measuring 1.9 cm. Urinary system: Bladder wall is normal in thickness. Distal ureters are non distended. Urethra appears normal in morphology. Nodes and vessels: No pelvic or inguinal adenopathy by size criteria. Iliac vessels are normal in size. Bowel and peritoneum: No pathologic free pelvic fluid. Inferior colon and small bowel loops are normal in caliber. The appendix is not dilated. Soft tissues: No inguinal hernias. No findings of pelvic floor incompetence in the absence of provocation. Bones: Marrow demonstrates normal overall signal. IMPRESSION: 1. Large exophytic posterior uterine fibroid measuring 8.5 cm. 2. No uterine adenomyosis. 3. Small T2 hyperintense right paraovarian cyst measuring 1.9 cm. Dictated by: Kevin Dolan M.D. on 05/01/2023 at 13:19 Approved by: Kevin Dolan M.D. on 05/01/2023 at 13:31
== END ==
PROVIDERS: PCP Family Medicine; Referring Provider Counselor Addiction (Substance Use Disorder); Visit Provider Counselor Addiction (Substance Use Disorder)
DX: D25.2 Subserosal leiomyoma of uterus (principal); D25.9 Leiomyoma of uterus, unspecified; N83.291 Other ovarian cyst, right side
CPT/HCPCS: 72197; A9579

== ENCOUNTER → 2024-04-13 14:43 | Outpatient (CLI) | payer OTHER, SELFPAY ==
[2022-07-11 14:44] VITALS: BMI 35.9
--- NOTE | 2024-04-13 14:45 | DI.MG.S_ITS ---
BILATERAL DIGITAL SCREENING MAMMOGRAM 3D/2D WITH CAD: 04/13/2024 CLINICAL: Routine screening. Comparison is made to exams dated: 04/10/2023 mammogram, 03/29/2022 mammogram, and 03/29/2021 mammogram - [facility]. There are scattered areas of fibroglandular density in both breasts (category b / 25%-50% glandular tissue). Current study was also evaluated with a Computer Aided Detection (CAD) system. There are benign calcifications in both breasts. There also are benign vascular calcifications in the right breast. Additionally, there are benign post operative findings in the left breast. No significant masses, calcifications, or other findings are seen in either breast. There has been no significant interval change. IMPRESSION: BENIGN There is no mammographic evidence of malignancy. A 1 year screening mammogram is recommended. Based on the Tyrer Cuzick model (a risk assessment model) the patient's lifetime risk is 6.0% and her 10 year risk is 2.3%. According to the ACR, ACS, and NCCN guidelines, an annual breast MRI exam along with mammogram is recommended if the patient's lifetime risk is 20% or greater. This exam was interpreted at Station ID: [id number]. NOTE: For mammograms, a report in lay terms will be sent to the patient. Approximately 15% of breast malignancies will not be visualized mammographically. In the management of a palpable breast mass, a negative mammogram must not discourage biopsy of a clinically suspicious lesion. Electronically Signed By: Jayro figueroa/idalmis:04/15/2024 10:16:12 letter sent: Normal Exam ACR BI-RADS Category 2: Benign Finding(s) 3342F
== END ==
PROVIDERS: PCP Family Medicine; Referring Provider Family Medicine; Visit Provider Family Medicine
DX: Z12.31 Encounter for screening mammogram for malignant neoplasm of breast (principal); R92.323 Mammographic fibroglandular density, bilateral breasts
CPT/HCPCS: 77063; 77067

== ENCOUNTER → 2025-01-21 12:55 | Outpatient (CLI) | payer OTHER, SELFPAY ==
[2022-07-11 14:44] VITALS: BMI 35.9
[2025-01-21 13:24] LABS: Add Manual Diff / Slide Review NO; Basophils Absolute Auto 0 /uL (0-100); Basophils Percent Auto 0.4 % (0-2); Eosinophils Absolute Auto 300 /uL (0-450); Eosinophils Percent Auto 4.1 % (2-4); Hematocrit 38.4 % (36-46); Hemoglobin 12.5 g/dL (12.0-16.0); Lymphocytes Absolute Auto 2500 /uL (1100-4500); Lymphocytes Percent Auto 37.9 % (25-40); Mean Corpuscular HGB Conc 32.5 % (30-36); Mean Corpuscular Hemoglobin 22.7 PG (26-34); Monocytes Absolute Auto 400 /uL (0-900); Monocytes Percent Auto 6.4 % (3-14); Neutrophils Absolute Auto 3400 /uL (1500-7000); Neutrophils Percent Auto 51.2 % (50-75); Platelet Count 316 X10^3/uL (150-400); Red Blood Cell Count 5.49 X10^6/uL (4.0-5.2); White Blood Cell Count 6.7 X10^3/uL (4.5-11.0)
[2025-01-21 13:34] LABS: Hemoglobin A1C% w Est Avg Glu 6.8 % (4.0-6.0)
[2025-01-21 13:39] LABS: Alanine Aminotransferase 23 IU/L (<35); Albumin 4.8 g/dL (3.5-5.0); Albumin Globulin Ratio 1.5 (1.0-2.8); Alkaline Phosphatase 86 U/L (38-126); Aspartate Aminotransferase 29 IU/L (14-36); BUN Creatinine Ratio 20.6 (6-22); Bilirubin Total 0.5 mg/dL (0.2-1.3); Blood Urea Nitrogen 22 mg/dL (7-17); Calcium 10.5 mg/dL (8.4-10.2); Carbon Dioxide 27 mmol/L (22-32); Chloride 102 mmol/L (98-107); Cholesterol 208 mg/dL (140-199); Estimated Glomerular Filt Rate 59 mL/min (>60); Globulin 3.2 g/dL (1.7-4.1); Glucose 125 mg/dL (80-110); HDL Cholesterol 104 mg/dL (40-60); HEMOLYSIS < 15 (0-50); LDL Cholesterol Calculated 87 mg/dL (<100); Potassium 3.7 mmol/L (3.4-5.1); Sodium 140 mmol/L (137-145); Triglycerides 83 mg/dL (35-150)
[2025-01-21 14:08] LABS: TSH w/ Reflex to FT4 2.09 uIU/mL (0.47-4.68)
== END ==
PROVIDERS: PCP Family Medicine; Referring Provider Family Medicine; Visit Provider Family Medicine
DX: I10 Essential (primary) hypertension (principal); E78.5 Hyperlipidemia, unspecified; E11.9 Type 2 diabetes mellitus without complications; Z86.73 Personal history of transient ischemic attack (TIA), and cerebral infarction without residual deficits
CPT/HCPCS: 36415; 80053; 80061; 83036; 84443; 85025

== ENCOUNTER → 2025-02-01 09:54 | Outpatient (CLI) | payer OTHER, SELFPAY ==
[2022-07-11 14:44] VITALS: BMI 35.9
[2025-02-01 10:44] LABS: Alanine Aminotransferase 27 IU/L (<35); Albumin 4.7 g/dL (3.5-5.0); Albumin Globulin Ratio 1.6 (1.0-2.8); Alkaline Phosphatase 77 U/L (38-126); Aspartate Aminotransferase 33 IU/L (14-36); BUN Creatinine Ratio 17.4 (6-22); Bilirubin Total 0.6 mg/dL (0.2-1.3); Blood Urea Nitrogen 19 mg/dL (7-17); Calcium 10.4 mg/dL (8.4-10.2); Carbon Dioxide 27 mmol/L (22-32); Chloride 104 mmol/L (98-107); Estimated Glomerular Filt Rate 58 mL/min (>60); Glucose 126 mg/dL (80-110); HEMOLYSIS < 15 (0-50); Potassium 3.7 mmol/L (3.4-5.1); Sodium 139 mmol/L (137-145); Total Protein 7.7 g/dL (6.3-8.2)
[2025-02-01 11:23] LABS: Creatinine Urine Random 77.62 mg/dL
[2025-02-01 11:28] LABS: Microalbumin Urine Random 6.3 mg/dL (0-1.6)
== END ==
PROVIDERS: PCP Family Medicine; Referring Provider Family Medicine; Visit Provider Family Medicine
DX: E11.9 Type 2 diabetes mellitus without complications (principal); E83.52 Hypercalcemia
CPT/HCPCS: 36415; 80053; 82043; 82570

== ENCOUNTER → 2025-02-15 09:51 | Outpatient (CLI) | payer OTHER, SELFPAY ==
[2022-07-11 14:44] VITALS: BMI 35.9
--- NOTE | 2025-02-15 09:52 | DI.US.S_ITS ---
PROCEDURE: US ABDOMEN LIMITED INDICATIONS: Early satiety TECHNIQUE: Real-time focused scanning was performed of the abdomen, with image documentation. COMPARISON: None. FINDINGS: The liver is mildly enlarged in size and demonstrates no suspicious lesions. No findings of gallstones or sludge are seen. The gallbladder wall is not thickened, measuring 3 mm or less. No specific pericholecystic fluid is seen. The sonographic Vasques sign is negative. There is no biliary dilatation, the common bile duct measures 4 mm. No significant pancreatic abnormality is seen on these images. IMPRESSION: The gallbladder demonstrates a normal sonographic appearance. No biliary dilatation is seen. Mildly enlarged liver, without significant additional liver abnormality. Dictated by: Alirio Alvarez M.D. on 02/15/2025 at 12:02 Approved by: Alirio Alvarez M.D. on 02/15/2025 at 12:03
--- NOTE | 2025-02-15 10:15 | DI.MRI.S_ITS ---
PROCEDURE: MR HEAD/BRAIN WO CON INDICATIONS: History of CVA, dizziness TECHNIQUE: Noncontrast axial T1 spin echo, axial T2 fast spin echo, sagittal and axial FLAIR, coronal T2 fast spin echo, axial gradient echo, axial diffusion and ADC through the brain. COMPARISON: MR, MR STROKE, 01/18/2021, 10:30. FINDINGS: Image quality: Excellent. CSF Spaces: Basal cisterns are patent. No extra-axial fluid collections. Ventricles are normal in size and shape. Brain: No intracranial masses or hemorrhage. Wagner/white matter interface is normal. Brainstem appears normal. Mild diffuse cerebral volume loss. Moderate degree of patchy high FLAIR signal intensity within the periventricular and subcortical white matter. Small chronic left paramedian pontine infarct. Diffusion-weighted images demonstrate no acute infarct. No chronic ischemic insults. Normal intravascular flow voids are present. Skull and face: Calvarium has normal marrow signal. Orbits appear normal. Sinuses: Sinuses are clear. Small amount of bilateral mastoid fluid. IMPRESSION: 1. Volume loss and small vessel ischemic disease. 2. Small chronic left paramedian pontine infarct. 3. Bilateral mastoid fluid. Dictated by: Christiano Wetzel M.D. on 02/15/2025 at 10:40 Approved by: Christiano Wetzel M.D. on 02/15/2025 at 10:42
== END ==
PROVIDERS: PCP Family Medicine; Referring Provider Family Medicine; Visit Provider Family Medicine
DX: R42 Dizziness and giddiness (principal); R68.81 Early satiety; R16.0 Hepatomegaly, not elsewhere classified; Z86.73 Personal history of transient ischemic attack (TIA), and cerebral infarction without residual deficits
CPT/HCPCS: 70551; 76705

== ENCOUNTER → 2025-03-01 08:49 | Outpatient (CLI) | payer OTHER, SELFPAY ==
[2022-07-11 14:44] VITALS: BMI 35.9
[2025-03-01 10:35] LABS: Alanine Aminotransferase 24 IU/L (<35); Albumin 4.7 g/dL (3.5-5.0); Albumin Globulin Ratio 1.6 (1.0-2.8); Alkaline Phosphatase 83 U/L (38-126); Aspartate Aminotransferase 29 IU/L (14-36); BUN Creatinine Ratio 16.4 (6-22); Bilirubin Total 0.6 mg/dL (0.2-1.3); Blood Urea Nitrogen 20 mg/dL (7-17); Calcium 10.3 mg/dL (8.4-10.2); Carbon Dioxide 26 mmol/L (22-32); Chloride 106 mmol/L (98-107); Estimated Glomerular Filt Rate 51 mL/min (>60); Globulin 2.9 g/dL (1.7-4.1); Glucose 142 mg/dL (70-99); HEMOLYSIS < 15 (0-50); Sodium 142 mmol/L (137-145); Total Protein 7.6 g/dL (6.3-8.2)
== END ==
PROVIDERS: PCP Family Medicine; Referring Provider Family Medicine; Visit Provider Family Medicine
DX: I10 Essential (primary) hypertension (principal); E83.52 Hypercalcemia; N28.9 Disorder of kidney and ureter, unspecified
CPT/HCPCS: 36415; 80053

== ENCOUNTER → 2025-03-10 11:46 | Outpatient (CLI) | payer OTHER, SELFPAY ==
[2022-07-11 14:44] VITALS: BMI 35.9
--- NOTE | 2025-03-10 11:47 | DI.US.S_ITS ---
PROCEDURE: US THYROID INDICATIONS: Hypercalcemia, evaluate for parathyroid TECHNIQUE: Real-time scanning was performed of the thyroid gland, with image documentation. COMPARISON: None. FINDINGS: Parathyroid glands are not visualized. Thyroid: Right lobe measures 4.7 x 1.6 x 1.3 cm. Left lobe measures 4.3 x 1.6 x 1.3 cm. Isthmus is 0.2 cm thick. Echotexture is mildly heterogeneous. Nodule number: 1 Location: Left thyroid lobe inferiorly Size: 1.4 x 1.4 x 0.9 cm. Composition: Predominantly solid Echogenicity: Hypoechoic Shape: wider than tall. Margins: Ill-defined Echogenic foci: None Total points: 4 ACR TI-RADS category: 4 * FNA if 1.5 cm or larger, follow up if 1 cm or larger (at 1, 2, 3, and 5 years). IMPRESSION: Left thyroid lobe nodule as discussed above. Parathyroids not visualized. Dictated by: Emigdio Nunes M.D. on 03/10/2025 at 12:27 Approved by: Emigdio Nunes M.D. on 03/10/2025 at 12:33
== END ==
PROVIDERS: PCP Family Medicine; Referring Provider Family Medicine; Visit Provider Family Medicine
DX: E83.52 Hypercalcemia (principal); E04.1 Nontoxic single thyroid nodule
CPT/HCPCS: 76536

== ENCOUNTER → 2025-04-05 09:56 | Outpatient (CLI) | payer OTHER, SELFPAY ==
[2022-07-11 14:44] VITALS: BMI 35.9
[2025-04-05 10:55] LABS: HEMOLYSIS < 15 (0-50); Iron 53 ug/dL (37-170)
[2025-04-05 11:07] LABS: Percent Iron Saturation 13 % (15-50); Total Iron Binding Capacity 397 ug/dL (265-497); Transferrin 355 mg/dL (206-381)
[2025-04-05 11:10] LABS: Vitamin D 25 Hydroxy (D3) 23.3 ng/mL (30.0-100.0)
[2025-04-05 11:28] LABS: Ferritin 12 ng/mL (11-264)
[2025-04-06 06:37] LABS: Ionized Calcium 5.2 mg/dL (4.5-5.6)
[2025-04-06 07:40] LABS: Calcium 10.2 mg/dL (8.7-10.3); Parathyroid Hormone, Intact 62 pg/mL (15-65)
== END ==
PROVIDERS: PCP Family Medicine; Referring Provider Family Medicine; Visit Provider Family Medicine
DX: I10 Essential (primary) hypertension (principal); E78.5 Hyperlipidemia, unspecified; R32 Unspecified urinary incontinence; Z86.73 Personal history of transient ischemic attack (TIA), and cerebral infarction without residual deficits; E11.9 Type 2 diabetes mellitus without complications; R42 Dizziness and giddiness
CPT/HCPCS: 36415; 82306; 82310; 82330; 82728; 83540; 83550; 83970

== ENCOUNTER → 2025-08-28 08:47 | Outpatient (CLI) | payer OTHER, SELFPAY ==
[2022-07-11 14:44] VITALS: BMI 35.9
[2025-08-28 10:14] LABS: Hematocrit 36.9 % (36-46); Hemoglobin 12.0 g/dL (12.0-16.0); Lymphocytes Absolute Auto 2400 /uL (1100-4500); Mean Corpuscular HGB Conc 32.6 % (30-36); Mean Corpuscular Hemoglobin 22.4 PG (26-34); Mean Corpuscular Volume 68.8 fL (80-100); Platelet Count 318 X10^3/uL (150-400)
[2025-08-28 10:17] LABS: Add Manual Diff / Slide Review SLIDE REVIEW
[2025-08-28 10:20] LABS: Alanine Aminotransferase 22 IU/L (<35); Albumin 4.7 g/dL (3.5-5.0); Albumin Globulin Ratio 1.4 (1.0-2.8); Alkaline Phosphatase 87 U/L (38-126); Blood Urea Nitrogen 19 mg/dL (7-17); Calcium 10.3 mg/dL (8.4-10.2); Carbon Dioxide 28 mmol/L (22-32); Chloride 103 mmol/L (98-107); Estimated Glomerular Filt Rate > 60 mL/min (>60); Globulin 3.4 g/dL (1.7-4.1); Glucose 124 mg/dL (70-99); HEMOLYSIS < 15 (0-50); Potassium 3.8 mmol/L (3.4-5.1); Sodium 139 mmol/L (137-145); Total Protein 8.1 g/dL (6.3-8.2)
[2025-08-28 10:32] LABS: Vitamin D 25 Hydroxy (D3) < 12.8 ng/mL (30.0-100.0)
[2025-08-28 10:42] LABS: Microcytosis 1+
[2025-08-28 10:48] LABS: TSH w/ Reflex to FT4 1.26 uIU/mL (0.47-4.68)
[2025-08-28 10:55] LABS: Ferritin 11 ng/mL (11-264)
[2025-08-31 15:36] LABS: Deamidated Gliadin Ab IgA 5 units (0-19); Deamidated Gliadin Ab IgG 2 units (0-19); Immunoglobulin A,Qn 209 mg/dL (87-352)
== END ==
PROVIDERS: PCP Family Medicine; Referring Provider Family Medicine; Visit Provider Family Medicine
DX: E61.1 Iron deficiency (principal); R68.81 Early satiety; R19.8 Other specified symptoms and signs involving the digestive system and abdomen; R10.9 Unspecified abdominal pain; K62.5 Hemorrhage of anus and rectum; E55.9 Vitamin D deficiency, unspecified; Z12.11 Encounter for screening for malignant neoplasm of colon
CPT/HCPCS: 36415; 80053; 82274; 82306; 82728; 82784; 83516; 84443; 85025

== ENCOUNTER → 2025-09-07 12:12 | Outpatient (CLI) | payer OTHER, SELFPAY ==
[2022-07-11 14:44] VITALS: BMI 35.9
== END ==
PROVIDERS: PCP Family Medicine; Referring Provider Family Medicine; Visit Provider Family Medicine
DX: E61.1 Iron deficiency (principal); R68.81 Early satiety; R19.8 Other specified symptoms and signs involving the digestive system and abdomen; R10.9 Unspecified abdominal pain; K62.5 Hemorrhage of anus and rectum; E55.9 Vitamin D deficiency, unspecified
CPT/HCPCS: 83993; 87045

== ENCOUNTER → 2025-09-15 09:37 | Outpatient (CLI) | payer OTHER, SELFPAY ==
[2022-07-11 14:44] VITALS: BMI 35.9
--- NOTE | 2025-09-15 09:38 | DI.CT.S_ITS ---
PROCEDURE: CT ABDOMEN PELVIS W CON
== END ==
PROVIDERS: PCP Family Medicine; Referring Provider Family Medicine; Visit Provider Family Medicine
DX: K62.5 Hemorrhage of anus and rectum (principal); R10.9 Unspecified abdominal pain; R19.8 Other specified symptoms and signs involving the digestive system and abdomen
CPT/HCPCS: 74177; Q9967

== ENCOUNTER → 2025-10-18 09:07 | Outpatient (CLI) | payer OTHER, SELFPAY ==
[2022-07-11 14:44] VITALS: BMI 35.9
[2025-10-18 10:09] LABS: Add Manual Diff / Slide Review NO; Hematocrit 36.2 % (36-46); Hemoglobin 11.9 g/dL (12.0-16.0); Lymphocytes Absolute Auto 2200 /uL (1100-4500); Mean Corpuscular HGB Conc 33.0 % (30-36); Mean Corpuscular Hemoglobin 22.6 PG (26-34); Mean Corpuscular Volume 68.5 fL (80-100); Platelet Count 309 X10^3/uL (150-400)
[2025-10-18 10:16] LABS: Hemoglobin A1C% w Est Avg Glu 7.4 % (4.0-6.0)
[2025-10-18 10:25] LABS: Alanine Aminotransferase 18 IU/L (<35); Albumin 4.7 g/dL (3.5-5.0); Albumin Globulin Ratio 1.6 (1.0-2.8); Alkaline Phosphatase 82 U/L (38-126); Blood Urea Nitrogen 24 mg/dL (7-17); Calcium 10.7 mg/dL (8.4-10.2); Carbon Dioxide 28 mmol/L (22-32); Chloride 102 mmol/L (98-107); Estimated Glomerular Filt Rate 49 mL/min (>60); Globulin 3.0 g/dL (1.7-4.1); Glucose 128 mg/dL (70-99); HEMOLYSIS < 15 (0-50); Potassium 3.7 mmol/L (3.4-5.1); Sodium 140 mmol/L (137-145); Total Protein 7.7 g/dL (6.3-8.2)
[2025-10-18 10:57] LABS: Hypochromasia 1+; Microcytosis 2+
[2025-10-18 11:34] LABS: Vitamin D 25 Hydroxy (D3) 18.8 ng/mL (30.0-100.0)
== END ==
PROVIDERS: PCP Family Medicine; Referring Provider Family Medicine; Visit Provider Family Medicine
DX: E11.9 Type 2 diabetes mellitus without complications (principal); I10 Essential (primary) hypertension; R26.89 Other abnormalities of gait and mobility; E55.9 Vitamin D deficiency, unspecified; E61.1 Iron deficiency
CPT/HCPCS: 36415; 80053; 82306; 83036; 85025

== ENCOUNTER → 2025-10-23 10:46 | Outpatient (CLI) | payer OTHER, SELFPAY ==
[2022-07-11 14:44] VITALS: BMI 35.9
--- NOTE | 2025-10-23 10:47 | DI.MG.S_ITS ---
MM screening mammo BI: 10/23/2025. BI-RADS: 2 CLINICAL: 60-year old female for bilateral screening mammogram. Tyrer-Cuzick lifetime risk of 5.4%. No personal or first-degree family history of breast cancer. The patient had a prior left breast biopsy. PRIOR EXAMS 04/13/2024, 04/10/2023, 03/29/2022, 03/29/2021. MAMMOGRAPHY TECHNIQUE: 2D and 3D (tomosynthesis) digital mammographic views obtained, with additional images as needed for full coverage. Current study was also evaluated with a Computer Aided Detection (CAD) system. DENSITY B. There are scattered areas of fibroglandular density. MAMMOGRAPHY FINDINGS Bilateral: Benign-appearing calcifications noted. Typically-benign vascular calcifications also noted. IMPRESSION: * No evidence of malignancy with benign findings. RECOMMENDATIONS Bilateral * Annual screening mammography. OVERALL ASSESSMENT CATEGORY BI-RADS-2: Benign. The [employer] recommends annual screening mammography beginning at age 40 for women with average risk of breast cancer. ELECTRONICALLY SIGNED: Paolo Adair M.D. on 10/25/2025 at 10:14:05 AM PT Interpreting Station ID: [id number]
== END ==
PROVIDERS: PCP Family Medicine; Referring Provider Family Medicine; Visit Provider Family Medicine
DX: Z12.31 Encounter for screening mammogram for malignant neoplasm of breast (principal)
CPT/HCPCS: 77063; 77067